=== PATIENT | male | born 1940 | race Caucasian/White ===

== ENCOUNTER 2018-07-26 13:45 | Inpatient (IN) | payer MEDICARE, SELFPAY ==
[2018-07-26] VITALS (12 sets, daily range): BP systolic 83–137; BP diastolic 43–65; PULSE 60–74; RESP 16–26; TEMP 35.6–37.9; O2SAT 90–98; BMI 29.8
--- NOTE | 2018-07-26 15:49 | DI.RAD.S_ITS ---
PROCEDURE: XR CHEST 1V INDICATIONS: suspected sepsis TECHNIQUE: One view of the chest was acquired. COMPARISON: None. FINDINGS: Surgical changes and devices: Left chest wall pacemaker leads are seen in the region of right atrium and right ventricle. Lungs and pleura: No pleural effusions or pneumothorax. Lungs are clear. Mediastinum: Mediastinal contours appear normal. Heart size is enlarged. Bones and chest wall: No suspicious bony lesions. Overlying soft tissues appear unremarkable. IMPRESSION: No acute cardiopulmonary pathology. Dictated by: Francois Quiles M.D. on 07/26/2018 at 16:07 Approved by: Francois Quiles M.D. on 07/26/2018 at 16:07
--- NOTE | 2018-07-26 16:21 | ED.MALEGU ---
HPI - Male Genitourinary General Chief complaint: Urogenital-Male Stated complaint: high temp, uti ? Time Seen by Provider: 07/26/18 16:12 Source: patient and family Mode of arrival: ambulatory Limitations: no limitations History of Present Illness HPI Narrative: Patient is a 77-year-old male who presents with fever and confusion today. He has been in and out of hospital to the [place] [facility]. Over last 2 and half weeks. He at some point started self cathing because he had urinary retention. I today he became quite confused thought that he had urinary retention they did a self cath he got 400 out. However she brought him to the ER for further evaluation because he also had a fever of 102. He said shaking and chills. He was out in the waiting room for some time however vitals were rechecked and blood pressure dropped to 85. He is sweaty and clammy at this time. He is awake alert and not confused at this time. He has no chest pain no cough no shortness of breath no abdominal pain nausea vomiting or diarrhea. Related Data Home Medications Medication Instructions Recorded Confirmed aspirin 81 mg PO DAILY #0 12/13/17 07/26/18 atorvastatin 40 mg PO DAILY #0 12/13/17 07/26/18 calcium carbonate-vitamin D3 1 cap PO QDAY #0 12/13/17 07/26/18 [Calcium 600 with Vitamin D3] cholecalciferol (vitamin D3) 2,000 unit PO QDAY #0 12/13/17 07/26/18 [Vitamin D3] cinnamon bark [Cinnamon] 500 mg PO DAILY #0 12/13/17 07/26/18 insulin glargine [Lantus U-100 54 unit SQ BEDTIME #0 12/13/17 07/26/18 Insulin] losartan 100 mg PO DAILY #0 12/13/17 07/26/18 lutein 6 mg PO QDAY #0 12/13/17 07/26/18 [id number]-mins 1 tab PO DAILY #0 12/13/17 07/26/18 [Thera M Plus (ferrous fumarat)] sennosides [Senna Lax] 8.6 mg PO BID PRN #0 12/13/17 07/26/18 finasteride 5 mg PO DAILY 07/26/18 07/26/18 tamsulosin 0.4 mg PO DAILY 07/26/18 07/26/18 Allergies Allergy/AdvReac Type Severity Reaction Status Date / Time caffeine [CAFFEINE] Allergy Unknown Unverified 07/26/18 19:39 Review of Systems Review of Systems All systems reviewed & are unremarkable except as noted in HPI and below Constitutional Reports body ache(s), Reports chills and Reports fever(s) Eyes Denies change in vision, Denies eye discharge, Denies irritation and Denies loss of vision Cardiovascular Denies chest pain, Denies irregular heart rhythm, Denies lightheadedness, Denies palpitations, Denies dyspnea, Denies dyspnea on exertion and Denies orthopnea Respiratory Denies cough, Denies dyspnea, Denies dyspnea on exertion and Denies wheezing Gastrointestinal Gastrointestinal: Denies abdominal pain, Denies change in bowel habits, Denies diarrhea, Denies nausea and Denies vomiting Genitourinary Reports as per HPI Musculoskeletal Denies back pain, Denies muscle weakness, Denies numbness and Denies tingling Neurologic Denies loss of vision, Denies numbness and Denies tingling Endocrine Denies palpitations Allergic/Immunologic Denies wheezing PFSH Medical History Acute urinary retention (Acute) Diabetes mellitus (Acute) Great toe amputation status (Acute) Hyperlipidemia (Acute) Hypertension (Acute) Surgical History History of permanent cardiac pacemaker placement (Acute) Family History Father Cancer Social History household members: spouse Smoking Status: Former smoker alcohol intake: former Exam Initial Vital Signs Initial Vital Signs: Vital Signs Temperature 98.1 F 07/26/18 13:48 Pulse Rate 64 07/26/18 13:48 Respiratory Rate 20 07/26/18 13:48 Blood Pressure 110/57 L 07/26/18 13:48 Pulse Oximetry 97 07/26/18 13:48 Course Orders Ordered: ED Orders 07/27/18 00:32 Consult to Respiratory Therapy Evaluate & Treat 07/27/18 04:55 Complete Blood Count AUTO DIFF Routine Comprehensive Metabolic Panel Routine Acetaminophen (Tylenol) 650 mg PO Q6HR PRN PRN Reason: As Needed for Fever/Mild Pain Last Admin: 07/26/18 23:53 Dose: 650 mg Hydrocodone Bitart/Acetaminophen ([place] 5/325) 1 tab PO Q4HR PRN PRN Reason: Pain, Moderate (4-6) Al Hydrox/Mg Hydrox/Simethicone (Maalox Plus) 30 ml PO Q6HR PRN PRN Reason: Dyspepsia Aspirin (Aspirin Ec) 81 mg PO DAILY [facility] Atorvastatin Calcium (Lipitor) 40 mg PO BEDTIME [facility] Last Admin: 07/26/18 21:21 Dose: 40 mg Calcium Carbonate (Tums) 1,000 mg PO Q4HR PRN PRN Reason: Dyspepsia Dextrose (D50w) 25 gm IV PRN PRN; Protocol PRN Reason: Hypoglycemia Docusate Sodium (Colace) 100 mg PO BID [facility] Last Admin: 07/26/18 21:21 Dose: 100 mg Enoxaparin Sodium (Lovenox) 40 mg SUBCUT DAILY [facility] Finasteride (Proscar) 5 mg PO BEDTIME [facility] Last Admin: 07/26/18 21:21 Dose: 5 mg Ceftriaxone Sodium/Dextrose (Rocephin) 1 gm in 50 mls @ 100 mls/hr IV Q24H [facility] Sodium Chloride (Normal Saline 0.9%) 1,000 mls @ 100 mls/hr IV CONT [facility] Last Admin: 07/27/18 03:32 Dose: 100 mls/hr Admin: 07/26/18 21:19 Dose: Insulin Aspart (Novolog Flexpen) 0 unit SUBCUT ACHS [facility]; Protocol Last Admin: 07/26/18 21:23 Dose: Not Given Insulin Glargine (Lantus Solostar (Pen)) 50 unit SUBCUT BEDTIME [facility] Last Admin: 07/26/18 21:24 Dose: 50 unit Lutein (Ocuvite/Lutein) 1 cap PO DAILY [facility] Morphine Sulfate (Morphine) 2 mg IV Q4HR PRN PRN Reason: Pain, Moderate (4-6) Ondansetron HCl (Zofran) 4 mg IV Q8HR PRN PRN Reason: Nausea And Vomiting Tamsulosin HCl (Flomax) 0.4 mg PO DAILY [facility] Discontinued Medications Sodium Chloride (Normal Saline 0.9%) 1,000 mls @ 1,000 mls/hr IV BOLUS ONE Stop: 07/26/18 16:48 Last Infusion: 07/26/18 17:52 Dose: 0 mls/hr Admin: 07/26/18 16:35 Dose: 1,000 mls/hr Sodium Chloride (Normal Saline 0.9%) 1,000 mls @ 1,000 mls/hr IV BOLUS ONE Stop: 07/26/18 17:11 Last Infusion: 07/26/18 18:38 Dose: 0 mls/hr Admin: 07/26/18 16:40 Dose: 1,000 mls/hr Ceftriaxone Sodium/Dextrose (Rocephin) 1 gm in 50 mls @ 100 mls/hr IV NOW ONE Stop: 07/26/18 17:42 Last Infusion: 07/26/18 17:52 Dose: 0 mls/hr Admin: 07/26/18 17:19 Dose: 100 mls/hr Sodium Chloride (Normal Saline 0.9%) 1,000 mls @ 125 mls/hr IV CONT ABIODUN Last Infusion: 07/26/18 20:16 Dose: 100 mls/hr Admin: 07/26/18 18:05 Dose: 125 mls/hr Vital Signs - 8 hr 07/26/18 23:50 07/26/18 23:53 07/27/18 00:00 Temperature 100.3 F H 100.3 F H Pulse Rate 74 68 Respiratory Rate 20 Blood Pressure 148/49 H Pulse Oximetry 91 07/27/18 00:17 07/27/18 00:42 07/27/18 02:01 Temperature 101.9 F H 98.9 F Pulse Rate 68 Respiratory Rate 16 Blood Pressure Pulse Oximetry 86 L 92 07/27/18 02:02 07/27/18 04:29 Temperature 98.9 F 98.7 F Pulse Rate 60 60 Respiratory Rate 16 20 Blood Pressure 122/49 L Pulse Oximetry 98 100 MDM - Male Genitourinary Lab Data Attestation: I reviewed the patient's lab results. Result diagrams: 07/27/18 04:55 07/27/18 04:55 Lab Results 07/26/18 07/26/18 07/26/18 Range/Units 16:08 16:08 16:08 WBC 11.1 H (4.5-11.0) X10^3/uL RBC 4.19 L (4.5-5.9) X10^6/uL Hgb 11.7 L (13.5-17.5) g/dL Hct 34.6 L (41-53) % MCV 82.6 (80-100) fL MCH 27.9 (26-34) PG MCHC 33.8 (30-36) % RDW 15.3 H (11.6-14.8) % Plt Count 122 L (150-400) X10^3/uL Neut % (Auto) 84.8 H (50-75) % Lymph % (Auto) 6.7 L (25-40) % [place] % (Auto) 8.2 (3-14) % Eos % (Auto) 0.0 L (2-4) % Baso % (Auto) 0.3 (0-2) % Neut # (Auto) 9400 H (9735-6909) /uL PT 11.6 (10.1-12.7) SECONDS INR 1.1 (0.9-1.3) APTT 30 (26.4-36.2) SECONDS Sodium (137-145) mmol/L Potassium (3.4-5.1) mmol/L Chloride (98-107) mmol/L Carbon Dioxide (22-32) mmol/L BUN (9-20) mg/dL Creatinine (0.66-1.25) mg/dL Estimated GFR (>60) mL/min BUN/Creatinine Ratio (6-22) Glucose (80-110) mg/dL Hemoglobin A1c (4.0-6.0) % Lactate (0.7-2.1) mmol/L Calcium (8.4-10.2) mg/dL Total Bilirubin (0.2-1.3) mg/dL AST (17-59) IU/L ALT (21-72) IU/L Alkaline Phosphatase (38-126) U/L Total Protein (6.3-8.2) g/dL Albumin (3.5-5.0) g/dL Globulin (1.7-4.1) g/dL Albumin/Globulin Ratio (1.0-2.8) Lipase (23-300) U/L Procalcitonin 0.93 H (<0.5) ng/mL Urine RBC (0-5/HPF) Urine WBC (0-5/HPF) Ur Squamous Epith Cells Amorphous Sediment Urine Bacteria (None) Ur Culture Indicated? Micro UA Comment Nasal Screen MRSA (PCR) (Negative) 07/26/18 07/26/18 07/26/18 Range/Units 16:08 16:08 16:08 WBC (4.5-11.0) X10^3/uL RBC (4.5-5.9) X10^6/uL Hgb (13.5-17.5) g/dL Hct (41-53) % MCV (80-100) fL MCH (26-34) PG MCHC (30-36) % RDW (11.6-14.8) % Plt Count (150-400) X10^3/uL Neut % (Auto) (50-75) % Lymph % (Auto) (25-40) % [place] % (Auto) (3-14) % Eos % (Auto) (2-4) % Baso % (Auto) (0-2) % Neut # (Auto) (8765-5578) /uL PT (10.1-12.7) SECONDS INR (0.9-1.3) APTT (26.4-36.2) SECONDS Sodium 137 (137-145) mmol/L Potassium 4.0 (3.4-5.1) mmol/L Chloride 99 (98-107) mmol/L Carbon Dioxide 23 (22-32) mmol/L BUN 39 H (9-20) mg/dL Creatinine 1.80 H (0.66-1.25) mg/dL Estimated GFR 36.6 L (>60) mL/min BUN/Creatinine Ratio 21.7 (6-22) Glucose 105 (80-110) mg/dL Hemoglobin A1c 8.8 H (4.0-6.0) % Lactate 1.6 (0.7-2.1) mmol/L Calcium 8.7 (8.4-10.2) mg/dL Total Bilirubin 2.0 H (0.2-1.3) mg/dL AST 49 (17-59) IU/L ALT 41 (21-72) IU/L Alkaline Phosphatase 45 (38-126) U/L Total Protein 6.5 (6.3-8.2) g/dL Albumin 3.7 (3.5-5.0) g/dL Globulin 2.8 (1.7-4.1) g/dL Albumin/Globulin Ratio 1.3 (1.0-2.8) Lipase 41 (23-300) U/L Procalcitonin (<0.5) ng/mL Urine RBC (0-5/HPF) Urine WBC (0-5/HPF) Ur Squamous Epith Cells Amorphous Sediment Urine Bacteria (None) Ur Culture Indicated? Micro UA Comment Nasal Screen MRSA (PCR) (Negative) 07/26/18 07/26/18 07/27/18 Range/Units 17:06 21:30 04:55 WBC 8.6 (4.5-11.0) X10^3/uL RBC 3.71 L (4.5-5.9) X10^6/uL Hgb 10.7 L (13.5-17.5) g/dL Hct 30.6 L (41-53) % MCV 82.6 (80-100) fL MCH 28.9 (26-34) PG MCHC 35.1 (30-36) % RDW 15.0 H (11.6-14.8) % Plt Count 119 L (150-400) X10^3/uL Neut % (Auto) 82.0 H (50-75) % Lymph % (Auto) 7.9 L (25-40) % [place] % (Auto) 9.5 (3-14) % Eos % (Auto) 0.4 L (2-4) % Baso % (Auto) 0.2 (0-2) % Neut # (Auto) 7100 H (3719-4164) /uL PT (10.1-12.7) SECONDS INR (0.9-1.3) APTT (26.4-36.2) SECONDS Sodium (137-145) mmol/L Potassium (3.4-5.1) mmol/L Chloride (98-107) mmol/L Carbon Dioxide (22-32) mmol/L BUN (9-20) mg/dL Creatinine (0.66-1.25) mg/dL Estimated GFR (>60) mL/min BUN/Creatinine Ratio (6-22) Glucose (80-110) mg/dL Hemoglobin A1c (4.0-6.0) % Lactate (0.7-2.1) mmol/L Calcium (8.4-10.2) mg/dL Total Bilirubin (0.2-1.3) mg/dL AST (17-59) IU/L ALT (21-72) IU/L Alkaline Phosphatase (38-126) U/L Total Protein (6.3-8.2) g/dL Albumin (3.5-5.0) g/dL Globulin (1.7-4.1) g/dL Albumin/Globulin Ratio (1.0-2.8) Lipase (23-300) U/L Procalcitonin (<0.5) ng/mL Urine RBC 1-5/hpf (0-5/HPF) Urine WBC 0-1/hpf (0-5/HPF) Ur Squamous Epith Cells 0-1 /hpf Amorphous Sediment 1+ Urine Bacteria None seen (None) Ur Culture Indicated? Cult not indicated Micro UA Comment Not Reportable Nasal Screen MRSA (PCR) Negative for mrsa (Negative) 07/27/18 Range/Units 04:55 WBC (4.5-11.0) X10^3/uL RBC (4.5-5.9) X10^6/uL Hgb (13.5-17.5) g/dL Hct (41-53) % MCV (80-100) fL MCH (26-34) PG MCHC (30-36) % RDW (11.6-14.8) % Plt Count (150-400) X10^3/uL Neut % (Auto) (50-75) % Lymph % (Auto) (25-40) % [place] % (Auto) (3-14) % Eos % (Auto) (2-4) % Baso % (Auto) (0-2) % Neut # (Auto) (9853-2971) /uL PT (10.1-12.7) SECONDS INR (0.9-1.3) APTT (26.4-36.2) SECONDS Sodium 138 (137-145) mmol/L Potassium 3.7 (3.4-5.1) mmol/L Chloride 106 (98-107) mmol/L Carbon Dioxide 22 (22-32) mmol/L BUN 33 H (9-20) mg/dL Creatinine 1.50 H (0.66-1.25) mg/dL Estimated GFR 45.1 L (>60) mL/min BUN/Creatinine Ratio 22.0 (6-22) Glucose 95 (80-110) mg/dL Hemoglobin A1c (4.0-6.0) % Lactate (0.7-2.1) mmol/L Calcium 7.7 L (8.4-10.2) mg/dL Total Bilirubin 1.3 (0.2-1.3) mg/dL AST 47 (17-59) IU/L ALT 45 (21-72) IU/L Alkaline Phosphatase 43 (38-126) U/L Total Protein 5.4 L (6.3-8.2) g/dL Albumin 2.8 L (3.5-5.0) g/dL Globulin 2.6 (1.7-4.1) g/dL Albumin/Globulin Ratio 1.1 (1.0-2.8) Lipase (23-300) U/L Procalcitonin (<0.5) ng/mL Urine RBC (0-5/HPF) Urine WBC (0-5/HPF) Ur Squamous Epith Cells Amorphous Sediment Urine Bacteria (None) Ur Culture Indicated? Micro UA Comment Nasal Screen MRSA (PCR) (Negative) Point of Care Testing Glucose POC 119 Urine Dip Bedside Urine Glucose Negative Bedside Urine Bilirubin - Negative Bedside Urine Ketone - Negative Urine Specific [place] 1.015 Bedside Urine Occult Blood +++ Bedside Urine pH 6.0 Bedside Urine Protein +/- 15 Bedside Urine Urobilinogen - Negative Bedside Urine Nitrite - Negative Bedside Urine Leukocytes - Negative Esterase MDM Narrative Medical decision making narrative: Patient initially was quite hypotensive but responded well to fluids. He has a normal lactic acid mild leukocytosis and however is procalcitonin is elevated. Urine and chest x-ray are surprisingly negative. Patient likely has a bacterial infection. He has no headache or neck pain I do not suspect meningitis. His abdomen remains soft. At this time recommend observation. He has no clear source of infection he was hypotensive and has an elevated pro calcitonin suggestive of bacterial infection. Possible prostatitis. He also has risk factors of diabetes recent hospitalization. Still awaiting [facility] records. Dr. Paitner has been updated on patient's symptoms and test results and is in the emergency department to see and evaluate him. Discharge Plan Departure Patient Disposition: Admitted as Observation Clinical Impression: Sepsis Discharge Date/Time: 07/26/18 19:55 Interventions: ED Discharge Assessment Last Done: 07/26/18 19:55 Admit Date/Time: 07/26/18 18:11 Admit Provider: Sahara Painter
[2018-07-26 16:22] LABS: Add Manual Diff / Slide Review NO; Basophils Percent Auto 0.3 % (0-2); Hematocrit 34.6 % (41-53); Hemoglobin 11.7 g/dL (13.5-17.5); Lymphocytes Percent Auto 6.7 % (25-40); Mean Corpuscular HGB Conc 33.8 % (30-36); Mean Corpuscular Hemoglobin 27.9 PG (26-34); Mean Corpuscular Volume 82.6 fL (80-100); Monocytes Percent Auto 8.2 % (3-14); Neutrophils Absolute Auto 9400 /uL (3000-5900); Neutrophils Percent Auto 84.8 % (50-75); Platelet Count 122 X10^3/uL (150-400); Red Blood Cell Count 4.19 X10^6/uL (4.5-5.9); Red Cell Distribution Width 15.3 % (11.6-14.8); White Blood Cell Count 11.1 X10^3/uL (4.5-11.0)
[2018-07-26 16:27] LABS: INR 1.1 (0.9-1.3); Prothrombin Time 11.6 SECONDS (10.1-12.7)
--- NOTE | 2018-07-26 16:27 | ED_ITS ---
HPI - Male Genitourinary General Chief complaint: Urogenital-Male Stated complaint: high temp, uti ? Time Seen by Provider: 07/26/18 16:12 Source: patient and family Mode of arrival: ambulatory Limitations: no limitations History of Present Illness HPI Narrative: Patient is a 77-year-old male who presents with fever and confusion today. He has been in and out of hospital to the [place] and [facility]. Over last 2 and half weeks. He at some point started self cathing because he had urinary retention. I today he became quite confused thought that he had urinary retention they did a self cath he got 400 out. However she brought him to the ER for further evaluation because he also had a fever of 102. He said shaking and chills. He was out in the waiting room for some time however vitals were rechecked and blood pressure dropped to 85. He is sweaty and clammy at this time. He is awake alert and not confused at this time. He has no chest pain no cough no shortness of breath no abdominal pain nausea vomiting or diarrhea. Related Data Home Medications Medication Instructions Recorded Confirmed aspirin 81 mg PO DAILY #0 12/13/17 07/26/18 atorvastatin 40 mg PO DAILY #0 12/13/17 07/26/18 calcium carbonate-vitamin D3 1 cap PO QDAY #0 12/13/17 07/26/18 [Calcium 600 with Vitamin D3] cholecalciferol (vitamin D3) 2,000 unit PO QDAY #0 12/13/17 07/26/18 [Vitamin D3] cinnamon bark [Cinnamon] 500 mg PO DAILY #0 12/13/17 07/26/18 insulin glargine [Lantus U-100 54 unit SQ BEDTIME #0 12/13/17 07/26/18 Insulin] losartan 100 mg PO DAILY #0 12/13/17 07/26/18 lutein 6 mg PO QDAY #0 12/13/17 07/26/18 sfhnssmw-srnf-IZ-calcium-mins 1 tab PO DAILY #0 12/13/17 07/26/18 [Thera M Plus (ferrous fumarat)] sennosides [Senna Lax] 8.6 mg PO BID PRN #0 12/13/17 07/26/18 finasteride 5 mg PO DAILY 07/26/18 07/26/18 tamsulosin 0.4 mg PO DAILY 07/26/18 07/26/18 Allergies Allergy/AdvReac Type Severity Reaction Status Date / Time caffeine [CAFFEINE] Allergy Unknown Unverified 07/26/18 19:39 Review of Systems Review of Systems All systems reviewed & are unremarkable except as noted in HPI and below Constitutional Reports body ache(s), Reports chills and Reports fever(s) Eyes Denies change in vision, Denies eye discharge, Denies irritation and Denies loss of vision Cardiovascular Denies chest pain, Denies irregular heart rhythm, Denies lightheadedness, Denies palpitations, Denies dyspnea, Denies dyspnea on exertion and Denies orthopnea Respiratory Denies cough, Denies dyspnea, Denies dyspnea on exertion and Denies wheezing Gastrointestinal Gastrointestinal: Denies abdominal pain, Denies change in bowel habits, Denies diarrhea, Denies nausea and Denies vomiting Genitourinary Reports as per HPI Musculoskeletal Denies back pain, Denies muscle weakness, Denies numbness and Denies tingling Neurologic Denies loss of vision, Denies numbness and Denies tingling Endocrine Denies palpitations Allergic/Immunologic Denies wheezing PFSH Medical History Acute urinary retention (Acute) Diabetes mellitus (Acute) Great toe amputation status (Acute) Hyperlipidemia (Acute) Hypertension (Acute) Surgical History History of permanent cardiac pacemaker placement (Acute) Family History Father Cancer Social History household members: spouse Smoking Status: Former smoker alcohol intake: former Exam Initial Vital Signs Initial Vital Signs: Vital Signs Temperature 98.1 F 07/26/18 13:48 Pulse Rate 64 07/26/18 13:48 Respiratory Rate 20 07/26/18 13:48 Blood Pressure 110/57 L 07/26/18 13:48 Pulse Oximetry 97 07/26/18 13:48 Course Orders Ordered: ED Orders 07/27/18 00:32 Consult to Respiratory Therapy Evaluate & Treat 07/27/18 04:55 Complete Blood Count AUTO DIFF Routine Comprehensive Metabolic Panel Routine Acetaminophen (Tylenol) 650 mg PO Q6HR PRN PRN Reason: As Needed for Fever/Mild Pain Last Admin: 07/26/18 23:53 Dose: 650 mg Hydrocodone Bitart/Acetaminophen (Mcnabb 5/325) 1 tab PO Q4HR PRN PRN Reason: Pain, Moderate (4-6) Al Hydrox/Mg Hydrox/Simethicone (Maalox Plus) 30 ml PO Q6HR PRN PRN Reason: Dyspepsia Aspirin (Aspirin Ec) 81 mg PO DAILY [facility] Atorvastatin Calcium (Lipitor) 40 mg PO BEDTIME [facility] Last Admin: 07/26/18 21:21 Dose: 40 mg Calcium Carbonate (Tums) 1,000 mg PO Q4HR PRN PRN Reason: Dyspepsia Dextrose (D50w) 25 gm IV PRN PRN; Protocol PRN Reason: Hypoglycemia Docusate Sodium (Colace) 100 mg PO BID [facility] Last Admin: 07/26/18 21:21 Dose: 100 mg Enoxaparin Sodium (Lovenox) 40 mg SUBCUT DAILY [facility] Finasteride (Proscar) 5 mg PO BEDTIME [facility] Last Admin: 07/26/18 21:21 Dose: 5 mg Ceftriaxone Sodium/Dextrose (Rocephin) 1 gm in 50 mls @ 100 mls/hr IV Q24H [facility] Sodium Chloride (Normal Saline 0.9%) 1,000 mls @ 100 mls/hr IV CONT [facility] Last Admin: 07/27/18 03:32 Dose: 100 mls/hr Admin: 07/26/18 21:19 Dose: Insulin Aspart (Novolog Flexpen) 0 unit SUBCUT ACHS [facility]; Protocol Last Admin: 07/26/18 21:23 Dose: Not Given Insulin Glargine (Lantus Solostar (Pen)) 50 unit SUBCUT BEDTIME [facility] Last Admin: 07/26/18 21:24 Dose: 50 unit Lutein (Ocuvite/Lutein) 1 cap PO DAILY [facility] Morphine Sulfate (Morphine) 2 mg IV Q4HR PRN PRN Reason: Pain, Moderate (4-6) Ondansetron HCl (Zofran) 4 mg IV Q8HR PRN PRN Reason: Nausea And Vomiting Tamsulosin HCl (Flomax) 0.4 mg PO DAILY [facility] Discontinued Medications Sodium Chloride (Normal Saline 0.9%) 1,000 mls @ 1,000 mls/hr IV BOLUS ONE Stop: 07/26/18 16:48 Last Infusion: 07/26/18 17:52 Dose: 0 mls/hr Admin: 07/26/18 16:35 Dose: 1,000 mls/hr Sodium Chloride (Normal Saline 0.9%) 1,000 mls @ 1,000 mls/hr IV BOLUS ONE Stop: 07/26/18 17:11 Last Infusion: 07/26/18 18:38 Dose: 0 mls/hr Admin: 07/26/18 16:40 Dose: 1,000 mls/hr Ceftriaxone Sodium/Dextrose (Rocephin) 1 gm in 50 mls @ 100 mls/hr IV NOW ONE Stop: 07/26/18 17:42 Last Infusion: 07/26/18 17:52 Dose: 0 mls/hr Admin: 07/26/18 17:19 Dose: 100 mls/hr Sodium Chloride (Normal Saline 0.9%) 1,000 mls @ 125 mls/hr IV CONT ABIODUN Last Infusion: 07/26/18 20:16 Dose: 100 mls/hr Admin: 07/26/18 18:05 Dose: 125 mls/hr Vital Signs - 8 hr 07/26/18 23:50 07/26/18 23:53 07/27/18 00:00 Temperature 100.3 F H 100.3 F H Pulse Rate 74 68 Respiratory Rate 20 Blood Pressure 148/49 H Pulse Oximetry 91 07/27/18 00:17 07/27/18 00:42 07/27/18 02:01 Temperature 101.9 F H 98.9 F Pulse Rate 68 Respiratory Rate 16 Blood Pressure Pulse Oximetry 86 L 92 07/27/18 02:02 07/27/18 04:29 Temperature 98.9 F 98.7 F Pulse Rate 60 60 Respiratory Rate 16 20 Blood Pressure 122/49 L Pulse Oximetry 98 100 MDM - Male Genitourinary Lab Data Attestation: I reviewed the patient's lab results. Result diagrams: 07/27/18 04:55 07/27/18 04:55 Lab Results 07/26/18 07/26/18 07/26/18 Range/Units 16:08 16:08 16:08 WBC 11.1 H (4.5-11.0) X10^3/uL RBC 4.19 L (4.5-5.9) X10^6/uL Hgb 11.7 L (13.5-17.5) g/dL Hct 34.6 L (41-53) % MCV 82.6 (80-100) fL MCH 27.9 (26-34) PG MCHC 33.8 (30-36) % RDW 15.3 H (11.6-14.8) % Plt Count 122 L (150-400) X10^3/uL Neut % (Auto) 84.8 H (50-75) % Lymph % (Auto) 6.7 L (25-40) % [place] % (Auto) 8.2 (3-14) % Eos % (Auto) 0.0 L (2-4) % Baso % (Auto) 0.3 (0-2) % Neut # (Auto) 9400 H (2527-9047) /uL PT 11.6 (10.1-12.7) SECONDS INR 1.1 (0.9-1.3) APTT 30 (26.4-36.2) SECONDS Sodium (137-145) mmol/L Potassium (3.4-5.1) mmol/L Chloride (98-107) mmol/L Carbon Dioxide (22-32) mmol/L BUN (9-20) mg/dL Creatinine (0.66-1.25) mg/dL Estimated GFR (>60) mL/min BUN/Creatinine Ratio (6-22) Glucose (80-110) mg/dL Hemoglobin A1c (4.0-6.0) % Lactate (0.7-2.1) mmol/L Calcium (8.4-10.2) mg/dL Total Bilirubin (0.2-1.3) mg/dL AST (17-59) IU/L ALT (21-72) IU/L Alkaline Phosphatase (38-126) U/L Total Protein (6.3-8.2) g/dL Albumin (3.5-5.0) g/dL Globulin (1.7-4.1) g/dL Albumin/Globulin Ratio (1.0-2.8) Lipase (23-300) U/L Procalcitonin 0.93 H (<0.5) ng/mL Urine RBC (0-5/HPF) Urine WBC (0-5/HPF) Ur Squamous Epith Cells Amorphous Sediment Urine Bacteria (None) Ur Culture Indicated? Micro UA Comment Nasal Screen MRSA (PCR) (Negative) 07/26/18 07/26/18 07/26/18 Range/Units 16:08 16:08 16:08 WBC (4.5-11.0) X10^3/uL RBC (4.5-5.9) X10^6/uL Hgb (13.5-17.5) g/dL Hct (41-53) % MCV (80-100) fL MCH (26-34) PG MCHC (30-36) % RDW (11.6-14.8) % Plt Count (150-400) X10^3/uL Neut % (Auto) (50-75) % Lymph % (Auto) (25-40) % [place] % (Auto) (3-14) % Eos % (Auto) (2-4) % Baso % (Auto) (0-2) % Neut # (Auto) (5239-5084) /uL PT (10.1-12.7) SECONDS INR (0.9-1.3) APTT (26.4-36.2) SECONDS Sodium 137 (137-145) mmol/L Potassium 4.0 (3.4-5.1) mmol/L Chloride 99 (98-107) mmol/L Carbon Dioxide 23 (22-32) mmol/L BUN 39 H (9-20) mg/dL Creatinine 1.80 H (0.66-1.25) mg/dL Estimated GFR 36.6 L (>60) mL/min BUN/Creatinine Ratio 21.7 (6-22) Glucose 105 (80-110) mg/dL Hemoglobin A1c 8.8 H (4.0-6.0) % Lactate 1.6 (0.7-2.1) mmol/L Calcium 8.7 (8.4-10.2) mg/dL Total Bilirubin 2.0 H (0.2-1.3) mg/dL AST 49 (17-59) IU/L ALT 41 (21-72) IU/L Alkaline Phosphatase 45 (38-126) U/L Total Protein 6.5 (6.3-8.2) g/dL Albumin 3.7 (3.5-5.0) g/dL Globulin 2.8 (1.7-4.1) g/dL Albumin/Globulin Ratio 1.3 (1.0-2.8) Lipase 41 (23-300) U/L Procalcitonin (<0.5) ng/mL Urine RBC (0-5/HPF) Urine WBC (0-5/HPF) Ur Squamous Epith Cells Amorphous Sediment Urine Bacteria (None) Ur Culture Indicated? Micro UA Comment Nasal Screen MRSA (PCR) (Negative) 07/26/18 07/26/18 07/27/18 Range/Units 17:06 21:30 04:55 WBC 8.6 (4.5-11.0) X10^3/uL RBC 3.71 L (4.5-5.9) X10^6/uL Hgb 10.7 L (13.5-17.5) g/dL Hct 30.6 L (41-53) % MCV 82.6 (80-100) fL MCH 28.9 (26-34) PG MCHC 35.1 (30-36) % RDW 15.0 H (11.6-14.8) % Plt Count 119 L (150-400) X10^3/uL Neut % (Auto) 82.0 H (50-75) % Lymph % (Auto) 7.9 L (25-40) % [place] % (Auto) 9.5 (3-14) % Eos % (Auto) 0.4 L (2-4) % Baso % (Auto) 0.2 (0-2) % Neut # (Auto) 7100 H (5079-7019) /uL PT (10.1-12.7) SECONDS INR (0.9-1.3) APTT (26.4-36.2) SECONDS Sodium (137-145) mmol/L Potassium (3.4-5.1) mmol/L Chloride (98-107) mmol/L Carbon Dioxide (22-32) mmol/L BUN (9-20) mg/dL Creatinine (0.66-1.25) mg/dL Estimated GFR (>60) mL/min BUN/Creatinine Ratio (6-22) Glucose (80-110) mg/dL Hemoglobin A1c (4.0-6.0) % Lactate (0.7-2.1) mmol/L Calcium (8.4-10.2) mg/dL Total Bilirubin (0.2-1.3) mg/dL AST (17-59) IU/L ALT (21-72) IU/L Alkaline Phosphatase (38-126) U/L Total Protein (6.3-8.2) g/dL Albumin (3.5-5.0) g/dL Globulin (1.7-4.1) g/dL Albumin/Globulin Ratio (1.0-2.8) Lipase (23-300) U/L Procalcitonin (<0.5) ng/mL Urine RBC 1-5/hpf (0-5/HPF) Urine WBC 0-1/hpf (0-5/HPF) Ur Squamous Epith Cells 0-1 /hpf Amorphous Sediment 1+ Urine Bacteria None seen (None) Ur Culture Indicated? Cult not indicated Micro UA Comment Not Reportable Nasal Screen MRSA (PCR) Negative for mrsa (Negative) 07/27/18 Range/Units 04:55 WBC (4.5-11.0) X10^3/uL RBC (4.5-5.9) X10^6/uL Hgb (13.5-17.5) g/dL Hct (41-53) % MCV (80-100) fL MCH (26-34) PG MCHC (30-36) % RDW (11.6-14.8) % Plt Count (150-400) X10^3/uL Neut % (Auto) (50-75) % Lymph % (Auto) (25-40) % [place] % (Auto) (3-14) % Eos % (Auto) (2-4) % Baso % (Auto) (0-2) % Neut # (Auto) (6922-8201) /uL PT (10.1-12.7) SECONDS INR (0.9-1.3) APTT (26.4-36.2) SECONDS Sodium 138 (137-145) mmol/L Potassium 3.7 (3.4-5.1) mmol/L Chloride 106 (98-107) mmol/L Carbon Dioxide 22 (22-32) mmol/L BUN 33 H (9-20) mg/dL Creatinine 1.50 H (0.66-1.25) mg/dL Estimated GFR 45.1 L (>60) mL/min BUN/Creatinine Ratio 22.0 (6-22) Glucose 95 (80-110) mg/dL Hemoglobin A1c (4.0-6.0) % Lactate (0.7-2.1) mmol/L Calcium 7.7 L (8.4-10.2) mg/dL Total Bilirubin 1.3 (0.2-1.3) mg/dL AST 47 (17-59) IU/L ALT 45 (21-72) IU/L Alkaline Phosphatase 43 (38-126) U/L Total Protein 5.4 L (6.3-8.2) g/dL Albumin 2.8 L (3.5-5.0) g/dL Globulin 2.6 (1.7-4.1) g/dL Albumin/Globulin Ratio 1.1 (1.0-2.8) Lipase (23-300) U/L Procalcitonin (<0.5) ng/mL Urine RBC (0-5/HPF) Urine WBC (0-5/HPF) Ur Squamous Epith Cells Amorphous Sediment Urine Bacteria (None) Ur Culture Indicated? Micro UA Comment Nasal Screen MRSA (PCR) (Negative) Point of Care Testing Glucose POC 119 Urine Dip Bedside Urine Glucose Negative Bedside Urine Bilirubin - Negative Bedside Urine Ketone - Negative Urine Specific [place] 1.015 Bedside Urine Occult Blood +++ Bedside Urine pH 6.0 Bedside Urine Protein +/- 15 Bedside Urine Urobilinogen - Negative Bedside Urine Nitrite - Negative Bedside Urine Leukocytes - Negative Esterase MDM Narrative Medical decision making narrative: Patient initially was quite hypotensive but responded well to fluids. He has a normal lactic acid mild leukocytosis and however is procalcitonin is elevated. Urine and chest x-ray are surprisingly negative. Patient likely has a bacterial infection. He has no headache or neck pain I do not suspect meningitis. His abdomen remains soft. At this time recommend observation. He has no clear source of infection he was hypotensive and has an elevated pro calcitonin suggestive of bacterial infection. Possible prostatitis. He also has risk factors of diabetes recent hospitalization. Still awaiting [facility] records. Dr. Painter has been updated on patient's symptoms and test results and is in the emergency department to see and evaluate him. Discharge Plan Departure Patient Disposition: Admitted as Observation Clinical Impression: Sepsis Discharge Date/Time: 07/26/18 19:55 Interventions: ED Discharge Assessment Last Done: 07/26/18 19:55 Admit Date/Time: 07/26/18 18:11 Admit Provider: Sahara Painter
[2018-07-26 16:29] LABS: PTT Partial Thromboplastin Tim 30 SECONDS (26.4-36.2)
[2018-07-26 16:33] LABS: Lactate (Lactic Acid) 1.6 mmol/L (0.7-2.1)
[2018-07-26 16:34] LABS: Alanine Aminotransferase 41 IU/L (21-72); Albumin 3.7 g/dL (3.5-5.0); Albumin Globulin Ratio 1.3 (1.0-2.8); Alkaline Phosphatase 45 U/L (38-126); Aspartate Aminotransferase 49 IU/L (17-59); BUN Creatinine Ratio 21.7 (6-22); Blood Urea Nitrogen 39 mg/dL (9-20); Calcium 8.7 mg/dL (8.4-10.2); Carbon Dioxide 23 mmol/L (22-32); Chloride 99 mmol/L (98-107); Estimated Glomerular Filt Rate 36.6 mL/min (>60); Globulin 2.8 g/dL (1.7-4.1); Glucose 105 mg/dL (80-110); HEMOLYSIS < 15 (0-50); Lipase 41 U/L (23-300); Sodium 137 mmol/L (137-145); Total Protein 6.5 g/dL (6.3-8.2)
[2018-07-26] MEDS: SODIUM CHLORIDE 0.9% 1,000 ML 1000 ML IV ×2 (16:35→16:40)
--- NOTE | 2018-07-26 16:42 | PC.NURSE ---
Pt c/o confusion, and weakness. States it started 3 weeks ago and has not really changed. Spouse states she noticed it worse yesterday and compared it to Alzheimer like behavior. Pt denies urinary symptoms but he has been self catheterizing for 1 week.
[2018-07-26 16:52] LABS: Procalcitonin 0.93 ng/mL (<0.5)
[2018-07-26] MEDS: CEFTRIAXONE 1 GM/50 ML FROZ.PIGGY IV (17:19)
[2018-07-26 17:20] LABS: Bacteria Urine None Seen
[2018-07-26] MEDS: SODIUM CHLORIDE 0.9% 1,000 ML 125 ML IV (18:05)
[2018-07-26 18:13] LABS: Amorphous Sediment Urine 1+; Culture Indicated Urine Cult Not Indicated; RBC Urine 1-5/HPF (0-5/HPF); Squamous Epithelial Cell Urine 0-1 /HPF; WBC Urine 0-1/HPF (0-5/HPF)
--- NOTE | 2018-07-26 18:52 | P.HP_ITS ---
History of Present Illness Date Patient Seen: 07/26/18 Chief complaint: high temp, uti ? Narrative: The patient is a 77 y/o male who was in his usual state of health until about 18 days ago. At that time he had confusion, developed urinary retention, initially had a leg bag then placed on intermittant catherization. The patient has had multiple visits to the ED/[facility] etc without conclusion. His reports that he developed shaking chills today, fever to 102 and confusion. He self cathed for 400cc. He was brought to the ED for evaluation. In the Emergency Department he was found to be hypotensive with a SBP of 80. The patient describes feeling weak and dizzy. According to his he is less responsive and quick to answer questions per his usual self. He has had no cough , shortness of breath, or chest pain. He had some vomiting a few days ago but none today. The patient has no rashes, reports some toe pain, but no vomiting of blood, blood from his bottom , melena, hematuria, dysuria, or pyuria. He has no back pain. Patient was found to have an elevated WBC of 11, CRP of .9, negative chest xray, and negative U/A. Given the fever, elevated , white count patient is admitted for presumed sepsis Patient History Medical History Acute urinary retention (Acute) Diabetes mellitus (Acute) Great toe amputation status (Acute) Hyperlipidemia (Acute) Hypertension (Acute) Surgical History History of permanent cardiac pacemaker placement (Acute) Family & Social History Safety & Behavioral: Feels Safe in Current Yes Environment Tobacco & Substance use: Smoking Status Former smoker alcohol intake frequency holiday/special occasion Substance Use Type does not use Meds Home Medications Medication Instructions Recorded Confirmed Type aspirin 81 mg PO DAILY #0 12/13/17 07/26/18 History atorvastatin 40 mg PO DAILY #0 12/13/17 07/26/18 History calcium carbonate-vitamin D3 1 cap PO QDAY #0 12/13/17 07/26/18 History [Calcium 600 with Vitamin D3] cholecalciferol (vitamin D3) 2,000 unit PO QDAY #0 12/13/17 07/26/18 History [Vitamin D3] cinnamon bark [Cinnamon] 500 mg PO DAILY #0 12/13/17 07/26/18 History insulin glargine [Lantus U-100 54 unit SQ BEDTIME #0 12/13/17 07/26/18 History Insulin] losartan 100 mg PO DAILY #0 12/13/17 07/26/18 History lutein 6 mg PO QDAY #0 12/13/17 07/26/18 History nwrcumew-jgnh-BX-calcium-mins 1 tab PO DAILY #0 12/13/17 07/26/18 History [Thera M Plus (ferrous fumarat)] sennosides [Senna Lax] 8.6 mg PO BID PRN #0 12/13/17 07/26/18 History finasteride 5 mg PO DAILY 07/26/18 07/26/18 History tamsulosin 0.4 mg PO DAILY 07/26/18 07/26/18 History Allergies Allergy/AdvReac Type Severity Reaction Status Date / Time caffeine [CAFFEINE] Allergy Unknown Unverified 12/20/17 12:57 Review of Systems Review of Systems All systems reviewed & are unremarkable except as noted in HPI and below Exam Vital Signs (past 8 hours): - 07/26/18 13:48 07/26/18 15:52 07/26/18 17:51 Temperature 98.1 F 97.7 F Pulse Rate 64 63 64 Respiratory Rate 20 20 26 H Blood Pressure 110/57 L Blood Pressure [Right Arm] 83/50 L 133/59 L Pulse Oximetry 97 97 94 Oxygen Delivery Method Room Air Narrative Exam Narrative: Pleasant male in No Acute distress His face is flushed HEENT: NC/AT, EOMI, Oropharyx: clear, neck supple Lungs: clear to auscultation CV: RRR nl Sl S2 Abd: soft/ non tender non distended/ no palpable masses Ext: no edema NEuro: non focal Psych: awake, alert, and appropriate, oriented to place slow to respond to some questions Objective Labs Result Diagrams: 07/26/18 16:08 07/26/18 16:08 Labs: Laboratory Results - last 24 hr 07/26/18 07/26/18 07/26/18 16:08 16:08 16:08 WBC 11.1 H RBC 4.19 L Hgb 11.7 L Hct 34.6 L MCV 82.6 MCH 27.9 MCHC 33.8 RDW 15.3 H Plt Count 122 L Neut % (Auto) 84.8 H Lymph % (Auto) 6.7 L [place] % (Auto) 8.2 Eos % (Auto) 0.0 L Baso % (Auto) 0.3 Neut # (Auto) 9400 H PT 11.6 INR 1.1 APTT 30 Sodium Potassium Chloride Carbon Dioxide BUN Creatinine Estimated GFR BUN/Creatinine Ratio Glucose Lactate Calcium Total Bilirubin AST ALT Alkaline Phosphatase Total Protein Albumin Globulin Albumin/Globulin Ratio Lipase Procalcitonin 0.93 H Urine RBC Urine WBC Ur Squamous Epith Cells Amorphous Sediment Urine Bacteria Ur Culture Indicated? Micro UA Comment 07/26/18 07/26/18 07/26/18 16:08 16:08 17:06 WBC RBC Hgb Hct MCV MCH MCHC RDW Plt Count Neut % (Auto) Lymph % (Auto) [place] % (Auto) Eos % (Auto) Baso % (Auto) Neut # (Auto) PT INR APTT Sodium 137 Potassium 4.0 Chloride 99 Carbon Dioxide 23 BUN 39 H Creatinine 1.80 H Estimated GFR 36.6 L BUN/Creatinine Ratio 21.7 Glucose 105 Lactate 1.6 Calcium 8.7 Total Bilirubin 2.0 H AST 49 ALT 41 Alkaline Phosphatase 45 Total Protein 6.5 Albumin 3.7 Globulin 2.8 Albumin/Globulin Ratio 1.3 Lipase 41 Procalcitonin Urine RBC 1-5/hpf Urine WBC 0-1/hpf Ur Squamous Epith Cells 0-1 /hpf Amorphous Sediment 1+ Urine Bacteria None seen Ur Culture Indicated? Cult not indicated Micro UA Comment Not Reportable Assessment & Plan (1) Chronic renal failure, stage 2 (mild): Problem details: Chronic, once patients blood pressure improves will resume his RODGER-I Current visit: Yes Status: Acute (2) Hyperlipidemia: Problem details: Continue Statin Current visit: Yes Status: Acute (3) Hypertension: Problem details: Hold all blood pressure meds given hypotension earlier Current visit: Yes Status: Acute (4) Urinary retention: Problem details: Woodson catheter placed. No evidence of UTI at this time Current visit: Yes Status: Acute (5) Diabetes mellitus: Problem details: continue Lantus, will add sliding scale as well. Will check HGB AIC Current visit: Yes Status: Acute (6) Sepsis: Problem details: Elevated WBC, Fever, Chills, hypotension, no source identified but suspect urine. Agree with IV hydration, Ceftriaxone, Await blood cultures Qualifiers: Sepsis type: sepsis due to unspecified organism Qualified Code(s): A41.9 - Sepsis, unspecified organism Current visit: Yes Status: Acute Plan: Assessment/Plan Narrative: Full code
--- NOTE | 2018-07-26 20:22 | PC.NURSE ---
Pt admitted floor care in ICU. Transferred via stretcher. Alert, states was feeling confused earlier, but better now. Aware of situation/date/place. Denies pain upon admission. Reports history intermittent pain, left foot, where a toe was amputated (with revision amputation due to infection) this year. operations specialist on, pt has pacemaker-reports due to bradycardia/set at 65. IVF infusing w/o complication to right wrist per order. Woodson patent, urine yellow, [id number] out upon patient arrival from ER. Reports unable to focus/or see well from left eye, due to Bump on optic nerve. Instructed pt to call before getting up. Oriented to room and call light. Bed alarm on due to history of falls/vision impairment.
[2018-07-26 20:49] LABS: Hemoglobin A1C% w Est Avg Glu 8.8 % (4.0-6.0)
[2018-07-26] MEDS: ATORVASTATIN 20 MG TABLET 40 MG PO (21:21)
[2018-07-26] MEDS: FINASTERIDE 5 MG TABLET PO (21:21)
[2018-07-26] MEDS: DOCUSATE 100 MG CAPSULE PO (21:21)
[2018-07-26] MEDS: INSULIN GLARGINE 100 UNIT/ML 3ML PEN 50 UNIT SUBCUT (21:24)
--- NOTE | 2018-07-26 22:05 | PC.NURSE ---
damaso note pt alert/oriented to situation. Pt says he feels much improved, still feels weak. Glucose at hs was 110. pt drank a milk and 50 units Lantus given.
[2018-07-26] MEDS: ACETAMINOPHEN 325 MG TABLET 650 MG PO (23:53)
[2018-07-27] VITALS (15 sets, daily range): BP systolic 122–156; BP diastolic 47–70; PULSE 60–74; RESP 16–28; TEMP 37.1–38.8; O2SAT 82–100; BMI 29.7
[2018-07-27] MEDS: SODIUM CHLORIDE 0.9% 1,000 ML 100 ML IV (03:32)
[2018-07-27 05:50] LABS: Add Manual Diff / Slide Review NO; Basophils Percent Auto 0.2 % (0-2); Eosinophils Percent Auto 0.4 % (2-4); Hematocrit 30.6 % (41-53); Hemoglobin 10.7 g/dL (13.5-17.5); Lymphocytes Percent Auto 7.9 % (25-40); Mean Corpuscular HGB Conc 35.1 % (30-36); Mean Corpuscular Hemoglobin 28.9 PG (26-34); Mean Corpuscular Volume 82.6 fL (80-100); Monocytes Percent Auto 9.5 % (3-14); Neutrophils Absolute Auto 7100 /uL (3000-5900); Platelet Count 119 X10^3/uL (150-400); Red Blood Cell Count 3.71 X10^6/uL (4.5-5.9); White Blood Cell Count 8.6 X10^3/uL (4.5-11.0)
[2018-07-27 05:53] LABS: Alanine Aminotransferase 45 IU/L (21-72); Albumin 2.8 g/dL (3.5-5.0); Albumin Globulin Ratio 1.1 (1.0-2.8); Alkaline Phosphatase 43 U/L (38-126); Aspartate Aminotransferase 47 IU/L (17-59); Bilirubin Total 1.3 mg/dL (0.2-1.3); Blood Urea Nitrogen 33 mg/dL (9-20); Calcium 7.7 mg/dL (8.4-10.2); Carbon Dioxide 22 mmol/L (22-32); Chloride 106 mmol/L (98-107); Estimated Glomerular Filt Rate 45.1 mL/min (>60); Globulin 2.6 g/dL (1.7-4.1); Glucose 95 mg/dL (80-110); HEMOLYSIS < 15 (0-50); Potassium 3.7 mmol/L (3.4-5.1); Sodium 138 mmol/L (137-145); Total Protein 5.4 g/dL (6.3-8.2)
--- NOTE | 2018-07-27 08:08 | P.PN_ITS ---
Subjective Date Patient Seen: 07/27/18 Interval history: Patient had temp of 101.9? around midnight and subsequently no fever. He states he feels better. No more rigors. No nausea or vomiting. Exam Vital Signs (past 8 hours): - 07/27/18 00:17 07/27/18 00:42 07/27/18 02:01 Temperature 101.9 F H 98.9 F Pulse Rate 68 Respiratory Rate 16 Blood Pressure Pulse Oximetry 86 L 92 07/27/18 02:02 07/27/18 04:29 Temperature 98.9 F 98.7 F Pulse Rate 60 60 Respiratory Rate 16 20 Blood Pressure 122/49 L Pulse Oximetry 98 100 Oxygen Delivery Method Room Air Oxygen Flow Rate 2 Narrative Exam Narrative: GENERAL: Patient is in no acute distress HEENT: Head normocephalic, atraumatic. Mucous membranes moist. CHEST: Clear to auscultation bilaterally. CARDIAC: Regular rate and rhythm. ABDOMEN: Nondistended, soft, nontender EXTREMITIES: no edema. NEUROLOGICAL: Alert, pleasant, no focal findings SKIN: Warm, dry, no petechiae, no rash Objective Labs Result Diagrams: 07/27/18 04:55 07/27/18 04:55 Labs: Laboratory Results - last 24 hr 07/26/18 07/26/18 07/26/18 16:08 16:08 16:08 WBC 11.1 H RBC 4.19 L Hgb 11.7 L Hct 34.6 L MCV 82.6 MCH 27.9 MCHC 33.8 RDW 15.3 H Plt Count 122 L Neut % (Auto) 84.8 H Lymph % (Auto) 6.7 L [place] % (Auto) 8.2 Eos % (Auto) 0.0 L Baso % (Auto) 0.3 Neut # (Auto) 9400 H PT 11.6 INR 1.1 APTT 30 Sodium Potassium Chloride Carbon Dioxide BUN Creatinine Estimated GFR BUN/Creatinine Ratio Glucose Hemoglobin A1c Lactate Calcium Total Bilirubin AST ALT Alkaline Phosphatase Total Protein Albumin Globulin Albumin/Globulin Ratio Lipase Procalcitonin 0.93 H Urine RBC Urine WBC Ur Squamous Epith Cells Amorphous Sediment Urine Bacteria Ur Culture Indicated? Micro UA Comment Nasal Screen MRSA (PCR) 07/26/18 07/26/18 07/26/18 16:08 16:08 16:08 WBC RBC Hgb Hct MCV MCH MCHC RDW Plt Count Neut % (Auto) Lymph % (Auto) [place] % (Auto) Eos % (Auto) Baso % (Auto) Neut # (Auto) PT INR APTT Sodium 137 Potassium 4.0 Chloride 99 Carbon Dioxide 23 BUN 39 H Creatinine 1.80 H Estimated GFR 36.6 L BUN/Creatinine Ratio 21.7 Glucose 105 Hemoglobin A1c 8.8 H Lactate 1.6 Calcium 8.7 Total Bilirubin 2.0 H AST 49 ALT 41 Alkaline Phosphatase 45 Total Protein 6.5 Albumin 3.7 Globulin 2.8 Albumin/Globulin Ratio 1.3 Lipase 41 Procalcitonin Urine RBC Urine WBC Ur Squamous Epith Cells Amorphous Sediment Urine Bacteria Ur Culture Indicated? Micro UA Comment Nasal Screen MRSA (PCR) 07/26/18 07/26/18 07/27/18 17:06 21:30 04:55 WBC 8.6 RBC 3.71 L Hgb 10.7 L Hct 30.6 L MCV 82.6 MCH 28.9 MCHC 35.1 RDW 15.0 H Plt Count 119 L Neut % (Auto) 82.0 H Lymph % (Auto) 7.9 L [place] % (Auto) 9.5 Eos % (Auto) 0.4 L Baso % (Auto) 0.2 Neut # (Auto) 7100 H PT INR APTT Sodium Potassium Chloride Carbon Dioxide BUN Creatinine Estimated GFR BUN/Creatinine Ratio Glucose Hemoglobin A1c Lactate Calcium Total Bilirubin AST ALT Alkaline Phosphatase Total Protein Albumin Globulin Albumin/Globulin Ratio Lipase Procalcitonin Urine RBC 1-5/hpf Urine WBC 0-1/hpf Ur Squamous Epith Cells 0-1 /hpf Amorphous Sediment 1+ Urine Bacteria None seen Ur Culture Indicated? Cult not indicated Micro UA Comment Not Reportable Nasal Screen MRSA (PCR) Negative for mrsa 07/27/18 04:55 WBC RBC Hgb Hct MCV MCH MCHC RDW Plt Count Neut % (Auto) Lymph % (Auto) [place] % (Auto) Eos % (Auto) Baso % (Auto) Neut # (Auto) PT INR APTT Sodium 138 Potassium 3.7 Chloride 106 Carbon Dioxide 22 BUN 33 H Creatinine 1.50 H Estimated GFR 45.1 L BUN/Creatinine Ratio 22.0 Glucose 95 Hemoglobin A1c Lactate Calcium 7.7 L Total Bilirubin 1.3 AST 47 ALT 45 Alkaline Phosphatase 43 Total Protein 5.4 L Albumin 2.8 L Globulin 2.6 Albumin/Globulin Ratio 1.1 Lipase Procalcitonin Urine RBC Urine WBC Ur Squamous Epith Cells Amorphous Sediment Urine Bacteria Ur Culture Indicated? Micro UA Comment Nasal Screen MRSA (PCR) Assessment & Plan Plan: Assessment/Plan Narrative: 1. Sepsis likely due to acute prostatitis: Fever resolving and BP improved. Patient with recent diagnosis of urinary retention and has been self catheterizing. Urine microscopic was completely normal. Blood cultures negative to date. Plan: Continue Rocephin 1 g IV Q 24 hr. He can likely be discharged home tomorrow if continued improvement to complete 2 weeks of antibiotic by mouth. Hep-Lock IV. 2. Diabetes, on insulin: Glucose low 100 range. Continue current insulin management, carbohydrate consistent diet. 3. Chronic renal failure, stage III: Creatinine improved from admission. 4. Acute urinary retention: Maintain Woodson in hospital then he can resume self catheterization at home. Continue tamsulosin and finasteride. 5. Hypertension: BP normal range. Continue holding losartan. 6. Chronic anemia, worsening in hospital due to sepsis: No need for transfusion. Quality VTE Deep Vein Thrombosis/Pulmonary Embolism Present on Admission: No
[2018-07-27 08:35] LABS: Enterococcus species Detected (Not Detect); Vancomycin-rest genes A/B Not Detected (Not Detect)
[2018-07-27 08:36] LABS: Acinetobacter baumannii Not Detected (Not Detect); Candida albicans Not Detected (Not Detect); Candida glabrata Not Detected (Not Detect); Candida krusei Not Detected (Not Detect); Candida parapsilosis Not Detected (Not Detect); Candida tropicalis Not Detected (Not Detect); E. coli Not Detected (Not Detect); Enterobacter cloacae complex Not Detected (Not Detect); Enterobacteriaceae species Not Detected (Not Detect); Haemophilus influenzae Not Detected (Not Detect); Listeria monocytogenes Not Detected (Not Detect); Neisseria meningitidis Not Detected (Not Detect); Proteus species Not Detected (Not Detect); Pseudomonas aeruginosa Not Detected (Not Detect); Serratia marcescens Not Detected (Not Detect); Staphylococcus species Not Detected (Not Detect); Streptococcus agalactiae (Gr B Not Detected (Not Detect); Streptococcus pneumonia Not Detected (Not Detect); Streptococcus pyogenes (Gr A) Not Detected (Not Detect); Streptococcus species Not Detected (Not Detect)
[2018-07-27] MEDS: ASPIRIN EC 81 MG TABLET PO (08:53)
[2018-07-27] MEDS: ENOXAPARIN 40 MG/0.4 ML SYRINGE SUBCUT (08:54)
[2018-07-27] MEDS: DOCUSATE 100 MG CAPSULE PO ×2 (08:54→21:37)
[2018-07-27] MEDS: TAMSULOSIN 0.4 MG CAPSULE PO (08:54)
[2018-07-27] MEDS: ACETAMINOPHEN 325 MG TABLET 650 MG PO (08:54)
[2018-07-27] MEDS: VIT C/E/ZN/COPPR/LUTEIN/ZEAXAN CAPSULE 1 CAP PO (08:54)
[2018-07-27] MEDS: AMPICILLIN/SULBACTAM 3 GM 3 GM in SODIUM CHLORIDE 0.9% 100 ML IV ×3 (08:59→21:38)
--- NOTE | 2018-07-27 12:33 | CM.DANOTE ---
Discharge Planning/Care Management DCP: assessment: case received, EMR reviewed and met with pt and his Juliana. Introduced self and role. Pt is a 77 year old male who admitted yesterday to care of hospitalist team. PCP: Listed as Dr. Zuleta/FMA. Pt says it has been years since he saw him. Payer: [facility] Medicare. Pt as baseline says he is functionally independent but apparently he has fallen at home before, is a bit unclear on details. Pt also with recent self-cathing with dx of urinary retention. Full tx plan is currently in process. IV antibiotics have been changed after blood culture returned/sensitivites are pending. Conferred with NICKOLAS Singer who agrees that PT order would be helpful, wade as Juliana is planning to get a walker. Order obtained for PT. Consider HH at [facility] if pt is homebound..... P: follow CM Discharge Assessment Start: 07/27/18 12:30 Freq: Status: Active Protocol: Document 07/27/18 12:30 ITV (Rec: 07/27/18 12:33 ITV [id number]) Discharge Planning Assessment Advance Directives? No History Provided By Patient Family Member Prior Living Arrangements House Household Members spouse Comment getting a walker from [employer]. Juliana says she thinks he needs it. PT order in obtained. Additional Comment may need HH if homebound. Has been self-cathing at home due to recent dx of urinary retention. ? HH RN Whiteboard Updated in Patient Room with Yes name and ext. # of Manager Cardiac Review Status In Process Next Review Type Continued Stay Review
[2018-07-27] MEDS: INSULIN ASPART 100 UNIT/ML INSULN PEN SUBCUT ×2 (14:05→21:41)
--- NOTE | 2018-07-27 14:25 | PT.IIE ---
Addendum entered and electronically signed by Regina Harris PT 07/27/18 17:30: This is to certify that I have reviewed this documentation and POC Original Note: Current Diagnoses Sepsis, unspecified organism (07/26/18) Type 2 diabetes mellitus without complications (07/26/18) Hyperlipidemia, unspecified (07/26/18) Essential (primary) hypertension (07/26/18) Chronic kidney disease, stage 2 (mild) (07/26/18) Retention of urine, unspecified (07/26/18) Surgical History (Last Updated 07/26/18 @ 18:45 by Sahara Painter MD) History of permanent cardiac pacemaker placement (Acute) Medical History (Last Updated 07/26/18 @ 18:46 by Sahara Painter MD) Acute urinary retention (Acute) Diabetes mellitus (Acute) Great toe amputation status (Acute) Hyperlipidemia (Acute) Hypertension (Acute) Physical Therapy Inpatient Evaluation/Re-Eval M1 PT/OT-IP Prior Functional Status Start: 07/27/18 16:25 Freq: NEEDED Status: Active Protocol: Document 07/27/18 14:25 (Rec: 07/27/18 16:47 [id number]) Medical Review Prior Functional Status Medical History Reviewed Yes Communication No deficits noted Mobility and Gait Previously ambulates with no AD. Ambulation distances are limited, but he can make it through a brief shopping trip. All other mobilities are stated as independent including driving and self care. Social History Household Members spouse Living Arrangements House Number of Floors (Floors) 3 or More Floors Number of Stairs To Enter/Railing? 6 steps B rails. Upstairs is an attic, downstairs is a basement; both used for storage and very rarely visited. Home Environment Standard Height Toilet Tub/Shower Home Equipment Front Wheel Walker Shower Seat without Backrest Employment Status [employer] Employed Additional Social History Comment Lives with . 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 Patient Goals Plans to d/c to home with who is avaliable for 03/04 assist if needed. Plans to get back to work OTF. Therapy Pain Assessment Pain When Pain Assessed At Rest Pain Present Pain Present Pain Reported Location Left Foot Scale Used 4/10 when pressure applied or WB; 0/10 otherwise Pain Management Techniques Elevation Modification of Treatment Re-positioning Timing of Activity with Medications M4 PT-IP Mobility and Gait Start: 07/27/18 16:25 Freq: NEEDED Status: Active Protocol: Document 07/27/18 14:25 (Rec: 07/27/18 16:47 [id number]) PT-Bed Mobility Assessment Sit to Supine Sit to Supine Moderate Assistance 1 Person Assistance Scooting Scooting to Edge of Bed Standby Assistance PT-Transfer Assessment Sit to and From Stand Sit to and from Stand Minimal Assistance 1 Person Assistance Equipment Transfer Assistive Device Front Wheeled Walker Orthotic/Prosthetic Devices or Brace: No Transfers Transfer Destination Bed Transfer Technique Stand Step Pivot Transfer Ability Level of Assist Minimal Assistance 1 Person Assistance Comments Mobility Comments Pt found in room napping with CPAP on. 02 96% BP 127/47 HR 84. 02 on room air 96%. Sit <> stand is Mikki with fww, min cues. Pt marches in place with fww CGA 20 steps. BP 95/ 33 HR 54. Nursing notified. Pt is instructed to return to seated and breath deeply 1-2 mins. BP 100/42 HR 68. Pt denies nausea or dizziness and agrees to stand. Standing BP 89/36 HR 59 and pt looking pale and diaphoretic, though denying symptoms of nausea or dizziness. Pt returned to bed . Performs [id number] with fww Mikki. Sit > supine is mod A to assist lifting legs to bed. Supine BP 102/20 , HR 40, 02 91%. CPAP reapplied and pt instructed to continue deep breathing. After 5 mins. resting supine BP 142/58 HR 91. Pt left with nursing. PT-Balance Assessment Sitting Balance and Reactions Static Sitting Balance Ability Good Dynamic Sitting Balance Ability Good Standing Balance and Reactions Static Standing Balance Ability Fair Dynamic Standing Balance Ability Fair Device Used fww M5 PT-IP Objective Assessments Start: 07/27/18 16:25 Freq: NEEDED Status: Active Protocol: Document 07/27/18 14:25 (Rec: 07/27/18 16:47 [id number]) Orientation Orientation/Cognition Level of Alertness Alert Orientation Name Age Birthday Month Date Year Day of Week Place Situation Language Function Ability No Deficits Noted Safety Awareness Decreased Safety Awareness Gross Range of Motion Lower Extremity ROM Assessment Within Functional Limits Strength Lower Extremity Strength Assessment Bilaterally Impaired Comments Strength Comments 4/5 BLE Sensation Assessment Sensation Light Touch Intact Comments Sensation Comments Light touch intact B feet plantar and dorsal surfaces. Other Assessments Other Other Assessments Pt noted to have slight erythema of L foot 2nd-4th metatarsals. M6 PT-IP Treatment Start: 07/27/18 16:25 Freq: NEEDED Status: Active Protocol: Document 07/27/18 14:25 (Rec: 07/27/18 16:47 [id number]) Physical Therapy Treatment Education Education Provided Safety M7 PT-IP Assessment and Plan Start: 07/27/18 16:25 Freq: NEEDED Status: Active Protocol: Document 07/27/18 14:25 (Rec: 07/27/18 16:47 [id number]) PT Summary Assessment and Plan Potential Rehabilitation Potential Good Status of Condition at Evaluation Evolving Summary Impairments Pain ROM Strength Balance Bed Mobility Transfers Gait Activity Tolerance Progress Towards Goals Slow Progress due to Medical Issues Assessment Summary Pt admitted for sepsis presents with generalized weakness and decreased activity tolerance. Pt performed 2 sit <> stands and [id number] with fww requiring Mikki, and required modA to return to bed. He demonstrated significant BP decrease during mobility, thus session was discontinued and pt left with nursing. At this time recommend d/c to home with 24/7 assist and HH vs. SNF pending pt status. Ongoing assessment of mobility needed. Goals Bed Mobility Goal Standby Assistance Transfer Goal Standby Assistance Front Wheeled Walker Gait Goal Standby Assistance Front Wheel Walker Gait Distance 150 Other Goals up/down 6 steps B rails CGA with least restrictive or no AD. Days to Meet Goals 5 Frequency of Treatment Frequency Of Treatment Twice a Day Treatment Plan Physical Therapy Treatment Plan Bed Mobility Training Transfer Training Gait Training Therapeutic Exercise Balance Retraining Discharge Planning Hot or Cold Pack Neuromuscular Re-ed Coordination Retraining Manual Therapy Other Recommendations and Next Treatment Progress ambulation and stair Focus climbing as tolerated. Recommendations To Nursing Amount of Assist Needed 1 Person Assist Discharge Recommendations PT Discharge Recommendations Home with 24/7 Assist Home Health SNF Rehab Other Discharge Recommendations Home with 24/7 assist and vs SNF
--- NOTE | 2018-07-27 15:24 | DIET.PN ---
Diabetes Intake: Initial Assessment Assess: 49 YOF referred for type 2 diabetes. Pt is newly diagnosed. States she never had a problem with weight, therefore never learned how to incorporate healthy nutritional habits. It was after her first she began experiencing weight and other health issues. She also believes her habits have led to difficulty sleeping and chronic fatigue. Complains of gluten sensitivity. She has not been monitoring BG. Labs: Per pt report: A1c: 6.9 Meds: metformin 1500 mg BID, working up to 2000mg Diet: per 24 hr recall: no specific dietary habits. Eats anything Wt: 180# per pt Ht: 64.5? BMI: 30.4 (obese) DX: Altered nutrition related laboratory values related to impaired glucose metabolism, lack of previous exposure to nutrition information as evidenced by pt report, diagnosis of diabetes, previous diet high in refined carbohydrates. Intervention: 1. Completed intake assessment. Discussed barriers to care. 2. Discussed pathophysiology of diabetes. Reviewed A1c and its correlation to blood glucose numbers. Discussed recommended BG ranges. 3. Discussed importance of self-monitoring, how often, and when to check. 4. Reviewed hyper/hypoglycemia and treatment. 5. Reviewed safe disposal of equipment (strip/lancets/insulin needles). 6. Created SMART goals for pt self-care and success. 7. Discussed program curriculum outline based on available referral hours. SMART Goals: 1. Weight loss goal of 140-150 through dietary changes and exercise. 2. A1c goal of 6.5 in next 3 mo through monitoring BG and dietary changes. Monitor/Evaluate: Anticipate excellent compliance. Pt will attend full DSME program ( 15 available hours). Basic Nutrition scheduled for 08/10/18.
[2018-07-27] MEDS: SODIUM CHLORIDE 0.9% 1,000 ML 250 ML IV (15:42)
--- NOTE | 2018-07-27 19:29 | PC.NURSE ---
Addendum entered by Rebecca Piper R.N. 07/27/18 23:48: When asleep with cpap, O2 sats 81-83%. Notified RT and now has O2 at 3 L bleed in with cpap. Original Note: damaso note Pt's face is flushed, but chest does not feel overly warm. Temporal temp is 99.2. O2 sats vacillating between 86-92% on room air while awake. Lungs clear to auscultation. Repositioned pt in bed. Pt using home cpap unit when napping.
[2018-07-27] MEDS: ATORVASTATIN 20 MG TABLET 40 MG PO (21:37)
[2018-07-27] MEDS: FINASTERIDE 5 MG TABLET PO (21:37)
[2018-07-27] MEDS: INSULIN GLARGINE 100 UNIT/ML 3ML PEN 50 UNIT SUBCUT (21:40)
[2018-07-28] VITALS (14 sets, daily range): BP systolic 128–188; BP diastolic 63–88; PULSE 60–73; RESP 15–23; TEMP 36.5–37.6; O2SAT 93–99
[2018-07-28] MEDS: AMPICILLIN/SULBACTAM 3 GM 3 GM in SODIUM CHLORIDE 0.9% 100 ML IV ×4 (03:05→21:39)
[2018-07-28 05:20] LABS: Add Manual Diff / Slide Review NO; Basophils Percent Auto 0.4 % (0-2); Eosinophils Percent Auto 3.2 % (2-4); Hematocrit 31.3 % (41-53); Hemoglobin 10.8 g/dL (13.5-17.5); Lymphocytes Percent Auto 13.1 % (25-40); Mean Corpuscular HGB Conc 34.6 % (30-36); Mean Corpuscular Hemoglobin 28.3 PG (26-34); Mean Corpuscular Volume 81.9 fL (80-100); Monocytes Percent Auto 11.7 % (3-14); Neutrophils Absolute Auto 5300 /uL (3000-5900); Neutrophils Percent Auto 71.6 % (50-75); Platelet Count 127 X10^3/uL (150-400); Red Blood Cell Count 3.82 X10^6/uL (4.5-5.9); Red Cell Distribution Width 15.7 % (11.6-14.8); White Blood Cell Count 7.4 X10^3/uL (4.5-11.0)
[2018-07-28 05:28] LABS: BUN Creatinine Ratio 16.7 (6-22); Blood Urea Nitrogen 25 mg/dL (9-20); Calcium 7.9 mg/dL (8.4-10.2); Carbon Dioxide 26 mmol/L (22-32); Estimated Glomerular Filt Rate 45.1 mL/min (>60); Glucose 78 mg/dL (80-110); HEMOLYSIS < 15 (0-50)
[2018-07-28 05:31] LABS: Sodium 138 mmol/L (137-145)
[2018-07-28 05:36] LABS: Chloride 105 mmol/L (98-107); Potassium 4.1 mmol/L (3.4-5.1)
[2018-07-28] MEDS: DOCUSATE 100 MG CAPSULE PO (09:12)
[2018-07-28] MEDS: VIT C/E/ZN/COPPR/LUTEIN/ZEAXAN CAPSULE 1 CAP PO (09:13)
[2018-07-28] MEDS: TAMSULOSIN 0.4 MG CAPSULE PO (09:13)
[2018-07-28] MEDS: ASPIRIN EC 81 MG TABLET PO (09:13)
[2018-07-28] MEDS: ENOXAPARIN 40 MG/0.4 ML SYRINGE SUBCUT (09:13)
--- NOTE | 2018-07-28 11:00 | PM.PN.1 ---
Subjective Date Patient Seen: 07/28/18 Interval history: He appears quite weak and says he has not been able to take more than a few steps yet. His blood sugar was 54 this morning. Overnight he had several O2 saturation checks that were in the 80s on room air so he has been on several L of oxygen nasal cannula through his CPAP mask. At home he does self-catheterizations but here has a Woodson catheter. He is seen today to follow-up the Enterococcus sepsis/urinary tract infection/prostatitis. Exam Vital Signs (past 8 hours): - 07/28/18 05:16 07/28/18 08:00 Temperature 99.1 F 97.7 F Pulse Rate 69 64 Respiratory Rate 15 16 Blood Pressure 158/72 H 149/64 H Pulse Oximetry 99 93 Oxygen Delivery Method Room Air Oxygen Flow Rate 0 Narrative Exam Narrative: Alert and oriented x3. No apparent distress. Heart is regular rate and rhythm without murmur. Lungs are clear to auscultation bilaterally. Abdomen is soft, bowel sounds positive, nontender, no organomegaly. Extremities have no ankle edema. Objective Labs Result Diagrams: 07/28/18 05:00 07/28/18 05:00 Labs: Laboratory Results - last 24 hr 07/28/18 07/28/18 05:00 05:00 WBC 7.4 RBC 3.82 L Hgb 10.8 L Hct 31.3 L MCV 81.9 MCH 28.3 MCHC 34.6 RDW 15.7 H Plt Count 127 L Neut % (Auto) 71.6 Lymph % (Auto) 13.1 L [place] % (Auto) 11.7 Eos % (Auto) 3.2 Baso % (Auto) 0.4 Neut # (Auto) 5300 Sodium 138 Potassium 4.1 Chloride 105 Carbon Dioxide 26 BUN 25 H Creatinine 1.50 H Estimated GFR 45.1 L BUN/Creatinine Ratio 16.7 Glucose 78 L Calcium 7.9 L Assessment & Plan Plan: Assessment/Plan Narrative: 1. Enterococcus Sepsis likely due to acute prostatitis: Patient with recent diagnosis of urinary retention and has been self catheterizing. Urine microscopic was completely normal. Blood cultures both growing Enterococcus. Plan: Continue Unasyn. He can likely be discharged home soon if continued improvement to complete 2 weeks of antibiotic by mouth. He will need physical therapy to evaluate him, for discharge location advice/safety. 2. Diabetes, on insulin: Glucose low 100 range. Continue current insulin management, carbohydrate consistent diet. 3. Chronic renal failure, stage III: Creatinine improved from admission. 4. Acute urinary retention: Maintain Woodson in hospital then he can resume self catheterization at home. Continue tamsulosin and finasteride. 5. Hypertension: BP elevated 158/72 so will resume losartan 6. Chronic anemia, worsening in hospital due to sepsis: No need for transfusion. Hgb 10.8. 7. Sleep Apnea/Nocturnal Hypoxia. Continue CPAP and oxygen if needed. Quality VTE Deep Vein Thrombosis/Pulmonary Embolism Present on Admission: No
--- NOTE | 2018-07-28 11:30 | PT.IPTN ---
Current Diagnoses Sepsis, unspecified organism (07/26/18) Type 2 diabetes mellitus without complications (07/26/18) Hyperlipidemia, unspecified (07/26/18) Essential (primary) hypertension (07/26/18) Chronic kidney disease, stage 2 (mild) (07/26/18) Retention of urine, unspecified (07/26/18) Physical Therapy Treatment Note M2 PT-IP Current Condition Start: 07/27/18 16:25 Freq: NEEDED Status: Active Protocol: Document 07/27/18 14:25 (Rec: 07/27/18 16:47 [id number]) Physical Therapy Current Condition Current Condition Evaluation Date 07/27/18 Treatment Diagnosis Sepsis; Generalized weakness Onset Date 07/26/18 Precautions Other Precautions BP M3 PT-IP Subjective Start: 07/27/18 16:25 Freq: NEEDED Status: Active Protocol: Document 07/28/18 11:45 GGD (Rec: 07/28/18 12:36 GGD [id number]) Subjective Physical Therapy Visit Type Type Treatment Note Visit Start Time 11:20 Visit Stop Time 11:40 Total Visit Minutes 20 Physical Therapy Visit Comments Patient Comments Pt states he is feeling better . M4 PT-IP Mobility and Gait Start: 07/27/18 16:25 Freq: NEEDED Status: Active Protocol: Document 07/28/18 11:45 GGD (Rec: 07/28/18 12:36 GGD [id number]) PT-Transfer Assessment Sit to and From Stand Sit to and from Stand Contact Guard Assistance Use of Upper Extremities Equipment Transfer Assistive Device Gait Belt Front Wheeled Walker Orthotic/Prosthetic Devices or Brace: No Transfers Transfer Destination Chair Transfer Ability Level of Assist Minimal Assistance Use of Upper Extremities Gait Assessment Gait Gait Assistance Required: Contact Guard Assist 1 Person Assist Distance (Feet) 60 Able to Maintain Weight Bearing Status Yes During Gait Assistive Devices Assistive Device Gait Belt Front Wheeled Walker Orthotic/Prosthetic Devices or Brace: No Gait Deviations General Gait Pattern Decreased Stride Length Decreased Feet Clearance Factors Limiting Gait Function Factors Limiting Gait Function Decreased Activity Tolerance Pain M5 PT-IP Objective Assessments Start: 07/27/18 16:25 Freq: NEEDED Status: Active Protocol: Document 07/27/18 14:25 (Rec: 07/27/18 16:47 [id number]) Orientation Orientation/Cognition Level of Alertness Alert Orientation Name Age Birthday Month Date Year Day of Week Place Situation Language Function Ability No Deficits Noted Safety Awareness Decreased Safety Awareness Gross Range of Motion Lower Extremity ROM Assessment Within Functional Limits Strength Lower Extremity Strength Assessment Bilaterally Impaired Comments Strength Comments 4/5 BLE Sensation Assessment Sensation Light Touch Intact Comments Sensation Comments Light touch intact B feet plantar and dorsal surfaces. Other Assessments Other Other Assessments Pt noted to have slight erythema of L foot 2nd-4th metatarsals. M6 PT-IP Treatment Start: 07/27/18 16:25 Freq: NEEDED Status: Active Protocol: Document 07/27/18 14:25 (Rec: 07/27/18 16:47 [id number]) Physical Therapy Treatment Education Education Provided Safety M7 PT-IP Assessment and Plan Start: 07/27/18 16:25 Freq: NEEDED Status: Active Protocol: Document 07/28/18 11:45 GGD (Rec: 07/28/18 12:36 GGD [id number]) PT Summary Assessment and Plan Summary Assessment Summary Pt improving with mobility. He was able to progress gait with FWW with mild unsteadiness. He did have LOB sit to stand from chair. His BP and O2 stable with mobility . Frequency of Treatment Frequency Of Treatment Twice a Day Treatment Plan Physical Therapy Treatment Plan Bed Mobility Training Transfer Training Gait Training Therapeutic Exercise Balance Retraining Discharge Planning Hot or Cold Pack Neuromuscular Re-ed Coordination Retraining Manual Therapy Other Recommendations and Next Treatment Progress ambulation and stair Focus climbing as tolerated. Recommendations To Nursing Amount of Assist Needed 1 Person Assist Discharge Recommendations PT Discharge Recommendations Home with 24/7 Assist Home Health SNF Rehab Other Discharge Recommendations Home with 24/7 assist and vs SNF
[2018-07-28] MEDS: LOSARTAN 50 MG TABLET PO ×2 (14:29→16:32)
--- NOTE | 2018-07-28 15:15 | PT.IPTN ---
Current Diagnoses Sepsis, unspecified organism (07/26/18) Type 2 diabetes mellitus without complications (07/26/18) Hyperlipidemia, unspecified (07/26/18) Essential (primary) hypertension (07/26/18) Chronic kidney disease, stage 2 (mild) (07/26/18) Retention of urine, unspecified (07/26/18) Physical Therapy Treatment Note M2 PT-IP Current Condition Start: 07/27/18 16:25 Freq: NEEDED Status: Active Protocol: Document 07/27/18 14:25 (Rec: 07/27/18 16:47 [id number]) Physical Therapy Current Condition Current Condition Evaluation Date 07/27/18 Treatment Diagnosis Sepsis; Generalized weakness Onset Date 07/26/18 Precautions Other Precautions BP M3 PT-IP Subjective Start: 07/27/18 16:25 Freq: NEEDED Status: Active Protocol: Document 07/28/18 15:15 GGD (Rec: 07/28/18 15:33 GGD [id number]) Subjective Physical Therapy Visit Type Type Treatment Note Visit Start Time 14:45 Visit Stop Time 15:15 Total Visit Minutes 30 Number of TIN PLATER Visits 1 Physical Therapy Visit Comments Patient Comments Pt states he would like to go back to bed. M4 PT-IP Mobility and Gait Start: 07/27/18 16:25 Freq: NEEDED Status: Active Protocol: Document 07/28/18 15:15 GGD (Rec: 07/28/18 15:33 GGD [id number]) PT-Bed Mobility Assessment Sit to Supine Sit to Supine Contact Guard Assistance Scooting Scooting to Edge of Bed Standby Assistance PT-Transfer Assessment Sit to and From Stand Sit to and from Stand Contact Guard Assistance Use of Upper Extremities Equipment Transfer Assistive Device Gait Belt Front Wheeled Walker Orthotic/Prosthetic Devices or Brace: No Transfers Transfer Destination Bed Transfer Ability Level of Assist Minimal Assistance Use of Upper Extremities Gait Assessment Gait Gait Assistance Required: Contact Guard Assist 1 Person Assist Distance (Feet) 100 Able to Maintain Weight Bearing Status Yes During Gait Assistive Devices Assistive Device Gait Belt Front Wheeled Walker Orthotic/Prosthetic Devices or Brace: No Gait Deviations General Gait Pattern Decreased Stride Length Decreased Feet Clearance Factors Limiting Gait Function Factors Limiting Gait Function Decreased Activity Tolerance Pain Comments Gait Comments Pt had 1 LOB needing CGA. M5 PT-IP Objective Assessments Start: 07/27/18 16:25 Freq: NEEDED Status: Active Protocol: Document 07/27/18 14:25 (Rec: 07/27/18 16:47 [id number]) Orientation Orientation/Cognition Level of Alertness Alert Orientation Name Age Birthday Month Date Year Day of Week Place Situation Language Function Ability No Deficits Noted Safety Awareness Decreased Safety Awareness Gross Range of Motion Lower Extremity ROM Assessment Within Functional Limits Strength Lower Extremity Strength Assessment Bilaterally Impaired Comments Strength Comments 4/5 BLE Sensation Assessment Sensation Light Touch Intact Comments Sensation Comments Light touch intact B feet plantar and dorsal surfaces. Other Assessments Other Other Assessments Pt noted to have slight erythema of L foot 2nd-4th metatarsals. M6 PT-IP Treatment Start: 07/27/18 16:25 Freq: NEEDED Status: Active Protocol: Document 07/27/18 14:25 (Rec: 07/27/18 16:47 [id number]) Physical Therapy Treatment Education Education Provided Safety M7 PT-IP Assessment and Plan Start: 07/27/18 16:25 Freq: NEEDED Status: Active Protocol: Document 07/28/18 15:15 GGD (Rec: 07/28/18 15:33 GGD [id number]) PT Summary Assessment and Plan Summary Assessment Summary Pt able to progress gait and bed mobility. He was unsteady with gait and had one LOB. He need cue for FWW use and management. Pt would like to D/C home, but may need SNF. Frequency of Treatment Frequency Of Treatment Twice a Day Treatment Plan Other Recommendations and Next Treatment Progress ambulation and stair Focus climbing as tolerated. Recommendations To Nursing Amount of Assist Needed 1 Person Assist Discharge Recommendations PT Discharge Recommendations Home with 24/7 Assist Home Health SNF Rehab Other Discharge Recommendations Home with 24/7 assist and HH vs SNF
[2018-07-28] MEDS: INSULIN ASPART 100 UNIT/ML INSULN PEN SUBCUT ×2 (17:10→21:40)
[2018-07-28] MEDS: ATORVASTATIN 20 MG TABLET 40 MG PO (21:40)
[2018-07-28] MEDS: FINASTERIDE 5 MG TABLET PO (21:40)
[2018-07-28] MEDS: INSULIN GLARGINE 100 UNIT/ML 3ML PEN 50 UNIT SUBCUT (21:41)
[2018-07-29] VITALS (14 sets, daily range): BP systolic 113–193; BP diastolic 44–82; PULSE 64–73; RESP 16–19; TEMP 36.3–36.9; O2SAT 95–98
[2018-07-29] MEDS: AMPICILLIN/SULBACTAM 3 GM 3 GM in SODIUM CHLORIDE 0.9% 100 ML IV ×4 (03:11→21:09)
--- NOTE | 2018-07-29 05:33 | PC.NURSE ---
Twice tonight with no Oxygen bleed in will drop sats into mid 80's and 2L bled in will take his sats into low 90's. If O2 becomes disconnected sats drop. Blood glucose just checked and is 42, pt arousable, so given juice and snack will recheck.
[2018-07-29] MEDS: VIT C/E/ZN/COPPR/LUTEIN/ZEAXAN CAPSULE 1 CAP PO (08:31)
[2018-07-29] MEDS: ASPIRIN EC 81 MG TABLET PO (08:32)
[2018-07-29] MEDS: TAMSULOSIN 0.4 MG CAPSULE PO (08:32)
[2018-07-29] MEDS: ENOXAPARIN 40 MG/0.4 ML SYRINGE SUBCUT (08:32)
[2018-07-29] MEDS: LOSARTAN 50 MG TABLET PO ×2 (08:32→17:09)
--- NOTE | 2018-07-29 10:38 | P.PN_ITS ---
Subjective Date Patient Seen: 07/29/18 Interval history: He is seen today to follow-up the prostatitis/sepsis of Enterococcus. He is also seen to follow-up the nocturnal hypoxia related to his sleep apnea. Yesterday he was quite weak and is much stronger today. Overnight his oxygen saturation dropped again to 70% on room air with his CPAP mask on. He seems to be needing 2-3 L of oxygen. He will need to have a formal nocturnal oxygen study done to qualify for home oxygen therapy based on that data. During the day he is not hypoxic. He tells me that his is healthy and is able to care for him at home. He actually has a cruise planned to [facility] in a month. The blood pressure is 144/63. Exam Vital Signs (past 8 hours): - 07/29/18 03:00 07/29/18 07:24 07/29/18 08:30 Temperature 98.1 F 98.5 F Pulse Rate 68 64 Respiratory Rate 17 16 Blood Pressure 156/68 H 144/63 H Pulse Oximetry 95 98 95 Oxygen Delivery Method Room Air Oxygen Flow Rate 0 Narrative Exam Narrative: Alert and oriented x3. He is able to converse at a normal pace as opposed to the pauses in conversation that were evident yesterday. He is sitting up, looking strong eating in bed and in the bedside chair. Heart is regular rate and rhythm with a 2/6 systolic ejection murmur. Lungs are clear to auscultation bilaterally. Extremities have no ankle edema. Objective Labs Result Diagrams: 07/28/18 05:00 07/28/18 05:00 Assessment & Plan Plan: Assessment/Plan Narrative: 1. Enterococcus Sepsis likely due to acute prostatitis: He has a recent diagnosis of urinary retention and has been self catheterizing. Urine microscopy was completely normal. Blood cultures both growing Enterococcus. Plan: Continue Unasyn. He can likely be discharged home today or tomorrow if continued improvement to complete 2 weeks of antibiotic by mouth. Physical therapy has been working with him. 2. Diabetes, on insulin: Glucose low 100 range. Continue current insulin management, carbohydrate consistent diet. 3. Chronic renal failure, stage III: Creatinine improved from admission. 4. Acute urinary retention: Maintain Woodson in hospital then he can resume self catheterization at home. Continue tamsulosin and finasteride. 5. Hypertension: BP elevated 158/72 so resumed losartan yesterday and will increase the dose today. 6. Chronic anemia, worsening in hospital due to sepsis: No need for transfusion. Hgb 10.8. 7. Sleep Apnea/Nocturnal Hypoxia - Nocturnal hypoxia study tonight. Not safe to go home without 02. 7. Sleep Apnea/Nocturnal Hypoxia. Continue CPAP and oxygen if needed. Quality VTE Deep Vein Thrombosis/Pulmonary Embolism Present on Admission: No
--- NOTE | 2018-07-29 10:44 | CM.DPC ---
DCP: continued: Received a vm this morning 0800 from pt saying that he had a change of snf planned. Went to room to continue the conversationl. Pt reports that his son and DIL were here last evening and discussed his d/c plan. Pt also said he had misunderstood their plan to be out of town. Pt's son is recommending that he go to [facility] for his rehab as this son is apparently very familiar with the facility, has done electrical contract jobs for them. His DIL works at [employer] , 5 minutes away from the facility. All think this would be better for ongoing family support then a rehab stay at [facility]. Pt says this is now his plan. Says he called them last night to see if he could sign up: they told him he needed to go through the hospital [facility]. Explained this process. Initial referral called to [facility]/flight follower/[facility] (their Monday referral protocol). She agreed to accept faxed info and said she would sent it to nurse review and get back to us. Clinical faxed:now: [phone] ([facility]'s fax). Transport: van if possible. Pt says son will drive him if need be. P: [facility]: pending acceptance. likely tomorrow. Recommend scheduling d/c time around antibiotic dose.
--- NOTE | 2018-07-29 12:05 | PT.IPTN ---
Current Diagnoses Sepsis, unspecified organism (07/26/18) Type 2 diabetes mellitus without complications (07/26/18) Hyperlipidemia, unspecified (07/26/18) Essential (primary) hypertension (07/26/18) Chronic kidney disease, stage 2 (mild) (07/26/18) Retention of urine, unspecified (07/26/18) Physical Therapy Treatment Note M2 PT-IP Current Condition Start: 07/27/18 16:25 Freq: NEEDED Status: Active Protocol: Document 07/27/18 14:25 (Rec: 07/27/18 16:47 [id number]) Physical Therapy Current Condition Current Condition Evaluation Date 07/27/18 Treatment Diagnosis Sepsis; Generalized weakness Onset Date 07/26/18 Precautions Other Precautions BP M3 PT-IP Subjective Start: 07/27/18 16:25 Freq: NEEDED Status: Active Protocol: Document 07/29/18 11:35 CLB (Rec: 07/29/18 12:05 CLB [id number]) Subjective Physical Therapy Visit Type Type Treatment Note Visit Start Time 11:35 Visit Stop Time 11:50 Total Visit Minutes 15 Number of PHYSICAL THERAPY RESIDENT Visits 2 Physical Therapy Visit Comments Patient Comments Pt willing to get up for a walk and sit in chair. Therapy Pain Assessment Pain Present Pain Present Pain Reported Location Left Foot Pain Management Techniques Elevation Modification of Treatment Re-positioning Timing of Activity with Medications M4 PT-IP Mobility and Gait Start: 07/27/18 16:25 Freq: NEEDED Status: Active Protocol: Document 07/29/18 11:35 CLB (Rec: 07/29/18 12:05 CLB [id number]) PT-Bed Mobility Assessment Sit to Supine Sit to Supine Contact Guard Assistance Scooting Scooting to Edge of Bed Standby Assistance PT-Transfer Assessment Sit to and From Stand Sit to and from Stand Contact Guard Assistance Use of Upper Extremities Equipment Transfer Assistive Device Gait Belt Front Wheeled Walker Orthotic/Prosthetic Devices or Brace: No Transfers Transfer Destination Chair Transfer Ability Level of Assist Contact Guard Assistance Gait Assessment Gait Gait Assistance Required: Contact Guard Assist 1 Person Assist Distance (Feet) 120 Able to Maintain Weight Bearing Status Yes During Gait Assistive Devices Assistive Device Gait Belt Front Wheeled Walker Orthotic/Prosthetic Devices or Brace: No Gait Deviations General Gait Pattern Decreased Stride Length Decreased Feet Clearance Factors Limiting Gait Function Factors Limiting Gait Function Decreased Activity Tolerance Pain Comments Gait Comments Pt had no LOB with gait. M5 PT-IP Objective Assessments Start: 07/27/18 16:25 Freq: NEEDED Status: Active Protocol: Document 07/27/18 14:25 (Rec: 07/27/18 16:47 [id number]) Orientation Orientation/Cognition Level of Alertness Alert Orientation Name Age Birthday Month Date Year Day of Week Place Situation Language Function Ability No Deficits Noted Safety Awareness Decreased Safety Awareness Gross Range of Motion Lower Extremity ROM Assessment Within Functional Limits Strength Lower Extremity Strength Assessment Bilaterally Impaired Comments Strength Comments 4/5 BLE Sensation Assessment Sensation Light Touch Intact Comments Sensation Comments Light touch intact B feet plantar and dorsal surfaces. Other Assessments Other Other Assessments Pt noted to have slight erythema of L foot 2nd-4th metatarsals. M6 PT-IP Treatment Start: 07/27/18 16:25 Freq: NEEDED Status: Active Protocol: Document 07/27/18 14:25 (Rec: 07/27/18 16:47 [id number]) Physical Therapy Treatment Education Education Provided Safety M7 PT-IP Assessment and Plan Start: 07/27/18 16:25 Freq: NEEDED Status: Active Protocol: Document 07/29/18 11:35 CLB (Rec: 07/29/18 12:05 CLB [id number]) PT Summary Assessment and Plan Summary Assessment Summary Pt progressed gait distance and continues to need CGA OOB. Pt was steady with gait w/o LOB using FWW. Pt will need stair training before d/c. Goals Bed Mobility Goal Standby Assistance Transfer Goal Standby Assistance Front Wheeled Walker Gait Goal Standby Assistance Front Wheel Walker Gait Distance 150 Other Goals up/down 6 steps B rails CGA with least restrictive or no AD. Days to Meet Goals 5 Frequency of Treatment Frequency Of Treatment Twice a Day Treatment Plan Other Recommendations and Next Treatment Progress ambulation and stair Focus climbing as tolerated. Recommendations To Nursing Amount of Assist Needed 1 Person Assist Discharge Recommendations PT Discharge Recommendations Home with 24/7 Assist Home Health SNF Rehab Other Discharge Recommendations Home with 24/7 assist and HH vs SNF
[2018-07-29] MEDS: INSULIN ASPART 100 UNIT/ML INSULN PEN SUBCUT ×2 (12:32→17:10)
--- NOTE | 2018-07-29 13:46 | OT.IP.EVAL ---
Current Diagnoses Sepsis, unspecified organism (07/26/18) Type 2 diabetes mellitus without complications (07/26/18) Hyperlipidemia, unspecified (07/26/18) Essential (primary) hypertension (07/26/18) Chronic kidney disease, stage 2 (mild) (07/26/18) Retention of urine, unspecified (07/26/18) Past Medical History (Last Updated 07/26/18 @ 18:46 by Sahara Painter MD) Acute urinary retention (Acute) Diabetes mellitus (Acute) Great toe amputation status (Acute) Hyperlipidemia (Acute) Hypertension (Acute) Surgical History (Last Updated 07/26/18 @ 18:45 by Sahara Painter MD) History of permanent cardiac pacemaker placement (Acute) Occupational Therapy Inpatient Evaluation/Re-Eval M1 PT/OT-IP Prior Functional Status Start: 07/27/18 16:25 Freq: NEEDED Status: Active Protocol: Document 07/27/18 14:25 (Rec: 07/27/18 16:47 [id number]) Medical Review Prior Functional Status Medical History Reviewed Yes Communication No deficits noted Mobility and Gait Previously ambulates with no AD. Ambulation distances are limited, but he can make it through a brief shopping trip. All other mobilities are stated as independent including driving and self care. Social History Household Members spouse Living Arrangements House Number of Floors (Floors) 3 or More Floors Number of Stairs To Enter/Railing? 6 steps B rails. Upstairs is an attic, downstairs is a basement; both used for storage and very rarely visited. 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 M1 PT/OT-IP Prior Functional Status Start: 07/29/18 13:28 Freq: NEEDED Status: Active Protocol: Document 07/29/18 13:28 CCC (Rec: 07/29/18 13:46 CCC [id number]) Medical Review Prior Functional Status Medical History Reviewed Yes Diet/Fluid Consistency Regular Thin Liquids Communication No deficits noted Mobility and Gait Previously ambulates with no AD. Ambulation distances are limited, but he can make it through a brief shopping trip. All other mobilities are stated as independent including driving and self care. Activities of Daily Living and IADL's Pt states having to assist for socks, shoes, and assist him for self-cathing. Social History Household Members spouse Living Arrangements House Number of Floors (Floors) 3 or More Floors Number of Stairs To Enter/Railing? 6 steps B rails. Upstairs is an attic, downstairs is a basement; both used for storage and very rarely visited. 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 Pt works selling [employer]. M2 OT-IP Current Condition Start: 07/29/18 13:28 Freq: Status: Active Protocol: Document 07/29/18 13:28 [facility] (Rec: 07/29/18 13:46 [facility] [id number]) Occupational Therapy Current Condition Current Condition Evaluation Date 07/29/18 Treatment Diagnosis Sepsis, generalized weakness Diagnosis Onset Date 07/26/18 Post Operative Precautions Other Precautions BP M3 OT- IP Subjective and Pain Start: 07/29/18 13:28 Freq: Status: Active Protocol: Document 07/29/18 13:28 [facility] (Rec: 07/29/18 13:46 [facility] [id number]) OT- Subjective Occupational Therapy Visit Type Type Initial Evaluation Visit Start Time 12:30 Visit Stop Time 13:25 Total Visit Minutes 55 Occupational Therapy Visit Comments Patient Comments Pt agreeable to get up and shower. OT Pain Assessment Pain When Pain Assessed At Rest Pain Present Pain Present Denied Pain M4 OT- IP ADL's Start: 07/29/18 13:28 Freq: Status: Active Protocol: Document 07/29/18 13:28 [facility] (Rec: 07/29/18 13:46 [facility] [id number]) OT GWC-Ckma-Vvoaqjz General Evaluation Self-Feeding Ability Independent OT ADL-Grooming General Evaluation Areas Needing Assistance Combing/Brushing Hair Comments OT Grooming Comments Pt able to brush his hair while sitting in the recliner. OT ADL-Dressing General Eval Lower Body Dressing Ability Total Assistance Areas Needing Assistance Socks Shoes Comments OT Dressing Comments Dependent to herber/doff socks and shoes. OT ADL-Toileting General Evaluation Areas Needing Assistance Empty Catheter or Colostomy Comments OT Toileting Comments Pt has catheter in. OT ADL-Bathing Bathing Type Bathing Type Shower General Evaluation Bathing Ability Moderate Assistance Areas Needing Assistance Wash/Dry Back Wash/Dry Perineal Area Devices Bathing Equipment Hand Held Shower Sprayer Shower Chair without Arms Grab Bars Comments OT Bathing Comments Pt needing CGA for balance and heavy use of grab bars for while doing pericare needs and also needing assist for completeness. Recommend use of shower chair for walk in shower versus tub/shower. M5 OT- IP IADL's Start: 07/29/18 13:28 Freq: Status: Active Protocol: Document 07/29/18 13:28 [facility] (Rec: 07/29/18 13:46 [facility] [id number]) OT-Instrumental Activities of Daily Living Medication Management Medication Management Caregiver Provides Supervision Money Management Money Management Caregiver Provides Assistance Hemp Fiber Taker Off Hemp Fiber Taker Off Caregiver Provides Assist M6 OT- IP Functional Cognition Start: 07/29/18 13:28 Freq: Status: Active Protocol: Document 07/29/18 13:28 [facility] (Rec: 07/29/18 13:46 [facility] [id number]) Cognitive Factors Limiting Selfcare Function Cognitive Ability Level of Alertness Alert Patient Orientation Name Age Place Situation Attention Span Ability Capable of Focused Attention Capable of Sustained Attention Ability to Follow Commands Able to Follow Multi-Step Commands Memory Description No Deficits Noted Safety Awareness Underestimates Need for Assistance Executive Function Ability Unable to Make Plans Unable to Remember Details Cognitive Comments Cognitive Assessment Comments Pt has word finding difficulties at times. Pt needing safety cues to use the FWW at all times. OT- Vision and Hearing OT- Hearing Assessment OT- Hearing Assessment WFL M7 OT- IP Mobility and Balance Start: 07/29/18 13:28 Freq: Status: Active Protocol: Document 07/29/18 13:28 [facility] (Rec: 07/29/18 13:46 [facility] [id number]) OT-Transfer Assessment Sit to and From Stand Sit to and from Stand Standby Assistance Contact Guard Assistance Transfers Transfer Ability Standby Assistance Contact Guard Assistance Technique Transfer Destination Chair Shower Stall Transfer Technique Stand Step Pivot Devices Transfer Assistive Devices Gait Belt Front Wheeled Walker Comments Mobility Comments Pt CGA at times for balance, however much steadier with his shoes on. OT- Gait Assessment Gait Gait Assistance Required: Standby Assistance Contact Guard Assist Assistive Devices Assistive Device Gait Belt Front Wheeled Walker Comments Gait Ability Comments Pt able to walk from his room to and from the shower. OT- Balance Assessment Sitting Balance and Reactions Static Sitting Balance Ability Normal Dynamic Sitting Balance Ability Normal Standing Balance and Reactions Static Standing Balance Ability Good Dynamic Standing Balance Ability Fair M8 OT- IP Objective Assessments Start: 07/29/18 13:28 Freq: Status: Active Protocol: Document 07/29/18 13:28 [facility] (Rec: 07/29/18 13:46 [facility] [id number]) OT Gross Range of Motion Upper Extremity Range of Motion Assessment Within Functional Limits OT Strength Upper Extremity Strength Assessment Within Functional Limits M9 OT- IP Assessment and Plan Start: 07/29/18 13:28 Freq: Status: Active Protocol: Document 07/29/18 13:28 [facility] (Rec: 07/29/18 13:46 [facility] [id number]) OT Summary Assessment and Plan Potential Rehabilitation Potential Excellent Analytic Complexity at Evaluation Low Summary OT Impairments Balance Functional Cognition Functional Mobility Dressing Toileting Bathing Toilet Transfers Shower Transfers Progress Towards Goals Progressing Toward Goals Assessment Summary Pt Low complexity and main barrier is steps, decreased strength and endurance , having word finding difficulties and will continue to need assist from his for ADl and IADL needs. Pt to go home when medically stable. Goals Grooming Goal Independent Dressing Goal Minimal Assistance Toileting Goal Standby Assistance Bathing Goal Minimal Assistance Toilet Transfer Goal Independent Shower Transfer Goal Standby Assistance Patient/Caregiver Education Goal Caregiver Independent Assisting Patient Days to Meet Goals 3 Frequency of Treatment Frequency Of Treatment Once a Day Treatment Plan OT Treatment Plan ADL Training Functional Cognition Training Functional Mobility Patient/Family Education Discharge Planning Other Treatment Recommendations and Next family training Treatment Focus Discharge Recommendations OT Discharge Recommendations Home with Assistance Home Equipment Needs shower chair
--- NOTE | 2018-07-29 14:41 | CM.DPC ---
DCP: continued: case discussed in Team Rounds today. OT and PT are now seeing pt and plan for home with Juliana's assist is looking favorable. Dr. Ferreira has RT doing an overnight study as pt, who uses a CPAP at baseline and was on it last night with a desat 70%. He is being looked at for nighttime o2 option. P: DCP team to follow.
--- NOTE | 2018-07-29 17:02 | PT.IPTN ---
Current Diagnoses Sepsis, unspecified organism (07/26/18) Type 2 diabetes mellitus without complications (07/26/18) Hyperlipidemia, unspecified (07/26/18) Essential (primary) hypertension (07/26/18) Chronic kidney disease, stage 2 (mild) (07/26/18) Retention of urine, unspecified (07/26/18) Physical Therapy Treatment Note M2 PT-IP Current Condition Start: 07/27/18 16:25 Freq: NEEDED Status: Active Protocol: Document 07/27/18 14:25 (Rec: 07/27/18 16:47 [id number]) Physical Therapy Current Condition Current Condition Evaluation Date 07/27/18 Treatment Diagnosis Sepsis; Generalized weakness Onset Date 07/26/18 Precautions Other Precautions BP M3 PT-IP Subjective Start: 07/27/18 16:25 Freq: NEEDED Status: Active Protocol: Document 07/29/18 16:55 CLB (Rec: 07/29/18 17:02 CLB [id number]) Subjective Physical Therapy Visit Type Type Treatment Note Visit Start Time 16:40 Visit Stop Time 16:55 Total Visit Minutes 15 Number of SOFTWARE SUPPORT SPECIALIST Visits 3 Physical Therapy Visit Comments Patient Comments Pt willing to get up for a walk and sit in chair. Therapy Pain Assessment Pain Present Pain Present Pain Reported M4 PT-IP Mobility and Gait Start: 07/27/18 16:25 Freq: NEEDED Status: Active Protocol: Document 07/29/18 16:55 CLB (Rec: 07/29/18 17:02 CLB [id number]) PT-Bed Mobility Assessment Sit to Supine Sit to Supine Standby Assistance Scooting Scooting to Edge of Bed Standby Assistance PT-Transfer Assessment Sit to and From Stand Sit to and from Stand Standby Assistance Use of Upper Extremities Equipment Transfer Assistive Device Gait Belt Front Wheeled Walker Orthotic/Prosthetic Devices or Brace: No Transfers Transfer Destination Chair Transfer Ability Level of Assist Standby Assistance Gait Assessment Gait Gait Assistance Required: Standby Assistance Contact Guard Assist 1 Person Assist Distance (Feet) 200 Able to Maintain Weight Bearing Status Yes During Gait Assistive Devices Assistive Device Gait Belt Front Wheeled Walker Orthotic/Prosthetic Devices or Brace: No Gait Deviations General Gait Pattern Decreased Stride Length Decreased Feet Clearance Factors Limiting Gait Function Factors Limiting Gait Function Decreased Activity Tolerance Pain Comments Gait Comments Pt ambulated with shoes on increasing foot clearance and tin. M5 PT-IP Objective Assessments Start: 07/27/18 16:25 Freq: NEEDED Status: Active Protocol: Document 07/27/18 14:25 (Rec: 07/27/18 16:47 [id number]) Orientation Orientation/Cognition Level of Alertness Alert Orientation Name Age Birthday Month Date Year Day of Week Place Situation Language Function Ability No Deficits Noted Safety Awareness Decreased Safety Awareness Gross Range of Motion Lower Extremity ROM Assessment Within Functional Limits Strength Lower Extremity Strength Assessment Bilaterally Impaired Comments Strength Comments 4/5 BLE Sensation Assessment Sensation Light Touch Intact Comments Sensation Comments Light touch intact B feet plantar and dorsal surfaces. Other Assessments Other Other Assessments Pt noted to have slight erythema of L foot 2nd-4th metatarsals. M6 PT-IP Treatment Start: 07/27/18 16:25 Freq: NEEDED Status: Active Protocol: Document 07/27/18 14:25 (Rec: 07/27/18 16:47 [id number]) Physical Therapy Treatment Education Education Provided Safety M7 PT-IP Assessment and Plan Start: 07/27/18 16:25 Freq: NEEDED Status: Active Protocol: Document 07/29/18 16:55 CLB (Rec: 07/29/18 17:02 CLB [id number]) PT Summary Assessment and Plan Summary Assessment Summary Pt willing to ambulate farther this afternoon w/o complaint of fatigue. Pt was SBA with CGA due to pt picking up FWW over threshold. Pt is improving with bed mobility as well as gait tolerance. Goals Bed Mobility Goal Standby Assistance Transfer Goal Standby Assistance Front Wheeled Walker Gait Goal Standby Assistance Front Wheel Walker Gait Distance 150 Other Goals up/down 6 steps B rails CGA with least restrictive or no AD. Days to Meet Goals 5 Frequency of Treatment Frequency Of Treatment Twice a Day Treatment Plan Other Recommendations and Next Treatment Progress ambulation and stair Focus climbing as tolerated. CG training with . Recommendations To Nursing Amount of Assist Needed 1 Person Assist Discharge Recommendations Other Discharge Recommendations Home with 24/7 assist and HH vs SNF
[2018-07-29] MEDS: ACETAMINOPHEN 325 MG TABLET 650 MG PO (19:43)
[2018-07-29] MEDS: HYDRALAZINE 20 MG/ML VIAL 10 MG IV (20:03)
[2018-07-29] MEDS: ATORVASTATIN 20 MG TABLET 40 MG PO (21:09)
[2018-07-29] MEDS: FINASTERIDE 5 MG TABLET PO (21:09)
[2018-07-29] MEDS: DOCUSATE 100 MG CAPSULE PO (21:09)
[2018-07-29] MEDS: INSULIN GLARGINE 100 UNIT/ML 3ML PEN 50 UNIT SUBCUT (21:11)
--- NOTE | 2018-07-29 21:53 | PC.NURSE ---
BARBARA Shift note: BP upon coming on at 1500 174/[address] Ferreira, orders for additional dose of Losartan 50mg PO and increase 0900 dose to 100mg. BP after administration 189/69, HR 60s. Pt started to c/o headache. Gave PRN tylenol. 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 BP after administration 113/44, HR 65. headache improved.
--- NOTE | 2018-07-29 22:32 | PC.NURSE ---
Nocturnal hypoxia study: RT states study cannot be done while patient is in the hospital due to end tidal CO2 monitor not being able to fit under home CPAP mask. Placing monitor would cause leak and CPAP would become ineffective making the study inaccurate. Recommends outpatient monitoring with [employer] or another medical staff credentialing coordinator company using technology that can be placed on finger for monitoring instead of under mask.
[2018-07-30] VITALS (9 sets, daily range): BP systolic 127–132; BP diastolic 59–66; PULSE 64–73; RESP 16–18; TEMP 36.6–36.8; O2SAT 93–99
[2018-07-30] MEDS: AMPICILLIN/SULBACTAM 3 GM 3 GM in SODIUM CHLORIDE 0.9% 100 ML IV ×2 (02:45→08:46)
[2018-07-30] MEDS: VIT C/E/ZN/COPPR/LUTEIN/ZEAXAN CAPSULE 1 CAP PO (08:48)
[2018-07-30] MEDS: LOSARTAN 50 MG TABLET 100 MG PO (08:48)
[2018-07-30] MEDS: INSULIN ASPART 100 UNIT/ML INSULN PEN SUBCUT (08:49)
[2018-07-30] MEDS: TAMSULOSIN 0.4 MG CAPSULE PO (08:50)
[2018-07-30] MEDS: ENOXAPARIN 40 MG/0.4 ML SYRINGE SUBCUT (08:50)
[2018-07-30] MEDS: ASPIRIN EC 81 MG TABLET PO (08:50)
[2018-07-30] MEDS: DOCUSATE 100 MG CAPSULE PO (08:51)
--- NOTE | 2018-07-30 12:29 | CM.DPC ---
DCP Cont: Met with patient and in room, for patient has discharge orders. Asked if they would like to get home health to come in. Stated no, he does not want. had no concerns about managing patient at home. They are planning on going on a trip to [place] next month. Patient pleasant, as well as . Her only concern is that she hopes the infection doesn't come back when [place] are out of the country. P: Patient is to discharge home today. Stated that they will not need home health/ Sandra Altman RN/Ad Operations Associate
--- NOTE | 2018-07-30 15:05 | PT.IPTN ---
Current Diagnoses Sepsis, unspecified organism (07/26/18) Type 2 diabetes mellitus without complications (07/26/18) Hyperlipidemia, unspecified (07/26/18) Essential (primary) hypertension (07/26/18) Chronic kidney disease, stage 2 (mild) (07/26/18) Retention of urine, unspecified (07/26/18) Physical Therapy Treatment Note M2 PT-IP Current Condition Start: 07/27/18 16:25 Freq: NEEDED Status: Discharge Protocol: Document 07/27/18 14:25 (Rec: 07/27/18 16:47 [id number]) Physical Therapy Current Condition Current Condition Evaluation Date 07/27/18 Treatment Diagnosis Sepsis; Generalized weakness Onset Date 07/26/18 Precautions Other Precautions BP M3 PT-IP Subjective Start: 07/27/18 16:25 Freq: NEEDED Status: Discharge Protocol: Document 07/30/18 09:25 CLB (Rec: 07/30/18 15:05 CLB [id number]) Subjective Physical Therapy Visit Type Type Treatment Note Visit Start Time 09:25 Visit Stop Time 09:45 Total Visit Minutes 20 Number of CAREER SERVICES OFFICER Visits 4 Physical Therapy Visit Comments Patient Comments Pt willing to get up for a walk and sit in chair. M4 PT-IP Mobility and Gait Start: 07/27/18 16:25 Freq: NEEDED Status: Discharge Protocol: Document 07/30/18 09:25 CLB (Rec: 07/30/18 15:05 CLB [id number]) PT-Bed Mobility Assessment Supine to Sit Supine to Sit Standby Assistance Scooting Scooting to Edge of Bed Standby Assistance PT-Transfer Assessment Sit to and From Stand Sit to and from Stand Standby Assistance Use of Upper Extremities Equipment Transfer Assistive Device Gait Belt 4 Wheeled Walker Orthotic/Prosthetic Devices or Brace: No Transfers Transfer Destination Chair Transfer Ability Level of Assist Standby Assistance Comments Mobility Comments Pt trialed 4WW using brakes appropriatly after demonstration. Gait Assessment Gait Gait Assistance Required: Standby Assistance Contact Guard Assist 1 Person Assist Distance (Feet) 120 Able to Maintain Weight Bearing Status Yes During Gait Assistive Devices Assistive Device Gait Belt 4 Wheeled Walker Orthotic/Prosthetic Devices or Brace: No Gait Deviations General Gait Pattern Decreased Stride Length Decreased Feet Clearance Factors Limiting Gait Function Factors Limiting Gait Function Decreased Activity Tolerance Pain Comments Gait Comments Pt trialed 4WW with CGA to start then able to ambulate SBA w/o LOB. M5 PT-IP Objective Assessments Start: 07/27/18 16:25 Freq: NEEDED Status: Discharge Protocol: Document 07/27/18 14:25 (Rec: 07/27/18 16:47 [id number]) Orientation Orientation/Cognition Level of Alertness Alert Orientation Name Age Birthday Month Date Year Day of Week Place Situation Language Function Ability No Deficits Noted Safety Awareness Decreased Safety Awareness Gross Range of Motion Lower Extremity ROM Assessment Within Functional Limits Strength Lower Extremity Strength Assessment Bilaterally Impaired Comments Strength Comments 4/5 BLE Sensation Assessment Sensation Light Touch Intact Comments Sensation Comments Light touch intact B feet plantar and dorsal surfaces. Other Assessments Other Other Assessments Pt noted to have slight erythema of L foot 2nd-4th metatarsals. M6 PT-IP Treatment Start: 07/27/18 16:25 Freq: NEEDED Status: Discharge Protocol: Document 07/27/18 14:25 (Rec: 07/27/18 16:47 [id number]) Physical Therapy Treatment Education Education Provided Safety M7 PT-IP Assessment and Plan Start: 07/27/18 16:25 Freq: NEEDED Status: Discharge Protocol: Document 07/30/18 09:25 CLB (Rec: 07/30/18 15:05 CLB [id number]) PT Summary Assessment and Plan Summary Assessment Summary Pt required SBA for all bed mobility and Min A donning shoes. Pt tolerated use of 4WW stating he likes that it has a seat if he gets tired. Pt ambulated ~120ft w/4WW and demonstrated proper use of brakes during transfers. Goals Bed Mobility Goal Standby Assistance Transfer Goal Standby Assistance Front Wheeled Walker Gait Goal Standby Assistance Front Wheel Walker Gait Distance 150 Other Goals up/down 6 steps B rails CGA with least restrictive or no AD. Days to Meet Goals 5 Frequency of Treatment Frequency Of Treatment Twice a Day Treatment Plan Other Recommendations and Next Treatment stair climbing CG training Focus with Recommendations To Nursing Amount of Assist Needed 1 Person Assist Discharge Recommendations PT Discharge Recommendations Home with 24/7 Assist Home Health SNF Rehab Other Discharge Recommendations Home with 24/7 assist and HH vs SNF
--- NOTE | 2018-07-31 14:39 | P.DS_ITS ---
History of Present Illness Chief complaint: high temp, uti ? Narrative: The patient is a 77 y/o male who was in his usual state of health until about 18 days ago. At that time he had confusion, developed urinary retention, initially had a leg bag then placed on intermittant catherization. The patient has had multiple visits to the ED/[facility] etc without conclusion. His reports that he developed shaking chills today, fever to 102 and confusion. He self cathed for 400cc. He was brought to the ED for evaluation. In the Emergency Department he was found to be hypotensive with a SBP of 80. The patient describes feeling weak and dizzy. According to his he is less responsive and quick to answer questions per his usual self. He has had no cough , shortness of breath, or chest pain. He had some vomiting a few days ago but none today. The patient has no rashes, reports some toe pain, but no vomiting of blood, blood from his bottom , melena, hematuria, dysuria, or pyuria. He has no back pain. Patient was found to have an elevated WBC of 11, CRP of .9, negative chest xray, and negative U/A. Given the fever, elevated , white count patient is admitted for presumed sepsis Discharge Providers Date of admission: 07/26/18 18:11 Primary care physician: Kendell Zuleta MD Consults: 07/26/18 20:09 Consult to Dietitian, Adult Routine Comment: Reason For Exam: diabetic, reports decrease in appetite Consult to B2B Sales Professional Routine Comment: 07/27/18 00:32 Consult to Respiratory Therapy Evaluate & Treat Comment: Physician Instructions: Evaluate and treat 07/27/18 12:27 Consult to Physical Therapy Evaluate & Treat Comment: Physician Instructions: Evaluate and Treat 07/29/18 10:08 Consult to Occupational Therapy Evaluate & Treat Comment: Physician Instructions: Evaluate and treat 07/29/18 14:02 Consult to Respiratory Therapy Evaluate & Treat Comment: Nocturnal Oxygen study tonight Physician Instructions: Evaluate and treat Discharge provider: Sahara Painter MD Discharge Date: 07/30/18 Summary Discharge Diagnosis: Sepsis Urinary Retention Enteroccocus Urinary Tract Infection Hypertension Type 2 diabetes metabolic encephalopathy secondary to sepsis Chronic renal failure stage 3 Hospital Course: Patient was admitted to the hospital for sepsis secondary to urinary tract infection. He was also noted to have urinary retention. The patient was found to have Enterococcus in the urine. He was treated with IV antibiotics with improvement of his symptomatology. His urinary catheter was removed. The patient made significant improvement was deemed appropriate for discharge home. Patient will follow up with his primary care physician as an outpatient. Exam Vital Signs (past 8 hours): Oxygen Delivery Method Room Air Oxygen Flow Rate 3 Narrative Exam Narrative: Pleasant gentleman In no acute distress. Lungs: Clear to auscultation Cardiac exam: Regular rate and rhythm normal S1 and S2 Abdomen: Soft nontender nondistended Extremities: No edema Objective Labs Result Diagrams: 07/28/18 05:00 07/28/18 05:00 Discharge Plan Discharge Plan Patient Disposition: Home Discharge Med Rec/Prescriptions Prescriptions: New amoxicillin-pot clavulanate [Augmentin] 875-125 mg tablet 1 tab PO BID Qty: 20 RF: 0 Continue atorvastatin 40 MG tablet 40 mg PO DAILY Qty: 0 RF: 0 insulin glargine [Lantus U-100 Insulin] 100 UNIT/1 ML solution 54 unit SQ BEDTIME Qty: 0 RF: 0 losartan 100 MG tablet 100 mg PO DAILY Qty: 0 RF: 0 calcium carbonate-vitamin D3 [Calcium 600 with Vitamin D3] 600 MG/200 IU capsule 1 cap PO QDAY Qty: 0 RF: 0 cholecalciferol (vitamin D3) [Vitamin D3] 1,000 UNIT tablet 2,000 unit PO QDAY Qty: 0 RF: 0 cinnamon bark [Cinnamon] 500 mg Capsule 500 mg PO DAILY Qty: 0 RF: 0 lirifrkq-axzv-AX-calcium-mins [Thera M Plus (ferrous fumarat)] 1 EACH tablet 1 tab PO DAILY Qty: 0 RF: 0 lutein 10 mg Tablet 6 mg PO QDAY Qty: 0 RF: 0 sennosides [Senna Lax] 8.6 MG tablet 8.6 mg PO BID PRN (Reason: Constipation) Qty: 0 RF: 0 aspirin 81 MG tablet,delayed release (DR/EC) 81 mg PO DAILY Qty: 0 RF: 0 tamsulosin 0.4 mg Capsule 0.4 mg PO DAILY RF: 0 finasteride 5 mg Tablet 5 mg PO DAILY RF: 0 Follow up/Referrals: Kendell Zuleta MD [Primary Care Provider] - Visit Report/Discharge Packet Visit Report Forms: Stroke Signs & Symptoms Discharge Data Primary Care Provider: Kendell Zuleta Attending Provider: Sahara Painter Admit Date/Time: 07/26/18 18:11 Discharges patient from system. Discharge Date/Time: 07/30/18 12:50 Quality VTE Deep Vein Thrombosis/Pulmonary Embolism Present on Admission: No
== END 2018-07-30 12:50 | disposition home or self-care (01) | DRG 871 ==
LOC: ED 18:07 → AC 18:14 → ICU 07-27 06:37 → AC 07-27 10:32 → ICU 07-27 10:32
PROVIDERS: Internal Medicine; Admitting Provider Internal Medicine; Emergency Provider Emergency Medicine; PCP Family Medicine; Visit Provider Internal Medicine
DX: A41.81 Sepsis due to Enterococcus (principal); G93.41 Metabolic encephalopathy; N41.0 Acute prostatitis; R65.20 Severe sepsis without septic shock; I95.9 Hypotension, unspecified; I12.9 Hypertensive chronic kidney disease with stage 1 through stage 4 chronic kidney disease, or unspecified chronic kidney disease; E11.22 Type 2 diabetes mellitus with diabetic chronic kidney disease; N18.3 Chronic kidney disease, stage 3 (moderate); R09.02 Hypoxemia; G47.30 Sleep apnea, unspecified; R33.9 Retention of urine, unspecified; E78.5 Hyperlipidemia, unspecified; Z87.891 Personal history of nicotine dependence; Z79.4 Long term (current) use of insulin; D64.9 Anemia, unspecified
CPT/HCPCS: 36415; 36591; 51701; 71045; 80048; 80053; 81003; 81015; 82962; 83036; 83605; 83690; 84145; 85025; 85610; 85730; 87040; 87150; 87186; 87205; 87797; 94760; 96361; 96365; 97116; 97162; 97165; 97530; 97535; 99285; J0295; J0360; J1650

== ENCOUNTER 2019-03-31 13:09 | Emergency (ER) | payer MEDICARE, OTHER, SELFPAY ==
[2018-07-26 19:56] VITALS: BMI 29.8
--- NOTE | 2019-03-31 13:17 | DI.CT.S_ITS ---
PROCEDURE: CT HEAD/BRAIN WO CON INDICATIONS: head injury, s/p fall TECHNIQUE: Noncontrast 4.5 mm thick angled axial sections acquired from the foramen magnum to the vertex, with coronal and sagittal reformats. For radiation dose reduction, the following was used: automated exposure control, adjustment of mA and/or kV according to patient size. COMPARISON: [facility], CT, CT HEAD WITHOUT CONTRAST, 07/09/2018, 11:24. FINDINGS: Image quality: Excellent. CSF spaces: Basal cisterns are patent. No extra-axial fluid collections. The ventricles are symmetric in size and shape. Brain: No intracranial bleeds or masses. There is cerebral volume loss for age, with resultant ventricular and sulcal prominence. There are periventricular and deep white matter chronic small vessel ischemic changes. There is intracranial internal carotid artery atherosclerosis. Skull and face: Calvarium and visualized facial bones appear intact, without suspicious lesions. Sinuses: Visualized sinuses and mastoids are clear. IMPRESSION: 1. No acute intracranial findings. 2. Mild findings likely associated with chronic microvascular ischemic changes. Dictated by: Concepcion Dunlap M.D. on 03/31/2019 at 12:52 Approved by: Concepcion Dunlap M.D. on 03/31/2019 at 12:54
[2019-03-31 13:18] VITALS: BP 146/60; PULSE 66; RESP 20; TEMP 36.4; O2SAT 99; BMI 31.9
[2019-03-31 13:30] LABS: Add Manual Diff / Slide Review NO; Basophils Absolute Auto 100 /uL (0-100); Basophils Percent Auto 0.6 % (0-2); Eosinophils Absolute Auto 200 /uL (0-450); Eosinophils Percent Auto 2.5 % (2-4); Hematocrit 37.3 % (41-53); Hemoglobin 12.5 g/dL (13.5-17.5); Lymphocytes Absolute Auto 2500 /uL (1100-4500); Lymphocytes Percent Auto 30.2 % (25-40); Mean Corpuscular HGB Conc 33.5 % (30-36); Mean Corpuscular Hemoglobin 28.6 PG (26-34); Mean Corpuscular Volume 85.2 fL (80-100); Monocytes Absolute Auto 600 /uL (0-900); Monocytes Percent Auto 7.1 % (3-14); Neutrophils Absolute Auto 4900 /uL (1500-7000); Neutrophils Percent Auto 59.6 % (50-75); Platelet Count 172 X10^3/uL (150-400); Red Blood Cell Count 4.38 X10^6/uL (4.5-5.9); White Blood Cell Count 8.3 X10^3/uL (4.5-11.0)
[2019-03-31 13:35] VITALS: BP 124/52; BP 145/63; BP 81/35; PULSE 66; PULSE 68; PULSE 70
[2019-03-31 13:43] LABS: Alanine Aminotransferase 42 IU/L (21-72); Albumin 4.2 g/dL (3.5-5.0); Albumin Globulin Ratio 1.4 (1.0-2.8); Alkaline Phosphatase 46 U/L (38-126); Aspartate Aminotransferase 35 IU/L (17-59); BUN Creatinine Ratio 21.7 (6-22); Bilirubin Total 1.5 mg/dL (0.2-1.3); Blood Urea Nitrogen 39 mg/dL (9-20); Calcium 9.9 mg/dL (8.4-10.2); Carbon Dioxide 21 mmol/L (22-32); Chloride 105 mmol/L (98-107); Creatine Kinase 94 U/L (55-170); Estimated Glomerular Filt Rate 36.5 mL/min (>60); Glucose 293 mg/dL (80-110); HEMOLYSIS 33 (0-50); Magnesium 1.4 mg/dL (1.6-2.3); Potassium 4.9 mmol/L (3.4-5.1); Sodium 137 mmol/L (137-145); Total Protein 7.2 g/dL (6.3-8.2)
[2019-03-31 13:45] VITALS: BP 160/58; PULSE 60; RESP 30; O2SAT 100
[2019-03-31] MEDS: SODIUM CHLORIDE 0.9% 1,000 ML 1000 ML IV (13:53)
[2019-03-31 13:54] LABS: Troponin I < 0.012 ng/mL (0.01-0.034)
--- NOTE | 2019-03-31 13:56 | PC.NURSE ---
[employer] Pacemaker placed last year, per patient, at the [facility] in [place]. Pacemaker was interrogated and report was faxed.
[2019-03-31 14:18] VITALS: BP 158/58; PULSE 60; RESP 21; O2SAT 97
--- NOTE | 2019-03-31 14:35 | ED_ITS ---
HPI - Syncope General Chief Complaint: Syncope Stated Complaint: fell/hit head/passed out today Time Seen by Provider: 03/31/19 13:10 Source: patient and family Mode of arrival: ambulatory Limitations: no limitations History of Present Illness HPI narrative: 78-year-old male nonsmoker presents with his in the chief complaint of a syncopal episode with a resultant head injury just prior to arrival. He had been in his normal state of health and feeling fine and well all morning until they mowed the lawn and afterwards were loading the lawnmower into the back of their vehicle at which point, while lifting the patient felt increasingly dizzy and lightheaded and eventually had a syncopal episode, falling backwards and striking his head. He takes no true blood thinners but does take a baby aspirin daily. He is back to his baseline and denies any other injuries. He does have an abrasion or laceration on his occiput but no other injury. MD complaint: loss of consciousness and collapsed Onset (ago): minute(s) -: second(s) Prodromal symptoms: lightheaded Witnessed: yes - by bystander Context: during exertion Injuries sustained associated with event: none Current symptoms: none History: pacemaker Treatments prior to arrival: none Related Data Home Medications Medication Instructions Recorded Confirmed aspirin 81 mg PO DAILY #0 12/13/17 07/26/18 atorvastatin 40 mg PO DAILY #0 12/13/17 07/26/18 calcium carbonate-vitamin D3 1 cap PO QDAY #0 12/13/17 07/26/18 [Calcium 600 with Vitamin D3] cholecalciferol (vitamin D3) 2,000 unit PO QDAY #0 12/13/17 07/26/18 [Vitamin D3] cinnamon bark [Cinnamon] 500 mg PO DAILY #0 12/13/17 07/26/18 insulin glargine [Lantus U-100 54 unit SQ BEDTIME #0 12/13/17 07/26/18 Insulin] losartan 100 mg PO DAILY #0 12/13/17 07/26/18 lutein 6 mg PO QDAY #0 12/13/17 07/26/18 cxfanyki-[id number]-WR-calcium-mins 1 tab PO DAILY #0 12/13/17 07/26/18 [Thera M Plus (ferrous fumarat)] sennosides [Senna Lax] 8.6 mg PO BID PRN #0 12/13/17 07/26/18 finasteride 5 mg PO DAILY 07/26/18 07/26/18 tamsulosin 0.4 mg PO DAILY 07/26/18 07/26/18 Previous Rx's Medication Instructions Recorded amoxicillin-pot clavulanate 1 tab PO BID #20 tab 07/30/18 [Augmentin] Allergies Allergy/AdvReac Type Severity Reaction Status Date / Time caffeine [CAFFEINE] AdvReac Unknown Blurry Verified 03/31/19 13:23 Vision Review of Systems Constitutional Denies chills, Denies fever(s), Denies lethargy and Denies weakness Eyes Denies change in vision, Denies eye discharge, Denies irritation and Denies loss of vision ENT Ears, Nose, Mouth, and Throat: Denies change in voice, Denies neck pain and De nies sore throat Cardiovascular Denies chest pain, Reports syncope, Denies irregular heart rhythm, Denies lightheadedness, Denies palpitations, Denies dyspnea, Denies dyspnea on exertion and Denies orthopnea Respiratory Denies cough, Denies dyspnea, Denies dyspnea on exertion and Denies wheezing Gastrointestinal Gastrointestinal: Denies abdominal pain, Denies change in bowel habits, Denies diarrhea, Denies nausea and Denies vomiting Genitourinary Denies hematuria, Denies flank pain, Denies urinary incontinence and Denies urinary urgency Musculoskeletal Denies neck pain Integumentary/Breasts Denies pruritus, Denies erythema, Denies rash and Denies wounds Neurologic Denies confusion, Reports syncope, Denies loss of vision and Denies weakness Psychiatric Denies anxiety, Denies confusion, Denies depression, Denies homicidal ideation and Denies suicidal ideation Endocrine Denies palpitations Hematologic/Lymphatic Denies easy bruising Allergic/Immunologic Denies wheezing PFSH Medical History Acute urinary retention (Acute) Diabetes mellitus (Acute) Great toe amputation status (Acute) Hyperlipidemia (Acute) Hypertension (Acute) Surgical History History of permanent cardiac pacemaker placement (Acute) Family History (Updated 07/26/18 @ 18:46 by Sahara Painter MD) Father Cancer Social History household members: spouse Smoking Status: Former smoker alcohol intake: former Family History Father Cancer Social History household members: spouse Smoking Status: Former smoker alcohol intake: former Exam Narrative Exam Narrative: GENERAL: 78-year-old male well-appearing, younger than stated age, in no obvious distress presents with his . GCS 15 HEAD: No active bleeding, dried blood on ox a but with abrasion, no laceration to repair. No depressed skull fracture EYES: Pupils equal round and reactive. Extraocular motions intact. No scleral i cterus. No injection or drainage. ENT: Nose without bleeding, purulent drainage or septal hematoma. Throat without erythema, tonsillar hypertrophy or exudate. Uvula midline. Airway patent. NECK: Trachea midline. No JVD or lymphadenopathy. Supple, nontender, no meningeal signs. CARDIOVASCULAR: Regular rate and rhythm without murmurs, gallops, or rubs. RESPIRATORY: Clear to auscultation. Breath sounds equal bilaterally. No wheezes, rales, or rhonchi. GASTROINTESTINAL: Abdomen soft, non-tender, nondistended. No hepato- splenomegaly, or palpable masses. No guarding. EXTREMITIES: No clubbing, cyanosis, or edema. No joint tenderness, effusion, or edema noted. BACK: Nontender without deformity or crepitance. No flank tenderness. NEURO: AOx3. SKIN: No rash or erythema. Initial Vital Signs Initial Vital Signs: Vital Signs Temperature 97.6 F 03/31/19 13:18 Pulse Rate 66 03/31/19 13:18 Respiratory Rate 20 03/31/19 13:18 Blood Pressure 146/60 H 03/31/19 13:18 Pulse Oximetry 99 03/31/19 13:18 Course Orders Ordered: ED Orders 03/31/19 13:14 EKG-12 Lead Stat 03/31/19 13:17 CT head/brain wo con Stat 03/31/19 13:18 Complete Blood Count AUTO DIFF Stat Comprehensive Metabolic Panel Stat Magnesium Stat Troponin & CK Cardiac Panel Stat Sodium Chloride (Normal Saline 0.9%) 1,000 mls @ 150 mls/hr IV CONT ABIODUN Last Admin: 03/31/19 13:52 Dose: Not Given Discontinued Medications Sodium Chloride (Normal Saline 0.9%) 1,000 mls @ 1,000 mls/hr IV BOLUS ONE Stop: 03/31/19 14:48 Last Infusion: 03/31/19 15:23 Dose: 0 mls/hr Admin: 03/31/19 13:53 Dose: 1,000 mls/hr Sodium Chloride (Normal Saline 0.9%) 500 mls @ 1,000 mls/hr IV BOLUS ONE Stop: 03/31/19 16:05 Last Infusion: 03/31/19 16:17 Dose: 0 mls/hr Admin: 03/31/19 15:41 Dose: 1,000 mls/hr Reevaluation(s) Reevaluation #1: Pacemaker remotely interrogated and no abnormalities noted per pacemaker rep Reevaluation #2: Patient feeling tremendous improvement after fluids, but still slightly orthostatic, will repeat 500mL after second bolus patient is asymptomatic, ambulates through department without difficulty Time: 14:59 Vital Signs - 8 hr 03/31/19 13:18 03/31/19 13:35 03/31/19 13:45 Temperature 97.6 F Pulse Rate 66 60 Pulse Rate [Orthostatic Lying] 66 Pulse Rate [Orthostatic Sitting] 68 Pulse Rate [Orthostatic Standing] 70 Respiratory Rate 20 30 H Blood Pressure 146/60 H Blood Pressure [Left Arm] 160/58 H Blood Pressure [Orthostatic Lying] 145/63 H Blood Pressure [Orthostatic Sitting] 124/52 L Blood Pressure [Orthostatic Standing] 81/35 L Pulse Oximetry 99 100 03/31/19 14:18 03/31/19 15:36 03/31/19 16:27 Temperature Pulse Rate 60 66 Pulse Rate [Orthostatic Lying] 71 Pulse Rate [Orthostatic Sitting] 74 Pulse Rate [Orthostatic Standing] 60 Respiratory Rate 21 24 Blood Pressure Blood Pressure [Left Arm] 158/58 H 172/64 H Blood Pressure [Orthostatic Lying] 121/52 L Blood Pressure [Orthostatic Sitting] 158/62 H Blood Pressure [Orthostatic Standing] 201/78 H Pulse Oximetry 97 99 MDM - Syncope Lab Data Result diagrams: 03/31/19 13:18 03/31/19 13:18 Lab Results 03/31/19 03/31/19 Range/Units 13:18 13:18 WBC 8.3 (4.5-11.0) X10^3/uL RBC 4.38 L (4.5-5.9) X10^6/uL Hgb 12.5 L (13.5-17.5) g/dL Hct 37.3 L (41-53) % MCV 85.2 (80-100) fL MCH 28.6 (26-34) PG MCHC 33.5 (30-36) % RDW 15.0 H (11.6-14.8) % Plt Count 172 (150-400) X10^3/uL Neut % (Auto) 59.6 (50-75) % Lymph % (Auto) 30.2 (25-40) % [place] % (Auto) 7.1 (3-14) % Eos % (Auto) 2.5 (2-4) % Baso % (Auto) 0.6 (0-2) % Neut # (Auto) 4900 (2186-0102) /uL Lymph # (Auto) 2500 (3349-7351) /uL [place] # (Auto) 600 (0-900) /uL Eos # (Auto) 200 (0-450) /uL Baso # (Auto) 100 (0-100) /uL Sodium 137 (137-145) mmol/L Potassium 4.9 (3.4-5.1) mmol/L Chloride 105 (98-107) mmol/L Carbon Dioxide 21 L (22-32) mmol/L BUN 39 H (9-20) mg/dL Creatinine 1.80 H (0.66-1.25) mg/dL Estimated GFR 36.5 L (>60) mL/min BUN/Creatinine Ratio 21.7 (6-22) Glucose 293 H (80-110) mg/dL Calcium 9.9 (8.4-10.2) mg/dL Magnesium 1.4 L (1.6-2.3) mg/dL Total Bilirubin 1.5 H (0.2-1.3) mg/dL AST 35 (17-59) IU/L ALT 42 (21-72) IU/L Alkaline Phosphatase 46 (38-126) U/L Total Creatine Kinase 94 (55-170) U/L CK-MB (CK-2) TNP CK-MB (CK-2) Rel Index TNP Troponin I < 0.012 (0.01-0.034) ng/mL Total Protein 7.2 (6.3-8.2) g/dL Albumin 4.2 (3.5-5.0) g/dL Globulin 3.0 (1.7-4.1) g/dL Albumin/Globulin Ratio 1.4 (1.0-2.8) Urine Dip Bedside Urine Glucose 500 mg/dl Bedside Urine Bilirubin - Negative Bedside Urine Ketone - Negative Urine Specific [place] 1.015 Bedside Urine Occult Blood - Negative Bedside Urine pH 7.5 Bedside Urine Protein +/- 15 Bedside Urine Urobilinogen - Negative Bedside Urine Nitrite - Negative Bedside Urine Leukocytes - Negative Esterase ECG Data Pacemaker function: normal pacer function MDM Narrative Medical decision making narrative: Multiple etiologies for patient's symptoms considered including: [Orthostatic hypotension versus vagal syncope versus cardiac arrhythmia versus intracranial hemorrhage versus other] Patient's symptoms improved or duration of stay with above-stated therapies. Findings and discharge diagnosis discussed with patient/family followed by verbalization of understanding Return precautions discussed with patient/family whom verbalize understanding. Discharge Plan Departure Patient Disposition: Home Clinical Impression: Syncope Qualifiers: Syncope type: unspecified Qualified Code(s): R55 - Syncope and collapse Abrasion of scalp Qualifiers: Encounter type: initial encounter Qualified Code(s): S00.01XA - Abrasion of scalp, initial encounter Instructions: DI for Syncope in Adults (Fainting) Activity Restrictions/Additional Instructions: *You have been diagnosed with [syncope, scalp abrasion] *What to do: *Take medications as directed, stay well hydrated *Follow up with your primary care provider in 2-3 days, call for an appointment. Let them know you were seen in the Emergency Department and that we ask that you be seen in follow up *Return to ER if you should have any new, worsening or concerning symptoms Prescriptions: No Action atorvastatin 40 MG tablet 40 mg PO DAILY Qty: 0 RF: 0 insulin glargine [Lantus U-100 Insulin] 100 UNIT/1 ML solution 54 unit SQ BEDTIME Qty: 0 RF: 0 losartan 100 MG tablet 100 mg PO DAILY Qty: 0 RF: 0 calcium carbonate-vitamin D3 [Calcium 600 with Vitamin D3] 600 MG/200 IU capsule 1 cap PO QDAY Qty: 0 RF: 0 cholecalciferol (vitamin D3) [Vitamin D3] 1,000 UNIT tablet 2,000 unit PO QDAY Qty: 0 RF: 0 cinnamon bark [Cinnamon] 500 mg Capsule 500 mg PO DAILY Qty: 0 RF: 0 nwtoonfg-yrna-LP-calcium-mins [Thera M Plus (ferrous fumarat)] 1 EACH tablet 1 tab PO DAILY Qty: 0 RF: 0 lutein 10 mg Tablet 6 mg PO QDAY Qty: 0 RF: 0 sennosides [Senna Lax] 8.6 MG tablet 8.6 mg PO BID PRN (Reason: Constipation) Qty: 0 RF: 0 aspirin 81 MG tablet,delayed release (DR/EC) 81 mg PO DAILY Qty: 0 RF: 0 tamsulosin 0.4 mg Capsule 0.4 mg PO DAILY RF: 0 finasteride 5 mg Tablet 5 mg PO DAILY RF: 0 amoxicillin-pot clavulanate [Augmentin] 875-125 mg tablet 1 tab PO BID Qty: 20 RF: 0 Referrals: Kendell Zuleta MD [Primary Care Provider] -
[2019-03-31 15:36] VITALS: BP 121/52; BP 158/62; BP 201/78; PULSE 60; PULSE 71; PULSE 74
[2019-03-31] MEDS: SODIUM CHLORIDE 0.9% 500 ML 1000 ML IV (15:41)
--- NOTE | 2019-03-31 16:23 | PC.NURSE ---
Pt ambulated around unit without difficulty or any symptoms. Provider aware.
[2019-03-31 16:27] VITALS: BP 172/64; PULSE 66; RESP 24; O2SAT 99
== END 2019-03-31 16:53 | disposition home or self-care (01) ==
PROVIDERS: Emergency Provider Emergency Medicine; PCP Family Medicine
DX: R55 Syncope and collapse (principal); S00.01XA Abrasion of scalp, initial encounter; W19.XXXA Unspecified fall, initial encounter; Z95.0 Presence of cardiac pacemaker; Z79.82 Long term (current) use of aspirin
CPT/HCPCS: 36591; 70450; 80053; 81003; 82550; 83735; 84484; 85025; 93005; 96360; 96361; 99285

== ENCOUNTER → 2019-05-21 12:34 | Outpatient (CLI) | payer MEDICARE, SELFPAY ==
[2018-07-26 19:56] VITALS: BMI 29.8
[2019-05-21 14:44] LABS: Prostate Specific Antigen 0.147 ng/mL (0.10-4.00)
== END ==
PROVIDERS: Visit Provider Specialist
DX: N40.1 Benign prostatic hyperplasia with lower urinary tract symptoms (principal)
CPT/HCPCS: 36415; 84153

== ENCOUNTER → 2019-09-19 15:54 | Outpatient (CLI) | payer OTHER, SELFPAY ==
[2018-07-26 19:56] VITALS: BMI 29.8
--- NOTE | 2019-09-19 | DI.ECHO.S_ITS ---
[facility]---------[facility] +---------+ : : [address] [place] : : : : [id number] : : : : Phone: [phone]+ Echocardiogram Report + + :Name: DAYANA LOZANO Study Date: 09/19/2019 Height: 63 in : :[facility] Weight: 168 lb : : Gender: Male BSA: 1.8 m2 : :: 1940 Age: 78 yrs BP: 112/82 mmHg: :Reason For Study: MURMUR : :Ordering Physician: Luisa : :Hospitalist Performed By: Easton Lora : + + Interpretation Summary Left ventricular systolic function is normal without focal wall motion abnormalities with the ejection fraction visually estimated to be 60-65%. There is mild concentric left ventricular hypertrophy. Diastolic parameters suggest a relaxation abnormality of the left ventricle, consistent with probable normal filling pressures. There has been no significant change since the previous study. The right ventricle is normal in size and function and is unchanged compared to the previous study. Pulmonary artery pressures cannot be estimated because of the lack of a measurable TR jet velocity. Both atria are normal in size. There is mild aortic stenosis that is slightly progressive compared to the previous study with a peak aortic velocity of 2.3 m/s and a mean gradient of 13 mmHg compared to 2.2 m/s and 10 mmHg, respectively, previously. The calculated aortic valve area is 1.6 cm2. There is mild tricuspid regurgitation and mild pulmonic regurgitation that are slightly more prominent compared to the previous study. The ascending aorta is at the upper limits of normal in size but is unchanged compared to the previous study. Procedure: A two-dimensional transthoracic echocardiogram with color flow and Doppler was performed. The study quality was technically adequate. Prior echo performed on 07/10/18. The patient has a paced rhythm. Left Ventricle: The left ventricle is normal in size. There is mild concentric left ventricular hypertrophy. Left ventricular systolic function is normal without focal wall motion abnormalities. The ejection fraction is estimated to be 60-65%. Diastolic parameters suggest a relaxation abnormality of the left ventricle, consistent with probable normal filling pressures. There has been no significant change since the previous study. Right Ventricle: There is a pacemaker lead in the right ventricle. The right ventricle is normal in size and function. This is unchanged compared to the previous study. Atria: Both atria are normal in size. There is a catheter/pacemaker lead seen in the right atrium. The interatrial septum is intact with no evidence for an atrial septal defect. Mitral Valve: The mitral valve is normal in structure and function. There is trace mitral regurgitation. This is unchanged compared to the previous study. Aortic Valve: There is mild aortic stenosis. This is slightly progressive compared to the previous study. The peak aortic velocity is 2.3 m/sec. The aortic valve mean gradient is 13 mmHg. The calculated aortic valve area is 1.6 cm2. No aortic regurgitation is present. Tricuspid Valve: The tricuspid valve is normal in structure and function. There is mild tricuspid regurgitation. Pulmonary artery pressures cannot be estimated because of the lack of a measurable TR jet velocity. This is slightly more prominent compared to the previous study. Pulmonic Valve: The pulmonic valve is not well visualized. There is mild pulmonic regurgitation. This is slightly more prominent compared to the previous study. Great Vessels: The aortic root is normal size. The ascending aorta is at the upper limits of normal in size. This is unchanged compared to the previous study. The pulmonary artery is normal size. The inferior vena cava was not visualized. Pericardium/ Pleura There is no pericardial effusion. There is no pleural effusion. MMode/2D Measurements & Calculations LVIDd: 4.4 cm LVOT diam: 2.0 cm LVIDs: 2.8 cm Ao root diam: 3.2 cm FS: 36.6 % Aortic Jxn: 2.6 cm IVSd: 1.3 cm asc Aorta Diam: 3.3 cm LVPWd: 1.4 cm LV valle. diameter/BSA (cm/m^2): 2.5 LV sys. diameter/BSA (cm/m^2): 1.6 LA A2 area: 17.4 cm2 RA long axis: 4.5 cm LA A4 area: 18.7 cm2 RA area: 8.9 cm2 LA length (vol): 5.6 cm RA vol: 15.0 ml LA vol: 49.2 ml RA : 8.3 ml/m2 LA vol index: 27.4 ml/m2 TAPSE: 2.2 cm Doppler Measurements & Calculations Ao V2 max: 229.4 cm/sec LVOT Max Gurmeet: 122.8 cm/sec Ao V2 mean: 169.3 cm/sec LV V1 max P.0 mmHg Ao max P.1 mmHg LV V1 VTI: 30.1 cm Ao mean P.7 mmHg AKIKO(I,D): 1.7 cm2 Ao V2 VTI: 55.4 cm AKIKO(V,D): 1.6 cm2 sev ratio: 0.54 AKIKO indexed to BSA (cm^2/m^2): 0.93 MV E max gurmeet: 55.9 cm/sec PA V2 max: 108.5 cm/sec MV A max gurmeet: 111.4 cm/sec PA V2 mean: 69.0 cm/sec MV E/A: 0.50 PA mean P.4 mmHg Med Peak E' Gurmeet: 3.7 cm/sec PA Accel Time: 0.09 sec E/E' med: 15.0 Lat Peak E' Gurmeet: 6.8 cm/sec E/E' lat: 8.2 E/e' average: 11.6 MV dec time: 0.28 sec SV(LVOT): 92.4 ml Reading Physician:ANABELA
== END ==
DX: I08.2 Rheumatic disorders of both aortic and tricuspid valves (principal); R01.1 Cardiac murmur, unspecified
CPT/HCPCS: 93306

== ENCOUNTER → 2019-09-23 08:32 | Outpatient (CLI) | payer OTHER, SELFPAY ==
[2018-07-26 19:56] VITALS: BMI 29.8
--- NOTE | 2019-09-23 | DI.US.S_ITS ---
PROCEDURE: US RENAL COMPLETE INDICATIONS: KIDNEY DISEASE TECHNIQUE: Real-time scanning was performed of the kidneys and bladder, with image documentation. COMPARISON: [facility], US, US RENAL COMPLETE, 07/09/2018, 17:23. FINDINGS: Kidneys: Kidneys are normal in size. Right kidney measures 12.0 cm long; left kidney measures 11.4 cm long. Right renal cortical thickness is 1.3 cm; left renal cortical thickness is 1.0 cm. Renal cortical echotexture is normal. No hydronephrosis or nephrolithiasis. No suspicious solid mass lesions. Bilateral renal cysts, largest on the right measuring up to 2.9 cm in 1.4 cm on the left. Bladder: Pre-void bladder volume is 385 mL. Post-void residual is 264 mL. Pre-void images demonstrate no intraluminal masses or stones. On pre-void images, right ureteral jets are noted with color Doppler interrogation. (Of note, ureteral jets may not be detectable in up to 25% of cases due to insufficient differences in specific gravity between ureteral and bladder urine). Miscellaneous: No free pelvic fluid. IMPRESSION: 1. Mild left renal cortical thinning. 2. Bilateral renal cysts redemonstrated. 3. 264 cc urinary bladder postvoid residual. Dictated by: [facility] Interpreted: Francois Quiles MD on 09/23/2019 at 10:25 Approved by: Francois Quiles M.D. on 09/23/2019 at 16:52
== END ==
DX: N28.9 Disorder of kidney and ureter, unspecified (principal); N28.1 Cyst of kidney, acquired
CPT/HCPCS: 76770

== ENCOUNTER 2019-12-30 16:44 | Emergency (ER) | payer OTHER, SELFPAY ==
[2018-07-26 19:56] VITALS: BMI 29.8
[2019-12-30 17:02] VITALS: BP 115/53; PULSE 66; RESP 18; TEMP 36.4; O2SAT 99
[2019-12-30 17:22] VITALS: BP 144/63; PULSE 66; RESP 27; O2SAT 95
--- NOTE | 2019-12-30 17:38 | ED_ITS ---
HPI - Neuro Symptoms/Deficit <Stephanie Patel MD - Last Filed: 12/31/19 07:25> General Chief Complaint: Neuro Symptoms/Deficit Stated Complaint: [facility], hallucinations Time Seen by Provider: 12/30/19 16:54 Source: patient Mode of arrival: Ambulatory Limitations: no limitations History of Present Illness HPI Narrative: 79-year-old gentleman with a history of hyperlipidemia, BPH, insu hipolito-dependent diabetes who presents with a week of hallucinations. The last time this happened he was diagnosed with urosepsis. He is not complaining of any acute urologic findings at this time denies fevers chills, cough, vomiting, diarrhea. Notes that when he sees the hallucinations (things like trees being cut down in the yard and trucks driving up their driveway) and his notes that they are not there he agrees to disagree On Anticoagulants: Yes (ASA) Related Data Home Medications Medication Instructions Recorded Confirmed aspirin 81 mg PO DAILY #0 12/13/17 07/26/18 atorvastatin 40 mg PO DAILY #0 12/13/17 07/26/18 calcium carbonate-vitamin D3 1 cap PO QDAY #0 12/13/17 07/26/18 [Calcium 600 with Vitamin D3] cholecalciferol (vitamin D3) 2,000 unit PO QDAY #0 12/13/17 07/26/18 [Vitamin D3] cinnamon bark [Cinnamon] 500 mg PO DAILY #0 12/13/17 07/26/18 insulin glargine [Lantus U-100 54 unit SQ BEDTIME #0 12/13/17 07/26/18 Insulin] losartan 100 mg PO DAILY #0 12/13/17 07/26/18 lutein 6 mg PO QDAY #0 12/13/17 07/26/18 gmxtdxfo-vehb-FV-calcium-mins 1 tab PO DAILY #0 12/13/17 07/26/18 [Thera M Plus (ferrous fumarat)] sennosides [Senna Lax] 8.6 mg PO BID PRN #0 12/13/17 07/26/18 finasteride 5 mg PO DAILY 07/26/18 07/26/18 tamsulosin 0.4 mg PO DAILY 07/26/18 07/26/18 Allergies Allergy/AdvReac Type Severity Reaction Status Date / Time chlorhexidine Allergy Intermediate Rash Verified 12/30/19 17:06 caffeine [CAFFEINE] AdvReac Unknown Blurry Verified 12/30/19 17:06 Vision Review of Systems <Stephanie Patel MD - Last Filed: 12/31/19 07:25> Review of Systems Narrative: All systems reviewed and are unremarkable except as noted in HPI and below Patient History <Stephanie Patel MD - Last Filed: 12/31/19 07:25> Medical History Acute urinary retention (Acute) Diabetes mellitus (Acute) Great toe amputation status (Acute) Hyperlipidemia (Acute) Hypertension (Acute) Surgical History History of permanent cardiac pacemaker placement (Acute) Family History Father Cancer Social History household members: spouse Smoking Status: Former smoker alcohol intake: former Smoking Status: Former smoker alcohol intake frequency: holidays/special occasions only Substance Use Type: does not use Exam <Stephanie Patel MD - Last Filed: 12/31/19 07:25> Initial Vital Signs Initial Vital Signs: Vital Signs Temperature 97.6 F 12/30/19 17:02 Pulse Rate 66 12/30/19 17:02 Respiratory Rate 18 12/30/19 17:02 Blood Pressure 115/53 L 12/30/19 17:02 Pulse Oximetry 99 12/30/19 17:02 <Sathish Flores DO - Last Filed: 12/30/19 23:22> Narrative Exam Narrative: GENERAL: [79] year old patient appears stated age. Well- nourished, well-developed patient, in mild distress. HEAD: Atraumatic. Normocephalic. EYES: Pupils equal round and reactive. Extraocular motions intact. No scleral icterus. No injection or drainage. ENT: Nose without bleeding, purulent drainage. Throat without erythema, tonsillar hypertrophy or exudate. Airway patent. NECK: Trachea midline. Non tender CARDIOVASCULAR: Regular rate and rhythm without murmurs, gallops, or rubs. RESPIRATORY: Clear to auscultation. Breath sounds equal bilaterally. No wheezes, rales, or rhonchi. GASTROINTESTINAL: Abdomen soft, non-tender, nondistended. EXTREMITIES: No edema or joint tenderness. BACK: Nontender without deformity or crepitance. No flank tenderness. NEURO: AOx3. SKIN: No rash or erythema of visible areas Initial Vital Signs Initial Vital Signs: Vital Signs Temperature 97.6 F 12/30/19 17:02 Pulse Rate 66 12/30/19 17:02 Respiratory Rate 18 12/30/19 17:02 Blood Pressure 115/53 L 12/30/19 17:02 Pulse Oximetry 99 12/30/19 17:02 Course <Stephanie Patel MD - Last Filed: 12/31/19 07:25> Orders Ordered: ED Orders 12/30/19 17:18 Complete Blood Count AUTO DIFF Stat Comprehensive Metabolic Panel Stat Lactate (Lactic Acid) Stat Lipase Stat 12/30/19 17:36 Blood Culture Stat 12/30/19 18:15 Urinalysis and Microscopic Stat Urine Drug Screen, Rapid Stat 12/30/19 18:37 CT head/brain wo con Stat Vital Signs Vital signs: Vital Signs - 8 hr 12/30/19 17:02 12/30/19 17:22 12/30/19 19:15 Temperature 97.6 F Pulse Rate 66 66 67 Respiratory Rate 18 27 H 26 H Blood Pressure 115/53 L Blood Pressure [Left Arm] 144/63 H 190/80 H Pulse Oximetry 99 95 100 12/30/19 19:45 Temperature Pulse Rate Respiratory Rate 68 H Blood Pressure Blood Pressure [Left Arm] 186/91 H Pulse Oximetry 100 <Sathish Flores DO - Last Filed: 12/30/19 23:22> Course Course Narrative: Patient has visual hallucinations. He denies any suicidal or homicidal thoughts. He is very pleasant and peaceful and has good social support. Exam, labs, and imaging are all very reassuring. He needs close follow up with PCP to have ongoing assessments. Questions answered to their apparent satisfaction. Return precautions given. Orders Ordered: ED Orders 12/30/19 17:18 Complete Blood Count AUTO DIFF Stat Comprehensive Metabolic Panel Stat Lactate (Lactic Acid) Stat Lipase Stat 12/30/19 17:36 Blood Culture Stat 12/30/19 18:15 Urinalysis and Microscopic Stat Urine Drug Screen, Rapid Stat 12/30/19 18:37 CT head/brain wo con Stat Vital Signs Vital signs: Vital Signs - 8 hr 12/30/19 17:02 12/30/19 17:22 12/30/19 19:15 Temperature 97.6 F Pulse Rate 66 66 67 Respiratory Rate 18 27 H 26 H Blood Pressure 115/53 L Blood Pressure [Left Arm] 144/63 H 190/80 H Pulse Oximetry 99 95 100 12/30/19 19:45 Temperature Pulse Rate Respiratory Rate 68 H Blood Pressure Blood Pressure [Left Arm] 186/91 H Pulse Oximetry 100 MDM - Neuro Symptoms/Deficit <Stephanie Patel MD - Last Filed: 12/31/19 07:25> Lab Data Result diagrams: 12/30/19 17:18 12/30/19 17:18 Labs: Lab Results 12/30/19 12/30/19 12/30/19 Range/Units 17:18 17:18 17:18 WBC 6.4 (4.5-11.0) X10^3/uL RBC 4.04 L (4.5-5.9) X10^6/uL Hgb 11.8 L (13.5-17.5) g/dL Hct 34.0 L (41-53) % MCV 84.3 (80-100) fL MCH 29.3 (26-34) PG MCHC 34.7 (30-36) % RDW 15.1 H (11.6-14.8) % Plt Count 180 (150-400) X10^3/uL Neut % (Auto) 62.0 (50-75) % Lymph % (Auto) 27.0 (25-40) % Dixon % (Auto) 8.1 (3-14) % Eos % (Auto) 2.3 (2-4) % Baso % (Auto) 0.6 (0-2) % Neut # (Auto) 4000 (7028-6881) /uL Lymph # (Auto) 1700 (3919-0153) /uL Dixon # (Auto) 500 (0-900) /uL Eos # (Auto) 100 (0-450) /uL Baso # (Auto) 0 (0-100) /uL Sodium 137 (137-145) mmol/L Potassium 4.4 (3.4-5.1) mmol/L Chloride 106 (98-107) mmol/L Carbon Dioxide 21 L (22-32) mmol/L BUN 41 H (9-20) mg/dL Creatinine 1.96 H (0.66-1.25) mg/dL Estimated GFR 33.0 L (>60) mL/min BUN/Creatinine Ratio 20.9 (6-22) Glucose 231 H (80-110) mg/dL Lactate 1.8 (0.7-2.1) mmol/L Calcium 9.7 (8.4-10.2) mg/dL Total Bilirubin 1.5 H (0.2-1.3) mg/dL AST 39 (17-59) IU/L ALT 32 (<50) IU/L Alkaline Phosphatase 51 (38-126) U/L Total Protein 7.3 (6.3-8.2) g/dL Albumin 4.3 (3.5-5.0) g/dL Globulin 3.0 (1.7-4.1) g/dL Albumin/Globulin Ratio 1.4 (1.0-2.8) Lipase (23-300) U/L Urine Color Urine Appearance Urine pH (4.5-8.0) Ur Specific [place] (1.000-1.035) Urine Protein (Negative) Urine Glucose (UA) (Negative) g/dL Urine Ketones (NEGATIVE) Urine Occult Blood (Negative) Urine Nitrate (Negative) Urine Bilirubin (NEGATIVE) Urine Urobilinogen (0.2) E.U./dL Ur Leukocyte Esterase (NEGATIVE) Urine RBC (0-5/HPF) Urine WBC (0-5/HPF) Ur Squamous Epith Cells (0-5/HPF) Urine Bacteria (None) Ur Culture Indicated? U Opiates 300ng/mL cut (Negative) Ur Oxycodone Screen (Negative) Urine Methadone Screen (Negative) Ur Barbiturates Screen (Negative) U Tricyclic Antidepress (Negative) Ur Phencyclidine Scrn (Negative) Ur Amphetamines Screen (Negative) U Methamphetamines Scrn (Negative) Ur MDMA Scrn (Ecstasy) (Negative) U Benzodiazepines Scrn (Negative) Urine Cocaine Screen (Negative) U Marijuana (THC) Screen (Negative) 12/30/19 12/30/19 12/30/19 Range/Units 17:18 18:15 18:15 WBC (4.5-11.0) X10^3/uL RBC (4.5-5.9) X10^6/uL Hgb (13.5-17.5) g/dL Hct (41-53) % MCV (80-100) fL MCH (26-34) PG MCHC (30-36) % RDW (11.6-14.8) % Plt Count (150-400) X10^3/uL Neut % (Auto) (50-75) % Lymph % (Auto) (25-40) % Dixon % (Auto) (3-14) % Eos % (Auto) (2-4) % Baso % (Auto) (0-2) % Neut # (Auto) (8421-1646) /uL Lymph # (Auto) (4501-6017) /uL Dixon # (Auto) (0-900) /uL Eos # (Auto) (0-450) /uL Baso # (Auto) (0-100) /uL Sodium (137-145) mmol/L Potassium (3.4-5.1) mmol/L Chloride (98-107) mmol/L Carbon Dioxide (22-32) mmol/L BUN (9-20) mg/dL Creatinine (0.66-1.25) mg/dL Estimated GFR (>60) mL/min BUN/Creatinine Ratio (6-22) Glucose (80-110) mg/dL Lactate (0.7-2.1) mmol/L Calcium (8.4-10.2) mg/dL Total Bilirubin (0.2-1.3) mg/dL AST (17-59) IU/L ALT (<50) IU/L Alkaline Phosphatase (38-126) U/L Total Protein (6.3-8.2) g/dL Albumin (3.5-5.0) g/dL Globulin (1.7-4.1) g/dL Albumin/Globulin Ratio (1.0-2.8) Lipase 421 H (23-300) U/L Urine Color Yellow Urine Appearance Clear Urine pH 6.5 (4.5-8.0) Ur Specific [place] 1.010 (1.000-1.035) Urine Protein Negative (Negative) Urine Glucose (UA) 1+ H (Negative) g/dL Urine Ketones Negative (NEGATIVE) Urine Occult Blood Negative (Negative) Urine Nitrate Negative (Negative) Urine Bilirubin Negative (NEGATIVE) Urine Urobilinogen 0.2 (0.2) E.U./dL Ur Leukocyte Esterase Negative (NEGATIVE) Urine RBC None seen (0-5/HPF) Urine WBC 0-1/hpf (0-5/HPF) Ur Squamous Epith Cells 0-1 /hpf (0-5/HPF) Urine Bacteria None seen (None) Ur Culture Indicated? Cult not indicated U Opiates 300ng/mL cut Negative (Negative) Ur Oxycodone Screen Negative (Negative) Urine Methadone Screen Negative (Negative) Ur Barbiturates Screen Negative (Negative) U Tricyclic Antidepress Negative (Negative) Ur Phencyclidine Scrn Negative (Negative) Ur Amphetamines Screen Negative (Negative) U Methamphetamines Scrn Negative (Negative) Ur MDMA Scrn (Ecstasy) Negative (Negative) U Benzodiazepines Scrn Negative (Negative) Urine Cocaine Screen Negative (Negative) U Marijuana (THC) Screen Negative (Negative) <Sathish Flores, DO - Last Filed: 12/30/19 23:22> Lab Data Labs: Lab Results 12/30/19 12/30/19 12/30/19 Range/Units 17:18 17:18 17:18 WBC 6.4 (4.5-11.0) X10^3/uL RBC 4.04 L (4.5-5.9) X10^6/uL Hgb 11.8 L (13.5-17.5) g/dL Hct 34.0 L (41-53) % MCV 84.3 (80-100) fL MCH 29.3 (26-34) PG MCHC 34.7 (30-36) % RDW 15.1 H (11.6-14.8) % Plt Count 180 (150-400) X10^3/uL Neut % (Auto) 62.0 (50-75) % Lymph % (Auto) 27.0 (25-40) % Dixon % (Auto) 8.1 (3-14) % Eos % (Auto) 2.3 (2-4) % Baso % (Auto) 0.6 (0-2) % Neut # (Auto) 4000 (7755-5410) /uL Lymph # (Auto) 1700 (8892-9805) /uL Dixon # (Auto) 500 (0-900) /uL Eos # (Auto) 100 (0-450) /uL Baso # (Auto) 0 (0-100) /uL Sodium 137 (137-145) mmol/L Potassium 4.4 (3.4-5.1) mmol/L Chloride 106 (98-107) mmol/L Carbon Dioxide 21 L (22-32) mmol/L BUN 41 H (9-20) mg/dL Creatinine 1.96 H (0.66-1.25) mg/dL Estimated GFR 33.0 L (>60) mL/min BUN/Creatinine Ratio 20.9 (6-22) Glucose 231 H (80-110) mg/dL Lactate 1.8 (0.7-2.1) mmol/L Calcium 9.7 (8.4-10.2) mg/dL Total Bilirubin 1.5 H (0.2-1.3) mg/dL AST 39 (17-59) IU/L ALT 32 (<50) IU/L Alkaline Phosphatase 51 (38-126) U/L Total Protein 7.3 (6.3-8.2) g/dL Albumin 4.3 (3.5-5.0) g/dL Globulin 3.0 (1.7-4.1) g/dL Albumin/Globulin Ratio 1.4 (1.0-2.8) Lipase (23-300) U/L Urine Color Urine Appearance Urine pH (4.5-8.0) Ur Specific [place] (1.000-1.035) Urine Protein (Negative) Urine Glucose (UA) (Negative) g/dL Urine Ketones (NEGATIVE) Urine Occult Blood (Negative) Urine Nitrate (Negative) Urine Bilirubin (NEGATIVE) Urine Urobilinogen (0.2) E.U./dL Ur Leukocyte Esterase (NEGATIVE) Urine RBC (0-5/HPF) Urine WBC (0-5/HPF) Ur Squamous Epith Cells (0-5/HPF) Urine Bacteria (None) Ur Culture Indicated? U Opiates 300ng/mL cut (Negative) Ur Oxycodone Screen (Negative) Urine Methadone Screen (Negative) Ur Barbiturates Screen (Negative) U Tricyclic Antidepress (Negative) Ur Phencyclidine Scrn (Negative) Ur Amphetamines Screen (Negative) U Methamphetamines Scrn (Negative) Ur MDMA Scrn (Ecstasy) (Negative) U Benzodiazepines Scrn (Negative) Urine Cocaine Screen (Negative) U Marijuana (THC) Screen (Negative) 12/30/19 12/30/19 12/30/19 Range/Units 17:18 18:15 18:15 WBC (4.5-11.0) X10^3/uL RBC (4.5-5.9) X10^6/uL Hgb (13.5-17.5) g/dL Hct (41-53) % MCV (80-100) fL MCH (26-34) PG MCHC (30-36) % RDW (11.6-14.8) % Plt Count (150-400) X10^3/uL Neut % (Auto) (50-75) % Lymph % (Auto) (25-40) % Dixon % (Auto) (3-14) % Eos % (Auto) (2-4) % Baso % (Auto) (0-2) % Neut # (Auto) (7748-0097) /uL Lymph # (Auto) (8283-6564) /uL Dixon # (Auto) (0-900) /uL Eos # (Auto) (0-450) /uL Baso # (Auto) (0-100) /uL Sodium (137-145) mmol/L Potassium (3.4-5.1) mmol/L Chloride (98-107) mmol/L Carbon Dioxide (22-32) mmol/L BUN (9-20) mg/dL Creatinine (0.66-1.25) mg/dL Estimated GFR (>60) mL/min BUN/Creatinine Ratio (6-22) Glucose (80-110) mg/dL Lactate (0.7-2.1) mmol/L Calcium (8.4-10.2) mg/dL Total Bilirubin (0.2-1.3) mg/dL AST (17-59) IU/L ALT (<50) IU/L Alkaline Phosphatase (38-126) U/L Total Protein (6.3-8.2) g/dL Albumin (3.5-5.0) g/dL Globulin (1.7-4.1) g/dL Albumin/Globulin Ratio (1.0-2.8) Lipase 421 H (23-300) U/L Urine Color Yellow Urine Appearance Clear Urine pH 6.5 (4.5-8.0) Ur Specific [place] 1.010 (1.000-1.035) Urine Protein Negative (Negative) Urine Glucose (UA) 1+ H (Negative) g/dL Urine Ketones Negative (NEGATIVE) Urine Occult Blood Negative (Negative) Urine Nitrate Negative (Negative) Urine Bilirubin Negative (NEGATIVE) Urine Urobilinogen 0.2 (0.2) E.U./dL Ur Leukocyte Esterase Negative (NEGATIVE) Urine RBC None seen (0-5/HPF) Urine WBC 0-1/hpf (0-5/HPF) Ur Squamous Epith Cells 0-1 /hpf (0-5/HPF) Urine Bacteria None seen (None) Ur Culture Indicated? Cult not indicated U Opiates 300ng/mL cut Negative (Negative) Ur Oxycodone Screen Negative (Negative) Urine Methadone Screen Negative (Negative) Ur Barbiturates Screen Negative (Negative) U Tricyclic Antidepress Negative (Negative) Ur Phencyclidine Scrn Negative (Negative) Ur Amphetamines Screen Negative (Negative) U Methamphetamines Scrn Negative (Negative) Ur MDMA Scrn (Ecstasy) Negative (Negative) U Benzodiazepines Scrn Negative (Negative) Urine Cocaine Screen Negative (Negative) U Marijuana (THC) Screen Negative (Negative) Discharge Plan Departure Patient Disposition: Home Clinical Impression: Hallucination, visual Discharge Date/Time: 12/30/19 20:25 Activity Restrictions/Additional Instructions: *You have been diagnosed with [visual hallucinations, lab work, physical exam and head CT are very reassuring] *What to do: *NO DRIVING until you follow up with your doctor *Continue to take medications as directed *Follow up with your primary care provider in 2-3 days, call for an appointment. Let them know you were seen in the Emergency Department and that we ask that you be seen in follow up *Return to ER if you should have any new, worsening or concerning symptoms Prescriptions: No Action atorvastatin 40 MG tablet 40 mg PO DAILY Qty: 0 RF: 0 insulin glargine [Lantus U-100 Insulin] 100 UNIT/1 ML solution 54 unit SQ BEDTIME Qty: 0 RF: 0 losartan 100 MG tablet 100 mg PO DAILY Qty: 0 RF: 0 calcium carbonate-vitamin D3 [Calcium 600 with Vitamin D3] 600 MG/200 IU capsule 1 cap PO QDAY Qty: 0 RF: 0 cholecalciferol (vitamin D3) [Vitamin D3] 1,000 UNIT tablet 2,000 unit PO QDAY Qty: 0 RF: 0 cinnamon bark [Cinnamon] 500 mg Capsule 500 mg PO DAILY Qty: 0 RF: 0 piccfkan-shmc-YD-calcium-mins [Thera M Plus (ferrous fumarat)] 1 EACH tablet 1 tab PO DAILY Qty: 0 RF: 0 lutein 10 mg Tablet 6 mg PO QDAY Qty: 0 RF: 0 sennosides [Senna Lax] 8.6 MG tablet 8.6 mg PO BID PRN (Reason: Constipation) Qty: 0 RF: 0 aspirin 81 MG tablet,delayed release (DR/EC) 81 mg PO DAILY Qty: 0 RF: 0 tamsulosin 0.4 mg Capsule 0.4 mg PO DAILY RF: 0 finasteride 5 mg Tablet 5 mg PO DAILY RF: 0 Referrals: [facility] [Outside]
[2019-12-30 18:08] LABS: Add Manual Diff / Slide Review NO; Basophils Absolute Auto 0 /uL (0-100); Basophils Percent Auto 0.6 % (0-2); Eosinophils Absolute Auto 100 /uL (0-450); Eosinophils Percent Auto 2.3 % (2-4); Hemoglobin 11.8 g/dL (13.5-17.5); Lymphocytes Absolute Auto 1700 /uL (1100-4500); Mean Corpuscular HGB Conc 34.7 % (30-36); Mean Corpuscular Hemoglobin 29.3 PG (26-34); Mean Corpuscular Volume 84.3 fL (80-100); Monocytes Absolute Auto 500 /uL (0-900); Monocytes Percent Auto 8.1 % (3-14); Neutrophils Absolute Auto 4000 /uL (1500-7000); Platelet Count 180 X10^3/uL (150-400); Red Blood Cell Count 4.04 X10^6/uL (4.5-5.9); Red Cell Distribution Width 15.1 % (11.6-14.8); White Blood Cell Count 6.4 X10^3/uL (4.5-11.0)
[2019-12-30 18:14] LABS: Lactate (Lactic Acid) 1.8 mmol/L (0.7-2.1)
[2019-12-30 18:15] LABS: Alanine Aminotransferase 32 IU/L (<50); Albumin 4.3 g/dL (3.5-5.0); Albumin Globulin Ratio 1.4 (1.0-2.8); Alkaline Phosphatase 51 U/L (38-126); Aspartate Aminotransferase 39 IU/L (17-59); BUN Creatinine Ratio 20.9 (6-22); Bilirubin Total 1.5 mg/dL (0.2-1.3); Blood Urea Nitrogen 41 mg/dL (9-20); Calcium 9.7 mg/dL (8.4-10.2); Carbon Dioxide 21 mmol/L (22-32); Chloride 106 mmol/L (98-107); Glucose 231 mg/dL (80-110); HEMOLYSIS 29 (0-50); Lipase 421 U/L (23-300); Potassium 4.4 mmol/L (3.4-5.1); Sodium 137 mmol/L (137-145); Total Protein 7.3 g/dL (6.3-8.2)
[2019-12-30 18:18] LABS: Bacteria Urine None Seen; RBC Urine None Seen (0-5/HPF)
[2019-12-30 18:21] LABS: Appearance Urine UA CLEAR; Bilirubin Urine UA NEGATIVE (NEGATIVE); Color Urine UA YELLOW; Glucose Urine UA 1+ g/dL (Negative); Ketones Urine UA NEGATIVE (NEGATIVE); Leukocyte Esterase Urine UA NEGATIVE (NEGATIVE); Nitrite Urine UA NEGATIVE (Negative); Occult Blood Urine UA NEGATIVE (Negative); Protein Urine UA NEGATIVE (Negative); Urobilinogen Urine UA 0.2 E.U./dL (0.2); pH Urine UA 6.5 (4.5-8.0)
[2019-12-30 18:29] LABS: Culture Indicated Urine Cult Not Indicated; Squamous Epithelial Cell Urine 0-1 /HPF (0-5/HPF); WBC Urine 0-1/HPF (0-5/HPF)
--- NOTE | 2019-12-30 18:37 | DI.CT.S_ITS ---
PROCEDURE: CT HEAD/BRAIN WO CON INDICATIONS: mental status change TECHNIQUE: Noncontrast 4.5 mm thick angled axial sections acquired from the foramen magnum to the vertex, with coronal and sagittal reformats. For radiation dose reduction, the following was used: automated exposure control, adjustment of mA and/or kV according to patient size. COMPARISON: [facility], CT, CT HEAD/BRAIN WO CON, 03/31/2019, 13:38. FINDINGS: Image quality: Excellent. CSF spaces: Basal cisterns are patent. No extra-axial fluid collections. The ventricles are symmetric in size and shape. Brain: No intracranial bleeds or masses. There is cerebral volume loss for age, with resultant ventricular and sulcal prominence. There are periventricular and deep white matter chronic small vessel ischemic changes. There is intracranial internal carotid artery atherosclerosis. Skull and face: Calvarium and visualized facial bones appear intact, without suspicious lesions. Sinuses: Visualized sinuses and mastoids are clear. IMPRESSION: No acute intracranial process. Dictated by: Ariel Ellis M.D. on 12/30/2019 at 19:11 Approved by: Ariel Ellis M.D. on 12/30/2019 at 19:13
[2019-12-30 19:08] LABS: UR Morphine/Opiate cutoff 300 Negative (Negative); Ur Creatinine Normal (Normal); Ur Specific Gravity Normal (Normal); Urine Amphetamines Negative (Negative); Urine Barbiturates Negative (Negative); Urine Benzodiazepines Negative (Negative); Urine Cocaine Negative (Negative); Urine MDMA Negative (Negative); Urine Methadone Negative (Negative); Urine Methamphetamines Negative (Negative); Urine Oxycodone Negative (Negative); Urine Phencyclidine Negative (Negative); Urine Tetrahydrocannabinol Negative (Negative); Urine Tricyclic Antidepressant Negative (Negative); Urine pH Normal (Normal)
[2019-12-30 19:15] VITALS: BP 190/80; PULSE 67; RESP 26; O2SAT 100
[2019-12-30 19:45] VITALS: BP 186/91; RESP 68; O2SAT 100
== END 2019-12-30 20:25 | disposition home or self-care (01) ==
PROVIDERS: Emergency Medicine; Emergency Provider Emergency Medicine
DX: R44.1 Visual hallucinations (principal); E78.5 Hyperlipidemia, unspecified; E11.8 Type 2 diabetes mellitus with unspecified complications; Z79.4 Long term (current) use of insulin; I10 Essential (primary) hypertension; Z79.82 Long term (current) use of aspirin
CPT/HCPCS: 36415; 70450; 80053; 80305; 81001; 83605; 83690; 85025; 87040; 93005; 99284

== ENCOUNTER 2020-05-01 08:20 | Emergency (ER) | payer OTHER, MEDICARE, SELFPAY ==
[2018-07-26 19:56] VITALS: BMI 29.8
[2020-05-01 08:34] VITALS: BP 139/60; PULSE 65; RESP 18; TEMP 36.6; O2SAT 100
--- NOTE | 2020-05-01 08:41 | ED_ITS ---
HPI - Psych General Chief Complaint: Psychiatric Symptoms Stated Complaint: Dementia,Ran away from home. needs meds Time Seen by Provider: 05/01/20 08:30 Source: patient and family Mode of arrival: Ambulatory Limitations: no limitations History of Present Illness HPI Narrative: Patient is a 79-year-old male with history of dementia presenting by his after he walked away this morning. She says that he has had increased hallucinations confusion and aggression over the past 3 days. He was started on a new medication by psychiatrist yesterday but has not had time to work. Yesterday she says he thought that her stomach was 3 times bigger than normal and he wanted her to come to the ER for evaluation she said it was normal. This morning he got up and walked for the sosa to an area that he had been before. is requesting that he get a tranquilizer she has a hair appointment at 9:30 a.m. this morning. She also states that he is becoming more aggressive and difficult take care of at home. According to records he has had ongoing hallucinations since December and he states that they are not new. MD complaint: altered mental status Onset (ago): unknown Related Data Home Medications Medication Instructions Recorded Confirmed aspirin 81 mg PO DAILY #0 12/13/17 07/26/18 atorvastatin 40 mg PO DAILY #0 12/13/17 07/26/18 calcium carbonate-vitamin D3 1 cap PO QDAY #0 12/13/17 07/26/18 [Calcium 600 with Vitamin D3] cholecalciferol (vitamin D3) 2,000 unit PO QDAY #0 12/13/17 07/26/18 [Vitamin D3] cinnamon bark [Cinnamon] 500 mg PO DAILY #0 12/13/17 07/26/18 insulin glargine [Lantus U-100 54 unit SQ BEDTIME #0 12/13/17 07/26/18 Insulin] losartan 100 mg PO DAILY #0 12/13/17 07/26/18 lutein 6 mg PO QDAY #0 12/13/17 07/26/18 rycnftqn-lmdi-NX-calcium-mins 1 tab PO DAILY #0 12/13/17 07/26/18 [Thera M Plus (ferrous fumarat)] sennosides [Senna Lax] 8.6 mg PO BID PRN #0 12/13/17 07/26/18 finasteride 5 mg PO DAILY 07/26/18 07/26/18 tamsulosin 0.4 mg PO DAILY 07/26/18 07/26/18 Allergies Allergy/AdvReac Type Severity Reaction Status Date / Time chlorhexidine Allergy Intermediate Rash Verified 12/30/19 17:06 caffeine [CAFFEINE] AdvReac Unknown Blurry Verified 12/30/19 17:06 Vision Review of Systems Review of Systems ROS Unobtainable: All systems reviewed & are unremarkable except as noted in HPI and below Constitutional Constitutional: Denies chills, Denies fever(s), Denies lethargy and Denies weakness Cardiovascular Cardiovascular: Denies chest pain, Denies irregular heart rhythm, Denies lightheadedness, Denies palpitations, Denies dyspnea, Denies dyspnea on exertion and Denies orthopnea Respiratory Respiratory: Denies cough, Denies dyspnea, Denies dyspnea on exertion and Denies wheezing Musculoskeletal Musculoskeletal: Denies back pain and Denies myalgias Integumentary/Breasts Skin/Breast: Denies pruritus, Denies erythema, Denies rash and Denies wounds Neurologic Neurologic: Denies weakness Psychiatric Psychiatric: Reports as per HPI Endocrine Endocrine: Denies palpitations Allergic/Immunologic Allergic/Immunologic: Denies wheezing Patient History Medical History Acute urinary retention (Acute) Diabetes mellitus (Acute) Great toe amputation status (Acute) Hyperlipidemia (Acute) Hypertension (Acute) Surgical History History of permanent cardiac pacemaker placement (Acute) Family History Father Cancer Social History household members: spouse Smoking Status: Former smoker alcohol intake: former Smoking Status: Former smoker alcohol intake frequency: holidays/special occasions only Substance Use Type: does not use Exam Initial Vital Signs Initial Vital Signs: Vital Signs Temperature 98 F 05/01/20 08:34 Pulse Rate 65 05/01/20 08:34 Respiratory Rate 18 05/01/20 08:34 Blood Pressure 139/60 05/01/20 08:34 Pulse Oximetry 100 05/01/20 08:34 GENERAL: Alert pleasant elderly male no sign of trauma and in [no acute] distress. HEENT: Head atraumatic,EOMI, pupils reactive, face symmetric, [moist] mucous membranes CARDIOVASCULAR: Regular rate and rhythm without murmurs, rubs or gallops. RESPIRATORY: Breath sounds equal bilaterally, no wheezes rales or rhonchi. ABDOMEN: Soft, nontender. Normoactive bowel sounds all 4 quadrants. No guarding or rebound. EXTREMITIES: Normal range of motion, no clubbing or edema. Neurovascularly intact NEUROLOGICAL: Alert pleasant briefcase sewer strength equal bilaterally cranial nerves grossly intact SKIN: Warm, dry, no laceration, no petechiae, no rashes or lesions. 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 Result diagrams: 05/01/20 08:53 05/01/20 08:53 Labs: Lab Results 05/01/20 05/01/20 Range/Units 08:53 08:53 WBC 5.4 (4.5-11.0) X10^3/uL RBC 3.92 L (4.5-5.9) X10^6/uL Hgb 11.4 L (13.5-17.5) g/dL Hct 32.9 L (41-53) % MCV 84.0 (80-100) fL MCH 29.0 (26-34) PG MCHC 34.6 (30-36) % RDW 14.8 (11.6-14.8) % Plt Count 156 (150-400) X10^3/uL Neut % (Auto) 63.4 (50-75) % Lymph % (Auto) 23.0 L (25-40) % [place] % (Auto) 9.8 (3-14) % Eos % (Auto) 3.2 (2-4) % Baso % (Auto) 0.6 (0-2) % Neut # (Auto) 3400 (5608-5673) /uL Lymph # (Auto) 1200 (4537-3550) /uL [place] # (Auto) 500 (0-900) /uL Eos # (Auto) 200 (0-450) /uL Baso # (Auto) 0 (0-100) /uL Sodium 138 (137-145) mmol/L Potassium 4.7 (3.4-5.1) mmol/L Chloride 107 (98-107) mmol/L Carbon Dioxide 23 (22-32) mmol/L BUN 39 H (9-20) mg/dL Creatinine 1.94 H (0.66-1.25) mg/dL Estimated GFR 33.4 L (>60) mL/min BUN/Creatinine Ratio 20.1 (6-22) Glucose 174 H (80-110) mg/dL Calcium 9.6 (8.4-10.2) mg/dL MDM Narrative Medical decision making narrative: Patient and would like to check out. Social work was consult unfortunately are not available for about 3 more hours. Patient has blood work which appears within normal limits his creatinine is stable. He did not give me of urine sample. states that they go through the [place] and have resources through the [place]. Discharge Plan Departure Patient Disposition: Home Clinical Impression: Dementia Discharge Date/Time: 05/01/20 10:00 Activity Restrictions/Additional Instructions: *You have been diagnosed with dementia *What to do: There are resources available to you to help at home, you may contact [facility] social Work to speak with him over the phone or the [place] social work as well. *Continue to take medications as directed *Follow up with your primary care provider in 2-3 days *Return to ER if you should have increased confusion, wandering off more frequently, becoming unsafe at or any new, worsening or concerning symptoms Prescriptions: No Action atorvastatin 40 MG tablet 40 mg PO DAILY Qty: 0 RF: 0 insulin glargine [Lantus U-100 Insulin] 100 UNIT/1 ML solution 54 unit SQ BEDTIME Qty: 0 RF: 0 losartan 100 MG tablet 100 mg PO DAILY Qty: 0 RF: 0 calcium carbonate-vitamin D3 [Calcium 600 with Vitamin D3] 600 MG/200 IU capsule 1 cap PO QDAY Qty: 0 RF: 0 cholecalciferol (vitamin D3) [Vitamin D3] 1,000 UNIT tablet 2,000 unit PO QDAY Qty: 0 RF: 0 cinnamon bark [Cinnamon] 500 mg Capsule 500 mg PO DAILY Qty: 0 RF: 0 syelggzd-byua-GM-calcium-mins [Thera M Plus (ferrous fumarat)] 1 EACH tablet 1 tab PO DAILY Qty: 0 RF: 0 lutein 10 mg Tablet 6 mg PO QDAY Qty: 0 RF: 0 sennosides [Senna Lax] 8.6 MG tablet 8.6 mg PO BID PRN (Reason: Constipation) Qty: 0 RF: 0 aspirin 81 MG tablet,delayed release (DR/EC) 81 mg PO DAILY Qty: 0 RF: 0 tamsulosin 0.4 mg Capsule 0.4 mg PO DAILY RF: 0 finasteride 5 mg Tablet 5 mg PO DAILY RF: 0
[2020-05-01 09:08] LABS: Add Manual Diff / Slide Review NO; Basophils Absolute Auto 0 /uL (0-100); Basophils Percent Auto 0.6 % (0-2); Eosinophils Absolute Auto 200 /uL (0-450); Eosinophils Percent Auto 3.2 % (2-4); Hematocrit 32.9 % (41-53); Hemoglobin 11.4 g/dL (13.5-17.5); Lymphocytes Absolute Auto 1200 /uL (1100-4500); Mean Corpuscular HGB Conc 34.6 % (30-36); Monocytes Absolute Auto 500 /uL (0-900); Monocytes Percent Auto 9.8 % (3-14); Neutrophils Absolute Auto 3400 /uL (1500-7000); Neutrophils Percent Auto 63.4 % (50-75); Platelet Count 156 X10^3/uL (150-400); Red Blood Cell Count 3.92 X10^6/uL (4.5-5.9); Red Cell Distribution Width 14.8 % (11.6-14.8); White Blood Cell Count 5.4 X10^3/uL (4.5-11.0)
[2020-05-01 09:14] LABS: BUN Creatinine Ratio 20.1 (6-22); Blood Urea Nitrogen 39 mg/dL (9-20); Calcium 9.6 mg/dL (8.4-10.2); Carbon Dioxide 23 mmol/L (22-32); Chloride 107 mmol/L (98-107); Estimated Glomerular Filt Rate 33.4 mL/min (>60); Glucose 174 mg/dL (80-110); HEMOLYSIS 20 (0-50); Potassium 4.7 mmol/L (3.4-5.1); Sodium 138 mmol/L (137-145)
== END 2020-05-01 10:00 | disposition home or self-care (01) ==
PROVIDERS: Emergency Provider Emergency Medicine
DX: F03.90 Unspecified dementia, unspecified severity, without behavioral disturbance, psychotic disturbance, mood disturbance, and anxiety (principal)
CPT/HCPCS: 80048; 85025; 99283

== ENCOUNTER 2022-08-13 15:41 | Emergency (ER) | payer OTHER, SELFPAY ==
[2018-07-26 19:56] VITALS: BMI 29.8
--- NOTE | 2022-08-13 15:43 | DI.RAD.S_ITS ---
PROCEDURE: XR CHEST 1V INDICATIONS: fall, right shoulder/elbow/wrist pain TECHNIQUE: One view of the chest was acquired. COMPARISON: [facility], CR, XR ELBOW RT MIN 3V, 08/13/2022, 16:03. [facility], CR, XR SHOULDER RT MIN 2V, 08/13/2022, 16:03. [facility], CR, XR WRIST RT MIN 3V, 08/13/2022, 16:03. [facility], CR, XR CHEST 1V, 07/26/2018, 15:55. FINDINGS: Surgical changes and devices: A pacer device is seen, with 3 leads, with exchange of the power pack and an additional lead since the prior examination. Lungs and pleura: On this supine examination, no large pneumothorax or large pleural effusions are seen. No focal areas of lung consolidation are seen. Low lung volumes are noted. This causes a crowded appearance to the lung markings and limits evaluation. Mediastinum: Mediastinal contours appear normal. Heart size is normal. Bones and chest wall: No suspicious bony lesions. There is an impacted right humeral neck fracture. Age-appropriate bony degenerative changes are seen. Overlying soft tissues appear unremarkable. IMPRESSION: Impacted fracture of the right humeral neck. Limited chest study demonstrating no focal infiltrate. Interval change of the pacer device power pack, with a 3rd lead placed. Dictated by: Joshua Enrique M.D. on 08/13/2022 at 16:51 Approved by: Joshua Enrique M.D. on 08/13/2022 at 16:53
--- NOTE | 2022-08-13 15:43 | DI.RAD.S_ITS ---
PROCEDURE: XR WRIST RT MIN 3V INDICATIONS: fall, right shoulder/elbow/wrist pain TECHNIQUE: 3 views of the wrist were acquired. COMPARISON: [facility], CR, XR ELBOW RT MIN 3V, 08/13/2022, 16:03. [facility], CR, XR SHOULDER RT MIN 2V, 08/13/2022, 16:03. [facility], CR, XR CHEST 1V, 08/13/2022, 16:03. FINDINGS: Bones: No fractures or dislocations. No suspicious bony lesions. Age-appropriate bony degenerative changes are seen. Scaphoid view: Not done. Soft tissues: No suspicious soft tissue calcifications. Calcification is noted of the distal arteries. This degree of calcification is typically seen in patients with a long-standing history of diabetes. Please correlate with a history of such. IMPRESSION: No displaced fractures are seen by plain film. If there is snuffbox tenderness, please return this patient to Radiology for an additional dedicated scaphoid view. Degenerative changes and atherosclerosis can be seen. Dictated by: Joshua Enrique M.D. on 08/13/2022 at 16:48 Approved by: Joshua Enrique M.D. on 08/13/2022 at 16:49
--- NOTE | 2022-08-13 15:43 | DI.RAD.S_ITS ---
PROCEDURE: XR SHOULDER RT MIN 2V INDICATIONS: fall, right shoulder/elbow/wrist pain TECHNIQUE: 3 views of the shoulder were acquired. COMPARISON: [facility], CR, XR ELBOW RT MIN 3V, 08/13/2022, 16:03. [facility], CR, XR CHEST 1V, 08/13/2022, 16:03. [facility], CR, XR WRIST RT MIN 3V, 08/13/2022, 16:03. FINDINGS: Bones: There is an impacted fracture seen involving the right humeral neck. No dislocation can be seen. No additional fracture is identified. The visualized ribs appear intact. Age-appropriate bony degenerative changes are seen. Soft tissues: No suspicious soft tissue calcifications. The visualized lung demonstrates an unremarkable appearance. IMPRESSION: Impacted humeral neck fracture. Dictated by: Joshua Enrique M.D. on 08/13/2022 at 16:49 Approved by: Joshua Enrique M.D. on 08/13/2022 at 16:50
--- NOTE | 2022-08-13 15:43 | DI.RAD.S_ITS ---
PROCEDURE: XR ELBOW RT MIN 3V INDICATIONS: fall, right shoulder/elbow/wrist pain TECHNIQUE: 3 views of the elbow were acquired. COMPARISON: [facility], CR, XR SHOULDER RT MIN 2V, 08/13/2022, 16:03. [facility], CR, XR CHEST 1V, 08/13/2022, 16:03. [facility], CR, XR WRIST RT MIN 3V, 08/13/2022, 16:03. FINDINGS: This evaluation is limited, secondary to the patient's inability to fully cooperate with the examination. This study is limited by nonstandard position. Bones: No definite, displaced fractures are seen. There is focal calcification seen adjacent to the medial epicondyle. Calcification can also seen posterior to the olecranon. Soft tissues: No elbow joint effusion. No suspicious soft tissue calcifications. Atherosclerotic calcification is noted. IMPRESSION: Limited study, without a displaced fracture seen. Findings of prior medial epicondylitis. Soft tissue calcification can also be seen posterior to the olecranon. Dictated by: Joshua Enrique M.D. on 08/13/2022 at 16:50 Approved by: Joshua Enrique M.D. on 08/13/2022 at 16:51
--- NOTE | 2022-08-13 15:44 | ED_ITS ---
HPI - Fall General Chief Complaint: Fall Stated Complaint: Fall Time Seen by Provider: 08/13/22 15:43 Source: patient and EMS Mode of arrival: EMS Limitations: no limitations History of Present Illness HPI Narrative: This is an 81-year-old male with reported history of dementia, hypertension, diabetes, dyslipidemia and reported pacemaker. Patient was getting in her out of his car today caught his foot and fell on his right shoulder elbow and wrist causing pain he has pain with any sort of movement. He denies hitting his head, no neck or back pain, denies chest pain or shortness of breath, no nausea or vomiting, no other GI or urinary symptoms. Patient deferred anything in the field in terms of pain. Related Data Home Medications Medication Instructions Recorded Confirmed aspirin 81 mg tablet,delayed 81 mg PO DAILY ##0 12/13/17 07/26/18 release atorvastatin 40 mg tablet 40 mg PO DAILY ##0 12/13/17 07/26/18 calcium carbonate 600 mg-vitamin 1 cap PO QDAY ##0 12/13/17 07/26/18 D3 10 mcg (400 unit) capsule (Calcium 600 with Vitamin D3) cholecalciferol (vitamin D3) 25 2,000 unit PO QDAY ##0 12/13/17 07/26/18 mcg (1,000 unit) tablet (Vitamin D3) cinnamon bark 500 mg capsule 500 mg PO DAILY ##0 12/13/17 07/26/18 (Cinnamon) insulin glargine 100 unit/mL 54 unit SQ BEDTIME ##0 12/13/17 07/26/18 subcutaneous solution (Lantus U-100 Insulin) losartan 100 mg tablet 100 mg PO DAILY ##0 12/13/17 07/26/18 lutein 10 mg tablet 6 mg PO QDAY ##0 12/13/17 07/26/18 multivitamin-iron 9 mg-folic acid 1 tab PO DAILY ##0 12/13/17 07/26/18 400 mcg-calcium and minerals tablet (Thera M Plus (ferrous fumarate)) sennosides 8.6 mg tablet (Senna 8.6 mg PO BID PRN Constipation ##0 12/13/17 07/26/18 Lax) finasteride 5 mg tablet 5 mg PO DAILY 07/26/18 07/26/18 tamsulosin 0.4 mg capsule 0.4 mg PO DAILY 07/26/18 07/26/18 Allergies Allergy/AdvReac Type Severity Reaction Status Date / Time chlorhexidine Allergy Intermediate Rash Verified 12/30/19 17:06 caffeine [CAFFEINE] AdvReac Unknown Blurry Verified 12/30/19 17:06 Vision Review of Systems Review of Systems ROS Unobtainable: All systems reviewed & are unremarkable except as noted in HPI and below Patient History Medical History (Updated 08/13/22 @ 18:39 by Yashira Mesa DO) Acute urinary retention Diabetes mellitus Great toe amputation status Hyperlipidemia Hypertension Surgical History History of permanent cardiac pacemaker placement Family History Father Cancer Social History household members: spouse Smoking Status: Former smoker alcohol intake: former Smoking Status: Former smoker alcohol intake frequency: holidays/special occasions only Substance Use Type: does not use Exam Narrative Exam Narrative: GEN: Patient appears in mild distress. HEAD: No evidence of trauma, no raccoon/Trejo sign. NECK: Nontender, painless range of motion, trachea midline Negative for Nexus criteria, start no midline line tenderness, distracting injury, altered mental status, neuro deficit, recent EtOH. EYES: PERRLA, EOMI ENT: External inspection normal, trachea is midline, TM's are normal no hemotypanum, Nares are clear, no septal hematoma, no dental or oral injury, airway is normal and with normal occlusion, No bony tenderness RESP: Chest is nontender and has symmetric movement, no ecchymosis, breath sounds are normal no crackles, wheezes or rales CVS: Heart sounds are normal, no murmur noted, No JVD. ABG/GI: Nontender, soft, normal bowel sounds, no distention, no organomegaly, pelvic rock is negative NEURO: Oriented AOx3, neuro is grossly intact, sensation and motor is normal all 4 extremities moving, cranial nerves II through XII are intact, GCS is 15 PSYCH: Normal mood and affect SKIN: Intact, warm and dry, no crepitus and without decubitus BACK: No CVA tenderness, no vertebral tenderness, no step-off's, no crepitus EXT: Patient is in a sling on the right, no obvious deformity but he sling quite tightly, he has pain over the right shoulder elbow and wrist, no clear obvious deformity there is some ecchymosis, patient has normal sensation throughout all 5 fingers, equal canvas cutter machine bilaterally 2+ radial pulse with cap refill less than 2 seconds in all 5. Hips are nontender, no pedal edema, normal color and temperature, normal range of motion of extremities with normal tendon exam, 2+ pulses in all four extremities Initial Vital Signs Initial Vital Signs: Vital Signs Temperature 99.1 F 08/13/22 15:48 Pulse Rate 94 H 08/13/22 15:48 Respiratory Rate 18 08/13/22 15:48 Blood Pressure 153/66 H 08/13/22 15:48 Pulse Oximetry 99 08/13/22 15:48 Oxygen Delivery Method 08/13/22 15:48 Scores GCS Monroe coma scale eye opening: Spontaneous Monroe coma scale verbal response: Orientated Monroe coma scale motor response: Obey commands Monroe coma scale total score: 15 Nexus Score for C-Spine Focal Neurologic deficit present: No Midline spinal tenderness present: No Altered level of conciousness present: No Intoxication present: No Distracting Injury Present: No Nexus Criteria for C-spine: 0 Course Orders Ordered: ED Orders 08/13/22 15:43 Chest [XR chest 1V] Stat XR elbow RT min 3V Stat XR shoulder RT min 2V Stat XR wrist RT min 3V Stat Discontinued Medications Acetaminophen (Acetaminophen 325 Mg Tablet) 975 mg PO NOW ONE Stop: 08/13/22 16:45 Last Admin: 08/13/22 17:04 Dose: 975 mg Documented By: [facility] Consultations Consultation #1: Dr. Castillo, recommends for sling and follow up in 1-2 weeks. Time: 18:46 Vital Signs Vital signs: Vital Signs - 8 hr 08/13/22 15:48 Temperature 99.1 F Pulse Rate 94 H Respiratory Rate 18 Blood Pressure 153/66 H Pulse Oximetry 99 Oxygen Delivery Method Room Air MDM - Fall Imaging Data Chest x-ray: Radiologist's Impression: Close Wrist X-Ray (Signed) Joshua Enrique - 08/13/22 Shoulder X-Ray (Signed) Joshua Enrique - 08/13/22 Elbow X-Ray (Signed) Joshua Enrique - 08/13/22 Chest X-Ray (Signed) Joshua Enrique - 08/13/[address] (Signed) Ariel Ellis - 12/30/19 Renal Ultrasound (Signed) Francois Quiles - 09/23/19 Echocardiogram Ultrasound (Signed) Rodrigue Escobedo - 09/19/[address] (Signed) Concepcion Dunlap - 03/31/19 Telemetry Strips 07/26/18 Chest X-Ray (Signed) Francois Quiles - 07/26/18 Launch?[facility] [address] [address] XRay Report Signed Patient: Mario Segovia MR#: [id number] : 1940 Acct:[id number] Age/Sex: 81 / M Date of Service: 08/13/22 Loc: ED Accession Number: [id number] ?? Procedure: XR chest 1V Ordering Provider: Yashira Mesa D.O. PROCEDURE:? XR CHEST 1V ? INDICATIONS:? fall, right shoulder/elbow/wrist pain ? TECHNIQUE:? One view of the chest was acquired.? ? COMPARISON:? [facility], CR, XR ELBOW RT MIN 3V, 08/13/2022, 16:03.? [facility], CR, XR SHOULDER RT MIN 2V, 08/13/2022, 16:03.? [facility], CR, XR WRIST RT MIN 3V, 08/13/2022, 16:03.? [facility], CR, XR CHEST 1V, 07/26/2018, 15:55. ? FINDINGS:? ? Surgical changes and devices:? A pacer device is seen, with 3 leads, with exchange of the power pack and an additional lead since the prior examination. ? Lungs and pleura:? On this supine examination, no large pneumothorax or large pleural effusions are seen. No focal areas of lung consolidation are seen. Low lung volumes are noted. This causes a crowded appearance to the lung markings and limits evaluation.? ? Mediastinum:? Mediastinal contours appear normal.? Heart size is normal.? ? Bones and chest wall:? No suspicious bony lesions.? There is an impacted right humeral neck fracture.? Age-appropriate bony degenerative changes are seen.? ? Overlying soft tissues appear unremarkable.? IMPRESSION:? Impacted fracture of the right humeral neck. ? Limited chest study demonstrating no focal infiltrate. ? Interval change of the pacer device power pack, with a 3rd lead placed. ? ? ? Dictated by: Joshua Enrique M.D. on 08/13/2022 at 16:51 ? ? Approved by: Joshua Enrique M.D. on 08/13/2022 at 16:53?? shoulder xray: Radiologist's Impression: Close Wrist X-Ray (Signed) Joshua Enrique - 08/13/22 Shoulder X-Ray (Signed) Joshua Enrique - 08/13/22 Elbow X-Ray (Signed) Joshua Enrique - 08/13/22 Chest X-Ray (Signed) Joshua Enrique - 08/13/[address] (Signed) Ariel Ellis - 12/30/19 Renal Ultrasound (Signed) Francois Quiles - 09/23/19 Echocardiogram Ultrasound (Signed) Rodrigue Escobedo - 09/19/[address] (Signed) Concepcion Dunlap - 03/31/19 Telemetry Strips 07/26/18 Chest X-Ray (Signed) Francois Quiles - 07/26/18 Launch?[place] [address] XRay Report Signed Patient: Mario Segovia MR#: [id number] : 1940 Acct:[id number] Age/Sex: 81 / M Date of Service: 08/13/22 Loc: ED Accession Number: [id number] ?? Procedure: XR shoulder RT min 2V Ordering Provider: Yashira Mesa D.O. PROCEDURE:? XR SHOULDER RT MIN 2V ? INDICATIONS:? fall, right shoulder/elbow/wrist pain ? TECHNIQUE:? 3 views of the shoulder were acquired.? ? COMPARISON:? [facility], CR, XR ELBOW RT MIN 3V, 08/13/2022, 16:03.? [facility], CR, XR CHEST 1V, 08/13/2022, 16:03.? [facility], CR, XR WRIST RT MIN 3V, 08/13/2022, 16:03. ? FINDINGS:? ? Bones:? There is an impacted fracture seen involving the right humeral neck. ? No dislocation can be seen. ? No additional fracture is identified.? The visualized ribs appear intact.? Age-appropriate bony degenerative changes are seen.? ? ? Soft tissues:? No suspicious soft tissue calcifications.? The visualized lung demonstrates an unremarkable appearance. ? ? ? IMPRESSION:? Impacted humeral neck fracture. ? ? Dictated by: Joshua Enrique M.D. on 08/13/2022 at 16:49 ? ? Approved by: Joshua Enrique M.D. on 08/13/2022 at 16:50?? elbow xray: Radiologist's Impression: [address] [address] XRay Report Signed Patient: Mario Segovia MR#: [id number] : 1940 Acct:[id number] Age/Sex: 81 / M Date of Service: 08/13/22 Loc: ED Accession Number: [id number] ?? Procedure: XR elbow RT min 3V Ordering Provider: Yashira Mesa D.O. PROCEDURE:? XR ELBOW RT MIN 3V ? INDICATIONS:? fall, right shoulder/elbow/wrist pain ? TECHNIQUE:? 3 views of the elbow were acquired.? ? COMPARISON:? [facility], CR, XR SHOULDER RT MIN 2V, 08/13/2022, 16:03.? [facility], CR, XR CHEST 1V, 08/13/2022, 16:03.? [facility], CR, XR WRIST RT MIN 3V, 08/13/2022, 16:03. ? FINDINGS:? This evaluation is limited, secondary to the patient's inability to fully cooperate with the examination.? This study is limited by nonstandard position. ? Bones:? No definite, displaced fractures are seen.? There is focal calcification seen adjacent to the medial epicondyle.? Calcification can also seen posterior to the olecranon. ? Soft tissues:? No elbow joint effusion.? No suspicious soft tissue calcifications.? Atherosclerotic calcification is noted.? ? ? IMPRESSION:? Limited study, without a displaced fracture seen. ? Findings of prior medial epicondylitis.? Soft tissue calcification can also be seen posterior to the olecranon.? ? ? Dictated by: Joshua Enrique M.D. on 08/13/2022 at 16:50 ? ? Approved by: Joshua Enrique M.D. on 08/13/2022 at 16:51?? Extremity x-ray #1: Radiologist's Impression: Close Wrist X-Ray (Signed) Joshua Enrique - 08/13/22 Shoulder X-Ray (Signed) Joshua Enrique - 08/13/22 Elbow X-Ray (Signed) Joshua Enrique - 08/13/22 Chest X-Ray (Signed) Joshua Enrique - 08/13/[address] (Signed) Ariel Ellis - 12/30/19 Renal Ultrasound (Signed) Francois Quiles - 09/23/19 Echocardiogram Ultrasound (Signed) Rodrigue Escobedo - 09/19/[address] (Signed) Concepcion Dunlap - 03/31/19 Telemetry Strips 07/26/18 Chest X-Ray (Signed) Francois Quiles - 07/26/18 Launch?[place] [address] XRay Report Signed Patient: Mario Segovia MR#: [id number] : 1940 Acct:[id number] Age/Sex: 81 / M Date of Service: 08/13/22 Loc: ED Accession Number: [id number] ?? Procedure: XR wrist RT min 3V Ordering Provider: Yashira Mesa D.O. PROCEDURE:? XR WRIST RT MIN 3V ? INDICATIONS: fall, right shoulder/elbow/wrist pain ? TECHNIQUE:? 3 views of the wrist were acquired.? ? COMPARISON:? [facility], CR, XR ELBOW RT MIN 3V, 08/13/2022, 16:03.? [facility], CR, XR SHOULDER RT MIN 2V, 08/13/2022, 16:03.? [facility], CR, XR CHEST 1V, 08/13/2022, 16:03. ? FINDINGS:? ? Bones:? No fractures or dislocations.? No suspicious bony lesions.? Age- appropriate bony degenerative changes are seen.? ? Scaphoid view:? Not done. ? Soft tissues:? No suspicious soft tissue calcifications.? Calcification is noted of the distal arteries. This degree of calcification is typically seen in patients with a long-standing history of diabetes. Please correlate with a history of such.? ? ? IMPRESSION:? ? No displaced fractures are seen by plain film.? ? If there is snuffbox tenderness, please return this patient to Radiology for an additional dedicated scaphoid view. ? Degenerative changes and atherosclerosis can be seen. ? ? ? Dictated by: Joshua Enrique M.D. on 08/13/2022 at 16:48 ? ? Approved by: Joshua Enrique M.D. on 08/13/2022 at 16:49?? MDM Narrative Medical decision making narrative: This is a 81-year-old male with mechanical ground level fall with fracture case discussed with Orthopedic surgery. Patient is neurovascularly intact. Spoke with orthopedic surgery. Discharge Plan Departure Patient Disposition: Home Clinical Impression: Fracture of neck of humerus Qualifiers: Encounter type: initial encounter Laterality: right Instructions: DI for Humeral Fracture Activity Restrictions/Additional Instructions: Follow-up with orthopedic surgery in the next week for recheck. Please call the set up follow-up. You may take Tylenol up to a 1000 mg every 6 hours as needed. Splint Care: Keep splint clean and dry. Elevated affected body part to decrease swelling. OK to use ice pack on the affected body part. Use for 15-20 minutes each time, for 5-6x per day. If you develop worsening pain, numbness, tingling, discoloration of the affected body part, loosen the splint by loosening the RODGER wrap, and either see your doctor for an urgent re-assessment, or return to the Emergency Department. Return to the Emergency Department for any new or worsening symptoms. Prescriptions: No Action atorvastatin 40 MG tablet 40 mg PO DAILY Qty: 0 insulin glargine [Lantus U-100 Insulin] 100 UNIT/1 ML solution 54 unit SQ BEDTIME Qty: 0 losartan 100 MG tablet 100 mg PO DAILY Qty: 0 calcium carbonate-vitamin D3 [Calcium 600 with Vitamin D3] 600 MG/200 IU capsule 1 cap PO QDAY Qty: 0 cholecalciferol (vitamin D3) [Vitamin D3] 1,000 UNIT tablet 2,000 unit PO QDAY Qty: 0 cinnamon bark [Cinnamon] 500 mg Capsule 500 mg PO DAILY Qty: 0 jmnkfnqr-ijry-OY-calcium-mins [Thera M Plus (ferrous fumarat)] 1 EACH tablet 1 tab PO DAILY Qty: 0 lutein 10 mg Tablet 6 mg PO QDAY Qty: 0 sennosides [Senna Lax] 8.6 MG tablet 8.6 mg PO BID PRN (Reason: Constipation) Qty: 0 aspirin 81 MG tablet,delayed release (DR/EC) 81 mg PO DAILY Qty: 0 tamsulosin 0.4 mg Capsule 0.4 mg PO DAILY finasteride 5 mg Tablet 5 mg PO DAILY Label Comments: [facility] Referrals: Angelina Castillo MD [Physician] -
[2022-08-13 15:48] VITALS: BP 153/66; PULSE 94; RESP 18; TEMP 37.3; O2SAT 99; BMI 25.6
[2022-08-13] MEDS: ACETAMINOPHEN 325 MG TABLET 975 MG PO (17:04)
[2022-08-13 19:43] VITALS: BP 132/75; PULSE 73; RESP 19; O2SAT 97
--- NOTE | 2022-08-13 19:44 | PC.NURSE ---
Pt unable to stand on his own, c/o dizziness and generalized weakness. Provider made aware.
--- NOTE | 2022-08-13 20:51 | PC.NURSE ---
IV obtained and infiltrated in the L hand. Removed. Lab called to draw and was unsuccessful. pt refusing IV and labs.
== END 2022-08-13 22:13 | disposition home or self-care (01) ==
PROVIDERS: Emergency Provider Emergency Medicine
DX: S42.291A Other displaced fracture of upper end of right humerus, initial encounter for closed fracture (principal); M25.521 Pain in right elbow; M25.531 Pain in right wrist; W18.30XA Fall on same level, unspecified, initial encounter
CPT/HCPCS: 71045; 73030; 73080; 73110; 99283; 99284

== ENCOUNTER 2022-08-14 00:34 | Inpatient (IN) | payer OTHER, MEDICARE, SELFPAY ==
[2018-07-26 19:56] VITALS: BMI 29.8
[2022-08-14] VITALS (45 sets, daily range): BP systolic 86–185; BP diastolic 51–76; PULSE 60–74; RESP 15–34; TEMP 34.1–36.7; O2SAT 97–100; BMI 26.6
--- NOTE | 2022-08-14 | DI.CT.S_ITS ---
PROCEDURE: CT HIP RIGHT WITHOUT CON INDICATIONS: RIGHT HIP PAIN TECHNIQUE: Noncontrast 3 mm axial sections acquired through the bony pelvis. Additional 3 mm axial sections acquired through the symptomatic hip joint, with coronal and sagittal reformats. COMPARISON: [facility], CR, XR HIP RT 1V, 08/14/2022, 9:39. [facility], CT, CT HEAD/BRAIN WO CON, 08/14/2022, 1:33. [facility], CR, XR PELVIS 1-2V, 08/14/2022, 1:30. [facility], CR, XR CHEST 1V, 08/14/2022, 1:30. [facility], CR, XR ELBOW RT MIN 3V, 08/13/2022, 16:03. [facility], CR, XR WRIST RT MIN 3V, 08/13/2022, 16:03. [facility], CR, XR SHOULDER RT MIN 2V, 08/13/2022, 16:03. FINDINGS: Image quality: Excellent. Bones: In this patient with this given history, scrutiny is given to the right hip. No right hip fracture is seen. No acetabular fracture or femoral neck fracture can be seen. No fractures are seen elsewhere. Generalized degenerative changes are seen. Soft tissues: No dilated loops of small bowel are seen. Distal colonic diverticulosis is seen, without findings of active diverticulitis. A Woodson catheter is seen, which partially decompresses the bladder. Atherosclerotic calcification is noted. Bilateral fat containing inguinal hernias are seen, left larger than right. IMPRESSION: Negative for acute fracture. Additional findings: Distal colonic diverticulosis Woodson catheter Bilateral fat containing inguinal hernias Dictated by: Joshua Enrique M.D. on 08/14/2022 at 9:02 Approved by: Joshua Enrique M.D. on 08/14/2022 at 9:05
--- NOTE | 2022-08-14 01:28 | DI.RAD.S_ITS ---
PROCEDURE: XR CHEST 1V INDICATIONS: weakness found down TECHNIQUE: One view of the chest was acquired. COMPARISON: [facility], CR, XR CHEST 1V, 07/26/2018, 15:55. [facility], CR, XR SHOULDER RT MIN 2V, 08/13/2022, 16:03. [facility], CR, XR CHEST 1V, 08/13/2022, 16:03. FINDINGS: Surgical changes and devices: A pacer device is seen. The leads are seen in stable positions. Lungs and pleura: Lungs are clear. No pleural effusions or pneumothorax. Mediastinum: Mediastinal contours appear normal. Heart size is normal. Bones and chest wall: There is partial visualization of the known right humeral head fracture. No suspicious bony lesions. Age-appropriate bony degenerative changes are seen. Overlying soft tissues appear unremarkable. IMPRESSION: Clear lungs, without new infiltrate. Known right humeral head fracture. Postoperative and degenerative changes are seen. Note: No significant discrepancy from the preliminary report. Dictated by: Joshua Enrique M.D. on 08/14/2022 at 7:15 Approved by: Joshua Enrique M.D. on 08/14/2022 at 7:16
--- NOTE | 2022-08-14 01:28 | DI.CT.S_ITS ---
PROCEDURE: CT HEAD/BRAIN WO CON INDICATIONS: found down TECHNIQUE: Noncontrast 4.5 mm thick angled axial sections acquired from the foramen magnum to the vertex, with coronal and sagittal reformats. For radiation dose reduction, the following was used: automated exposure control, adjustment of mA and/or kV according to patient size. COMPARISON: [facility], CT, CT HEAD WITHOUT CONTRAST, 07/09/2018, 11:24. [facility], CT, CT HEAD/BRAIN WO CON, 03/31/2019, 13:38. [facility], CR, XR PELVIS 1-2V, 08/14/2022, 1:30. [facility], CR, XR CHEST 1V, 08/14/2022, 1:30. [facility], CR, XR CHEST 1V, 08/13/2022, 16:03. [facility], CR, XR ELBOW RT MIN 3V, 08/13/2022, 16:03. [facility], CR, XR WRIST RT MIN 3V, 08/13/2022, 16:03. [facility], CR, XR SHOULDER RT MIN 2V, 08/13/2022, 16:03. [facility], CT, CT HEAD/BRAIN WO CON, 12/30/2019, 18:43. FINDINGS: Image quality: Excellent. CSF spaces: Basal cisterns are patent. No extra-axial fluid collections. The ventricles are symmetric in size and shape. Brain: No intracranial bleeds or masses. There is cerebral volume loss for age, with resultant ventricular and sulcal prominence. There are periventricular and deep white matter chronic small vessel ischemic changes. There is intracranial internal carotid artery atherosclerosis. Skull and face: There is an apparent metallic foreign body seen involving the left pre maxillary region, as on series 3, image 3 measuring to 4 mm. Calvarium and visualized facial bones appear intact, without suspicious lesions. Sinuses: Visualized sinuses and mastoids are clear. IMPRESSION: No acute intracranial hemorrhage is seen. No acute intracranial process is seen. Apparent metallic foreign body seen involving the left pre maxillary region. Please correlate with patient history and physical examination findings. Note: This case (including differences between this final report and the preliminary report) discussed by telephone with Dr. Mesa at 7:29 a.m. [place] time on August 14, 2022. Dictated by: Joshua Enrique M.D. on 08/14/2022 at 7:25 Approved by: Joshua Enrique M.D. on 08/14/2022 at 7:30
--- NOTE | 2022-08-14 01:28 | DI.RAD.S_ITS ---
PROCEDURE: XR PELVIS 1-2V INDICATIONS: found down TECHNIQUE: 1 view(s) of the pelvis acquired. COMPARISON: [facility], CT, CT HEAD/BRAIN WO CON, 08/14/2022, 1:33. [facility], CR, XR CHEST 1V, 08/14/2022, 1:30. [facility], CR, XR CHEST 1V, 08/13/2022, 16:03. [facility], CR, XR ELBOW RT MIN 3V, 08/13/2022, 16:03. [facility], CR, XR WRIST RT MIN 3V, 08/13/2022, 16:03. [facility], CR, XR SHOULDER RT MIN 2V, 08/13/2022, 16:03. FINDINGS: Bones: No fractures or dislocations. No suspicious bony lesions. Generalized degenerative changes are seen. Soft tissues: Visualized bowel gas pattern is normal. No suspicious soft tissue calcifications. A midline groin probe can be seen. IMPRESSION: There are generalized degenerative changes seen, without a displaced fracture. Note: No significant discrepancy from the preliminary report. Dictated by: Joshua Enrique M.D. on 08/14/2022 at 7:17 Approved by: Joshua Enrique M.D. on 08/14/2022 at 7:20
--- NOTE | 2022-08-14 01:35 | ED_ITS ---
HPI - Fall General Chief Complaint: Fall Stated Complaint: Fall Time Seen by Provider: 08/14/22 00:38 History of Present Illness HPI Narrative: Patient is an 81-year-old male with reported history of dementia, hypertension diabetes dyslipidemia pacemaker which he says is new recent fall presenting today after falling in his driveway. He actually was seen and evaluated here earlier today after a fall when he fell and fractured his right humerus. He was discharged home his came to get him off but he fell in the driveway where he laid there for roughly an hour the try to drag him into the house but was unsuccessful. He presents hypothermic and hypotensive. Patient has minimal complaints he is responsive Related Data Home Medications Medication Instructions Recorded Confirmed aspirin 81 mg tablet,delayed 81 mg PO DAILY ##0 12/13/17 07/26/18 release atorvastatin 40 mg tablet 40 mg PO DAILY ##0 12/13/17 07/26/18 calcium carbonate 600 mg-vitamin 1 cap PO QDAY ##0 12/13/17 07/26/18 D3 10 mcg (400 unit) capsule (Calcium 600 with Vitamin D3) cholecalciferol (vitamin D3) 25 2,000 unit PO QDAY ##0 12/13/17 07/26/18 mcg (1,000 unit) tablet (Vitamin D3) cinnamon bark 500 mg capsule 500 mg PO DAILY ##0 12/13/17 07/26/18 (Cinnamon) insulin glargine 100 unit/mL 54 unit SQ BEDTIME ##0 12/13/17 07/26/18 subcutaneous solution (Lantus U-100 Insulin) losartan 100 mg tablet 100 mg PO DAILY ##0 12/13/17 07/26/18 lutein 10 mg tablet 6 mg PO QDAY ##0 12/13/17 07/26/18 multivitamin-iron 9 mg-folic acid 1 tab PO DAILY ##0 12/13/17 07/26/18 400 mcg-calcium and minerals tablet (Thera M Plus (ferrous fumarate)) sennosides 8.6 mg tablet (Senna 8.6 mg PO BID PRN Constipation ##0 12/13/17 07/26/18 Lax) finasteride 5 mg tablet 5 mg PO DAILY 07/26/18 07/26/18 tamsulosin 0.4 mg capsule 0.4 mg PO DAILY 07/26/18 07/26/18 Allergies Allergy/AdvReac Type Severity Reaction Status Date / Time chlorhexidine Allergy Intermediate Rash Verified 12/30/19 17:06 caffeine [CAFFEINE] AdvReac Unknown Blurry Verified 12/30/19 17:06 Vision Review of Systems Review of Systems Narrative: GENERAL: Denies chills, fatigue, malaise, fever, sweats, travel HEENT: Denies sinus pain, ear pain, sore throat, difficulty swallowing, neck pain RESPIRATORY: Denies dyspnea, cough, wheezing, hemoptysis, sputum. CARDIOVASCULAR: See HPI GASTROINTESTINAL: Denies nausea, vomiting, abdominal pain, diarrhea, constipation, melena. : Denies dysuria, frequency, incontinence, hematuria, urinary retention, flank pain. MUSCULOSKELETAL: Denies weakness, joint pain, or bony pain SKIN: No rash, no erythema, no pruritus NEUROLOGIC: Denies weakness, dizziness, headache, numbness, change in speech, confusion PSYCHIATRIC: No concerning psychosocial issues. 12 point review of systems is negative except for those stated above and HPI Patient History Medical History (Updated 08/14/22 @ 06:43 [facility] Acute urinary retention Diabetes mellitus Great toe amputation status Hyperlipidemia Hypertension Surgical History History of permanent cardiac pacemaker placement Family History Father Cancer Social History household members: spouse Smoking Status: Former smoker alcohol intake: former Smoking Status: Former smoker alcohol intake frequency: holidays/special occasions only Substance Use Type: does not use Exam Initial Vital Signs Initial Vital Signs: Vital Signs Pulse Rate 71 08/14/22 00:50 Respiratory Rate 23 08/14/22 00:50 GENERAL alert 81-year-old male HEENT: Head atraumatic,EOMI, pupils reactive, face symmetric CARDIOVASCULAR: Regular rate and rhythm without murmurs, rubs or gallops. RESPIRATORY: Breath sounds equal bilaterally, no wheezes rales or rhonchi. ABDOMEN: Soft, nontender. Normoactive bowel sounds all 4 quadrants. No guarding or rebound. EXTREMITIES: Normal range of motion, no clubbing or edema. Neurovascularly intact right arm in sling NEUROLOGICAL: Alert and oriented x1. Marble Ceiling Installer strength equal bilaterally SKIN: Warm, dry, no laceration, no petechiae, no rashes or lesions. Course Orders Ordered: ED Orders 08/14/22 00:53 Urinalysis and Microscopic Stat 08/14/22 01:16 Comprehensive Metabolic Panel Stat Lactate (Lactic Acid) Stat Procalcitonin Stat Troponin & CK Cardiac Panel Stat 08/14/22 01:27 Complete Blood Count AUTO DIFF Stat 08/14/22 01:28 CT head/brain wo con Stat XR chest 1V Stat XR pelvis 1-2V Stat EKG-12 Lead Stat 08/14/22 01:48 Covid-19 + FLU A/B + RSV - PCR Stat 08/14/22 04:40 BMP [Basic Metabolic Panel] Stat Blood Culture Stat Ketones (Beta-Hydroxybutyrate) Stat Sodium Chloride (Normal Saline 0.9%) 1,000 mls @ 200 mls/hr IV CONT ABIODUN Last Infusion: 08/14/22 03:23 Dose: 0 mls/hr Documented By: Admin: 08/14/22 01:57 Dose: 1,000 mls/hr Documented By: DOMI Discontinued Medications Piperacillin Sod/Tazobactam (Sod 4.5 gm/ Sodium Chloride) 100 mls @ 200 mls/hr IV NOW ONE Stop: 08/14/22 02:38 Last Admin: 08/14/22 03:11 Dose: Not Given Documented By: ROSIE Sodium Chloride (Normal Saline 0.9%) 1,000 mls @ 1,000 mls/hr IV BOLUS ONE Stop: 08/14/22 04:44 Last Admin: 08/14/22 03:51 Dose: 1,000 mls/hr Documented By: DOMI Vital Signs Vital signs: Vital Signs - 8 hr 08/14/22 01:31 08/14/22 00:50 08/14/22 00:51 Temperature 93.4 F L Pulse Rate 74 71 Respiratory Rate 26 H 23 Blood Pressure 108/56 L 118/59 L Pulse Oximetry 97 Oxygen Delivery Method Room Air 08/14/22 00:55 08/14/22 00:56 08/14/22 00:56 Temperature 94.1 F L 94.3 F L Pulse Rate 68 74 Respiratory Rate 16 22 Blood Pressure 86/56 L Pulse Oximetry 99 98 Oxygen Delivery Method 08/14/22 01:00 08/14/22 01:05 08/14/22 01:10 Temperature 94.3 F L 94.5 F L 94.5 F L Pulse Rate 66 70 66 Respiratory Rate 19 19 20 Blood Pressure Pulse Oximetry 99 99 98 Oxygen Delivery Method 08/14/22 01:15 08/14/22 01:16 08/14/22 01:16 Temperature 94.6 F L 94.6 F L Pulse Rate 68 66 Respiratory Rate 21 20 Blood Pressure 97/61 Pulse Oximetry 100 98 Oxygen Delivery Method 08/14/22 01:20 08/14/22 01:20 08/14/22 01:25 Temperature 94.6 F L Pulse Rate 68 Respiratory Rate 19 Blood Pressure 109/51 L 106/54 L Pulse Oximetry 99 Oxygen Delivery Method 08/14/22 01:25 08/14/22 01:30 08/14/22 01:30 Temperature 94.8 F L 95.0 F L Pulse Rate 71 71 Respiratory Rate 22 19 Blood Pressure 95/52 L Pulse Oximetry 99 99 Oxygen Delivery Method 08/14/22 01:35 08/14/22 01:40 08/14/22 01:45 Temperature 95.0 F L 95.2 F L 95.4 F L Pulse Rate 71 73 67 Respiratory Rate 22 30 H 26 H Blood Pressure Pulse Oximetry 99 99 98 Oxygen Delivery Method 08/14/22 01:46 08/14/22 01:46 08/14/22 01:50 Temperature 95.4 F L 95.5 F L Pulse Rate 69 71 Respiratory Rate 34 H 24 Blood Pressure 125/58 L Pulse Oximetry 99 99 Oxygen Delivery Method 08/14/22 02:10 08/14/22 02:15 08/14/22 02:20 Temperature 96.3 F L 96.6 F L 96.8 F L Pulse Rate 69 67 65 Respiratory Rate 25 H 22 24 Blood Pressure Pulse Oximetry 98 99 Oxygen Delivery Method 08/14/22 02:25 08/14/22 02:30 08/14/22 02:35 Temperature 97.0 F L 97.2 F L 97.3 F L Pulse Rate 65 69 65 Respiratory Rate 21 23 20 Blood Pressure Pulse Oximetry 99 98 99 Oxygen Delivery Method 08/14/22 02:40 08/14/22 02:45 08/14/22 02:50 Temperature 97.3 F L 97.5 F L Pulse Rate 66 65 Respiratory Rate 22 19 Blood Pressure 116/56 L Pulse Oximetry 97 97 Oxygen Delivery Method 08/14/22 02:50 08/14/22 02:55 08/14/22 02:55 Temperature 97.5 F L 97.5 F L Pulse Rate 62 65 Respiratory Rate 16 18 Blood Pressure 137/55 L Pulse Oximetry 100 99 Oxygen Delivery Method 08/14/22 03:00 08/14/22 03:00 08/14/22 03:05 Temperature 97.5 F L Pulse Rate 63 Respiratory Rate 15 Blood Pressure 127/56 L 122/60 Pulse Oximetry 100 Oxygen Delivery Method 08/14/22 03:05 08/14/22 03:10 08/14/22 03:10 Temperature 97.7 F 97.7 F Pulse Rate 65 63 Respiratory Rate 16 21 Blood Pressure 127/60 Pulse Oximetry 99 99 Oxygen Delivery Method 08/14/22 03:15 08/14/22 03:15 08/14/22 03:20 Temperature 97.7 F 97.7 F Pulse Rate 62 63 Respiratory Rate 15 19 Blood Pressure 119/57 L Pulse Oximetry 98 97 Oxygen Delivery Method 08/14/22 03:21 08/14/22 03:21 08/14/22 03:25 Temperature 97.7 F Pulse Rate 64 Respiratory Rate 22 Blood Pressure 117/56 L 118/58 L Pulse Oximetry 98 Oxygen Delivery Method 08/14/22 03:25 08/14/22 03:30 08/14/22 03:30 Temperature 97.7 F 97.7 F Pulse Rate 60 62 Respiratory Rate 18 19 Blood Pressure 119/58 L Pulse Oximetry 98 97 Oxygen Delivery Method 08/14/22 03:35 08/14/22 03:35 08/14/22 03:40 Temperature 97.7 F Pulse Rate 63 Respiratory Rate 17 Blood Pressure 128/58 L 120/58 L Pulse Oximetry 98 Oxygen Delivery Method 08/14/22 03:40 08/14/22 03:45 08/14/22 03:46 Temperature 97.7 F 97.7 F Pulse Rate 62 63 Respiratory Rate 19 23 Blood Pressure 114/57 L Pulse Oximetry 98 98 Oxygen Delivery Method 08/14/22 03:46 08/14/22 03:50 08/14/22 03:50 Temperature 97.7 F 97.7 F Pulse Rate 62 63 Respiratory Rate 22 21 Blood Pressure 125/59 L Pulse Oximetry 98 99 Oxygen Delivery Method MDM - Fall Lab Data Result diagrams: 08/14/22 01:27 08/14/22 04:40 Labs: Lab Results 08/14/22 08/14/22 08/14/22 Range/Units 00:53 01:16 01:16 WBC (4.5-11.0) X10^3/uL RBC (4.5-5.9) X10^6/uL Hgb (13.5-17.5) g/dL Hct (41-53) % MCV (80-100) fL MCH (26-34) PG MCHC (30-36) % RDW (11.6-14.8) % Plt Count (150-400) X10^3/uL Neut % (Auto) (50-75) % Lymph % (Auto) (25-40) % [place] % (Auto) (3-14) % Eos % (Auto) (2-4) % Baso % (Auto) (0-2) % Neut # (Auto) (2268-9519) /uL Lymph # (Auto) (8516-9594) /uL [place] # (Auto) (0-900) /uL Eos # (Auto) (0-450) /uL Baso # (Auto) (0-100) /uL Sodium 140 (137-145) mmol/L Potassium 4.4 (3.4-5.1) mmol/L Chloride 108 H (98-107) mmol/L Carbon Dioxide 15 L (22-32) mmol/L BUN 53 H (9-20) mg/dL Creatinine 2.73 H (0.66-1.25) mg/dL Estimated GFR 22 L (>60) mL/min BUN/Creatinine Ratio 19.4 (6-22) Glucose 149 H (80-110) mg/dL Lactate 6.4 H* (0.7-2.1) mmol/L Calcium 9.0 (8.4-10.2) mg/dL Total Bilirubin 2.5 H (0.2-1.3) mg/dL AST 29 (17-59) IU/L ALT 36 (<50) IU/L Alkaline Phosphatase 69 (38-126) U/L Total Creatine Kinase 115 (55-170) U/L CK-MB (CK-2) 2.71 H (<2.37) ng/mL CK-MB (CK-2) Rel Index 2.4 (1.5-5.0) % Troponin I 0.033 (0.01-0.034) ng/mL Total Protein 6.8 (6.3-8.2) g/dL Albumin 4.1 (3.5-5.0) g/dL Globulin 2.7 (1.7-4.1) g/dL Albumin/Globulin Ratio 1.5 (1.0-2.8) Procalcitonin 0.14 (<0.5) ng/mL Urine Color Yellow Urine Appearance Clear Urine pH 5.0 (4.5-8.0) Ur Specific [place] 1.025 (1.000-1.035) Urine Protein Trace H (Negative) Urine Glucose (UA) Negative (Negative) g/dL Urine Ketones Negative (NEGATIVE) Urine Occult Blood Negative (Negative) Urine Nitrate Negative (Negative) Urine Bilirubin Negative (NEGATIVE) Urine Urobilinogen 0.2 (0.2) E.U./dL Ur Leukocyte Esterase Negative (NEGATIVE) Urine RBC None seen (0-5/HPF) Urine WBC None seen (0-5/HPF) Urine Bacteria None seen (None) Ur Culture Indicated? Cult not indicated Ketones (<0.27) mmol/L SARS-CoV-2 (PCR) (Negative) Influenza A (RT-PCR) (NEGATIVE) Influenza B (RT-PCR) (NEGATIVE) RSV (PCR) (Negative) 08/14/22 08/14/22 08/14/22 Range/Units 01:27 01:48 03:10 WBC 12.6 H (4.5-11.0) X10^3/uL RBC 4.16 L (4.5-5.9) X10^6/uL Hgb 11.4 L (13.5-17.5) g/dL Hct 34.7 L (41-53) % MCV 83.6 (80-100) fL MCH 27.4 (26-34) PG MCHC 32.8 (30-36) % RDW 15.6 H (11.6-14.8) % Plt Count 150 (150-400) X10^3/uL Neut % (Auto) 81.2 H (50-75) % Lymph % (Auto) 12.0 L (25-40) % [place] % (Auto) 6.3 (3-14) % Eos % (Auto) 0.2 L (2-4) % Baso % (Auto) 0.3 (0-2) % Neut # (Auto) 85090 H (8864-9735) /uL Lymph # (Auto) 1500 (0651-3194) /uL [place] # (Auto) 800 (0-900) /uL Eos # (Auto) 0 (0-450) /uL Baso # (Auto) 0 (0-100) /uL Sodium (137-145) mmol/L Potassium (3.4-5.1) mmol/L Chloride (98-107) mmol/L Carbon Dioxide (22-32) mmol/L BUN (9-20) mg/dL Creatinine (0.66-1.25) mg/dL Estimated GFR (>60) mL/min BUN/Creatinine Ratio (6-22) Glucose (80-110) mg/dL Lactate Cancelled (0.7-2.1) mmol/L Calcium (8.4-10.2) mg/dL Total Bilirubin (0.2-1.3) mg/dL AST (17-59) IU/L ALT (<50) IU/L Alkaline Phosphatase (38-126) U/L Total Creatine Kinase (55-170) U/L CK-MB (CK-2) (<2.37) ng/mL CK-MB (CK-2) Rel Index (1.5-5.0) % Troponin I (0.01-0.034) ng/mL Total Protein (6.3-8.2) g/dL Albumin (3.5-5.0) g/dL Globulin (1.7-4.1) g/dL Albumin/Globulin Ratio (1.0-2.8) Procalcitonin (<0.5) ng/mL Urine Color Urine Appearance Urine pH (4.5-8.0) Ur Specific [place] (1.000-1.035) Urine Protein (Negative) Urine Glucose (UA) (Negative) g/dL Urine Ketones (NEGATIVE) Urine Occult Blood (Negative) Urine Nitrate (Negative) Urine Bilirubin (NEGATIVE) Urine Urobilinogen (0.2) E.U./dL Ur Leukocyte Esterase (NEGATIVE) Urine RBC (0-5/HPF) Urine WBC (0-5/HPF) Urine Bacteria (None) Ur Culture Indicated? Ketones (<0.27) mmol/L SARS-CoV-2 (PCR) Negative (Negative) Influenza A (RT-PCR) Flu a positive H (NEGATIVE) Influenza B (RT-PCR) Flu b negative (NEGATIVE) RSV (PCR) Negative (Negative) 08/14/22 08/14/22 Range/Units 03:10 04:40 WBC (4.5-11.0) X10^3/uL RBC (4.5-5.9) X10^6/uL Hgb (13.5-17.5) g/dL Hct (41-53) % MCV (80-100) fL MCH (26-34) PG MCHC (30-36) % RDW (11.6-14.8) % Plt Count (150-400) X10^3/uL Neut % (Auto) (50-75) % Lymph % (Auto) (25-40) % [place] % (Auto) (3-14) % Eos % (Auto) (2-4) % Baso % (Auto) (0-2) % Neut # (Auto) (1116-8785) /uL Lymph # (Auto) (5169-4184) /uL [place] # (Auto) (0-900) /uL Eos # (Auto) (0-450) /uL Baso # (Auto) (0-100) /uL Sodium 141 (137-145) mmol/L Potassium 3.6 (3.4-5.1) mmol/L Chloride 115 H (98-107) mmol/L Carbon Dioxide 19 L (22-32) mmol/L BUN 48 H (9-20) mg/dL Creatinine 2.34 H (0.66-1.25) mg/dL Estimated GFR 27 L (>60) mL/min BUN/Creatinine Ratio 20.5 (6-22) Glucose 80 (80-110) mg/dL Lactate 2.4 H (0.7-2.1) mmol/L Calcium 7.3 L (8.4-10.2) mg/dL Total Bilirubin (0.2-1.3) mg/dL AST (17-59) IU/L ALT (<50) IU/L Alkaline Phosphatase (38-126) U/L Total Creatine Kinase (55-170) U/L CK-MB (CK-2) (<2.37) ng/mL CK-MB (CK-2) Rel Index (1.5-5.0) % Troponin I (0.01-0.034) ng/mL Total Protein (6.3-8.2) g/dL Albumin (3.5-5.0) g/dL Globulin (1.7-4.1) g/dL Albumin/Globulin Ratio (1.0-2.8) Procalcitonin (<0.5) ng/mL Urine Color Urine Appearance Urine pH (4.5-8.0) Ur Specific [place] (1.000-1.035) Urine Protein (Negative) Urine Glucose (UA) (Negative) g/dL Urine Ketones (NEGATIVE) Urine Occult Blood (Negative) Urine Nitrate (Negative) Urine Bilirubin (NEGATIVE) Urine Urobilinogen (0.2) E.U./dL Ur Leukocyte Esterase (NEGATIVE) Urine RBC (0-5/HPF) Urine WBC (0-5/HPF) Urine Bacteria (None) Ur Culture Indicated? Ketones 0.51 H (<0.27) mmol/L SARS-CoV-2 (PCR) (Negative) Influenza A (RT-PCR) (NEGATIVE) Influenza B (RT-PCR) (NEGATIVE) RSV (PCR) (Negative) Imaging Data CT scan - head: Radiologist's Impression: Preliminary report no acute findings Chest x-ray: Radiologist's Impression: Preliminary report no acute finding Extremity x-ray #1: Radiologist's Impression: Preliminary report no acute finding ECG Data Interpretation: Sinus rhythm rate 68 MT interval 246 QRS [address] changes left bundle- branch block noted MDM Narrative Medical decision making narrative: Patient fell and has a right humeral fracture. He was discharged when he probably fell again. He clearly is not safe for discharge. He is found to be significantly acidotic with the lactic acid 6.4 with a repeat 2 hours later of 2.4. His also has leukocytosis of 12.6, in found to have influenza A. No evidence of rhabdomyolysis or bacterial infection. Procalcitonin is 0.14. Will hold off antibiotics and sepsis fluids at this time. He was an extremely difficult IV start he has 1 IV in his foot. He receives IV fluids from it and blood pressure improves. At this time no need for central line but will need better IV access. [facility], accepts patient. Discharge Plan Departure Patient Disposition: Admitted As Inpatient Clinical Impression: Influenza A, Fall, Right humeral fracture Admit Date/Time: 08/14/22 06:48
[2022-08-14 01:43] LABS: Albumin 4.1 g/dL (3.5-5.0); Albumin Globulin Ratio 1.5 (1.0-2.8); Alkaline Phosphatase 69 U/L (38-126); Aspartate Aminotransferase 29 IU/L (17-59); BUN Creatinine Ratio 19.4 (6-22); Bilirubin Total 2.5 mg/dL (0.2-1.3); Blood Urea Nitrogen 53 mg/dL (9-20); Carbon Dioxide 15 mmol/L (22-32); Chloride 108 mmol/L (98-107); Creatine Kinase 115 U/L (55-170); Estimated Glomerular Filt Rate 22 mL/min (>60); Globulin 2.7 g/dL (1.7-4.1); Glucose 149 mg/dL (80-110); HEMOLYSIS 20 (0-50); Potassium 4.4 mmol/L (3.4-5.1); Sodium 140 mmol/L (137-145); Total Protein 6.8 g/dL (6.3-8.2)
[2022-08-14 01:49] LABS: Alanine Aminotransferase 36 IU/L (<50)
[2022-08-14 01:54] LABS: Lactate (Lactic Acid) 6.4 mmol/L (0.7-2.1)
[2022-08-14 01:55] LABS: Troponin I 0.033 ng/mL (0.01-0.034)
[2022-08-14] MEDS: SODIUM CHLORIDE 0.9% 1,000 ML 1000 ML IV ×2 (01:57→03:51)
[2022-08-14 01:58] LABS: CKMB % Relative Index 2.4 % (1.5-5.0); Creatine Kinase MB 2.71 ng/mL (<2.37)
[2022-08-14 02:00] LABS: Procalcitonin 0.14 ng/mL (<0.5)
--- NOTE | 2022-08-14 02:02 | PC.NURSE ---
Pt recently DC'd from ED and left in WC with after a fall leaving him with an impacted humeral head fracture. Having frequent falls. Fell in driveway, laid on driveway x 1hr, tried to drag pt into house which was unsuccessful, on EMS arrival pt hypothermic and hypotensive and altered. Pt was AAOx3 when DC'd from ED earlier. BP 108 systolic on arrival. Shivering. EMS unable to obtain access. AOx1. Warm packs applied by EMS. Pt AAOx1 in triage. [facility] [employer] [facility] and unaware of year. Applied to cardiac monitoring, Paced 70's, denies CP, does not appear SOB, equal breath sounds bilaterally, 97% RA. ETCO2 applied and 20-24. large bruising over R humerus and arrives in sling. Abd SNT, temp pitt placed draining clear yellow urine. initial temp around 91F, bear hugger applied, bruising on bilateral knees. Unable to obtain IV access, attempted access with US. Dr Kohler also attempted US IV access. This RN able to obtain 20G L foot, labs obtained. Warmed IV fluids infusing. Pt taken for imaging with RN.
[2022-08-14 02:10] LABS: Add Manual Diff / Slide Review NO; Basophils Absolute Auto 0 /uL (0-100); Basophils Percent Auto 0.3 % (0-2); Eosinophils Absolute Auto 0 /uL (0-450); Eosinophils Percent Auto 0.2 % (2-4); Hematocrit 34.7 % (41-53); Hemoglobin 11.4 g/dL (13.5-17.5); Lymphocytes Absolute Auto 1500 /uL (1100-4500); Mean Corpuscular HGB Conc 32.8 % (30-36); Mean Corpuscular Hemoglobin 27.4 PG (26-34); Mean Corpuscular Volume 83.6 fL (80-100); Monocytes Absolute Auto 800 /uL (0-900); Monocytes Percent Auto 6.3 % (3-14); Neutrophils Absolute Auto 10200 /uL (1500-7000); Neutrophils Percent Auto 81.2 % (50-75); Platelet Count 150 X10^3/uL (150-400); Red Blood Cell Count 4.16 X10^6/uL (4.5-5.9); Red Cell Distribution Width 15.6 % (11.6-14.8); White Blood Cell Count 12.6 X10^3/uL (4.5-11.0)
[2022-08-14 02:11] LABS: Appearance Urine UA CLEAR; Bilirubin Urine UA NEGATIVE (NEGATIVE); Color Urine UA YELLOW; Ketones Urine UA NEGATIVE (NEGATIVE); Leukocyte Esterase Urine UA NEGATIVE (NEGATIVE); Nitrite Urine UA NEGATIVE (Negative); Occult Blood Urine UA NEGATIVE (Negative); Protein Urine UA TRACE (Negative); Specific Gravity Urine UA 1.025 (1.000-1.035); Urobilinogen Urine UA 0.2 E.U./dL (0.2)
[2022-08-14 02:17] LABS: Glucose Urine UA NEGATIVE (Negative)
[2022-08-14 02:36] LABS: Influenza A - CEPHEID Flu A POSITIVE (NEGATIVE); Influenza B - CEPHEID Flu B NEGATIVE (NEGATIVE); Respiratory Syncytial Virus Negative (Negative)
[2022-08-14 02:39] LABS: COVID-19 CEPHEID 4-PLEX PCR Negative (Negative)
--- NOTE | 2022-08-14 02:51 | PC.NURSE ---
Pt ETCO2 31, tachypnea improved, RR16, temp 97.6. Pt awake and alert. IV fluids completed. BP 120's systolic. Dr Kohler made aware of improvement.
[2022-08-14 02:55] LABS: Bacteria Urine None Seen; Culture Indicated Urine Cult Not Indicated; RBC Urine None Seen (0-5/HPF); WBC Urine None Seen (0-5/HPF)
[2022-08-14 03:33] LABS: Reflexed Lactate in 2 Hours Y
[2022-08-14 03:35] LABS: Lactate 2HR (Lactic Acid Rflx) 2.4 mmol/L (0.7-2.1)
[2022-08-14 05:01] LABS: BUN Creatinine Ratio 20.5 (6-22); Blood Urea Nitrogen 48 mg/dL (9-20); Calcium 7.3 mg/dL (8.4-10.2); Carbon Dioxide 19 mmol/L (22-32); Chloride 115 mmol/L (98-107); Estimated Glomerular Filt Rate 27 mL/min (>60); Glucose 80 mg/dL (80-110); HEMOLYSIS < 15 (0-50); Potassium 3.6 mmol/L (3.4-5.1); Sodium 141 mmol/L (137-145)
[2022-08-14 05:06] LABS: Ketones (Beta-Hydroxybutyrate) 0.51 mmol/L (<0.27)
--- NOTE | 2022-08-14 08:59 | DI.RAD.S_ITS ---
PROCEDURE: XR HIP RT 1V INDICATIONS: possible right femoral neck fracture TECHNIQUE: A cross-table lateral view of the right hip was acquired. COMPARISON: [facility], CT, CT HIP RIGHT WITHOUT CON, 08/14/2022, 9:22. [facility], CT, CT HEAD/BRAIN WO CON, 08/14/2022, 1:33. [facility], CR, XR PELVIS 1-2V, 08/14/2022, 1:30. [facility], CR, XR CHEST 1V, 08/14/2022, 1:30. [facility], CR, XR ELBOW RT MIN 3V, 08/13/2022, 16:03. [facility], CR, XR WRIST RT MIN 3V, 08/13/2022, 16:03. [facility], CR, XR SHOULDER RT MIN 2V, 08/13/2022, 16:03. FINDINGS: Bones: No fractures or dislocations. No suspicious bony lesions. The visualized pelvic ring appears intact. Soft tissues: No suspicious soft tissue calcifications or masses. IMPRESSION: On this limited cross-table view, no displaced fracture can be seen. Dictated by: Joshua Enrique M.D. on 08/14/2022 at 9:07 Approved by: Joshua Enrique M.D. on 08/14/2022 at 9:08
[2022-08-14 09:16] LABS: Erythrocyte Sedimentation Rate 30 MM/HR (0-15)
[2022-08-14 09:17] LABS: Lactate (Lactic Acid) 1.1 mmol/L (0.7-2.1); Magnesium 1.3 mg/dL (1.6-2.3)
[2022-08-14 09:20] LABS: C-Reactive Protein Quant 3.2 mg/dL (<1.0)
[2022-08-14 09:27] LABS: NT-proBNP (BNP-Adult 18+) 738 pg/mL (<450)
[2022-08-14 09:52] LABS: Troponin I 0.199 ng/mL (0.01-0.034)
[2022-08-14] MEDS: MAGNESIUM SULFATE 2 GM/50 ML PIGGYBACK IV (10:46)
[2022-08-14] MEDS: SODIUM CHLORIDE 0.9% 1,000 ML 100 ML IV (10:48)
--- NOTE | 2022-08-14 10:58 | PC.NURSE ---
Dr. Pollock notified that there is no tamaflu in the building for the order that this patient currently has. No new orders given.
--- NOTE | 2022-08-14 12:34 | P.HP_ITS ---
History of Present Illness History of Present Illness Date Patient Seen: 08/14/22 Time Patient Seen: 11:00 Date of Onset of Symptoms: 08/13/22 Chief complaint: Fall Narrative: This is an 81-year-old gentleman who lives at home with his who has some mild dementia. He fell yesterday and sustained a right proximal humerus fracture. He was evaluated [facility] Emergency room and placed in a sling. He was felt to be stable for discharge and was discharged to home yesterday. Unfortunately he continued to have ongoing issues and fell again and noted the acute onset of right hip pain. He returned to the emergency room for re-evaluation. He normally lives with his . Patient History Medical History Acute urinary retention Diabetes mellitus Great toe amputation status Hyperlipidemia Hypertension Surgical History History of permanent cardiac pacemaker placement Family & Social History Family History Father Cancer Social History: household members spouse Safety & Behavioral: Feels Safe in Current Yes Environment Been Physically Hurt or No Threatened By a Person Tobacco & Substance use: Smoking Status Former smoker alcohol intake former alcohol intake frequency holiday/special occasion Substance Use Type does not use Meds Home Medications and Allergies Home Medications Medication Instructions Recorded Confirmed Type aspirin 81 mg tablet,delayed 81 mg PO DAILY ##0 12/13/17 07/26/18 History release atorvastatin 40 mg tablet 40 mg PO DAILY ##0 12/13/17 07/26/18 History calcium carbonate 600 mg-vitamin 1 cap PO QDAY ##0 12/13/17 07/26/18 History D3 10 mcg (400 unit) capsule (Calcium 600 with Vitamin D3) cholecalciferol (vitamin D3) 25 2,000 unit PO QDAY ##0 12/13/17 07/26/18 History mcg (1,000 unit) tablet (Vitamin D3) cinnamon bark 500 mg capsule 500 mg PO DAILY ##0 12/13/17 07/26/18 History (Cinnamon) insulin glargine 100 unit/mL 54 unit SQ BEDTIME ##0 12/13/17 07/26/18 History subcutaneous solution (Lantus U-100 Insulin) losartan 100 mg tablet 100 mg PO DAILY ##0 12/13/17 07/26/18 History lutein 10 mg tablet 6 mg PO QDAY ##0 12/13/17 07/26/18 History multivitamin-iron 9 mg-folic acid 1 tab PO DAILY ##0 12/13/17 07/26/18 History 400 mcg-calcium and minerals tablet (Thera M Plus (ferrous fumarate)) sennosides 8.6 mg tablet (Senna 8.6 mg PO BID PRN Constipation ##0 12/13/17 07/26/18 History Lax) finasteride 5 mg tablet 5 mg PO DAILY 07/26/18 07/26/18 History tamsulosin 0.4 mg capsule 0.4 mg PO DAILY 07/26/18 07/26/18 History Allergies Allergy/AdvReac Type Severity Reaction Status Date / Time chlorhexidine Allergy Intermediate Rash Verified 12/30/19 17:06 caffeine [CAFFEINE] AdvReac Unknown Blurry Verified 12/30/19 17:06 Vision Review of Systems Review of Systems Narrative: He notes that he has a history of multiple falls. He admits that he has some baseline confusion. He notes significant pain into the right shoulder he says his left leg is doing well he notes some mild to moderate pain in the right hip area, he is uncertain whether he is had fevers or chills at home, he does not have any acute chest pain. Exam Vital Signs (past 8 hours): Oxygen Delivery Method Room Air Narrative Exam Narrative: Is resting comfortably in bed, HEENT is atraumatic, has restricted range of motion in his neck but it is only mildly stiff and tender. Lungs are clear cor, cor is slightly irregular, abdomen is benign, his pelvis is stable, he has multiple abrasions and contusions on bilateral upper extremities, there is substantial swelling in the right humerus area he is able to fire his finger flexors and extensors in his right hand and wrist flexors and extensors he has some pain with gentle range of motion in his right elbow has significant pain with attempted range of motion in his right shoulder, his pelvis is stable, left lower extremity shows full range of motion it is nontender the right lower extremity he is tender over his right hip trochanteric region and has some mild pain with range of motion but can actively flex his hip to about 60? and internally and rotated and externally rotated without crepitation, he is able to fire his toe flexors and extensors bilaterally Objective Labs Result Diagrams: 08/14/22 01:27 08/14/22 04:40 Labs: Laboratory Results - last 24 hr 08/14/22 08/14/22 08/14/22 00:53 01:16 01:16 WBC RBC Hgb Hct MCV MCH MCHC RDW Plt Count Neut % (Auto) Lymph % (Auto) [place] % (Auto) Eos % (Auto) Baso % (Auto) Neut # (Auto) Lymph # (Auto) [place] # (Auto) Eos # (Auto) Baso # (Auto) ESR Sodium 140 Potassium 4.4 Chloride 108 H Carbon Dioxide 15 L BUN 53 H Creatinine 2.73 H Estimated GFR 22 L BUN/Creatinine Ratio 19.4 Glucose 149 H Hemoglobin A1c Lactate 6.4 H* Calcium 9.0 Magnesium Total Bilirubin 2.5 H AST 29 ALT 36 Alkaline Phosphatase 69 Total Creatine Kinase 115 CK-MB (CK-2) 2.71 H CK-MB (CK-2) Rel Index 2.4 Troponin I 0.033 C-Reactive Protein NT-Pro-B Natriuret Pep Total Protein 6.8 Albumin 4.1 Globulin 2.7 Albumin/Globulin Ratio 1.5 Procalcitonin 0.14 Urine Color Yellow Urine Appearance Clear Urine pH 5.0 Ur Specific [place] 1.025 Urine Protein Trace H Urine Glucose (UA) Negative Urine Ketones Negative Urine Occult Blood Negative Urine Nitrate Negative Urine Bilirubin Negative Urine Urobilinogen 0.2 Ur Leukocyte Esterase Negative Urine RBC None seen Urine WBC None seen Urine Bacteria None seen Ur Culture Indicated? Cult not indicated Ketones SARS-CoV-2 (PCR) Influenza A (RT-PCR) Influenza B (RT-PCR) RSV (PCR) 08/14/22 08/14/22 08/14/22 01:27 01:48 03:10 WBC 12.6 H RBC 4.16 L Hgb 11.4 L Hct 34.7 L MCV 83.6 MCH 27.4 MCHC 32.8 RDW 15.6 H Plt Count 150 Neut % (Auto) 81.2 H Lymph % (Auto) 12.0 L [place] % (Auto) 6.3 Eos % (Auto) 0.2 L Baso % (Auto) 0.3 Neut # (Auto) 82662 H Lymph # (Auto) 1500 [place] # (Auto) 800 Eos # (Auto) 0 Baso # (Auto) 0 ESR Sodium Potassium Chloride Carbon Dioxide BUN Creatinine Estimated GFR BUN/Creatinine Ratio Glucose Hemoglobin A1c Lactate Cancelled Calcium Magnesium Total Bilirubin AST ALT Alkaline Phosphatase Total Creatine Kinase CK-MB (CK-2) CK-MB (CK-2) Rel Index Troponin I C-Reactive Protein NT-Pro-B Natriuret Pep Total Protein Albumin Globulin Albumin/Globulin Ratio Procalcitonin Urine Color Urine Appearance Urine pH Ur Specific [place] Urine Protein Urine Glucose (UA) Urine Ketones Urine Occult Blood Urine Nitrate Urine Bilirubin Urine Urobilinogen Ur Leukocyte Esterase Urine RBC Urine WBC Urine Bacteria Ur Culture Indicated? Ketones SARS-CoV-2 (PCR) Negative Influenza A (RT-PCR) Flu a positive H Influenza B (RT-PCR) Flu b negative RSV (PCR) Negative 08/14/22 08/14/22 08/14/22 03:10 04:40 08:45 WBC RBC Hgb Hct MCV MCH MCHC RDW Plt Count Neut % (Auto) Lymph % (Auto) [place] % (Auto) Eos % (Auto) Baso % (Auto) Neut # (Auto) Lymph # (Auto) [place] # (Auto) Eos # (Auto) Baso # (Auto) ESR Sodium 141 Potassium 3.6 Chloride 115 H Carbon Dioxide 19 L BUN 48 H Creatinine 2.34 H Estimated GFR 27 L BUN/Creatinine Ratio 20.5 Glucose 80 Hemoglobin A1c 6.0 Lactate 2.4 H Calcium 7.3 L Magnesium Total Bilirubin AST ALT Alkaline Phosphatase Total Creatine Kinase CK-MB (CK-2) CK-MB (CK-2) Rel Index Troponin I C-Reactive Protein NT-Pro-B Natriuret Pep Total Protein Albumin Globulin Albumin/Globulin Ratio Procalcitonin Urine Color Urine Appearance Urine pH Ur Specific [place] Urine Protein Urine Glucose (UA) Urine Ketones Urine Occult Blood Urine Nitrate Urine Bilirubin Urine Urobilinogen Ur Leukocyte Esterase Urine RBC Urine WBC Urine Bacteria Ur Culture Indicated? Ketones 0.51 H SARS-CoV-2 (PCR) Influenza A (RT-PCR) Influenza B (RT-PCR) RSV (PCR) 08/14/22 08/14/22 08/14/22 08:45 08:45 08:45 WBC RBC Hgb Hct MCV MCH MCHC RDW Plt Count Neut % (Auto) Lymph % (Auto) [place] % (Auto) Eos % (Auto) Baso % (Auto) Neut # (Auto) Lymph # (Auto) [place] # (Auto) Eos # (Auto) Baso # (Auto) ESR 30 H Sodium Potassium Chloride Carbon Dioxide BUN Creatinine Estimated GFR BUN/Creatinine Ratio Glucose Hemoglobin A1c Lactate Calcium Magnesium 1.3 L Total Bilirubin AST ALT Alkaline Phosphatase Total Creatine Kinase CK-MB (CK-2) CK-MB (CK-2) Rel Index Troponin I C-Reactive Protein NT-Pro-B Natriuret Pep 738 H Total Protein Albumin Globulin Albumin/Globulin Ratio Procalcitonin Urine Color Urine Appearance Urine pH Ur Specific [place] Urine Protein Urine Glucose (UA) Urine Ketones Urine Occult Blood Urine Nitrate Urine Bilirubin Urine Urobilinogen Ur Leukocyte Esterase Urine RBC Urine WBC Urine Bacteria Ur Culture Indicated? Ketones SARS-CoV-2 (PCR) Influenza A (RT-PCR) Influenza B (RT-PCR) RSV (PCR) 08/14/22 08/14/22 08/14/22 08:45 08:45 08:45 WBC RBC Hgb Hct MCV MCH MCHC RDW Plt Count Neut % (Auto) Lymph % (Auto) [place] % (Auto) Eos % (Auto) Baso % (Auto) Neut # (Auto) Lymph # (Auto) [place] # (Auto) Eos # (Auto) Baso # (Auto) ESR Sodium Potassium Chloride Carbon Dioxide BUN Creatinine Estimated GFR BUN/Creatinine Ratio Glucose Hemoglobin A1c Lactate 1.1 Calcium Magnesium Total Bilirubin AST ALT Alkaline Phosphatase Total Creatine Kinase CK-MB (CK-2) CK-MB (CK-2) Rel Index Troponin I 0.199 H* C-Reactive Protein 3.2 H NT-Pro-B Natriuret Pep Total Protein Albumin Globulin Albumin/Globulin Ratio Procalcitonin Urine Color Urine Appearance Urine pH Ur Specific [place] Urine Protein Urine Glucose (UA) Urine Ketones Urine Occult Blood Urine Nitrate Urine Bilirubin Urine Urobilinogen Ur Leukocyte Esterase Urine RBC Urine WBC Urine Bacteria Ur Culture Indicated? Ketones SARS-CoV-2 (PCR) Influenza A (RT-PCR) Influenza B (RT-PCR) RSV (PCR) x-rays show a right proximal humerus fracture which is impacted without significant displacement, hip x-ray and pelvic CT scan does not show evidence of a right hip fracture there is evidence of contusion of the right hip Assessment & Plan Assessment and plan (1) Fracture of neck of humerus: Qualifiers: Encounter type: initial encounter Laterality: right Status: Acute (2) Influenza A: Status: Acute (3) Fall: Status: Acute (4) Right humeral fracture: Status: Acute (5) Urinary retention: Problem details: [place] catheter placed. No evidence of UTI at this time Status: Acute (6) Chronic renal failure, stage 2 (mild): Problem details: Chronic, once patients blood pressure improves will resume his RODGER-I Status: Acute Plan His humerus fracture can be treated nonoperatively with a sling. He has multiple medical problems. He clearly has had episodes of more than 1 fall in the last 24 hours. Also of note his influenza screen was positive. He is being admitted to the hospitalist service. He can not be out of bed ambulating as tolerated with physical therapy. I anticipate he may require rehab. He needs hip precautions. He will follow-up with us in about 10 days or so for repeat x- rays. Time Spent With Patient Critical Care time: I spent a total of [] minutes of critical care time on this patient's care today; this time is exclusive of procedural time.
--- NOTE | 2022-08-14 12:36 | PC.NURSE ---
called laboratory for 1200 troponin blood draw.
--- NOTE | 2022-08-14 13:05 | CM.DANOTE ---
Pt is an 81-year-old gentleman who lives at home with his who has some mild dementia. He fell yesterday and sustained a right proximal humerus fracture. Pt has [employer] for primary insurance and Medicare part A. Pt lives with his Juliana in a two story condo with 2STE. There is a stair lift inside so pt does not need to use stairs inside. Pt has both manual wheelchair and 4WW but was not using either regularly prior to admission. Pt and spouse are open to either HH or SNF, depending on our recommended level of care upon discharge. Pt's reports that she does not have a preference for HH, because she is not familiar with any. Plan: SW will continue to follow. When pt is medically clear, SW will make referrals based on team recommendations. JOBY Veloz Discharge Planning/Care Management CM Discharge Assessment Start: 08/14/22 12:59 Freq: Status: Active Protocol: Document 08/14/22 13:00 TM (Rec: 08/14/22 13:04 [id number]) Discharge Planning Assessment Assigned Safety Coordinator Chata Cobian DPOA/Assigned Designee Name Juliana Howe, Spouse/ DPOA. Contact Information [phone]. Advance Directives? Yes Advance Directives on File No: Not on file. May be on file at [place]. History Provided By Patient,Family Member Has Patient been admitted in last 30 No days? Prior Living Arrangements Apartment/Condo Comment Pt lives in two story condo with 2STE and a stair lift inside. Household Members spouse Type of transporation used prior to Drives own vehicle admit Independent with ADL's Yes Is patient alert and oriented? Yes Comment Prior to fall, pt was fully independent with ADLs. Pt reports that he could dress himself, feed himself, transfer, and shower independently. Caregiver for Another No DME Already Rented / Owned Wheelchair,FWW / Walker Comment Pt has a manual wheelchair and a 4WW. Pt was not using either regularly before admission. Patient/Family Preference Care Home Facility,Home with Home Health Comment TBD - pending medical clearance and PT recommendation. Discharge Plan Care Home Facility Transportation Arrangement Pt's , Juliana vs medical transport. Additional Comment may need HH vs SNF. Please Provide Date Initial DC 08/14/22 Assessment Was Performed
[2022-08-14 13:33] LABS: Troponin I 0.119 ng/mL (0.01-0.034)
--- NOTE | 2022-08-14 14:35 | PT-IP ANOTE ---
Received PT orders and reviewed the chart. Pt has R proximal humerus fracture which is to be managed non-operatively per ortho. Pt is boarding in the ED awaiting a room on the acute care floor. Attempted to see pt in ED but pt was very confused and had IV access R foot. Will plan to see pt once he is moved up to the unit.
[2022-08-14 14:37] LABS: INR 1.1 (0.9-1.3); Prothrombin Time 12.4 SECONDS (10.1-12.7)
[2022-08-14 15:08] LABS: Add Manual Diff / Slide Review NO; Basophils Absolute Auto 0 /uL (0-100); Basophils Percent Auto 0.1 % (0-2); Eosinophils Absolute Auto 0 /uL (0-450); Eosinophils Percent Auto 0.4 % (2-4); Hemoglobin 10.3 g/dL (13.5-17.5); Lymphocytes Absolute Auto 1400 /uL (1100-4500); Lymphocytes Percent Auto 19.3 % (25-40); Mean Corpuscular HGB Conc 33.1 % (30-36); Mean Corpuscular Volume 84.4 fL (80-100); Monocytes Absolute Auto 600 /uL (0-900); Monocytes Percent Auto 8.4 % (3-14); Neutrophils Absolute Auto 5100 /uL (1500-7000); Neutrophils Percent Auto 71.8 % (50-75); Platelet Count 118 X10^3/uL (150-400); Red Blood Cell Count 3.68 X10^6/uL (4.5-5.9); Red Cell Distribution Width 14.9 % (11.6-14.8); White Blood Cell Count 7.1 X10^3/uL (4.5-11.0)
[2022-08-14 15:13] LABS: Albumin Globulin Ratio 1.3 (1.0-2.8); Alkaline Phosphatase 64 U/L (38-126); Aspartate Aminotransferase 57 IU/L (17-59); BUN Creatinine Ratio 18.6 (6-22); Bilirubin Total 2.5 mg/dL (0.2-1.3); Blood Urea Nitrogen 54 mg/dL (9-20); Calcium 9.2 mg/dL (8.4-10.2); Carbon Dioxide 13 mmol/L (22-32); Chloride 106 mmol/L (98-107); Estimated Glomerular Filt Rate 21 mL/min (>60); Globulin 3.1 g/dL (1.7-4.1); Glucose 167 mg/dL (80-110); HEMOLYSIS 52 (0-50); Potassium 4.5 mmol/L (3.4-5.1); Sodium 140 mmol/L (137-145); Total Protein 7.1 g/dL (6.3-8.2)
[2022-08-14 15:19] LABS: Alanine Aminotransferase 38 IU/L (<50)
[2022-08-14] MEDS: SENNOSIDES 8.6 MG TABLET 17.2 MG PO (21:13)
[2022-08-14] MEDS: INSULIN GLARGINE 100 UNIT/ML 3ML PEN 54 UNIT SUBCUT (21:20)
--- NOTE | 2022-08-14 23:13 | PC.NURSE ---
Patient is alert but oriented only to self and birthdate although close on month, day of month and year. Breath sounds CTA with RA sat of 97%. HRR w/BP of 159/68. Denies nausea. BT present and abdomen is soft although large and round.. Indwelling catheter is patent; urine is clear yellow. Will sometimes reposition himself (was making attempts to get out of bed on his own on previous shift) so will monitor and assist to turn if he does not do so on his own. Right UE in sling; CMS is intact. Denies pain. Calf SCD applied to left leg but has IV in right foot so SCD not applied. Fall risk score is high and bed alarm is activated. On droplet precautions as in positive for influenza A
[2022-08-15 03:00] VITALS: BP 137/49; PULSE 68; RESP 12; TEMP 36.1; O2SAT 100
[2022-08-15 07:00] VITALS: BP 168/52; PULSE 68; RESP 16; TEMP 36.6; O2SAT 98
[2022-08-15 08:11] LABS: Add Manual Diff / Slide Review NO; Basophils Absolute Auto 0 /uL (0-100); Basophils Percent Auto 0.2 % (0-2); Eosinophils Absolute Auto 100 /uL (0-450); Lymphocytes Absolute Auto 1600 /uL (1100-4500); Lymphocytes Percent Auto 22.9 % (25-40); Mean Corpuscular HGB Conc 34.4 % (30-36); Mean Corpuscular Hemoglobin 28.1 PG (26-34); Mean Corpuscular Volume 81.5 fL (80-100); Monocytes Absolute Auto 600 /uL (0-900); Monocytes Percent Auto 8.9 % (3-14); Neutrophils Absolute Auto 4600 /uL (1500-7000); Platelet Count 123 X10^3/uL (150-400); Red Blood Cell Count 3.56 X10^6/uL (4.5-5.9); Red Cell Distribution Width 15.2 % (11.6-14.8); White Blood Cell Count 6.9 X10^3/uL (4.5-11.0)
--- NOTE | 2022-08-15 10:25 | PM.HP.1 ---
History of Present Illness History of Present Illness Date Patient Seen: 08/14/22 Time Patient Seen: 20:00 Chief complaint: Fall Narrative: Mario Segovia is an 81-year-old male with a history of CKD stage 3, urinary retention, UTI sepsis, insulin-dependent diabetes, BPH, hypertension, visual hallucinations since 2019, CABG with pacemaker placement, dementia, chronic anemiawho presented to ED for a recurrent new recent fall presenting today after falling in his driveway after returning from [place] ED. He actually was seen and evaluated here earlier today after a fall when he fell and fractured his right humerus.? He was discharged home his came to get him but he fell in the driveway where he laid there for roughly an hour the try to drag him into the house but was unsuccessful.? He presents hypothermic and hypotensive.? Patient has minimal complaints. Patient's were stable upon admit hypothermia had resolved temp 97.7?, BP 125/59, HR 63, R 21, O2 saturation 99% on room air. Patient's H&H is stable 11.4/34.7 he does have a slight white count 12.6 with a left shift neutrophils 10,200, chloride 115, bicarb 19, BUN 48, creatinine 1.93, glucose 80, GFR 33.4, initial lactate 2.4 calcium 7 total bili 2 initial Trop 0.033, procalcitonin is within normal limits. Patient is positive for influenza a, negative for COVID. At the time of admit examination in the ED department patient was confused severely agitated refused physical examination, suspect that this is patient's baseline dementia. Patient's had been at the bedside and reported to ED doctor that the patient's falling aggressive agitation and behavioral issues for becoming unmanageable for her at home and had been escalating over the past year. Due to dementia unable to obtain any HPI, ROS, family history. Admitted for Ground level fall x2 resulting in pathological right humeral neck fracture, and new femoral neck fracture, influenza a, hypothermia. Patient History Medical History (Updated 08/15/22 @ 10:36 by BRENT Mcgrath) Acute urinary retention Diabetes mellitus Great toe amputation status Hyperlipidemia Hypertension Surgical History History of permanent cardiac pacemaker placement Family & Social History Family History Father Cancer Social History: household members spouse Prior Living Arrangements Apartment/Condo Safety & Behavioral: Feels Safe in Current Yes Environment Been Physically Hurt or No Threatened By a Person Tobacco & Substance use: Smoking Status Former smoker alcohol intake former alcohol intake frequency holiday/special occasion Substance Use Type does not use Meds Home Medications and Allergies Home Medications Medication Instructions Recorded Confirmed Type aspirin 81 mg tablet,delayed 81 mg PO DAILY ##0 12/13/17 07/26/18 History release atorvastatin 40 mg tablet 40 mg PO DAILY ##0 12/13/17 07/26/18 History calcium carbonate 600 mg-vitamin 1 cap PO QDAY ##0 12/13/17 07/26/18 History D3 10 mcg (400 unit) capsule (Calcium 600 with Vitamin D3) cholecalciferol (vitamin D3) 25 2,000 unit PO QDAY ##0 12/13/17 07/26/18 History mcg (1,000 unit) tablet (Vitamin D3) cinnamon bark 500 mg capsule 500 mg PO DAILY ##0 12/13/17 07/26/18 History (Cinnamon) insulin glargine 100 unit/mL 54 unit SQ BEDTIME ##0 12/13/17 07/26/18 History subcutaneous solution (Lantus U-100 Insulin) losartan 100 mg tablet 100 mg PO DAILY ##0 12/13/17 07/26/18 History lutein 10 mg tablet 6 mg PO QDAY ##0 12/13/17 07/26/18 History multivitamin-iron 9 mg-folic acid 1 tab PO DAILY ##0 12/13/17 07/26/18 History 400 mcg-calcium and minerals tablet (Thera M Plus (ferrous fumarate)) sennosides 8.6 mg tablet (Senna 8.6 mg PO BID PRN Constipation ##0 12/13/17 07/26/18 History Lax) finasteride 5 mg tablet 5 mg PO DAILY 07/26/18 07/26/18 History tamsulosin 0.4 mg capsule 0.4 mg PO DAILY 07/26/18 07/26/18 History Allergies Allergy/AdvReac Type Severity Reaction Status Date / Time chlorhexidine Allergy Intermediate Rash Verified 12/30/19 17:06 caffeine [CAFFEINE] AdvReac Unknown Blurry Verified 12/30/19 17:06 Vision Review of Systems Review of Systems Narrative: All 12 point systems reviewed with the patient and are negative except otherwise documented. Please be advised that due to patient's dementia although he denied any symptoms discomfort or pain accuracy is difficult to verify. Exam Vital Signs (past 8 hours): - 08/15/22 03:00 08/15/22 03:00 08/15/22 07:00 Temperature 97.0 F L 97.9 F Pulse Rate 68 68 Respiratory Rate 12 16 Blood Pressure 137/49 L 168/52 H Pulse Oximetry 100 100 98 Oxygen Delivery Method Room Air Oxygen Flow Rate 0 0 0 Oxygen Delivery Method Room Air Oxygen Flow Rate 0 Narrative Exam Narrative: General: Patient is aggressive, agitated, confused, unwilling to allow me to physically touched or examined him, all documentation below was observational in nature, patient displayed no physiological hemodynamic distress at this time. HEENT: Normocephalic, atraumatic, extraocular muscles intact, oral pharynx is clear and mucous membranes are dry. Neck symmetric, trachea is midline. Negative for JVD Chest: Normal AP diameter and contour no nasal flaring, retractions, or tachypneic labored breathing. Lungs: Patient refused Auscultation of lung Cardio: Patient refused examination Abdomen: Patient refused examination Musculoskeletal: Observed significant bruising to the right arm currently in sling, no obvious observed deformity, crepitus, effusions, cyanosis, clubbing or edema present. Skin: Significant bruising to the right arm right hip area observed. Neuro: Alert and orientated to self & hospital, would become confused and agitated as to where he was, how he got here, and why he was in the hospital, he also became severely agitated when a male nurse entered the room screaming profanities and accusing the nurse of inappropriate touching. The nurse had had no physical contact with this patient, prior to entering the , as they had just come on shift, sensation to touch intact, no gross deficits noted of cranial nerves. Psych: Patient has a well-kept appearance, although appeared as if he frequently falls and has varying stages of bruising all over his body, he was confused disorientated agitated aggressive, and did not respond well to male staff members. -I suspect based on reports that the has stated that his dementia has been worsening over the past year and has been becoming elliott aggressive that this is his actual baseline and not encephalopathy. As his requested that he be evaluated for possible placement. Objective Labs Result Diagrams: 08/15/22 07:40 08/14/22 04:40 Labs: Laboratory Results - last 24 hr 08/14/22 08/14/22 08/14/22 01:21 01:27 04:40 WBC RBC Hgb Hct MCV MCH MCHC RDW Plt Count Neut % (Auto) Lymph % (Auto) [place] % (Auto) Eos % (Auto) Baso % (Auto) Neut # (Auto) Lymph # (Auto) [place] # (Auto) Eos # (Auto) Baso # (Auto) PT 12.4 INR 1.1 Sodium 140 141 Potassium 4.5 3.6 Chloride 106 Carbon Dioxide 13 L BUN 54 H Creatinine 2.90 H Estimated GFR 21 L BUN/Creatinine Ratio 18.6 Glucose 167 H 80 Calcium 9.2 Total Bilirubin 2.5 H AST 57 ALT 38 Alkaline Phosphatase 64 Troponin I Total Protein 7.1 Albumin 4.0 Globulin 3.1 Albumin/Globulin Ratio 1.3 08/14/22 08/14/22 08/14/22 12:48 12:48 22:10 WBC 7.1 RBC 3.68 L Hgb 10.3 L Hct 31.0 L MCV 84.4 MCH 28.0 MCHC 33.1 RDW 14.9 H Plt Count 118 L Neut % (Auto) 71.8 Lymph % (Auto) 19.3 L [place] % (Auto) 8.4 Eos % (Auto) 0.4 L Baso % (Auto) 0.1 Neut # (Auto) 5100 Lymph # (Auto) 1400 [place] # (Auto) 600 Eos # (Auto) 0 Baso # (Auto) 0 PT INR Sodium Potassium Chloride Carbon Dioxide BUN Creatinine Estimated GFR BUN/Creatinine Ratio Glucose Calcium Total Bilirubin AST ALT Alkaline Phosphatase Troponin I 0.119 H 0.080 H Total Protein Albumin Globulin Albumin/Globulin Ratio 08/15/22 07:40 WBC 6.9 RBC 3.56 L Hgb 10.0 L Hct 29.0 L MCV 81.5 MCH 28.1 MCHC 34.4 RDW 15.2 H Plt Count 123 L Neut % (Auto) 67.0 Lymph % (Auto) 22.9 L [place] % (Auto) 8.9 Eos % (Auto) 1.0 L Baso % (Auto) 0.2 Neut # (Auto) 4600 Lymph # (Auto) 1600 [place] # (Auto) 600 Eos # (Auto) 100 Baso # (Auto) 0 PT INR Sodium Potassium Chloride Carbon Dioxide BUN Creatinine Estimated GFR BUN/Creatinine Ratio Glucose Calcium Total Bilirubin AST ALT Alkaline Phosphatase Troponin I Total Protein Albumin Globulin Albumin/Globulin Ratio Assessment & Plan Assessment & Plan narrative: Mario Segovia is an 81-year-old male with a history of CKD stage 3, urinary retention, UTI sepsis, insulin-dependent diabetes, BPH, hypertension, visual hallucinations since 2019, CABG with pacemaker placement, dementia, chronic anemia who presented to ED for a recurrent new recent fall presenting today after falling in his driveway after returning from [place] ED. He actually was seen and evaluated here earlier today after a fall when he fell and fractured his right humerus.? He was discharged home his came to get him but he fell in the driveway where he laid there for roughly an hour the try to drag him into the house but was unsuccessful.? He presents hypothermic and hypotensive. Admitted for Ground level fall x2 resulting in pathological right humeral neck fracture, and new femoral neck fracture, influenza a, hypothermia. 1. Ground level fall, recurrent, acute, resulting in pathological right humeral fracture, follow-up visit, an acute right femoral neck fracture, present on admission -Radiology felt that femoral neck fracture was questionable, and recommended that Dr. Angelina Castillo Ortho consult for further evaluation -pain and comfort management -PT OT evaluation following surgery evaluation-gait stability and safety -ASSOCIATE MEDIA DIRECTOR consult regarding safety of returning home possibility of placement as the patient's seems unable to to continue to care safely for her spouse. 2. Influenza a, acute, present on admission -symptom management, respiratory support -sputum cultures, lactate, procalcitonin, CRP, ESR, blood culture-to rule out bacteria and former 3. Hypothermia, acute, present on admission -resolved -patient was placed in a bear Hugger in ED for treatment 4. CKD stage 3, acute on chronic, present on admission -continue to trend renal enzymes 5. Insulin-dependent diabetes, acute on chronic, with hyperlipidemia, present on admission -patient admitted under diabetic protocol -NPO, blood sugars q.6 hours wall NPO, for possible surgery -resume blood sugar checks a.c. HS with low-dose sliding scale -A1c ordered -continue Ozempic, Lipitor 6. Hx of Essential hypertension, Hx of CABG and pacemaker placement, chronic, present on admission -continue ASA -patient no longer on any further anticoagulation or blood pressure medication 7. Dementia with visual hallucinations, acute on chronic, present on admission -continue doneprezil 8. BPH, with a history of urinary retention, frequent UTI/sepsis, chronic, present on admission -patient has condom catheter secondary to immobility from femoral neck fracture - advises patient is no longer taking Flomax or finasteride -have ordered urine culture -monitor for urinary retention Code status:Full Surrogate decision maker: Spouse anne ROOT PCR:Negative DVT/VTE prophylaxis:Held medication- due to possible surgery, Disposition: Patient admitted to acute care for evaluation possible femoral fracture and right humeral fracture, and influenza a expected length of stay greater than 2 midnights patient will likely require placement for sniff rehab or dementia facility. I have utilized all available immediate resources to obtain, update, or review the patient's current medications. I confirmed that the patient's advanced care plan is present, Code status is documented and/or surrogate decision maker is listed in the patient's medical record. I have personally reviewed patient's chart notes from PCP, specialists, diagnostic imaging, and laboratory, Time Spent With Patient Critical Care time: I spent a total of [] minutes of critical care time on this patient's care today; this time is exclusive of procedural time. Quality VTE Deep Vein Thrombosis/Pulmonary Embolism Present on Admission: No
[2022-08-15] MEDS: SODIUM CHLORIDE 0.9% FLUSH 10 ML IV ×2 (10:55→20:45)
--- NOTE | 2022-08-15 11:22 | P.PN_ITS ---
Subjective Subjective Date Patient Seen: 08/15/22 Interval history: Today he feels weak with generalized fatigue. He has some nasal congestion, but denies nausea. He does not have much of an appetite. Denies fever, chills, nausea. He has no abdominal pain, shortness of breath or cough. Exam Vital Signs (past 8 hours): - 08/15/22 07:00 Temperature 97.9 F Pulse Rate 68 Respiratory Rate 16 Blood Pressure 168/52 H Pulse Oximetry 98 Oxygen Flow Rate 0 Oxygen Delivery Method Room Air Oxygen Flow Rate 0 Narrative Exam Narrative: General: Mildly ill appearing elderly male. HEENT: Normocephalic, atraumatic, extraocular muscles intact, oral pharynx is clear and mucous membranes are dry. Neck symmetric, trachea is midline. Negative for JVD Chest: Normal AP diameter and contour no nasal flaring, retractions, or tachypneic labored breathing. Lungs: CTA b/l, poor effort. Cardio: RRR with no m/r/g. Abdomen: S NT ND Musculoskeletal: R shoulder ecchymosis, R arm in sling, no tenderness of R sh oulder. Skin: Significant bruising to the right arm right hip area observed. Neuro: Alert and orientated to self & hospital & situation, no gross deficits to cranial nerves Psych: cognitive impairment evident, but calm and cooperative. Objective Labs Result Diagrams: 08/15/22 07:40 08/14/22 04:40 Labs: Laboratory Results - last 24 hr 08/14/22 08/14/22 08/14/22 01:21 01:27 04:40 WBC RBC Hgb Hct MCV MCH MCHC RDW Plt Count Neut % (Auto) Lymph % (Auto) [place] % (Auto) Eos % (Auto) Baso % (Auto) Neut # (Auto) Lymph # (Auto) [place] # (Auto) Eos # (Auto) Baso # (Auto) PT 12.4 INR 1.1 Sodium 140 141 Potassium 4.5 3.6 Chloride 106 Carbon Dioxide 13 L BUN 54 H Creatinine 2.90 H Estimated GFR 21 L BUN/Creatinine Ratio 18.6 Glucose 167 H 80 Calcium 9.2 Total Bilirubin 2.5 H AST 57 ALT 38 Alkaline Phosphatase 64 Troponin I Total Protein 7.1 Albumin 4.0 Globulin 3.1 Albumin/Globulin Ratio 1.3 12/04/22 12/04/22 12/04/22 12:48 12:48 22:10 WBC 7.1 RBC 3.68 L Hgb 10.3 L Hct 31.0 L MCV 84.4 MCH 28.0 MCHC 33.1 RDW 14.9 H Plt Count 118 L Neut % (Auto) 71.8 Lymph % (Auto) 19.3 L [place] % (Auto) 8.4 Eos % (Auto) 0.4 L Baso % (Auto) 0.1 Neut # (Auto) 5100 Lymph # (Auto) 1400 [place] # (Auto) 600 Eos # (Auto) 0 Baso # (Auto) 0 PT INR Sodium Potassium Chloride Carbon Dioxide BUN Creatinine Estimated GFR BUN/Creatinine Ratio Glucose Calcium Total Bilirubin AST ALT Alkaline Phosphatase Troponin I 0.119 H 0.080 H Total Protein Albumin Globulin Albumin/Globulin Ratio 08/15/22 07:40 WBC 6.9 RBC 3.56 L Hgb 10.0 L Hct 29.0 L MCV 81.5 MCH 28.1 MCHC 34.4 RDW 15.2 H Plt Count 123 L Neut % (Auto) 67.0 Lymph % (Auto) 22.9 L [place] % (Auto) 8.9 Eos % (Auto) 1.0 L Baso % (Auto) 0.2 Neut # (Auto) 4600 Lymph # (Auto) 1600 [place] # (Auto) 600 Eos # (Auto) 100 Baso # (Auto) 0 PT INR Sodium Potassium Chloride Carbon Dioxide BUN Creatinine Estimated GFR BUN/Creatinine Ratio Glucose Calcium Total Bilirubin AST ALT Alkaline Phosphatase Troponin I Total Protein Albumin Globulin Albumin/Globulin Ratio [facility] Medical History (Updated 08/15/22 @ 10:36 by BRENT Mcgrath) Acute urinary retention Diabetes mellitus Great toe amputation status Hyperlipidemia Hypertension Surgical History History of permanent cardiac pacemaker placement Family History Father Cancer Social History household members: spouse Smoking Status: Former smoker alcohol intake: former Assessment & Plan Assessment & Plan narrative: Mario Segovia is an 81-year-old male with a history of CKD stage 3, urinary retention, UTI sepsis, insulin-dependent diabetes, BPH, hypertension, visual hallucinations since 2019, CABG with pacemaker placement, dementia, chronic anemia who presented to ED for a recurrent new recent fall presenting after falling in his driveway after returning from [place] ED. He actually was seen and evaluated here earlier today after a fall when he fell and fractured his right humerus.? He was discharged home his came to get him but he fell in the driveway where he laid there for roughly an hour the try to drag him into the house but was unsuccessful.? He presented hypothermic and hypotensive. Admitted for Ground level fall x2 resulting in pathological right humeral neck fracture, and new femoral neck fracture, influenza a, hypothermia. 1. Ground level fall, recurrent, acute, resulting in pathological right humeral fracture, follow-up visit, an acute right femoral neck fracture, present on admission -Radiology felt that femoral neck fracture was questionable, and recommended that Dr. Angelina Castillo Ortho consult for further evaluation. Ortho states management is currently non-operative and recommended follow up in 10 days as an outpatient. -pain and comfort management -continue PT / OT 2. Sepsis secondary to Influenza a, acute, present on admission with PRACHI and thrombocytopenia -symptom management, respiratory support -sputum cultures, lactate, procalcitonin, CRP, ESR, blood culture-to rule out bacteria and former -SOFA score 3 with thrombocytopenia and PRACHI, 4 if encephalopathy. -possible acute metabolic encephalopathy as well in sepsis, unknown baseline with history of dementia. -no current evidence of bacterial infection. 3. Hypothermia, acute, present on admission -resolved -patient was placed in a bear Hugger in ED for treatment 4. PRACHI on CKD stage 3, acute on chronic, present on admission -suspect in setting of falls and probable mild dehydration - creatinine peaked at 2.9 and is improving. 5. Insulin-dependent diabetes, acute on chronic, with hyperlipidemia, present on admission -patient admitted under diabetic protocol -continued home insulin -resume blood sugar checks a.c. HS with low-dose sliding scale -A1c ordered -hold home Ozempic 6. Hx of Essential hypertension, Hx of CABG and pacemaker placement, chronic, present on admission -continue ASA, lipitor -continue losartan 7. Dementia with visual hallucinations, acute on chronic, present on admission -continue doneprezil 8. BPH, with a history of urinary retention, frequent UTI/sepsis, chronic, present on admission -patient has condom catheter secondary to immobility from femoral neck fracture - advises patient is no longer taking Flomax or finasteride -have ordered urine culture -monitor for urinary retention 9. Myocardial injury - suspect in setting of hypothermia with hx of CAD - troponin downtrended since admission - no further evaluation recommended at this time. Code status:Full Surrogate decision maker: Spouse anne ROOT PCR:Negative DVT/VTE prophylaxis:Held medication- due to possible surgery, Disposition: Probable SNF. Time Spent With Patient Critical Care time: I spent a total of [] minutes of critical care time on this patient's care today; this time is exclusive of procedural time. Scores SOFA PaO2/FIO2: >=400 mmHg Platelets: < 150 Bilirubin: < 1.2 mg/dL Hypotension: MAP >= 70 mmHg Jayesh Coma Scale: 15 Renal: Creatinine 2.0-3.4 mg/dL SOFA Score: 3 Quality VTE Deep Vein Thrombosis/Pulmonary Embolism Present on Admission: No
--- NOTE | 2022-08-15 11:38 | OT.IPNOTE ---
Attempted to see pt for OT eval. Pt's nurse and PT also present. Nurse giving pt Tylenol and pt spitting the pills out. Pt also refusing to get up at this time. To check on the pt this afternoon.
--- NOTE | 2022-08-15 11:43 | PT-IP ANOTE ---
Attempted to see pt with OT also present. Pt was not alert enough to meaningfully participate in mobility evaluation. Will attempt again later today.
[2022-08-15 11:58] LABS: Alanine Aminotransferase 32 IU/L (<50); Albumin 3.3 g/dL (3.5-5.0); Albumin Globulin Ratio 1.3 (1.0-2.8); Alkaline Phosphatase 59 U/L (38-126); Aspartate Aminotransferase 30 IU/L (17-59); BUN Creatinine Ratio 20.2 (6-22); Bilirubin Total 1.9 mg/dL (0.2-1.3); Blood Urea Nitrogen 37 mg/dL (9-20); Calcium 8.1 mg/dL (8.4-10.2); Carbon Dioxide 23 mmol/L (22-32); Chloride 110 mmol/L (98-107); Estimated Glomerular Filt Rate 36 mL/min (>60); Globulin 2.5 g/dL (1.7-4.1); Glucose 75 mg/dL (80-110); HEMOLYSIS < 15 (0-50); Potassium 3.8 mmol/L (3.4-5.1); Sodium 140 mmol/L (137-145); Total Protein 5.8 g/dL (6.3-8.2)
[2022-08-15 12:02] LABS: Magnesium 1.6 mg/dL (1.6-2.3)
--- NOTE | 2022-08-15 14:22 | OT.IP.EVAL ---
Current Diagnoses Influenza due to other identified influenza virus with other respiratory manifestations (08/14/22) Chronic kidney disease, stage 2 (mild) (08/14/22) Retention of urine, unspecified (08/14/22) Unspecified displaced fracture of surgical neck of unspecified humerus, initial encounter for closed fracture (08/14/22) Unspecified fracture of shaft of humerus, right arm, initial encounter for closed fracture (08/14/22) Fracture of unspecified part of neck of unspecified femur, initial encounter for closed fracture (08/14/22) Unspecified fall, initial encounter (08/14/22) Past Medical History (Last Reviewed 08/15/22 @ 10:35 by BRENT Mcgrath) Acute urinary retention Diabetes mellitus Great toe amputation status Hyperlipidemia Hypertension Surgical History (Last Reviewed 08/15/22 @ 10:35 by BRENT Mcgrath) History of permanent cardiac pacemaker placement Occupational Therapy Inpatient Evaluation/Re-Eval M1 PT/OT-IP Prior Functional Status Start: 08/14/22 13:26 Freq: NEEDED Status: Active Protocol: Document 08/15/22 13:45 [facility] (Rec: 08/15/22 15:48 [facility] [id number]) Medical Review Prior Functional Status Communication Pt's sister in law states pt having more difficulty with dementia lately. Mobility and Gait Pt prior was not using any devices to get again but has had recent falls. Activities of Daily Living and IADL's In the past week, pt's has had to assist pt for all ADl and mobility needs. Social History Household Members spouse Living Arrangements House Number of Stairs To Enter/Railing? 6 steps with wide rails Home Environment Standard Height Toilet,Tub/ Shower Home Equipment Four Wheel Walker,Manual Wheelchair,Shower Seat without Backrest Additional Social History Comment Pt had has 2 recent falls resulting in right humeral head fracture. Pt also has a beach house with 3 steps with right rail to go down to the living room and stair lift to go upstairs. M2 OT-IP Current Condition Start: 08/15/22 15:18 Freq: Status: Active Protocol: Document 08/15/22 13:45 [facility] (Rec: 08/15/22 15:48 [facility] [id number]) Occupational Therapy Current Condition Current Condition Evaluation Date 12/05/22 Treatment Diagnosis GLF, right humeral head fracture Diagnosis Onset Date 08/14/22 Post Operative Precautions Shoulder Precautions Sling Other Precautions NWB to RUE M3 OT- IP Subjective and Pain Start: 08/15/22 15:18 Freq: Status: Active Protocol: Document 08/15/22 13:45 [facility] (Rec: 08/15/22 15:48 [facility] [id number]) OT- Subjective Occupational Therapy Visit Type Type Initial Evaluation Visit Start Time 13:45 Visit Stop Time 14:22 Total Visit Minutes 37 Occupational Therapy Visit Comments Patient Comments Pt more alert in PM and agreed to try to get up. Pt's present at the end of the session. Dr. Castillo has cleared pt to be WBAT tolerated for RLE in which no evidence of right hip fracture and that there is evidence of hip contusion. Patient/Caregiver Goals Pt's wanting pt to go to skilled rehab. OT Pain Assessment Pain When Pain Assessed During Mobility Pain Present Pain Present Pain Reported M4 OT- IP ADL's Start: 08/15/22 15:18 Freq: Status: Active Protocol: Document 08/15/22 13:45 [facility] (Rec: 08/15/22 15:48 [facility] [id number]) OT ACL-[id number] Comments OT Self-Feeding Comments Not at meal time, pt will need assist for set-up as unable to use his RUE. OT ADL-Grooming Comments OT Grooming Comments Not performed. OT ADL-Oral Care Comments Oral Care Comments NOt performed. OT ADL-Dressing General Eval Upper Body Dressing Ability Total Assistance Comments OT Dressing Comments Pt needing total assist for all dressing needs including sling management needs. OT ADL-Toileting General Evaluation Toileting Ability Total Assistance Areas Needing Assistance Empty Catheter or Colostomy OT ADL-Bathing Comments OT Bathing Comments Sponge bathing more appropriate at this time. M5 OT- IP IADL's Start: 08/15/22 15:18 Freq: Status: Active Protocol: Document 08/15/22 13:45 [facility] (Rec: 08/15/22 15:48 [facility] [id number]) OT-Instrumental Activities of Daily Living Deficits IADL Deficits Identified Deficits Home Safety Awareness Awareness of Need for Assistance at Home Decreased Awareness Home Safety Comments Pt this AM only orientated to his name , later in the PM able to follow simple commands for mobility needs. Medication Management Medication Management Caregiver Administers Money Management Money Management Caregiver Provides Assistance Meal Preparation Meal Preparation Caregiver Provides Assist Insurance Producer Insurance Producer Caregiver Provides Assist M6 OT- IP Functional Cognition Start: 08/15/22 15:18 Freq: Status: Active Protocol: Document 08/15/22 13:45 [facility] (Rec: 08/15/22 15:48 [facility] [id number]) Cognitive Factors Limiting Selfcare Function Cognitive Ability Level of Alertness Alert Patient Orientation Name Attention Span Ability Capable of Focused Attention, Capable of Sustained Attention Ability to Follow Commands Able to Follow One Step Commands with Increased Time, Able to Follow One Step Commands with Repetition Cognitive Comments Cognitive Assessment Comments Pt able to follow simple commands for mobility needs. Per pt's in the last week unable to function to assist with any ADl needs and having to assist with all his needs. OT- Vision and Hearing OT- Vision Assessment Vision Assessment Comments Pt having had cataract surgery 10 days ago. M7 OT- IP Mobility and Balance Start: 08/15/22 15:18 Freq: Status: Active Protocol: Document 08/15/22 13:45 [facility] (Rec: 08/15/22 15:48 [facility] [id number]) OT- Bed Mobility Assessment Supine to Sit Supine to Sit Assist Maximum Assistance,2 Person Assistance Sit to Supine Sit to Supine Assist Maximum Assistance,2 Person Assistance OT-Transfer Assessment Comments Mobility Comments Supine to sit MAX AX 2 with heavy use of green pad to help get the pt upright. BP sitting 82/45 and pt requesting to lis back down as feeling faint. Pt 98/48 and then after several minutes 146 /47. OT- Balance Assessment Sitting Balance and Reactions Static Sitting Balance Ability Poor Dynamic Sitting Balance Ability Poor Comments Other Balance Tests/Deviations/Treatment MIN/MODA to help with sitting : balance. M8 OT- IP Objective Assessments Start: 08/15/22 15:18 Freq: Status: Active Protocol: Document 08/15/22 13:45 [facility] (Rec: 08/15/22 15:48 [facility] [id number]) OT Gross Range of Motion Upper Extremity Range of Motion Assessment Right Impaired OT Strength Upper Extremity Strength Assessment Right Impaired Comments Strength Comments LUE WFL OT- Coordination Assessment Comments Coordination Comments Pt able to open and close his right hand and encouraged pt to move his fingers to prevent them from swelling. M9 OT- IP Assessment and Plan Start: 08/15/22 15:18 Freq: Status: Active Protocol: Document 08/15/22 13:45 [facility] (Rec: 08/15/22 15:48 [facility] [id number]) OT Summary Assessment and Plan Potential Rehabilitation Potential Good Analytic Complexity at Evaluation Moderate Summary OT Impairments Pain,Range of Motion,Strength, Balance,Functional Cognition, Functional Mobility,Self- Feeding,Grooming,Dressing, Toileting,Bathing,Toilet Transfers,Shower Transfers, Activity Tolerance Progress Towards Goals Slow Progress due to Pain,Slow Progress due to Medical Issues,Slow Progress due to Activity Tolerance,Slow Progress due to Cognition Assessment Summary Pt MOD complexity and needing extensive two person assist to get to the edge of the bed and having low BP and having to lie back down with MAXAx2. Pt's states in the past week having had to assist pt for all ADl and mobility needs . Pt now having the Flu, right humeral fracture and will benefit from skilled rehab as his current level is too great for his to assist at home. Goals Grooming Goal Standby Assistance Dressing Goal Minimal Assistance Toileting Goal Minimal Assistance Bathing Goal Moderate Assistance Toilet Transfer Goal Contact Guard Assistance Shower Transfer Goal Minimal Assistance Days to Meet Goals 30 Frequency of Treatment Frequency Of Treatment Once a Day Treatment Plan OT Treatment Plan ADL Training,Functional Cognition Training,Functional Mobility,Patient/Family Education,Discharge Planning Other Treatment Recommendations and Next Stand pivot transfer to [facility] Treatment Focus with MAX A X 2 Discharge Recommendations OT Discharge Recommendations SNF Rehab Transportation Needs at Discharge Wheelchair/Cabulance,Stretcher /Ambulance
--- NOTE | 2022-08-15 14:23 | PT.IIE ---
Current Diagnoses Influenza due to other identified influenza virus with other respiratory manifestations (08/14/22) Chronic kidney disease, stage 2 (mild) (08/14/22) Retention of urine, unspecified (08/14/22) Unspecified displaced fracture of surgical neck of unspecified humerus, initial encounter for closed fracture (08/14/22) Unspecified fracture of shaft of humerus, right arm, initial encounter for closed fracture (08/14/22) Fracture of unspecified part of neck of unspecified femur, initial encounter for closed fracture (08/14/22) Unspecified fall, initial encounter (08/14/22) Surgical History (Last Reviewed 08/15/22 @ 10:35 by Jessica Rubi [facility]) History of permanent cardiac pacemaker placement Medical History (Last Reviewed 08/15/22 @ 10:35 by Jessica Rubi [facility]) Acute urinary retention Diabetes mellitus Great toe amputation status Hyperlipidemia Hypertension Physical Therapy Inpatient Evaluation/Re-Eval M1 PT/OT-IP Prior Functional Status Start: 08/14/22 13:26 Freq: NEEDED Status: Active Protocol: Document 08/15/22 14:23 AW (Rec: 08/15/22 16:12 AW [id number]) Medical Review Prior Functional Status Medical History Reviewed Yes Communication Pt has some cognitive impairment at baseline. Mobility and Gait Pt walks household distances without AD. He has been falling more frequently. Activities of Daily Living and IADL's Pt has been needing increased assist with ADL's. Social History Household Members spouse Living Arrangements Apartment/Condo Number of Floors (Floors) Two Floors Number of Stairs To Enter/Railing? Pt has two homes. At the [facility] [place] there are 5 HEIDI with wide B rails to a single-story home. At the [facility] there are 2 HEIDI to multi-level home, 3 steps down to the living room, and a chair lift up to the bedroom level. Home Equipment Four Wheel Walker,Manual Wheelchair,Grab Bars In Shower Additional Social History Comment Pt lives with his spouse, Juliana, who provides all necessary assist. There are no supportive services in the home. M2 PT-IP Current Condition Start: 08/14/22 13:26 Freq: NEEDED Status: Active Protocol: Document 08/15/22 14:23 AW (Rec: 08/15/22 16:12 AW [id number]) Physical Therapy Current Condition Current Condition Evaluation Date 08/15/22 Treatment Diagnosis R proximal humerus fracture; falls; influenza; impaired mobility and gait Onset Date 08/13/22 M3 PT-IP Subjective Start: 08/14/22 13:26 Freq: NEEDED Status: Active Protocol: Document 08/15/22 14:23 AW (Rec: 08/15/22 16:12 AW [id number]) Subjective Physical Therapy Visit Type Type Initial Evaluation Visit Start Time 13:45 Visit Stop Time 14:23 Total Visit Minutes 38 Notes Co-eval with OT due to pt's decreased alertness and anticipated poor activity tolerance. Physical Therapy Visit Comments Patient Comments Pt is willing to participate with therapies. Patient Goals Pt's spouse is open to rehab options Therapy Pain Assessment Pain When Pain Assessed During Mobility Pain Present Pain Present Pain Reported Location Right Shoulder Scale Used not quantified Pain Behaviors Facial Grimacing,Guarding, Holding Area,Wincing Pain Management Techniques Distraction,Modification of Treatment,Re-positioning M4 PT-IP Mobility and Gait Start: 08/14/22 13:26 Freq: NEEDED Status: Active Protocol: Document 08/15/22 14:23 AW (Rec: 08/15/22 16:12 AW [id number]) PT-Bed Mobility Assessment Supine to Sit Supine to Sit Maximum Assistance,2 Person Assistance,Head of Bed Elevated,Bedrails Sit to Supine Sit to Supine Maximum Assistance,2 Person Assistance PT-Transfer Assessment Comments Mobility Comments Pt was lying in bed as PT and OT arrived. His alertness was improved compared with AM. BP 130/63 HR 63. Pt was able to move his right leg on the bed without pain complaint. He needed max A x 2 to sit up on the right side of the bed and complained immediately of wooziness. BP 82/45 HR 69. Symptoms persisted and pt stated he needed to lie down again. Max A x 2 for return to supine. BP 98/48 HR 64 immediately on return to supine. After 4 minutes, BP was 146/47 HR 63. Pt refused further mobility and was left with call light and tray table in reach. Gait Assessment Comments Gait Comments Unable to progress to transfers or gait this date due to orthostatic hypotension . PT-Balance Assessment Sitting Balance and Reactions Static Sitting Balance Ability Fair Dynamic Sitting Balance Ability Poor Comments Other Balance Tests/Deviations/Treatment Pt required min/mod A for : sitting balance. M5 PT-IP Objective Assessments Start: 08/14/22 13:26 Freq: NEEDED Status: Active Protocol: Document 08/15/22 14:23 AW (Rec: 08/15/22 16:12 AW [id number]) Orientation Orientation/Cognition Level of Alertness Confusional State Orientation Name,Place Safety Awareness Decreased Safety Awareness Memory Description Short Term Impaired Comments Pt's family state he has had increased confusion for at least three weeks. Strength Lower Extremity Strength Assessment Bilaterally Impaired Hip R 4-/5; L 4/5 Knee B 4/5 Sensation Assessment Comments Sensation Comments Unable to formally assess due to cognition Muscle Tone Muscle Tone WNL Yes Other Assessments Other Other Assessments Ecchymosis apparent R shoulder and posteriorly. Pt has various bruises over his body in multiple stages of healing. M6 PT-IP Treatment Start: 08/14/22 13:26 Freq: NEEDED Status: Active Protocol: Document 08/15/22 14:23 AW (Rec: 08/15/22 16:12 AW [id number]) Physical Therapy Treatment Education Education Provided Safety M7 PT-IP Assessment and Plan Start: 08/14/22 13:26 Freq: NEEDED Status: Active Protocol: Document 08/15/22 14:23 AW (Rec: 08/15/22 16:12 AW [id number]) PT Summary Assessment and Plan Potential Rehabilitation Potential Fair Status of Condition at Evaluation Evolving Summary Impairments Pain,Strength,Balance, Cognition,Bed Mobility, Transfers,Gait,Activity Tolerance Assessment Summary Mario is an 81 yo man admitted after several recent falls which resulted in right proximal humerus fracture. There was suspicion of right femur fracture but ortho was consulted and femur fracture was ruled out. Orders were entered for WBAT RLE and ambulate as tolerated. Hospitalist reports continue to report R femur fracture but PT spoke with hospitalist to confirm no fracture. Pt also has influenza. Pt walks household distances without AD at baseline. Assessment today was limited due to positive orthostatic hypotension. Pt did require max assist x 2 for bed mobility but did not tolerate further activity. Pt was able to participate with therapy and would likely benefit from SNF rehab. Given the recent falls history and pt's needs clearly exceeding his 's capacity, he may eventually need long-term placement such as memory care. Will continue to assess. Goals Bed Mobility Goal Minimal Assistance Transfer Goal Minimal Assistance,Front Wheeled Walker Gait Goal Minimal Assistance,Front Wheel Walker Gait Distance 75 Other Goals - up/down 5 steps with unilateral rail min A - improve transfers and gait to SBA with LRAD Days to Meet Goals 10 Frequency of Treatment Frequency Of Treatment Once a Day Treatment Plan Physical Therapy Treatment Plan Bed Mobility Training,Transfer Training,Gait Training, Therapeutic Exercise,Balance Retraining,Discharge Planning, Hot or Cold Pack,Neuromuscular Re-ed Other Recommendations and Next Treatment recheck orthostatic VS. Focus Precautions Shoulder Precautions Sling Brace R shoulder sling Weight Bearing Status Allowed Weight Bearing Amount (enter % WBAT RLE; NWB RUE or #) (%) Recommendations To Nursing Amount of Assist Needed Mechanical Lift Discharge Recommendations PT Discharge Recommendations SNF Rehab Transportation Needs at Discharge Wheelchair/Cabulance,Stretcher /Ambulance
[2022-08-15 15:00] VITALS: BP 132/62; PULSE 67; RESP 16; TEMP 36.3; O2SAT 99
--- NOTE | 2022-08-15 15:17 | CM.DPC ---
Addendum entered by Sandra Altman R.N. 08/15/22 16:44: [facility] has declined patient, [facility] has declined. Left message with [facility] and [facility] to see if they can consider patient on Mon. Original Note: DCP Cont: Spoke and met with patient's spouse, Franca. Introduced self and role. Brought in ipad and Medicare Choice List. Patient has been residing at home with spouse, Franca, here in [place]. Confirmed that his primary care provider is at the [facility], in [facility], Dr. Prabhakar Ignacio. She did indicate, he does tend to wander at times, wants to see if his provider can give him something to help with this. Discussed rehab, for patient is likely to need. She is hopeful that he can go to [facility] since she does not drive far. Let her know that this can be sent as referral, but would encourage her to pick two other facilities, as this can't be guaranteed. Spouse indicated, if he has to go to [facility], would be ok. Asked Grecia to send referrals to [facility], [facility], and [facility]. Did give February at [facility] the referral first, but they can't accomidate, since patient is also on isolation for influenza, and they don't have anymore beds to isolate. [facility] may have bed availability by Monday, confirmed that patient is inpatient per UR nurse. Fouzia at [facility] is also reviewing, [facility] is full, and sent over referral to [facility]. P: DCP to continue to follow. Plan is for patient to go to assisted, it is not clear as to which facility. Did discuss memory care, spouse asked about [facility]. Let her know that this is the same campus and owners of [facility] [employer]. Spouse not ready to make that decision, but may need to look into it. Confirmed spouse phone number of: [phone], since numbers on face sheet were invalid. Updated number to admission change group. Sandra Altman RN/Commercial Specialist
[2022-08-15] MEDS: INSULIN GLARGINE 100 UNIT/ML 3ML PEN 54 UNIT SUBCUT (20:43)
[2022-08-15] MEDS: SENNOSIDES 8.6 MG TABLET 17.2 MG PO (20:44)
[2022-08-15 22:00] VITALS: BP 130/54; PULSE 63; RESP 16; TEMP 36.6; O2SAT 99
--- NOTE | 2022-08-15 22:10 | PC.NURSE ---
Patient is alert and more oriented tonight; was able to state his name, birthdate (incorrect on age by 1 year), month/day of month (stated year is 2019), that he is in the hospital and that he fell and fractured his arm. Breath sounds CTA with RA sat of 99%. HRR. Denies nausea. Was incontinent of soft stool. Indwelling catheter is patent; urine is dark yellow. Needing assistance to reposition q2h. Right UE is in sling and CMS is intact. Gait not assessed and PT is ordered for him. Denies pain. Calf SCD on left leg. Continues on droplet precautions as is positive for influenza A. Denies cough or SOB. Fall risk score is high and bed alarm is activated.
[2022-08-15 23:45] VITALS: BP 151/59; PULSE 67; RESP 16; TEMP 36.2; O2SAT 99
[2022-08-16] VITALS (7 sets, daily range): BP systolic 124–142; BP diastolic 58–67; PULSE 65–74; RESP 15–18; TEMP 36.3–36.6; O2SAT 98–100
--- NOTE | 2022-08-16 07:51 | PM.PN.1 ---
Exam Vital Signs (past 8 hours): - 08/16/22 04:15 08/16/22 04:15 Temperature 97.5 F L Pulse Rate 74 Respiratory Rate 16 Blood Pressure 134/58 L Pulse Oximetry 99 99 Oxygen Delivery Method Room Air Oxygen Flow Rate 0 0 Oxygen Delivery Method Room Air Oxygen Flow Rate 0 Narrative Exam Narrative: General: Mildly ill appearing elderly male. Demented. HEENT: Normocephalic, atraumatic, extraocular muscles intact, oral pharynx is clear and mucous membranes are dry. Neck symmetric, trachea is midline. Negative for JVD Chest: Normal AP diameter and contour no nasal flaring, retractions, or tachypneic labored breathing. Lungs: CTA b/l, poor effort. Cardio: RRR with no m/r/g. Abdomen: S NT ND Musculoskeletal: R shoulder ecchymosis, R arm in sling, no tenderness of R shoulder. Skin: Significant bruising to the right arm right hip area observed. Neuro: Alert and orientated to self & hospital & situation, no gross deficits to cranial nerves Psych: cognitive impairment evident, but calm and cooperative. Objective Labs Result Diagrams: 08/15/22 07:40 08/16/22 08:18 Labs: Laboratory Results - last 24 hr 08/15/22 08/15/22 08/15/22 07:40 07:40 07:40 WBC 6.9 RBC 3.56 L Hgb 10.0 L Hct 29.0 L MCV 81.5 MCH 28.1 MCHC 34.4 RDW 15.2 H Plt Count 123 L Neut % (Auto) 67.0 Lymph % (Auto) 22.9 L [place] % (Auto) 8.9 Eos % (Auto) 1.0 L Baso % (Auto) 0.2 Neut # (Auto) 4600 Lymph # (Auto) 1600 [place] # (Auto) 600 Eos # (Auto) 100 Baso # (Auto) 0 Sodium 140 Potassium 3.8 Chloride 110 H Carbon Dioxide 23 BUN 37 H Creatinine 1.83 H Estimated GFR 36 L BUN/Creatinine Ratio 20.2 Glucose 75 L Calcium 8.1 L Magnesium 1.6 Total Bilirubin 1.9 H AST 30 ALT 32 Alkaline Phosphatase 59 Total Protein 5.8 L Albumin 3.3 L Globulin 2.5 Albumin/Globulin Ratio 1.3 [facility] Medical History (Updated 08/15/22 @ 10:36 by LUKE Mcgrath-YASMINE) Acute urinary retention Diabetes mellitus Great toe amputation status Hyperlipidemia Hypertension Surgical History History of permanent cardiac pacemaker placement Family History Father Cancer Social History household members: spouse Smoking Status: Former smoker alcohol intake: former Assessment & Plan Assessment & Plan narrative: 1. Ground level fall, recurrent, acute, resulting in pathological right humeral fracture, follow-up visit, an acute right femoral neck fracture, present on admission -Radiology felt that femoral neck fracture was questionable, and recommended that Dr. Angelina Castillo Ortho consult for further evaluation. Ortho states management is currently non-operative and recommended follow up in 10 days as an outpatient. -pain and comfort management -continue PT / OT -likely need SNF, however unsure if will qualify with dementia and may need HH with caregiving 2. Sepsis secondary to Influenza a, acute, present on admission with PRACHI and thrombocytopenia, improving -symptom management, respiratory support -sputum cultures, lactate, procalcitonin, CRP, ESR, blood culture-to rule out bacteria and former -SOFA score 3 with thrombocytopenia and PRACHI, 4 if encephalopathy. -possible acute metabolic encephalopathy as well in sepsis, unknown baseline with history of dementia. -no current evidence of bacterial infection. 3. Hypothermia, acute, present on admission, resolved -due to being outside for an hour after falling -patient was placed in a bear Hugger in ED for treatment 4. PRACHI on CKD stage 3, acute on chronic, present on admission -suspect in setting of falls and probable mild dehydration -creatinine peaked at 2.9 and is improving. 5. Insulin-dependent diabetes, acute on chronic, with hyperlipidemia, present on admission -patient admitted under diabetic protocol -continued home insulin -resume blood sugar checks a.c. HS with low-dose sliding scale -A1c 6% -hold home Ozempic 6. Hx of Essential hypertension, Hx of CABG and pacemaker placement, chronic, present on admission -continue ASA, lipitor -continue losartan 7. Dementia with visual hallucinations, acute on chronic, present on admission -continue doneprezil -start seroquel 12.5mg nightly 8. BPH, with a history of urinary retention, frequent UTI/sepsis, chronic, present on admission -patient has condom catheter secondary to immobility from femoral neck fracture - advises patient is no longer taking Flomax or finasteride -have ordered urine culture -monitor for urinary retention 9. Myocardial injury - suspect in setting of hypothermia with hx of CAD - troponin downtrended since admission - no further evaluation recommended at this time. Code status:Full Surrogate decision maker: Spouse Juliana ROOT PCR:Negative DVT/VTE prophylaxis: heparin sq Disposition: SNF if can qualify, otherwise HH with caregivers. Time Spent With Patient Critical Care time: I spent a total of [] minutes of critical care time on this patient's care today; this time is exclusive of procedural time. Quality VTE Deep Vein Thrombosis/Pulmonary Embolism Present on Admission: No
--- NOTE | 2022-08-16 08:37 | PT-OP ANOTE ---
Attempted to see pt for physical therapy - pt eating breakfast and declined PT at this time.
[2022-08-16 09:08] LABS: Magnesium 1.6 mg/dL (1.6-2.3)
[2022-08-16 10:16] LABS: BUN Creatinine Ratio 21.5 (6-22); Blood Urea Nitrogen 37 mg/dL (9-20); Calcium 8.6 mg/dL (8.4-10.2); Carbon Dioxide 23 mmol/L (22-32); Chloride 109 mmol/L (98-107); Estimated Glomerular Filt Rate 39 mL/min (>60); Glucose 75 mg/dL (80-110); HEMOLYSIS < 15 (0-50); Potassium 3.7 mmol/L (3.4-5.1); Sodium 141 mmol/L (137-145)
--- NOTE | 2022-08-16 10:17 | PT.IPTN ---
Current Diagnoses Influenza due to other identified influenza virus with other respiratory manifestations (08/14/22) Chronic kidney disease, stage 2 (mild) (08/14/22) Retention of urine, unspecified (08/14/22) Unspecified displaced fracture of surgical neck of unspecified humerus, initial encounter for closed fracture (08/14/22) Unspecified fracture of shaft of humerus, right arm, initial encounter for closed fracture (08/14/22) Fracture of unspecified part of neck of unspecified femur, initial encounter for closed fracture (08/14/22) Unspecified fall, initial encounter (08/14/22) Physical Therapy Treatment Note M2 PT-IP Current Condition Start: 08/14/22 13:26 Freq: NEEDED Status: Active Protocol: Document 08/15/22 14:23 AW (Rec: 08/15/22 16:12 AW [id number]) Physical Therapy Current Condition Current Condition Evaluation Date 08/15/22 Treatment Diagnosis R proximal humerus fracture; falls; influenza; impaired mobility and gait Onset Date 08/13/22 M3 PT-IP Subjective Start: 08/14/22 13:26 Freq: NEEDED Status: Active Protocol: Document 08/16/22 10:17 NBM (Rec: 08/16/22 19:39 [facility] [id number]) Subjective Physical Therapy Visit Type Type Treatment Note Visit Start Time 09:32 Visit Stop Time 10:17 Total Visit Minutes 45 Notes Co-treat with OT due to pt's anticipated poor activity tolerance. Physical Therapy Visit Comments Patient Comments Pt states they are feeling much better today and willing to work with therapies. Therapy Pain Assessment Pain When Pain Assessed During Mobility Pain Present Pain Present Pain Reported Location Right Shoulder Scale Used not quantified Pain Behaviors Calling Out,Facial Grimacing, Guarding,Holding Area,Wincing Pain Management Techniques Distraction,Modification of Treatment,Re-positioning M4 PT-IP Mobility and Gait Start: 08/14/22 13:26 Freq: NEEDED Status: Active Protocol: Document 08/16/22 10:17 NBM (Rec: 08/16/22 19:39 [facility] [id number]) PT-Bed Mobility Assessment Rolling Type of Rolling Roll to Left Level of Assist Maximal Assistance,2 Person Assistance Supine to Sit Supine to Sit Maximum Assistance,2 Person Assistance,Head of Bed Elevated,Bedrails Sit to Supine Sit to Supine Maximum Assistance,2 Person Assistance PT-Transfer Assessment Comments Mobility Comments Pt lying in bed when PT and OT arrived and agreeable to PT. Pt pleasant and alert. BP 123/ 61. Pt able to perform ankle pumps, heel slides w/ tactile cueing. MaxA x1-2 to roll L w/ level bed and assist of tilt bed as nursing aid performed brief change and hygiene. Pt did move his legs for supine to sitting EOB but still needs max assist for lowering legs off EOB and for achieving and maintaining upright trunk w/ UE support. Pt SBA to Mikki sitting balance with bolster under his feet. Pt asymptomatic but sitting BP 83 /43, 88/43, 91/46. Pt performed seated marching and LAQs. Pt attempted to partially stand when directed not to; upon return to sitting EOB pt closed eyes and seemed to become sleepy but opened eyes in response to voice - BP had decreased to 81/40 and pt requested to lie back down. Pt was returned from sitting EOB to supine w/ max A x2 for trunk control and elevating lower extremities, and total assistance for bed mobility and scooting up in bed. BP in supine returned to 123/61 - nursing notified. Pt left with alarm, call light and all needs within reach. Gait Assessment Comments Gait Comments Unable to progress to transfers or gait today due to orthostatic hypotension. PT-Balance Assessment Sitting Balance and Reactions Static Sitting Balance Ability Fair Dynamic Sitting Balance Ability Poor Comments Other Balance Tests/Deviations/Treatment Close SBA to MIKKI for sitting : balance. M5 PT-IP Objective Assessments Start: 08/14/22 13:26 Freq: NEEDED Status: Active Protocol: Document 08/15/22 14:23 AW (Rec: 08/15/22 16:12 AW [id number]) Orientation Orientation/Cognition Level of Alertness Confusional State Orientation Name,Place Safety Awareness Decreased Safety Awareness Memory Description Short Term Impaired Comments Pt's family state he has had increased confusion for at least three weeks. Strength Lower Extremity Strength Assessment Bilaterally Impaired Hip R 4-/5; L 4/5 Knee B 4/5 Sensation Assessment Comments Sensation Comments Unable to formally assess due to cognition Muscle Tone Muscle Tone WNL Yes Other Assessments Other Other Assessments Ecchymosis apparent R shoulder and posteriorly. Pt has various bruises over his body in multiple stages of healing. M6 PT-IP Treatment Start: 08/14/22 13:26 Freq: NEEDED Status: Active Protocol: Document 12/06/22 10:17 NBM (Rec: 08/16/22 19:39 [facility] [id number]) Physical Therapy Treatment Exercises Exercises Ankle Pumps,Heel Slides,Seated Knee Flexion/Extension Education Education Provided Safety Other Treatments Other Treatment Performed Seated marching M7 PT-IP Assessment and Plan Start: 08/14/22 13:26 Freq: NEEDED Status: Active Protocol: Document 08/16/22 10:17 NB (Rec: 08/16/22 19:39 [facility] [id number]) PT Summary Assessment and Plan Summary Impairments Pain,Strength,Balance, Cognition,Bed Mobility, Transfers,Gait,Activity Tolerance Progress Towards Goals Slow Progress due to Pain,Slow Progress due to Medical Issues,Slow Progress due to Activity Tolerance Assessment Summary Treatment today limited due to orthostatic hypotension w/ partial standing and activity tolerance, however he was able to maintain sitting EOB today for seated exercises and yesterday was not able to. Pt requires maxA x2 to total assist x2 for bed mobility. Pt would benefit from SNF rehab facility prior to going home. Goals Bed Mobility Goal Minimal Assistance Transfer Goal Minimal Assistance,Front Wheeled Walker Gait Goal Minimal Assistance,Front Wheel Walker Gait Distance 75 Other Goals - up/down 5 steps with unilateral rail min A - improve transfers and gait to SBA with LRAD Days to Meet Goals 10 Frequency of Treatment Frequency Of Treatment Once a Day Treatment Plan Physical Therapy Treatment Plan Bed Mobility Training,Transfer Training,Gait Training, Therapeutic Exercise,Balance Retraining,Discharge Planning, Hot or Cold Pack,Neuromuscular Re-ed Other Recommendations and Next Treatment recheck orthostatic VS. Stand Focus pivot transfer to [facility] with MAX A X 2 with quad cane. Use bolster under feet for sitting balance edge of bed. Precautions Shoulder Precautions Sling Brace R shoulder sling Weight Bearing Status Allowed Weight Bearing Amount (enter % WBAT RLE; NWB RUE or #) (%) Recommendations To Nursing Amount of Assist Needed 2 Person Assist,Total Assistance,Mechanical Lift Discharge Recommendations PT Discharge Recommendations SNF Rehab Transportation Needs at Discharge Wheelchair/Cabulance,Stretcher /Ambulance
--- NOTE | 2022-08-16 10:18 | OT.IP.TRT ---
Current Diagnoses Influenza due to other identified influenza virus with other respiratory manifestations (08/14/22) Chronic kidney disease, stage 2 (mild) (08/14/22) Retention of urine, unspecified (08/14/22) Unspecified displaced fracture of surgical neck of unspecified humerus, initial encounter for closed fracture (08/14/22) Unspecified fracture of shaft of humerus, right arm, initial encounter for closed fracture (08/14/22) Fracture of unspecified part of neck of unspecified femur, initial encounter for closed fracture (08/14/22) Unspecified fall, initial encounter (08/14/22) Occupational Therapy Treatment Note M2 OT-IP Current Condition Start: 08/15/22 15:18 Freq: Status: Active Protocol: Document 08/15/22 13:45 [facility] (Rec: 08/15/22 15:48 [facility] [id number]) Occupational Therapy Current Condition Current Condition Evaluation Date 08/15/22 Treatment Diagnosis GLF, right humeral head fracture Diagnosis Onset Date 08/14/22 Post Operative Precautions Shoulder Precautions Sling Other Precautions NWB to RUE M3 OT- IP Subjective and Pain Start: 08/15/22 15:18 Freq: Status: Active Protocol: Document 08/16/22 09:30 [facility] (Rec: 08/16/22 12:40 [facility] [id number]) OT- Subjective Occupational Therapy Visit Type Type Treatment Note Visit Start Time 09:30 Visit Stop Time 10:18 Total Visit Minutes 48 Occupational Therapy Visit Comments Patient Comments Pt much more alert and orientated and agreed to try to get up. PROOF CARRIER also present due to pt needing extensive assist for mobility. Patient/Caregiver Goals Pt's wanting pt to go to skilled rehab. OT Pain Assessment Pain When Pain Assessed During Mobility Pain Present Pain Present Pain Reported M4 OT- IP ADL's Start: 08/15/22 15:18 Freq: Status: Active Protocol: Document 08/16/22 09:30 [facility] (Rec: 08/16/22 12:40 [facility] [id number]) OT ADL-Grooming Comments OT Grooming Comments Not performed. OT ADL-Oral Care Comments Oral Care Comments NOt performed. OT ADL-Dressing General Eval Upper Body Dressing Ability Total Assistance Comments OT Dressing Comments Pt needing total assist for all dressing needs including sling management and brief needs. OT ADL-Toileting General Evaluation Toileting Ability Total Assistance Areas Needing Assistance Manage Clothing,Perform Perineal Hygiene Comments OT Toileting Comments MAX AX 1 -2 to roll with assist of tilt bed as nursing aid present to assist with hygiene and brief change. OT ADL-Bathing Comments OT Bathing Comments Sponge bathing more appropriate at this time. M5 OT- IP IADL's Start: 08/15/22 15:18 Freq: Status: Active Protocol: Document 08/15/22 13:45 [facility] (Rec: 08/15/22 15:48 [facility] [id number]) OT-Instrumental Activities of Daily Living Deficits IADL Deficits Identified Deficits Home Safety Awareness Awareness of Need for Assistance at Home Decreased Awareness Home Safety Comments Pt this AM only orientated to his name , later in the PM able to follow simple commands for mobility needs. Medication Management Medication Management Caregiver Administers Money Management Money Management Caregiver Provides Assistance Meal Preparation Meal Preparation Caregiver Provides Assist Financial Institution Manager Financial Institution Manager Caregiver Provides Assist M6 OT- IP Functional Cognition Start: 08/15/22 15:18 Freq: Status: Active Protocol: Document 08/16/22 09:30 [facility] (Rec: 08/16/22 12:40 [facility] [id number]) Cognitive Factors Limiting Selfcare Function Cognitive Ability Level of Alertness Alert Patient Orientation Name,Place,Situation Attention Span Ability Capable of Focused Attention, Capable of Sustained Attention Ability to Follow Commands Able to Follow One Step Commands Cognitive Comments Cognitive Assessment Comments Pt much more alert and pleasant today and cooperative to participate in therapy today. M7 OT- IP Mobility and Balance Start: 08/15/22 15:18 Freq: Status: Active Protocol: Document 08/16/22 09:30 [facility] (Rec: 08/16/22 12:40 [facility] [id number]) OT- Bed Mobility Assessment Supine to Sit Supine to Sit Assist Maximum Assistance,2 Person Assistance Sit to Supine Sit to Supine Assist Maximum Assistance,2 Person Assistance OT-Transfer Assessment Comments Mobility Comments Pt able to assist to move his legs to the edge of the bed better today but still needing assist to get his legs off the edge of the bed and to get his trunk upright. Pt needing CONCEPCION to close SBA with bolster under his feet for balance. Supine BP 123/61, sitting 83/ 43, 88/43, 91/46 and not symptomatic as he was yesterday while sitting on the edge of the bed. Pt attempted to partially stand and instantly got dizzy and BP 81/40 and requesting to lie back down. BP in supine 123/61 - nursing notified. OT- Balance Assessment Sitting Balance and Reactions Static Sitting Balance Ability Poor+ Dynamic Sitting Balance Ability Poor Comments Other Balance Tests/Deviations/Treatment Close SBA to CONCEPCION for sitting : balance. M8 OT- IP Objective Assessments Start: 08/15/22 15:18 Freq: Status: Active Protocol: Document 08/15/22 13:45 [facility] (Rec: 08/15/22 15:48 [facility] [id number]) OT Gross Range of Motion Upper Extremity Range of Motion Assessment Right Impaired OT Strength Upper Extremity Strength Assessment Right Impaired Comments Strength Comments LUE WFL OT- Coordination Assessment Comments Coordination Comments Pt able to open and close his right hand and encouraged pt to move his fingers to prevent them from swelling. M9 OT- IP Assessment and Plan Start: 08/15/22 15:18 Freq: Status: Active Protocol: Document 08/16/22 09:30 [facility] (Rec: 08/16/22 12:40 [facility] [id number]) OT Summary Assessment and Plan Potential Rehabilitation Potential Good Analytic Complexity at Evaluation Moderate Summary OT Impairments Pain,Range of Motion,Strength, Balance,Functional Cognition, Functional Mobility,Self- Feeding,Grooming,Dressing, Toileting,Bathing,Toilet Transfers,Shower Transfers, Activity Tolerance Progress Towards Goals Slow Progress due to Pain,Slow Progress due to Medical Issues,Slow Progress due to Activity Tolerance Assessment Summary Pt still needing extensive assist for bed mobility and to come to to edge of the bed. Today pt not dizzy while seated on the edge of the bed however became dizzy after doing partial standing and having to lie back down. Pt will greatly benefit from skilled rehab prior to going home. Pt is much more pleasant , alert and cooperative today. Goals Grooming Goal Standby Assistance Dressing Goal Minimal Assistance Toileting Goal Minimal Assistance Bathing Goal Moderate Assistance Toilet Transfer Goal Contact Guard Assistance Shower Transfer Goal Minimal Assistance Days to Meet Goals 30 Frequency of Treatment Frequency Of Treatment Once a Day Treatment Plan OT Treatment Plan ADL Training,Functional Cognition Training,Functional Mobility,Patient/Family Education,Discharge Planning Other Treatment Recommendations and Next Stand pivot transfer to [facility] Treatment Focus with MAX A X 2 with quad cane. Discharge Recommendations OT Discharge Recommendations SNF Rehab Transportation Needs at Discharge Wheelchair/Cabulance
[2022-08-16] MEDS: ASPIRIN EC 81 MG TABLET PO (10:54)
[2022-08-16] MEDS: ATORVASTATIN 20 MG TABLET 40 MG PO (10:54)
[2022-08-16] MEDS: LOSARTAN 50 MG TABLET PO (10:54)
[2022-08-16] MEDS: MAGNESIUM SULFATE 2 GM/50 ML PIGGYBACK IV (10:54)
[2022-08-16] MEDS: SODIUM CHLORIDE 0.9% FLUSH 10 ML IV (10:56)
--- NOTE | 2022-08-16 11:10 | DIET.CONS ---
Dietary Consultation Note Admission Date: 08/14/2022 06:48 Assessment: 81y M admitted after GLF found to have Influenza A referred to nutrition for gee score 15. Pt was in ED day prior to GLF after GLF resulting in fracture to R humerus. Pt with dementia lives with spouse at home. Pts BMI 21.6 (low for age), pt is high risk for malnutrition due to BMI, flu+ and dementia. Pt is 15% below his usual body weight. Ht: 172.72 cm Wt: 64.5 kg (-15% UBW) BMI: 26.6 UBW: 76.4kg Last BM: 08/15/22 (08/15/22 14:06) MNA: Gee Score: 15 Diet: 08/14/22 Lunch General (Regular) Diet Diet Modifications: Nutrition Percent Meal Consumed 100% 08/16/22 09:20 Percent Meal Consumed 25% 08/15/22 18:00 Percent Meal Consumed 25% 08/14/22 18:00 Percent Meal Consumed 75% 08/14/22 13:33 Labs: RBC 3.56 X10^6/uL (4.5-5.9) L 08/15/22 07:40 Hgb 10.0 g/dL (13.5-17.5) L 08/15/22 07:40 Hct 29.0 % (41-53) L 08/15/22 07:40 Creatinine 1.72 mg/dL (0.66-1.25) H 08/16/22 08:18 Hemoglobin A1c 6.0 % (4.0-6.0) 08/14/22 08:45 Lactate 1.1 mmol/L (0.7-2.1) 08/14/22 08:45 NT-Pro-B Natriuret Pep 738 pg/mL (<450) H 08/14/22 08:45 Nutrition Diagnosis: Moderate Malnutrition r/t increased needs for healing and psychological reasons aeb BMI 21.6 (low for age), pt is 15% below his UBW, pt with dementia and R humorus fx. -The patient is at much higher risk for medical and surgical complications because of his malnutrition. This increases the difficulty and complexity of medical and surgical interventions and increases the chances of poor outcomes such as morbidity and mortality. Interventions: 1. Sending ONS Ensure Enlive bid to support kcal/pro needs for healing and nutrient repletion in addition to meal trays. EER: 2,000 kcals (30kcal/kg), 65-75g PRO (PCM, elevated Cr) Monitoring/Evaluations: ONS tolerance Electronically Signed by: Yulisa Manning 08/16/22 11:10 Clinical Dietitian [address] [address]
--- NOTE | 2022-08-16 14:37 | CM.DPC ---
DCP Cont: DCP sent referral to [facility] in [place] as that is the only facility in [place] that takes patient insurance. DCP attempted to contact [facility] insurance but not able to get through. DCP to continue to follow case. Claudine Vences RN/DCP
[2022-08-17] VITALS (11 sets, daily range): BP systolic 113–175; BP diastolic 53–74; PULSE 65–75; RESP 14–19; TEMP 36.5–37.4; O2SAT 96–100
[2022-08-17 07:22] LABS: Add Manual Diff / Slide Review NO; Basophils Absolute Auto 0 /uL (0-100); Basophils Percent Auto 0.4 % (0-2); Eosinophils Absolute Auto 100 /uL (0-450); Eosinophils Percent Auto 1.7 % (2-4); Hematocrit 30.5 % (41-53); Hemoglobin 10.5 g/dL (13.5-17.5); Lymphocytes Absolute Auto 1900 /uL (1100-4500); Lymphocytes Percent Auto 25.9 % (25-40); Mean Corpuscular HGB Conc 34.3 % (30-36); Mean Corpuscular Volume 81.7 fL (80-100); Monocytes Absolute Auto 700 /uL (0-900); Monocytes Percent Auto 9.7 % (3-14); Neutrophils Absolute Auto 4700 /uL (1500-7000); Neutrophils Percent Auto 62.3 % (50-75); Platelet Count 165 X10^3/uL (150-400); Red Blood Cell Count 3.73 X10^6/uL (4.5-5.9); Red Cell Distribution Width 14.8 % (11.6-14.8); White Blood Cell Count 7.5 X10^3/uL (4.5-11.0)
[2022-08-17 07:36] LABS: BUN Creatinine Ratio 21.6 (6-22); Blood Urea Nitrogen 35 mg/dL (9-20); Calcium 8.5 mg/dL (8.4-10.2); Carbon Dioxide 23 mmol/L (22-32); Chloride 109 mmol/L (98-107); Estimated Glomerular Filt Rate 42 mL/min (>60); Glucose 88 mg/dL (80-110); HEMOLYSIS < 15 (0-50); Magnesium 1.8 mg/dL (1.6-2.3); Sodium 141 mmol/L (137-145)
--- NOTE | 2022-08-17 08:18 | P.PN_ITS ---
Subjective Subjective Date Patient Seen: 08/17/22 Interval history: Patient is demented and argumentative. Says his right foot hurts where his IV is in place. Exam Vital Signs (past 8 hours): - 08/17/22 02:00 08/17/22 04:10 08/17/22 06:00 Temperature 98.0 F Pulse Rate 65 Respiratory Rate 17 Blood Pressure 175/66 H Pulse Oximetry 100 100 96 Oxygen Delivery Method Room Air Room Air Oxygen Flow Rate 0 0 0 Oxygen Delivery Method Room Air Oxygen Flow Rate 0 Narrative Exam Narrative: General: Mildly ill appearing elderly male. Demented. HEENT: Normocephalic, atraumatic, extraocular muscles intact, oral pharynx is clear and mucous membranes are dry. Neck symmetric, trachea is midline. N egative for JVD Chest: Normal AP diameter and contour no nasal flaring, retractions, or tachypneic labored breathing. Lungs: CTA b/l, poor effort. Cardio: RRR with no m/r/g. Abdomen: S NT ND Musculoskeletal: R shoulder ecchymosis, R arm in sling, no tenderness of R shoulder. Skin: Significant bruising to the right arm right hip area observed. Neuro: Alert and orientated to self & hospital & situation, no gross deficits to cranial nerves Psych: cognitive impairment evident, but calm and cooperative. Objective Labs Result Diagrams: 08/17/22 07:11 08/17/22 07:11 Labs: Laboratory Results - last 24 hr 08/16/22 08/16/22 08/17/22 05:00 08:18 07:11 WBC RBC Hgb Hct MCV MCH MCHC RDW Plt Count Neut % (Auto) Lymph % (Auto) [place] % (Auto) Eos % (Auto) Baso % (Auto) Neut # (Auto) Lymph # (Auto) [place] # (Auto) Eos # (Auto) Baso # (Auto) Sodium 141 Potassium 3.7 Chloride 109 H Carbon Dioxide 23 BUN 37 H Creatinine 1.72 H Estimated GFR 39 L BUN/Creatinine Ratio 21.5 Glucose 75 L Calcium 8.6 Magnesium 1.6 1.8 08/17/22 08/17/22 07:11 07:11 WBC 7.5 RBC 3.73 L Hgb 10.5 L Hct 30.5 L MCV 81.7 MCH 28.0 MCHC 34.3 RDW 14.8 Plt Count 165 Neut % (Auto) 62.3 Lymph % (Auto) 25.9 [place] % (Auto) 9.7 Eos % (Auto) 1.7 L Baso % (Auto) 0.4 Neut # (Auto) 4700 Lymph # (Auto) 1900 [place] # (Auto) 700 Eos # (Auto) 100 Baso # (Auto) 0 Sodium 141 Potassium 4.0 Chloride 109 H Carbon Dioxide 23 BUN 35 H Creatinine 1.62 H Estimated GFR 42 L BUN/Creatinine Ratio 21.6 Glucose 88 Calcium 8.5 Magnesium FOR[facility]LY [facility], 1928–1983 Medical History (Updated 08/15/22 @ 10:36 by LUKE Mcgrath-) Acute urinary retention Diabetes mellitus Great toe amputation status Hyperlipidemia Hypertension Surgical History History of permanent cardiac pacemaker placement Family History Father Cancer Social History household members: spouse Smoking Status: Former smoker alcohol intake: former Assessment & Plan Assessment & Plan narrative: 1. Ground level fall, recurrent, acute, resulting in pathological right humeral fracture, follow-up visit, an acute right femoral neck fracture, present on admission -Radiology felt that femoral neck fracture was questionable, and recommended that Dr. Angelina Castillo Ortho consult for further evaluation. Ortho states management is currently non-operative and recommended follow up in 10 days as an outpatient. -pain and comfort management -continue PT / OT -likely need SNF, however unsure if will qualify with dementia and may need HH with caregiving 2. Sepsis secondary to Influenza a, acute, present on admission with PRACHI and thrombocytopenia, improving -symptom management, respiratory support -sputum cultures, lactate, procalcitonin, CRP, ESR, blood culture-to rule out bacteria and former -SOFA score 3 with thrombocytopenia and PRACHI, 4 if encephalopathy. -possible acute metabolic encephalopathy as well in sepsis, unknown baseline with history of dementia. -no current evidence of bacterial infection. 3. Hypothermia, acute, present on admission, resolved -due to being outside for an hour after falling -patient was placed in a bear Hugger in ED for treatment 4. PRACHI on CKD stage 3, acute on chronic, present on admission -suspect in setting of falls and probable mild dehydration -creatinine peaked at 2.9 and is improving. 5. Insulin-dependent diabetes, acute on chronic, with hyperlipidemia, present on admission -patient admitted under diabetic protocol -continued home insulin -resume blood sugar checks a.c. HS with low-dose sliding scale -A1c 6% -hold home Ozempic 6. Hx of Essential hypertension, Hx of CABG and pacemaker placement, chronic, present on admission -continue ASA, lipitor -continue losartan 7. Dementia with visual hallucinations, acute on chronic, present on admission -continue doneprezil -start seroquel 12.5mg nightly 8. BPH, with a history of urinary retention, frequent UTI/sepsis, chronic, present on admission -patient has condom catheter secondary to immobility from femoral neck fracture - advises patient is no longer taking Flomax or finasteride -have ordered urine culture -monitor for urinary retention 9. Myocardial injury - suspect in setting of hypothermia with hx of CAD - troponin downtrended since admission - no further evaluation recommended at this time. Code status:Full Surrogate decision maker: Spouse Juliana ROOT PCR:Negative DVT/VTE prophylaxis: heparin sq Disposition: SNF if can qualify, otherwise HH with caregivers. Time Spent With Patient Critical Care time: I spent a total of [] minutes of critical care time on this patient's care today; this time is exclusive of procedural time. Quality VTE Deep Vein Thrombosis/Pulmonary Embolism Present on Admission: No
--- NOTE | 2022-08-17 08:35 | PT.IPTN ---
Current Diagnoses Influenza due to other identified influenza virus with other respiratory manifestations (08/14/22) Chronic kidney disease, stage 2 (mild) (08/14/22) Retention of urine, unspecified (08/14/22) Unspecified displaced fracture of surgical neck of unspecified humerus, initial encounter for closed fracture (08/14/22) Unspecified fracture of shaft of humerus, right arm, initial encounter for closed fracture (08/14/22) Fracture of unspecified part of neck of unspecified femur, initial encounter for closed fracture (08/14/22) Unspecified fall, initial encounter (08/14/22) Physical Therapy Treatment Note M2 PT-IP Current Condition Start: 08/14/22 13:26 Freq: NEEDED Status: Active Protocol: Document 08/17/22 08:59 TS (Rec: 08/17/22 09:31 TS [id number]) Physical Therapy Current Condition Current Condition Evaluation Date 08/15/22 Treatment Diagnosis R proximal humerus fracture; falls; influenza; impaired mobility and gait Onset Date 08/13/22 M3 PT-IP Subjective Start: 08/14/22 13:26 Freq: NEEDED Status: Active Protocol: Document 08/17/22 08:59 TS (Rec: 08/17/22 09:31 TS [id number]) Subjective Physical Therapy Visit Type Type Treatment Note Visit Start Time 08:06 Visit Stop Time 08:35 Total Visit Minutes 29 Notes LO Rivera lead treatment under supervision from KIKO Perez. Number of STORE CASHIER Visits 1 Physical Therapy Visit Comments Patient Comments Pt agreeable to PT session. Slightly confused with non- appropriate responses, states he is not with physical therapy when asked to participate and conversations about riding a bike and a hotel non-related to PT questions. Vitals: Supine:BP 148/61, HR 110, Spo2 99% RA Sitting: BP 86/53, 65 HR Supine afer mobility: 157/75, HR 88 Patient Goals Pt's spouse is open to rehab options Therapy Pain Assessment Pain When Pain Assessed During Mobility Pain Present Pain Present Pain Reported Location Right Shoulder Scale Used not quantified Pain Behaviors Facial Grimacing,Guarding, Holding Area,Wincing Pain Management Techniques Modification of Treatment,Re- positioning M4 PT-IP Mobility and Gait Start: 08/14/22 13:26 Freq: NEEDED Status: Active Protocol: Document 08/17/22 08:59 TS (Rec: 08/17/22 09:31 TS [id number]) PT-Bed Mobility Assessment Rolling Type of Rolling Roll to Left Level of Assist Maximal Assistance,2 Person Assistance Supine to Sit Supine to Sit Maximum Assistance,2 Person Assistance,Head of Bed Elevated,Bedrails Sit to Supine Sit to Supine Maximum Assistance,2 Person Assistance Scooting Scooting to Edge of Bed Moderate Assistance Scooting Up and Down in Bed Maximum Assistance PT-Transfer Assessment Comments Mobility Comments Pt found resting in bed, was confused throughout treatment, non-appropriate responses and conversation to tasks at hand . Bp taken in supine 148/61 before mobility. He required MaxAx2 for log roll with cues to push through RLE, had difficulty understanding task and needed frequent explanation. He was assisted into to sitting, HOB elevated to 50D, cues to push through L elbow/hand and MaxAx2. Once in sitting pt complained of dizziness, BP taken 86/53. Pt ModA x2 for scooting to EOB and unable to get feet flat on floor. Pt required MaxAx2 for sit to supine, total x2 to scoot up to HOB and repositiong in bed. BP 157/88 once back into resting position in supine. Pt was left with tray and call light nearby, RN and care mgt notified of vitals and position. Gait Assessment Comments Gait Comments Unable to progress to transfers or gait today due to orthostatic hypotension. PT-Balance Assessment Sitting Balance and Reactions Static Sitting Balance Ability Fair Dynamic Sitting Balance Ability Poor Comments Other Balance Tests/Deviations/Treatment Close SBA to CONCEPCION for sitting : balance. M5 PT-IP Objective Assessments Start: 08/14/22 13:26 Freq: NEEDED Status: Active Protocol: Document 08/17/22 08:59 TS (Rec: 08/17/22 09:31 TS [id number]) Orientation Orientation/Cognition Safety Awareness Decreased Safety Awareness M6 PT-IP Treatment Start: 08/14/22 13:26 Freq: NEEDED Status: Active Protocol: Document 08/17/22 08:59 TS (Rec: 08/17/22 09:31 TS [id number]) Physical Therapy Treatment Education Education Provided Safety M7 PT-IP Assessment and Plan Start: 08/14/22 13:26 Freq: NEEDED Status: Active Protocol: Document 08/17/22 08:59 TS (Rec: 08/17/22 09:31 TS [id number]) PT Summary Assessment and Plan Potential Rehabilitation Potential Fair Status of Condition at Evaluation Evolving Summary Impairments Pain,Strength,Balance, Cognition,Bed Mobility, Transfers,Gait,Activity Tolerance Progress Towards Goals Slow Progress due to Pain,Slow Progress due to Medical Issues,Slow Progress due to Activity Tolerance Assessment Summary Pt continues to be orthostatic when assisted into sitting EOB. Requires MaxAX2 for log roll and supine to sit. Pt was ModAx2 for scooting to EOB, could not get feet flat on floor. In sitting pt progressed from Concepcion-SBA with LUE support. He was Max/ totalAx2 for sit to supine and for repostioning in bed. Pt demonstrates confusion with non-appropriate responses to PT questions and tasks. When presented with quad cane to lateral scoot seated at EO bed , pt stated he can't see it due to vision problems. He reports he sensitive light and requested lights be at a minimum. PT is recommending SNF to increase strength, functional mobility and transfers. Will continue to assess progress in mobility. Goals Bed Mobility Goal Minimal Assistance Transfer Goal Minimal Assistance,Front Wheeled Walker Gait Goal Minimal Assistance,Front Wheel Walker Gait Distance 75 Other Goals - up/down 5 steps with unilateral rail min A - improve transfers and gait to SBA with LRAD Days to Meet Goals 10 Frequency of Treatment Frequency Of Treatment Once a Day Treatment Plan Physical Therapy Treatment Plan Bed Mobility Training,Transfer Training,Gait Training, Therapeutic Exercise,Balance Retraining,Discharge Planning, Hot or Cold Pack,Neuromuscular Re-ed Other Recommendations and Next Treatment recheck orthostatic VS. Stand Focus pivot transfer to [facility] with MAX A X 2 with quad cane. Use bolster under feet for sitting balance edge of bed. Precautions Shoulder Precautions Sling Brace R shoulder sling Weight Bearing Status Allowed Weight Bearing Amount (enter % WBAT RLE; NWB RUE or #) (%) Recommendations To Nursing Amount of Assist Needed Mechanical Lift Discharge Recommendations PT Discharge Recommendations SNF Rehab Transportation Needs at Discharge Wheelchair/Cabulance,Stretcher /Ambulance
[2022-08-17] MEDS: ASPIRIN EC 81 MG TABLET PO (09:56)
[2022-08-17] MEDS: HEPARIN 5,000 UNIT/ML VIAL 5000 UNIT SUBCUT (09:57)
[2022-08-17] MEDS: DONEPEZIL 5 MG TABLET 10 MG PO (09:57)
[2022-08-17] MEDS: ATORVASTATIN 20 MG TABLET 40 MG PO (09:57)
[2022-08-17] MEDS: FINASTERIDE 5 MG TABLET PO (09:57)
[2022-08-17] MEDS: SODIUM CHLORIDE 0.9% FLUSH 10 ML IV (09:58)
[2022-08-17] MEDS: SODIUM CHLORIDE 0.9% 1,000 ML 100 ML IV ×2 (11:13→22:34)
--- NOTE | 2022-08-17 11:55 | OT.IPNOTE ---
Pt very hypotensive this morning during PT session and per nursing just initiating fluids, to check on pt later if appropriate.
[2022-08-17] MEDS: INSULIN LISPRO 100 UNIT/ML 3ML VIAL SUBCUT (12:51)
[2022-08-17] MEDS: ACETAMINOPHEN 325 MG TABLET 650 MG PO (13:01)
--- NOTE | 2022-08-17 14:00 | OT.IP.TRT ---
Current Diagnoses Influenza due to other identified influenza virus with other respiratory manifestations (08/14/22) Chronic kidney disease, stage 2 (mild) (08/14/22) Retention of urine, unspecified (08/14/22) Unspecified displaced fracture of surgical neck of unspecified humerus, initial encounter for closed fracture (08/14/22) Unspecified fracture of shaft of humerus, right arm, initial encounter for closed fracture (08/14/22) Fracture of unspecified part of neck of unspecified femur, initial encounter for closed fracture (08/14/22) Unspecified fall, initial encounter (08/14/22) Occupational Therapy Treatment Note M2 OT-IP Current Condition Start: 08/15/22 15:18 Freq: Status: Active Protocol: Document 08/15/22 13:45 [facility] (Rec: 08/15/22 15:48 [facility] [id number]) Occupational Therapy Current Condition Current Condition Evaluation Date 08/15/22 Treatment Diagnosis GLF, right humeral head fracture Diagnosis Onset Date 08/14/22 Post Operative Precautions Shoulder Precautions Sling Other Precautions NWB to RUE M3 OT- IP Subjective and Pain Start: 08/15/22 15:18 Freq: Status: Active Protocol: Document 08/17/22 13:33 [facility] (Rec: 08/17/22 14:00 [facility] [id number]) OT- Subjective Occupational Therapy Visit Type Type Treatment Note Visit Start Time 13:33 Visit Stop Time 13:53 Occupational Therapy Visit Comments Patient Comments Spoke with case management, PT to and pt regarding home needs as currently there are no skilled rehab able to accept the pt at this time. Patient/Caregiver Goals Pt's will to take pt home . M9 OT- IP Assessment and Plan Start: 08/15/22 15:18 Freq: Status: Active Protocol: Document 08/17/22 13:33 [facility] (Rec: 08/17/22 14:00 [facility] [id number]) OT Summary Assessment and Plan Potential Rehabilitation Potential Fair Analytic Complexity at Evaluation Moderate Summary OT Impairments Pain,Range of Motion,Strength, Balance,Functional Cognition, Functional Mobility,Self- Feeding,Grooming,Dressing, Toileting,Bathing,Toilet Transfers,Shower Transfers, Activity Tolerance Progress Towards Goals Slow Progress due to Pain,Slow Progress due to Medical Issues,Slow Progress due to Activity Tolerance,Slow Progress due to Cognition Assessment Summary Pt still having issues with decreased BP when sitting and not able to tolerate getting up to his feet at this time. Pt's looking to take pt home as so far no accepting skilled rehab for pt at this time. Able to convey that pt will benefit from a hospital bed, brenna lift, and addition assist at home to help care for him at this time. Pt therefore if unable to go to skilled rehab will need 24/7 assist and home health. At this time as pt not able to tolerate sitting up, suggest best to have an ambulance for his transportation needs. Goals Grooming Goal Standby Assistance Dressing Goal Minimal Assistance Toileting Goal Minimal Assistance Bathing Goal Moderate Assistance Toilet Transfer Goal Contact Guard Assistance Shower Transfer Goal Minimal Assistance Days to Meet Goals 30 Frequency of Treatment Frequency Of Treatment Once a Day Treatment Plan OT Treatment Plan ADL Training,Functional Cognition Training,Functional Mobility,Patient/Family Education,Discharge Planning Discharge Recommendations OT Discharge Recommendations Home with 24/7 Assist Available,Home Health,SNF Rehab,Home vs SNF Transportation Needs at Discharge Stretcher/Ambulance
[2022-08-17] MEDS: HALOPERIDOL 5 MG/ML VIAL IV (15:11)
--- NOTE | 2022-08-17 15:26 | CM.DPNOTE ---
DCP Note Attempt at SNF placement continues with no SNF secured today. Patient has [facility] A[facility] in addition to [facility] per spouse Started conversation w/spouse today about planning for patient's return home w/HH, provided in home care resources, gave the Senior Resource Guide and strongly encouraged spouse to place these calls OTF. Spouse tells this GASOLINE TRUCK CRANE OPERATOR she is unsure of what the benefit will be of in home caregivers; Attempted to provide education on this topic PT Regina and OT Stephanie kindly agreed to return to patient's room w/this GASOLINE TRUCK CRANE OPERATOR- discussed w/spouse patient's current care needs, level of assistance required and therapy recommendations for care, DME and transportation Spouse agrees to taking patient home and will research in home care options. In addition, spouse agrees to BLS transport home as the safest method and states understanding when told there could be an out of pocket cost for this transport. [facility] joins via speaker phone- she agrees to place an order for HH, hospital bed, in home care/[facility] home care [facility] assistance program (long wait list per PCP) and possibly a brenna lift if this is covered. In addition, [facility] placing a referral today for a geriatric psychiatrist Updated Dr Pollock Plan: Anticipate discharge tomorrow, home w/spouse, HH ([facility], referral needed), BLS transport. JOBY Schwarz
[2022-08-18] VITALS (7 sets, daily range): BP systolic 106–154; BP diastolic 47–65; PULSE 66–74; RESP 18–20; TEMP 36.4–36.6; O2SAT 96–98
[2022-08-18 07:42] LABS: BUN Creatinine Ratio 24.2 (6-22); Blood Urea Nitrogen 31 mg/dL (9-20); Calcium 8.1 mg/dL (8.4-10.2); Carbon Dioxide 24 mmol/L (22-32); Chloride 108 mmol/L (98-107); Estimated Glomerular Filt Rate 56 mL/min (>60); Glucose 82 mg/dL (80-110); HEMOLYSIS < 15 (0-50); Potassium 3.9 mmol/L (3.4-5.1); Sodium 139 mmol/L (137-145)
[2022-08-18 08:09] LABS: Add Manual Diff / Slide Review NO; Basophils Absolute Auto 0 /uL (0-100); Basophils Percent Auto 0.4 % (0-2); Eosinophils Absolute Auto 100 /uL (0-450); Hematocrit 29.2 % (41-53); Lymphocytes Absolute Auto 1300 /uL (1100-4500); Lymphocytes Percent Auto 24.4 % (25-40); Mean Corpuscular HGB Conc 34.1 % (30-36); Mean Corpuscular Hemoglobin 28.1 PG (26-34); Mean Corpuscular Volume 82.6 fL (80-100); Monocytes Absolute Auto 600 /uL (0-900); Monocytes Percent Auto 10.2 % (3-14); Neutrophils Absolute Auto 3500 /uL (1500-7000); Platelet Count 155 X10^3/uL (150-400); Red Blood Cell Count 3.54 X10^6/uL (4.5-5.9); Red Cell Distribution Width 14.9 % (11.6-14.8); White Blood Cell Count 5.5 X10^3/uL (4.5-11.0)
--- NOTE | 2022-08-18 09:47 | P.DS_ITS ---
History of Present Illness History of Present Illness Date Patient Seen: 08/18/22 Time Patient Seen: 20:00 Chief complaint: Fall Narrative: Mario Segovia is an 81-year-old male with a history of CKD stage 3, urinary retention, UTI sepsis, insulin-dependent diabetes, BPH, hypertension, visual hallucinations since 2019, CABG with pacemaker placement, dementia, chronic anemiawho presented to ED for a recurrent new recent fall presenting today after falling in his driveway after returning from [facility]. He actually was seen and evaluated here earlier today after a fall when he fell and fractured his right humerus.? He was discharged home his came to get him but he fell in the driveway where he laid there for roughly an hour the try to drag him into the house but was unsuccessful.? He presents hypothermic and hypotensive.? Patient has minimal complaints. Patient's were stable upon admit hypothermia had resolved temp 97.7?, BP 125/59, HR 63, R 21, O2 saturation 99% on room air. Patient's H&H is stable 11.4/34.7 he does have a slight white count 12.6 with a left shift neutrophils 10,200, chloride 115, bicarb 19, BUN 48, creatinine 1.93, glucose 80, GFR 33.4, initial lactate 2.4 calcium 7 total bili 2 initial Trop 0.033, procalcitonin is within normal limits. Patient is positive for influenza a, negative for COVID. At the time of admit examination in the ED department patient was confused severely agitated refused physical examination, suspect that this is patient's baseline dementia. Patient's had been at the bedside and reported to ED doctor that the patient's falling aggressive agitation and behavioral issues for becoming unmanageable for her at home and had been escalating over the past year. Due to dementia unable to obtain any HPI, ROS, family history. Admitted for Ground level fall x2 resulting in pathological right humeral neck fracture, and new femoral neck fracture, influenza a, hypothermia. Discharge Providers Provider Date of admission: 08/14/22 06:48 Discharge Date: 08/18/22 Consults: 08/14/22 06:30 Consult to Discharge Planning Routine Comment: safety issues to go home 08/14/22 07:02 Consult to LEVEL [employer]IAL GRINDER - Installer Helper Stat Comment: MULTIPLE FALL -UNSAFE [facility] Consult needed for:: End of Life/Goal Care Dis [facility] Need Consult to Occupational Therapy Evaluate & Treat Comment: AFTER SURG EVAL Physician Instructions: Evaluate and treat 08/14/22 07:03 Consult to Physical Therapy Evaluate & Treat Comment: AFTER SURG EVAL Physician Instructions: Evaluate and Treat 08/14/22 07:37 Consult to Orthopedic Surgery Routine Comment: Consulting Provider: *María,ED* Reason for consultation: right hip fracture 08/15/22 22:01 Consult to Dietitian, Adult Routine Comment: Reason For Exam: Gee score = 15 Discharge provider: Nir Pollock DO Summary Hospital Course Discharge Diagnosis: 1. Ground level fall, recurrent, acute, resulting in pathological right humeral fracture, follow-up visit, an acute right femoral neck fracture, present on admission -Radiology felt that femoral neck fracture was questionable, and recommended that Dr. Angelina Castillo Ortho consult for further evaluation. Ortho states management is currently non-operative and recommended follow up in 10 days as an outpatient. -pain and comfort management -PT/OT consulted -likely need SNF, however he was denied everywhere due to dementia and behavioral disturbances -LEVEL VIAL GRINDER arranged HH and patient discharged to this 2. Sepsis secondary to Influenza a, acute, present on admission with PRACHI and thrombocytopenia, improving -symptom management, respiratory support -sputum cultures, lactate, procalcitonin, CRP, ESR, blood culture-to rule out bacteria and former -SOFA score 3 with thrombocytopenia and PRACHI, 4 if encephalopathy. -possible acute metabolic encephalopathy as well in sepsis, unknown baseline with history of dementia. -no current evidence of bacterial infection. 3. Hypothermia, acute, present on admission, resolved -due to being outside for an hour after falling -patient was placed in a bear Hugger in ED for treatment 4. PRACHI on CKD stage 3, acute on chronic, present on admission -suspect in setting of falls and probable mild dehydration -creatinine peaked at 2.9 and is improving to 1.28 5. Insulin-dependent diabetes, acute on chronic, with hyperlipidemia, present on admission -patient admitted under diabetic protocol -continued home insulin -resume blood sugar checks a.c. HS with low-dose sliding scale -A1c 6% -hold home Ozempic 6. Hx of Essential hypertension, Hx of CABG and pacemaker placement, chronic, present on admission -continue ASA, lipitor -continue losartan 7. Dementia with visual hallucinations, acute on chronic, present on admission -continue doneprezil -start seroquel 12.5mg nightly 8. BPH, with a history of urinary retention, frequent UTI/sepsis, chronic, present on admission -patient has condom catheter secondary to immobility from femoral neck fracture - advises patient is no longer taking Flomax or finasteride -urine culture neg -monitor for urinary retention 9. Myocardial injury ?- suspect in setting of hypothermia with hx of CAD ?- troponin downtrended since admission ?- no further evaluation recommended at this time. Hospital Course: Admitted for weakness and falls and found to be flu positive. Initially thought to have right hip fracture, but not present on CT. Patient had dementia with agitation outbursts which made it impossible to get him into SNF. Therefore HH PT was setup and he was discharged to this. Time Spent with Patient Time spent: Greater than 30 minutes Exam Vital Signs (past 8 hours): - 08/18/22 02:45 08/18/22 02:00 08/18/22 06:00 Temperature 97.5 F L Pulse Rate 67 Respiratory Rate 18 Blood Pressure 125/59 L Pulse Oximetry 97 96 96 Oxygen Delivery Method Room Air Room Air Oxygen Flow Rate 0 Oxygen Delivery Method Room Air Oxygen Flow Rate 0 Narrative Exam Narrative: General: Mildly ill appearing elderly male. Demented. HEENT: Normocephalic, atraumatic, extraocular muscles intact, oral pharynx is clear and mucous membranes are dry. Neck symmetric, trachea is midline. Negative for JVD Chest: Normal AP diameter and contour no nasal flaring, retractions, or tachypneic labored breathing. Lungs: CTA b/l, poor effort. Cardio: RRR with no m/r/g. Abdomen: S NT ND Musculoskeletal: R shoulder ecchymosis, R arm in sling, no tenderness of R shoulder. Skin: Significant bruising to the right arm right hip area observed. Neuro: Alert and orientated to self & hospital & situation, no gross deficits to cranial nerves Psych: cognitive impairment evident, but calm and cooperative. Objective Labs Result Diagrams: 08/18/22 07:09 08/18/22 07:09 Labs: Laboratory Results - last 24 hr 08/18/22 08/18/22 07:09 07:09 WBC 5.5 RBC 3.54 L Hgb 10.0 L Hct 29.2 L MCV 82.6 MCH 28.1 MCHC 34.1 RDW 14.9 H Plt Count 155 Neut % (Auto) 63.0 Lymph % (Auto) 24.4 L [place] % (Auto) 10.2 Eos % (Auto) 2.0 Baso % (Auto) 0.4 Neut # (Auto) 3500 Lymph # (Auto) 1300 [place] # (Auto) 600 Eos # (Auto) 100 Baso # (Auto) 0 Sodium 139 Potassium 3.9 Chloride 108 H Carbon Dioxide 24 BUN 31 H Creatinine 1.28 H Estimated GFR 56 L BUN/Creatinine Ratio 24.2 H Glucose 82 Calcium 8.1 L PFSH Medical History (Updated 08/15/22 @ 10:36 by BRENT Mcgrath) Acute urinary retention Diabetes mellitus Great toe amputation status Hyperlipidemia Hypertension Surgical History History of permanent cardiac pacemaker placement Family History Father Cancer Social History household members: spouse Smoking Status: Former smoker alcohol intake: former Discharge Plan Discharge Plan Patient Disposition: Home Health Service Discharge orders & Medications Prescriptions: Continued atorvastatin 40 MG tablet 40 mg PO DAILY Qty: 0 cinnamon bark [Cinnamon] 500 mg Capsule 1,000 mg PO DAILY Qty: 0 aspirin 81 MG tablet,delayed release (DR/EC) 81 mg PO DAILY Qty: 0 tamsulosin 0.4 mg Capsule 0.4 mg PO DAILY finasteride 5 mg Tablet 5 mg PO DAILY Label Comments: [facility] donepezil 10 mg Tablet 10 mg PO DAILY loperamide 2 mg Tablet 2 mg PO Q6H PRN (Reason: Diarrhea) meclizine 25 mg Tablet 25 mg PO BID PRN (Reason: Vertigo) Ozempic 0.25 mg or 0.5 mg(2 mg/1.5 mL) Pen Injector 0.5 mg SUBCUT QWEEK Quality VTE Deep Vein Thrombosis/Pulmonary Embolism Present on Admission: No
[2022-08-18] MEDS: DONEPEZIL 5 MG TABLET 10 MG PO (10:35)
[2022-08-18] MEDS: ASPIRIN EC 81 MG TABLET PO (10:35)
--- NOTE | 2022-08-18 10:35 | CM.DPNOTE ---
Spoke to Steve at Ambulance for BLS transport to [address] [place] [address] Rd per Claudine. KJ Edmond.
[2022-08-18] MEDS: QUETIAPINE 25 MG TABLET PO (10:36)
[2022-08-18] MEDS: ATORVASTATIN 20 MG TABLET 40 MG PO (10:36)
[2022-08-18] MEDS: FINASTERIDE 5 MG TABLET PO (10:36)
[2022-08-18] MEDS: HEPARIN 5,000 UNIT/ML VIAL 5000 UNIT SUBCUT (10:40)
--- NOTE | 2022-08-18 10:47 | CM.DPC ---
DCP Cont: Per MD, pt is medically stable for discharge today. SNF search has been unsuccessful thus far. DCP received a message from [facility] and they verbalized that they cannot accept the pt due to the aggression towards male staff. This was relayed to the team. Pt to take him home via BLS. BLS set up for 1400 today. Form filled out and signed by MD and placed in pt chart. Home Health orders placed and referral initiated to [facility]. F2F signed and scanned. No other needs at this time. Will continue to be resource if needed until discharge. Claudine Vences RN/DCP
--- NOTE | 2022-08-18 16:33 | PC.NURSE ---
Pt is OX1, very confused. at bedside this a.m. assisting to feed patient, she met with CM to discuss home plan. Patient is medically cleared for discharge. RN able to give patient po medications with at bedside.BG stable held noon insulin due to patient being too tired and not interested in eating lunch. EMS arrived at 1410 to transport patient. returned to patient bedside requesting to have the pitt catheter removed. Per MD Phill sinha per orders and given education about urinary retention and to seek emergent care, if patient has not voided after 8 hours. verbalizes understanding and per request placed patient in brief. Unable to place patient arm in shoulder sling as he continues to remove. He is transported via stretcher with EMS at 1500 to home.
[2022-08-18 17:35] LABS: Magnesium 1.6 mg/dL (1.6-2.3)
== END 2022-08-18 15:00 | disposition home health service (06) | DRG 871 ==
LOC: ED 04:24 → AC 06:49
PROVIDERS: Student in an Organized Health Care Education/Training Program; Admitting Provider Nurse Practitioner Family; Emergency Provider Emergency Medicine; Referring Provider Emergency Medicine; Visit Provider Nurse Practitioner Family
DX: A41.9 Sepsis, unspecified organism (principal); G93.41 Metabolic encephalopathy; N17.9 Acute kidney failure, unspecified; F03.92 Unspecified dementia, unspecified severity, with psychotic disturbance; I5A Non-ischemic myocardial injury (non-traumatic); M84.421A Pathological fracture, right humerus, initial encounter for fracture; J10.1 Influenza due to other identified influenza virus with other respiratory manifestations; N18.2 Chronic kidney disease, stage 2 (mild); T68.XXXA Hypothermia, initial encounter; E11.22 Type 2 diabetes mellitus with diabetic chronic kidney disease; E78.5 Hyperlipidemia, unspecified; N40.1 Benign prostatic hyperplasia with lower urinary tract symptoms; R33.8 Other retention of urine; D69.59 Other secondary thrombocytopenia; R65.20 Severe sepsis without septic shock; X31.XXXA Exposure to excessive natural cold, initial encounter; Z79.85 Long-term (current) use of injectable non-insulin antidiabetic drugs; Z79.4 Long term (current) use of insulin; Z95.0 Presence of cardiac pacemaker; Z95.1 Presence of aortocoronary bypass graft; Z87.891 Personal history of nicotine dependence
CPT/HCPCS: 0241U; 36415; 70450; 71045; 72170; 73501; 73700; 80048; 80053; 81001; 82009; 82550; 82553; 82962; 83036; 83605; 83735; 83880; 84145; 84484; 85025; 85610; 85651; 86140; 87040; 87086; 93005; 93010; 96365; 96366; 97163; 97166; 97530; 97535; 99284; 99285; J1630; J1644; J1815; J3475

== ENCOUNTER 2022-09-01 08:42 | Emergency (ER) | payer OTHER, MEDICARE, SELFPAY ==
[2022-08-14 12:47] VITALS: BMI 26.6
[2022-09-01 08:48] VITALS: BP 140/62; PULSE 66; RESP 20; TEMP 36.4; O2SAT 100; BMI 25.6
--- NOTE | 2022-09-01 09:16 | DI.RAD.S_ITS ---
PROCEDURE: XR SHOULDER RT MIN 2V INDICATIONS: fall out of bed TECHNIQUE: 3 views of the shoulder were acquired. COMPARISON: [facility], CR, XR SHOULDER RT MIN 2V, 08/13/2022, 16:03. FINDINGS: Bones: Again noted is impacted and displaced fracture involving proximal right humeral shaft unchanged in shoulder alignment compared to prior study. Moderate to severe acromioclavicular joint and glenohumeral joint osteoarthritic changes are seen. No new fracture or dislocation. No suspicious bony lesions. Visualized ribs appear intact. Soft tissues: No suspicious soft tissue calcifications. IMPRESSION: Stable appearing impacted and displaced proximal right humeral fracture. No new fracture or dislocation. 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 Dictated by: Francois Quiles M.D. on 09/01/2022 at 9:45 Approved by: Francois Quiles M.D. on 09/01/2022 at 9:52
[2022-09-01 10:08] VITALS: BP 140/62; PULSE 60; RESP 16; O2SAT 99
--- NOTE | 2022-09-01 10:48 | ED_ITS ---
HPI - Fall <Yashira Mesa, - Last Filed: 09/03/22 17:42> General Chief Complaint: Fall Stated Complaint: Fall Time Seen by Provider: 09/01/22 10:40 Source: patient and EMS Mode of arrival: EMS Limitations: no limitations History of Present Illness HPI Narrative: This is a 81-year-old with known Lewy body dementia, diabetes, hypertension, dyslipidemia pacemaker on aspirin daily. Patient is seen today for ground level fall his states that she had him on the couch she had put coffee table to keep him from rolling off the couch and he managed to roll off the couch across the coffee table and land on the floor. Patient is complaining of persistent pain in his right shoulder he had a humeral fracture on 08/13/2022, return home fell in the driveway was outside and returned essentially the same day hypothermic and was admitted on 08/14/[address] patient in a mcc but there was no availability. Patient notes he does have a little bit neck pain, he has right shoulder pain, he states he has a headache today. He denies new numbness or tingling. He is denying any active chest pain or shortness of breath. No nausea or vomiting. No GI or urinary symptoms. He does recall falling outside on his driveway at his last admission. His notes he is fallen at least 4 times at home since when I spoke with her over the phone. Paramedics note that they have run on him several times for lift assist and he was unable to stand independently or ambulate for them. Related Data Home Medications Medication Instructions Recorded Confirmed aspirin 81 mg tablet,delayed 81 mg PO DAILY ##0 12/13/17 08/16/22 release atorvastatin 40 mg tablet 40 mg PO DAILY ##0 12/13/17 08/16/22 cinnamon bark 500 mg capsule 1,000 mg PO DAILY ##0 12/13/17 08/16/22 (Cinnamon) finasteride 5 mg tablet 5 mg PO DAILY 07/26/18 07/26/18 tamsulosin 0.4 mg capsule 0.4 mg PO DAILY 07/26/18 07/26/18 donepezil 10 mg tablet 10 mg PO DAILY 08/16/22 08/16/22 loperamide 2 mg tablet 2 mg PO Q6H PRN Diarrhea 08/16/22 08/16/22 meclizine 25 mg tablet 25 mg PO BID PRN Vertigo 08/16/22 08/16/22 semaglutide 0.25 mg or 0.5 mg (2 0.5 mg SUBCUT QWEEK 08/16/22 08/16/22 mg/1.5 mL) subcutaneous pen injector ([employer]) Previous Rx's Medication Instructions Recorded midodrine 5 mg tablet 5 mg PO TID #30 tabs 09/03/22 midodrine 5 mg tablet 5 mg PO TID #60 tabs 09/03/22 quetiapine 25 mg tablet 25 mg PO BID PRN agitation #10 tabs 09/03/22 Allergies Allergy/AdvReac Type Severity Reaction Status Date / Time chlorhexidine Allergy Intermediate Rash Verified 09/01/22 13:11 caffeine [CAFFEINE] AdvReac Unknown Blurry Verified 09/01/22 13:11 Vision Review of Systems <Yashira Mesa DO - Last Filed: 09/03/22 17:42> Review of Systems ROS Unobtainable: All systems reviewed & are unremarkable except as noted in HPI and below Patient History <Yashira Mesa DO - Last Filed: 09/03/22 17:42> Medical History Acute urinary retention Diabetes mellitus Great toe amputation status Hyperlipidemia Hypertension Surgical History History of permanent cardiac pacemaker placement Family History Father Cancer Social History household members: spouse Smoking Status: Former smoker alcohol intake: former Smoking Status: Former smoker alcohol intake frequency: holidays/special occasions only Substance Use Type: does not use Exam <Yashira Mesa DO - Last Filed: 09/03/22 17:42> Narrative Exam Narrative: GEN: Patient appears in mild distress. HEAD: No evidence of trauma, no raccoon/Trejo sign. NECK: Nontender, painless range of motion, trachea midline Negative Nexus criteria, no midline line tenderness, distracting injury, altered mental status (+ dementia, baseline per family), neuro deficit, recent EtOH. EYES: PERRLA, EOMI ENT: External inspection normal, trachea is midline, TM's are normal no hemotypanum, Nares are clear, no septal hematoma, no dental or oral injury, airway is normal and with normal occlusion, No bony tenderness RESP: Chest is nontender and has symmetric movement, no ecchymosis, breath sounds are normal no crackles, wheezes or rales CVS: Heart sounds are normal, no murmur noted, No JVD. ABG/GI: Nontender, soft, normal bowel sounds, no distention, no organomegaly, pelvic rock is negative NEURO: Oriented AO, neuro is grossly intact, sensation and motor is normal all 4 extremities moving, cranial nerves II through XII are intact, GCS is 14 patient has clear speech. PSYCH: Normal mood and affect SKIN: Intact, warm and dry, no crepitus and without decubitus, patient has greenish ecchymosis of his right shoulder and forearm tracking down, no large hematoma appreciated. BACK: No CVA tenderness, no vertebral tenderness, no step-off's, no crepitus EXT: Patient has some mild deformity and pain the right shoulder, not does not have full range of motion has a known proximal humeral fracture, hips are nontender, no pedal edema, patient is able to lift each leg with 5/5 muscle strength without any drift. Patient has full range of motion of his left upper extremity. normal color and temperature of left upper and bilateral lower extremities. 2+ pulses all 4 extremities. Mechanical Tech are equal bilateral upper extremities. Initial Vital Signs Initial Vital Signs: Vital Signs Temperature 97.6 F 09/01/22 08:48 Pulse Rate 66 09/01/22 08:48 Respiratory Rate 20 09/01/22 08:48 Blood Pressure 140/62 09/01/22 08:48 Pulse Oximetry 100 09/01/22 08:48 Oxygen Delivery Method 09/01/22 08:48 <Jeremiah Bangura DO - Last Filed: 09/02/22 06:34> Initial Vital Signs Initial Vital Signs: Vital Signs Temperature 97.6 F 09/01/22 08:48 Pulse Rate 66 09/01/22 08:48 Respiratory Rate 20 09/01/22 08:48 Blood Pressure 140/62 09/01/22 08:48 Pulse Oximetry 100 09/01/22 08:48 Oxygen Delivery Method 09/01/22 08:48 Course <Yashira Mesa, DO - Last Filed: 09/03/22 17:42> Orders Ordered: Discontinued Medications Atorvastatin Calcium (Atorvastatin 20 Mg Tablet) 40 mg PO DAILY [facility] Last Admin: 09/03/22 08:31 Dose: 40 mg Documented By: Admin: 09/02/22 10:20 Dose: 40 mg Documented By: FRANCES(2) Admin: 09/01/22 22:04 Dose: 40 mg Documented By: RB Donepezil HCl (Donepezil 5 Mg Tablet) 10 mg PO BEDTIME [facility] Last Admin: 09/02/22 20:30 Dose: 10 mg Documented By: Admin: 09/01/22 22:04 Dose: 10 mg Documented By: RB Finasteride (Finasteride 5 Mg Tablet) 5 mg PO DAILY [facility] Last Admin: 09/03/22 08:31 Dose: 5 mg Documented By: Admin: 09/02/22 10:20 Dose: 5 mg Documented By: FRANCES(2) Sodium Chloride (Normal Saline 0.9%) 1,000 mls @ 1,000 mls/hr IV BOLUS ONE Stop: 09/01/22 15:28 Last Infusion: 09/01/22 17:55 Dose: 0 mls/hr Documented By: Admin: 09/01/22 16:09 Dose: 1,000 mls/hr Documented By: ISAAC Sodium Chloride (Normal Saline 0.9%) 1,000 mls @ 150 mls/hr IV CONT [facility] Last Infusion: 09/03/22 10:04 Dose: 0 mls/hr Documented By: Admin: 09/03/22 06:11 Dose: 150 mls/hr Documented By: SB(2) Infusion: 09/03/22 06:07 Dose: 0 mls/hr Documented By: SB(2) Admin: 09/03/22 00:05 Dose: 150 mls/hr Documented By: Infusion: 09/02/22 23:50 Dose: 150 mls/hr Documented By: Infusion: 09/02/22 17:24 Dose: 150 mls/hr Documented By: Infusion: 09/02/22 15:37 Dose: 0 mls/hr Documented By: Admin: 09/02/22 15:23 Dose: 150 mls/hr Documented By: SB Loperamide HCl (Loperamide 2 Mg/15 Ml Udc) 2 mg PO Q4H PRN PRN Reason: Diarrhea Meclizine HCl (Meclizine Hcl 12.5 Mg Tablet) 25 mg PO BID PRN PRN Reason: vertigo Meclizine HCl (Meclizine Hcl 12.5 Mg Tablet) 25 mg PO NOW ONE Stop: 09/02/22 11:57 Last Admin: 09/02/22 12:11 Dose: 25 mg Documented By: DERIK Midodrine (Midodrine Hcl 5 Mg Tablet) 5 mg PO 0600,1200,1800 [facility] Last Admin: 09/03/22 06:27 Dose: 5 mg Documented By: TANYA Quetiapine Fumarate (Quetiapine 25 Mg Tablet) 25 mg PO NOW ONE Stop: 09/03/22 14:51 Last Admin: 09/03/22 15:29 Dose: 25 mg Documented By: FRANCES(3) Tamsulosin HCl (Tamsulosin 0.4 Mg Capsule) 0.4 mg PO DAILY [facility] Last Admin: 09/03/22 08:30 Dose: 0.4 mg Documented By: Admin: 09/02/22 10:21 Dose: 0.4 mg Documented By: FRANCES(2) Reevaluation(s) Time: 11:16 Consultations Consultation #1: Juliana, states he is becoming more than she can care for during his most recent hospitalization they attempted to [place] placement but were told that there were no beds available and he was discharged home they have home health care but they come for about half an hour, patient is using a bed oh but actually states that it is easier for him to just stool in his depends in her to clean him up, they are using a urinal he is not really able to walk safely round he is had at least 4 more falls and she has some sleeping on the couch they have been trying to get a hospital bed but have been on successful. Time: 11:17 Vital Signs Vital signs: Vital Signs - 8 hr 09/03/22 16:04 Pulse Rate 64 Respiratory Rate 18 Blood Pressure 136/61 Pulse Oximetry 100 Oxygen Delivery Method Room Air <Jeremiah Bangura DO - Last Filed: 09/02/22 06:34> Orders Ordered: Discontinued Medications Atorvastatin Calcium (Atorvastatin 20 Mg Tablet) 40 mg PO DAILY [facility] Last Admin: 09/03/22 08:31 Dose: 40 mg Documented By: Admin: 09/02/22 10:20 Dose: 40 mg Documented By: FRANCES(2) Admin: 09/01/22 22:04 Dose: 40 mg Documented By: RB Donepezil HCl (Donepezil 5 Mg Tablet) 10 mg PO BEDTIME [facility] Last Admin: 09/02/22 20:30 Dose: 10 mg Documented By: Admin: 09/01/22 22:04 Dose: 10 mg Documented By: RB Finasteride (Finasteride 5 Mg Tablet) 5 mg PO DAILY [facility] Last Admin: 09/03/22 08:31 Dose: 5 mg Documented By: Admin: 09/02/22 10:20 Dose: 5 mg Documented By: FRANCES(2) Sodium Chloride (Normal Saline 0.9%) 1,000 mls @ 1,000 mls/hr IV BOLUS ONE Stop: 09/01/22 15:28 Last Infusion: 09/01/22 17:55 Dose: 0 mls/hr Documented By: Admin: 09/01/22 16:09 Dose: 1,000 mls/hr Documented By: ISAAC Sodium Chloride (Normal Saline 0.9%) 1,000 mls @ 150 mls/hr IV CONT [facility] Last Infusion: 09/03/22 10:04 Dose: 0 mls/hr Documented By: Admin: 09/03/22 06:11 Dose: 150 mls/hr Documented By: SILVIA(2) Infusion: 09/03/22 06:07 Dose: 0 mls/hr Documented By: SB(2) Admin: 09/03/22 00:05 Dose: 150 mls/hr Documented By: Infusion: 09/02/22 23:50 Dose: 150 mls/hr Documented By: Infusion: 09/02/22 17:24 Dose: 150 mls/hr Documented By: Infusion: 09/02/22 15:37 Dose: 0 mls/hr Documented By: Admin: 09/02/22 15:23 Dose: 150 mls/hr Documented By: SB Loperamide HCl (Loperamide 2 Mg/15 Ml Udc) 2 mg PO Q4H PRN PRN Reason: Diarrhea Meclizine HCl (Meclizine Hcl 12.5 Mg Tablet) 25 mg PO BID PRN PRN Reason: vertigo Meclizine HCl (Meclizine Hcl 12.5 Mg Tablet) 25 mg PO NOW ONE Stop: 09/02/22 11:57 Last Admin: 09/02/22 12:11 Dose: 25 mg Documented By: DERIK Midodrine (Midodrine Hcl 5 Mg Tablet) 5 mg PO 0600,1200,1800 [facility] Last Admin: 09/03/22 06:27 Dose: 5 mg Documented By: TANYA Quetiapine Fumarate (Quetiapine 25 Mg Tablet) 25 mg PO NOW ONE Stop: 09/03/22 14:51 Last Admin: 09/03/22 15:29 Dose: 25 mg Documented By: FRANCES(3) Tamsulosin HCl (Tamsulosin 0.4 Mg Capsule) 0.4 mg PO DAILY [facility] Last Admin: 09/03/22 08:30 Dose: 0.4 mg Documented By: Admin: 09/02/22 10:21 Dose: 0.4 mg Documented By: FRANCES(2) Vital Signs Vital signs: Vital Signs - 8 hr 09/03/22 16:04 Pulse Rate 64 Respiratory Rate 18 Blood Pressure 136/61 Pulse Oximetry 100 Oxygen Delivery Method Room Air MDM - Fall <Yashira Mesa, DO - Last Filed: 09/03/22 17:42> Lab Data Result diagrams: 09/01/22 12:29 09/02/22 05:05 Labs: Lab Results 09/01/22 09/01/22 09/01/22 Range/Units 11:55 12:29 12:29 WBC 7.0 (4.5-11.0) X10^3/uL RBC 3.85 L (4.5-5.9) X10^6/uL Hgb 10.8 L (13.5-17.5) g/dL Hct 32.7 L (41-53) % MCV 84.8 (80-100) fL MCH 28.0 (26-34) PG MCHC 33.1 (30-36) % RDW 16.0 H (11.6-14.8) % Plt Count 180 (150-400) X10^3/uL Neut % (Auto) 67.6 (50-75) % Lymph % (Auto) 21.4 L (25-40) % Randall % (Auto) 9.5 (3-14) % Eos % (Auto) 1.0 L (2-4) % Baso % (Auto) 0.5 (0-2) % Neut # (Auto) 4700 (2146-3717) /uL Lymph # (Auto) 1500 (9790-9751) /uL Randall # (Auto) 700 (0-900) /uL Eos # (Auto) 100 (0-450) /uL Baso # (Auto) 0 (0-100) /uL Sodium 140 (137-145) mmol/L Potassium 4.1 (3.4-5.1) mmol/L Chloride 106 (98-107) mmol/L Carbon Dioxide 22 (22-32) mmol/L BUN 45 H (9-20) mg/dL Creatinine 1.71 H (0.66-1.25) mg/dL Estimated GFR 39 L (>60) mL/min BUN/Creatinine Ratio 26.3 H (6-22) Glucose 85 (80-110) mg/dL Calcium 8.8 (8.4-10.2) mg/dL Total Bilirubin 3.1 H (0.2-1.3) mg/dL AST 27 (17-59) IU/L ALT 28 (<50) IU/L Alkaline Phosphatase 147 H (38-126) U/L Total Creatine Kinase 64 (55-170) U/L CK-MB (CK-2) TNP CK-MB (CK-2) Rel Index TNP Troponin I 0.036 H (0.01-0.034) ng/mL Total Protein 6.9 (6.3-8.2) g/dL Albumin 3.8 (3.5-5.0) g/dL Globulin 3.1 (1.7-4.1) g/dL Albumin/Globulin Ratio 1.2 (1.0-2.8) Lipase 209 (23-300) U/L SARS-CoV-2 (PCR) Negative (Negative) 09/01/22 09/02/22 Range/Units 14:43 05:05 WBC (4.5-11.0) X10^3/uL RBC (4.5-5.9) X10^6/uL Hgb (13.5-17.5) g/dL Hct (41-53) % MCV (80-100) fL MCH (26-34) PG MCHC (30-36) % RDW (11.6-14.8) % Plt Count (150-400) X10^3/uL Neut % (Auto) (50-75) % Lymph % (Auto) (25-40) % Randall % (Auto) (3-14) % Eos % (Auto) (2-4) % Baso % (Auto) (0-2) % Neut # (Auto) (8406-2410) /uL Lymph # (Auto) (1484-4857) /uL Randall # (Auto) (0-900) /uL Eos # (Auto) (0-450) /uL Baso # (Auto) (0-100) /uL Sodium 143 (137-145) mmol/L Potassium 4.2 (3.4-5.1) mmol/L Chloride 112 H (98-107) mmol/L Carbon Dioxide 21 L (22-32) mmol/L BUN 39 H (9-20) mg/dL Creatinine 1.39 H (0.66-1.25) mg/dL Estimated GFR 50 L (>60) mL/min BUN/Creatinine Ratio 28.1 H (6-22) Glucose 84 (80-110) mg/dL Calcium 8.5 (8.4-10.2) mg/dL Total Bilirubin 3.2 H (0.2-1.3) mg/dL AST 32 (17-59) IU/L ALT 25 (<50) IU/L Alkaline Phosphatase 132 H (38-126) U/L Total Creatine Kinase (55-170) U/L CK-MB (CK-2) CK-MB (CK-2) Rel Index Troponin I 0.033 (0.01-0.034) ng/mL Total Protein 6.4 (6.3-8.2) g/dL Albumin 3.5 (3.5-5.0) g/dL Globulin 2.9 (1.7-4.1) g/dL Albumin/Globulin Ratio 1.2 (1.0-2.8) Lipase (23-300) U/L SARS-CoV-2 (PCR) (Negative) Point of Care Testing Glucose POC 73 Urine Dip Bedside Urine Glucose Negative Bedside Urine Bilirubin - Negative Bedside Urine Ketone +/- 5 Urine Specific [place] 1.015 Bedside Urine Occult Blood ++ Bedside Urine pH 6.0 Bedside Urine Protein - Negative Bedside Urine Urobilinogen - Negative Bedside Urine Nitrite - Negative Bedside Urine Leukocytes - Negative Esterase Imaging Data Extremity x-ray #1: Radiologist's Impression: [address] [address] XRay Report Signed Patient: Mario Segovia MR#: [id number] : 1940 Acct:[id number] Age/Sex: 81 / M Date of Service: 09/01/22 Loc: ED Accession Number: [id number] ?? Procedure: XR shoulder RT min 2V Ordering Provider: Yashira Mesa D.O. PROCEDURE:? XR SHOULDER RT MIN 2V ? INDICATIONS:? fall out of bed ? TECHNIQUE:? 3 views of the shoulder were acquired.? ? COMPARISON:? [facility], CR, XR SHOULDER RT MIN 2V, 08/13/2022, 16:03. ? FINDINGS:? ? Bones:? Again noted is impacted and displaced fracture involving proximal right humeral shaft unchanged in shoulder alignment compared to prior study.? Moderate to severe acromioclavicular joint and glenohumeral joint osteoarthritic changes are seen.? No new fracture or dislocation.? No suspicious bony lesions.? Visualized ribs appear intact.? ? Soft tissues:? No suspicious soft tissue calcifications.? ? IMPRESSION:? Stable appearing impacted and displaced proximal right humeral fracture.? No new fracture or dislocation.? 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 ? ? Dictated by: Francois Quiles M.D. on 09/01/2022 at 9:45 ? ? Approved by: Francois Quiles M.D. on 09/01/2022 at 9:52?? ECG Data Attestation: I personally reviewed and interpreted this ECG as follows: MDM Narrative Medical decision making narrative: This is an 81-year-old male with ground level fall, patient has dementia and appears to be at his normal baseline and forgets but also notes she is not really able to fully care for him he does have some neck and back pain today. Head CT, C-spine are obtained as he is demented and unable to fully clinically clear, shoulder x-ray does not show any acute changes from his proximal right humeral fracture he is neurovascularly intact otherwise, labs, EKG and urine sample to be obtained to evaluate for other medical causes of his weakness and instability. Spoke with patient's based on my exam findings today, reported history from the as well as from the paramedics who transported him locally in have repeatedly seen him for lift assist he is not felt safe for discharge home today. Patient and one episode of drop in blood pressure when standing given fluids, PT did not do their evaluation today because of this. Patient otherwise has a bump in his creatinine but not above his most recent elevations, his troponin is trending down words from his recent NSTEMI after having likely demand ischemia from hypothermia after fall. He does not have other significant changes to his workup and I spoke with his this has been a longstanding slow decline. He is a full code. They attempted to place him at a mcc while hospitalized but there was no beds available so ultimately took him home. She has been trying to get a hospital bed, they have home health care coming to the house but he has been come increasingly weak and is not ambulating at all at home, she is using a urinal and bed oh. Discussed he does not meet admission criteria, [employer] was involved, will continue to search for placement plan to board overnight. I spoke with the again this evening. Signed out to Dr. Bangura overnight. Dr bangura: Received turned over. Patient has been stable overnight. Did have a bowel movement. His routine medications have been ordered. He has been sleeping overnight. Care turned back over to Dr. Mesa for disposition. 09/02/22 Dejank: Patient signed back out to myself. Patient was reportedly m ildly agitated overnight But did not require any medications just had redirection. Patient had orthostatics repeated dropped his pressure he had additional fluids, he had fluids yesterday as well. Patient is eating and drinking regularly his repeat labs are improved. Discussed with hospitalist Dr. Black on 0 suspect he may have some autonomic dysfunction and recommends midodrine 5 mg t.i.d. to see if this is helpful for the patient. Discussed whether patient would meet any criteria to be in the hospital he declines observation or admission. I also spoke with the [place] social work faculty member they were concerned about patient being discharged home, we discussed patient is felt safe to be discharged for home but has not met any criteria medically to be admitted or observed. Working with social work for placement but have been unsuccessful particularly going into the holiday weekend. The has been actively trying to at least get a hospital bed so we can not find placement he would have so mewhat safer environment to return to. has been in touch daily and would like to come in but the roads and whether have been quite bad and it is a bit unsafe for her to travel into the ED. patient signed out to Dr. aPtel overnight. 09/03/22 Mank: Patient was slightly agitated earlier this morning but is calmed. Social work met with patient, spoke with the , we are not going to be able to place him in rehab or SNF in the short term. After discussion with the she elects to take him home. She has not been able to obtain hospital bed yet but is looking purchasing one. Patient has been having some hallucinations today. She would like to take him home of the holidays, she is willing to take him home despite not having a hospital bed yet. Karen Wanderable is going to help her get hospital bed as well as local community leather seasoner program and some additional resources. Our social work faculty member [facility]'s to try to help facilitate. Before discharge back home by S we did touch base with as he has been having some occasional hallucinations. She notes that patient's physician was increasing donepezil and had also ordered quetiapine 25 mg as needed for hallucinations or behavioral issues, they are waiting for a mail order prescription to arrive for the quetiapine so prescription was sent for the patient. <Jeremiah Bangura, DO - Last Filed: 09/02/22 06:34> Lab Data Labs: Lab Results 09/01/22 09/01/22 09/01/22 Range/Units 11:55 12:29 12:29 WBC 7.0 (4.5-11.0) X10^3/uL RBC 3.85 L (4.5-5.9) X10^6/uL Hgb 10.8 L (13.5-17.5) g/dL Hct 32.7 L (41-53) % MCV 84.8 (80-100) fL MCH 28.0 (26-34) PG MCHC 33.1 (30-36) % RDW 16.0 H (11.6-14.8) % Plt Count 180 (150-400) X10^3/uL Neut % (Auto) 67.6 (50-75) % Lymph % (Auto) 21.4 L (25-40) % Randall % (Auto) 9.5 (3-14) % Eos % (Auto) 1.0 L (2-4) % Baso % (Auto) 0.5 (0-2) % Neut # (Auto) 4700 (4955-9947) /uL Lymph # (Auto) 1500 (2075-1055) /uL Randall # (Auto) 700 (0-900) /uL Eos # (Auto) 100 (0-450) /uL Baso # (Auto) 0 (0-100) /uL Sodium 140 (137-145) mmol/L Potassium 4.1 (3.4-5.1) mmol/L Chloride 106 (98-107) mmol/L Carbon Dioxide 22 (22-32) mmol/L BUN 45 H (9-20) mg/dL Creatinine 1.71 H (0.66-1.25) mg/dL Estimated GFR 39 L (>60) mL/min BUN/Creatinine Ratio 26.3 H (6-22) Glucose 85 (80-110) mg/dL Calcium 8.8 (8.4-10.2) mg/dL Total Bilirubin 3.1 H (0.2-1.3) mg/dL AST 27 (17-59) IU/L ALT 28 (<50) IU/L Alkaline Phosphatase 147 H (38-126) U/L Total Creatine Kinase 64 (55-170) U/L CK-MB (CK-2) TNP CK-MB (CK-2) Rel Index TNP Troponin I 0.036 H (0.01-0.034) ng/mL Total Protein 6.9 (6.3-8.2) g/dL Albumin 3.8 (3.5-5.0) g/dL Globulin 3.1 (1.7-4.1) g/dL Albumin/Globulin Ratio 1.2 (1.0-2.8) Lipase 209 (23-300) U/L SARS-CoV-2 (PCR) Negative (Negative) 09/01/22 09/02/22 Range/Units 14:43 05:05 WBC (4.5-11.0) X10^3/uL RBC (4.5-5.9) X10^6/uL Hgb (13.5-17.5) g/dL Hct (41-53) % MCV (80-100) fL MCH (26-34) PG MCHC (30-36) % RDW (11.6-14.8) % Plt Count (150-400) X10^3/uL Neut % (Auto) (50-75) % Lymph % (Auto) (25-40) % Randall % (Auto) (3-14) % Eos % (Auto) (2-4) % Baso % (Auto) (0-2) % Neut # (Auto) (8431-1580) /uL Lymph # (Auto) (2629-2630) /uL Randall # (Auto) (0-900) /uL Eos # (Auto) (0-450) /uL Baso # (Auto) (0-100) /uL Sodium 143 (137-145) mmol/L Potassium 4.2 (3.4-5.1) mmol/L Chloride 112 H (98-107) mmol/L Carbon Dioxide 21 L (22-32) mmol/L BUN 39 H (9-20) mg/dL Creatinine 1.39 H (0.66-1.25) mg/dL Estimated GFR 50 L (>60) mL/min BUN/Creatinine Ratio 28.1 H (6-22) Glucose 84 (80-110) mg/dL Calcium 8.5 (8.4-10.2) mg/dL Total Bilirubin 3.2 H (0.2-1.3) mg/dL AST 32 (17-59) IU/L ALT 25 (<50) IU/L Alkaline Phosphatase 132 H (38-126) U/L Total Creatine Kinase (55-170) U/L CK-MB (CK-2) CK-MB (CK-2) Rel Index Troponin I 0.033 (0.01-0.034) ng/mL Total Protein 6.4 (6.3-8.2) g/dL Albumin 3.5 (3.5-5.0) g/dL Globulin 2.9 (1.7-4.1) g/dL Albumin/Globulin Ratio 1.2 (1.0-2.8) Lipase (23-300) U/L SARS-CoV-2 (PCR) (Negative) Point of Care Testing Glucose POC 73 Urine Dip Bedside Urine Glucose Negative Bedside Urine Bilirubin - Negative Bedside Urine Ketone +/- 5 Urine Specific [place] 1.015 Bedside Urine Occult Blood ++ Bedside Urine pH 6.0 Bedside Urine Protein - Negative Bedside Urine Urobilinogen - Negative Bedside Urine Nitrite - Negative Bedside Urine Leukocytes - Negative Esterase MDM Narrative Medical decision making narrative: This is an 81-year-old male with ground level fall, patient has dementia and appears to be at his normal baseline and forgets but also notes she is not really able to fully care for him he does have some neck and back pain today. Head CT, C-spine are obtained as he is demented and unable to fully clinically clear, shoulder x-ray does not show any acute changes from his proximal right humeral fracture he is neurovascularly intact otherwise, labs, EKG and urine sample to be obtained to evaluate for other medical causes of his weakness and instability. Spoke with patient's based on my exam findings today, reported history from the as well as from the paramedics who transported him locally in have repeatedly seen him for lift assist he is not felt safe for discharge home today. Patient and one episode of drop in blood pressure when standing given fluids, PT did not do their evaluation today because of this. Patient otherwise has a bump in his creatinine but not above his most recent elevations, his troponin is trending down words from his recent NSTEMI after having likely demand ischemia from hypothermia after fall. He does not have other significant changes to his workup and I spoke with his this has been a longstanding slow decline. He is a full code. They attempted to place him at a [facility] while hospitalized but there was no beds available so ultimately took him home. She has been trying to get a hospital bed, they have home health care coming to the house but he has been come increasingly weak and is not ambulating at all at home, she is using a urinal and bed oh. Discussed he does not meet admission criteria, TOURS HOSTESS was involved, will continue to search for placement plan to board overnight. I spoke with the again this evening. Signed out to Dr. Bangura overnight. Dr bangura: Received turned over. Patient has been stable overnight. Did have a bowel movement. His routine medications have been ordered. He has been sleeping overnight. Care turned back over to Dr. Mesa for disposition. Discharge Plan Departure Patient Disposition: Home Clinical Impression: Closed right humeral fracture, Multiple falls, Chronic kidney disease Activity Restrictions/Additional Instructions: Please follow-up with your physicians. Mario blood pressure will drop sometimes, he did not have any new changes to his lab work and after discussion with the hospitalist we did start a course of medication called midodrine for possible autonomic dysfunction or the blood pressure is labile. This is 1 tablet 3 times daily does not recommended to give the last dose after 6:00 p.m. or within 4 hours of bedtime. Prescription was printed I hope that the resources provided can help with placement but also with getting a hospital bed and some additional home help. Vignesh monitor at 1 of the [facility] paramedics will likely be in touch to also help with resources. You may return at any time for worsening symptoms, fevers, chest pain or shortness of breath, persistent vomiting or other new or concerning changes. Prescriptions: New midodrine 5 mg tablet 5 mg PO TID Qty: 60 0RF Rx Instructions: do not give last dose of day after 6PM or within 4 hrs of bedtime midodrine 5 mg tablet 5 mg PO TID Qty: 30 0RF Rx Instructions: do not give last dose of day after 6PM or within 4 hrs of bedtime quetiapine 25 mg tablet 25 mg PO BID PRN (Reason: agitation) Qty: 10 0RF No Action atorvastatin 40 MG tablet 40 mg PO DAILY Qty: 0 cinnamon bark [Cinnamon] 500 mg Capsule 1,000 mg PO DAILY Qty: 0 aspirin 81 MG tablet,delayed release (DR/EC) 81 mg PO DAILY Qty: 0 tamsulosin 0.4 mg Capsule 0.4 mg PO DAILY finasteride 5 mg Tablet 5 mg PO DAILY Label Comments: states [facility] donepezil 10 mg Tablet 10 mg PO DAILY loperamide 2 mg Tablet 2 mg PO Q6H PRN (Reason: Diarrhea) meclizine 25 mg Tablet 25 mg PO BID PRN (Reason: Vertigo) Ozempic 0.25 mg or 0.5 mg(2 mg/1.5 mL) Pen Injector 0.5 mg SUBCUT QWEEK Visit Report Forms: Patient Portal/API
--- NOTE | 2022-09-01 11:07 | DI.CT.S_ITS ---
PROCEDURE: CT HEAD/BRAIN WO CON INDICATIONS: fall, prior fx humerus TECHNIQUE: Noncontrast 4.5 mm thick angled axial sections acquired from the foramen magnum to the vertex, with coronal and sagittal reformats. For radiation dose reduction, the following was used: automated exposure control, adjustment of mA and/or kV according to patient size. COMPARISON: [facility], CT, CT HEAD/BRAIN WO CON, 08/14/2022, 1:33. FINDINGS: Image quality: Excellent. CSF spaces: Basal cisterns are patent. No extra-axial fluid collections. The ventricles are symmetric in size and shape. Brain: No intracranial bleeds or masses. There is cerebral volume loss for age, with resultant ventricular and sulcal prominence. There are periventricular and deep white matter chronic small vessel ischemic changes. There is intracranial internal carotid artery atherosclerosis. Skull and face: Calvarium and visualized facial bones appear intact, without suspicious lesions. Sinuses: Visualized sinuses and mastoids are clear. IMPRESSION: 1. No CT evidence of acute intracranial process. 2. Age-appropriate cerebral cortical volume loss and chronic microvascular ischemic changes. 3. No visible fractures or significant soft tissue injury. Dictated by: Breann Triana M.D. on 09/01/2022 at 11:59 Approved by: Breann Triana M.D. on 09/01/2022 at 12:01
--- NOTE | 2022-09-01 11:07 | DI.RAD.S_ITS ---
PROCEDURE: XR CHEST 1V INDICATIONS: fall, fx humerus TECHNIQUE: One view of the chest was acquired. COMPARISON: [facility], , XR CHEST 1V, 08/14/2022, 1:30. FINDINGS: Surgical changes and devices: Left chest wall pacer is seen with intact leads. Lungs and pleura: Lungs are clear. No pleural effusions or pneumothorax. Mediastinum: Mediastinal contours appear normal. Heart size is normal. The aorta is tortuous. Bones and chest wall: No suspicious bony lesions. Overlying soft tissues appear unremarkable. IMPRESSION: No acute abnormality Dictated by: Jez Donaldson M.D. on 09/01/2022 at 13:24 Approved by: Jez Donaldson M.D. on 09/01/2022 at 13:25
--- NOTE | 2022-09-01 11:07 | DI.CT.S_ITS ---
PROCEDURE: CT CERVICAL SPINE WO CON INDICATIONS: fall, prior fx humerus TECHNIQUE: Noncontrast 3 mm thick sections acquired from the skull base to the T4 level. Sagittal and coronal reformats were then constructed. For radiation dose reduction, the following was used: automated exposure control, adjustment of mA and/or kV according to patient size. COMPARISON: None. FINDINGS: Image quality: Excellent. Bones: The craniocervical junction is intact. Moderate degenerative space loss and spurring at the atlantodental interval. Mild calcification of the annular ligament. No cervical vertebral body fractures or pathologic subluxation. There are severe degenerative disc changes at C4-5, C5-6, and C6-7 with moderate anterior and posterior endplate osteophytes. There is moderate multilevel facet arthropathy. This results in multilevel central canal and bilateral foraminal narrowing. Soft tissues: Prevertebral soft tissues are normal in thickness. No paravertebral hematomas. No apical pneumothoraces. IMPRESSION: 1. No CT evidence of acute cervical spine trauma. 2. Severe multilevel degenerative changes as described. Dictated by: Breann Triana M.D. on 09/01/2022 at 12:01 Approved by: Breann Triana M.D. on 09/01/2022 at 12:08
[2022-09-01 12:18] LABS: COVID19 -Nasal RAPID Negative (Negative)
[2022-09-01 12:39] LABS: Add Manual Diff / Slide Review NO; Basophils Absolute Auto 0 /uL (0-100); Basophils Percent Auto 0.5 % (0-2); Eosinophils Absolute Auto 100 /uL (0-450); Hematocrit 32.7 % (41-53); Hemoglobin 10.8 g/dL (13.5-17.5); Lymphocytes Absolute Auto 1500 /uL (1100-4500); Lymphocytes Percent Auto 21.4 % (25-40); Mean Corpuscular HGB Conc 33.1 % (30-36); Mean Corpuscular Volume 84.8 fL (80-100); Monocytes Absolute Auto 700 /uL (0-900); Monocytes Percent Auto 9.5 % (3-14); Neutrophils Absolute Auto 4700 /uL (1500-7000); Neutrophils Percent Auto 67.6 % (50-75); Platelet Count 180 X10^3/uL (150-400); Red Blood Cell Count 3.85 X10^6/uL (4.5-5.9)
[2022-09-01 12:52] LABS: Alanine Aminotransferase 28 IU/L (<50); Albumin 3.8 g/dL (3.5-5.0); Albumin Globulin Ratio 1.2 (1.0-2.8); Alkaline Phosphatase 147 U/L (38-126); Aspartate Aminotransferase 27 IU/L (17-59); BUN Creatinine Ratio 26.3 (6-22); Bilirubin Total 3.1 mg/dL (0.2-1.3); Blood Urea Nitrogen 45 mg/dL (9-20); Calcium 8.8 mg/dL (8.4-10.2); Carbon Dioxide 22 mmol/L (22-32); Chloride 106 mmol/L (98-107); Creatine Kinase 64 U/L (55-170); Estimated Glomerular Filt Rate 39 mL/min (>60); Globulin 3.1 g/dL (1.7-4.1); Glucose 85 mg/dL (80-110); HEMOLYSIS < 15 (0-50); Lipase 209 U/L (23-300); Potassium 4.1 mmol/L (3.4-5.1); Sodium 140 mmol/L (137-145); Total Protein 6.9 g/dL (6.3-8.2)
[2022-09-01 13:03] LABS: Troponin I 0.036 ng/mL (0.01-0.034)
--- NOTE | 2022-09-01 13:30 | PT.IIE ---
Surgical History (Last Reviewed 09/01/22 @ 11:19 by Yashira Mesa DO) History of permanent cardiac pacemaker placement Medical History (Last Reviewed 09/01/22 @ 11:19 by Yashira Mesa DO) Acute urinary retention Diabetes mellitus Great toe amputation status Hyperlipidemia Hypertension Physical Therapy Inpatient Evaluation/Re-Eval M1 PT/OT-IP Prior Functional Status Start: 09/01/22 14:38 Freq: Status: Active Protocol: Document 09/01/22 13:30 AB (Rec: 09/01/22 15:13 AB [id number]) Medical Review Prior Functional Status Medical History Reviewed Yes Communication able to make needs known but with confusion Mobility and Gait pt s/p fall and sustained a R humeral fx 08/13 and admitted to the hospital 08/14/ to . pt d/c to home 08/18 and spouse assists pt. upon d/c: PT recommending brenna lift transfers, 03/04 care for pt. Pt has been receiving PT last hospital stay and was requiring max A x 2 sitting on EOB with episodes of orthostatic hypotension limiting mobility, activity tolerance and progress. pt stated that he usually just stays on the couch Social History Household Members spouse Living Arrangements Apartment/Condo Number of Stairs To Enter/Railing? per EMR: pt has 2 homes: [place] house: 1 level with 5 steps B rails to enter [place] house: multi-level: 2 step entry 3 steps down to living room has a chair lift to the bedroom level Home Environment Standard Height Toilet,Tub/ Shower Home Equipment Four Wheel Walker,Manual Wheelchair,Shower Seat with Backrest,Grab Bars In Shower M2 PT-IP Current Condition Start: 09/01/22 14:38 Freq: Status: Active Protocol: Document 09/01/22 13:30 AB (Rec: 09/01/22 15:13 AB [id number]) Physical Therapy Current Condition Current Condition Evaluation Date 09/01/22 Treatment Diagnosis s/p fall; difficulty in walking Onset Date 09/01/22 M3 PT-IP Subjective Start: 09/01/22 14:38 Freq: Status: Active Protocol: Document 09/01/22 13:30 AB (Rec: 09/01/22 15:13 AB [id number]) Subjective Physical Therapy Visit Type Type Initial Evaluation Visit Start Time 13:30 Visit Stop Time 14:00 Total Visit Minutes 30 Number of DUMPER BULK SYSTEM Visits 0 Physical Therapy Visit Comments Patient Comments pt is pleasantly confuse and agreed to move with therapy M4 PT-IP Mobility and Gait Start: 09/01/22 14:38 Freq: Status: Active Protocol: Document 09/01/22 13:30 AB (Rec: 09/01/22 15:13 AB [id number]) PT-Bed Mobility Assessment Supine to Sit Supine to Sit Maximum Assistance,2 Person Assistance Sit to Supine Sit to Supine Maximum Assistance,2 Person Assistance PT-Transfer Assessment Comments Mobility Comments found pt supine in bed. pt without RUE sling(per EMR R humeral fx and sling ordered by MD at that time). informed nurse and nurse provided a sling for pt. Pt seen together with OT due to pt's complex medical condition requiring co-tx. BP in supine: 189/84. pt completed supine to sit max A x 2 and max cues. max A for sitting balance with increase posterior trunk lean and unable to correct with cues provided. assisted pt with sling management. BP checked: 77/58 with pt complaining of dizziness. assisted pt back to bed max A x 2 for sit to supine. positioned in bed. BP checked: 143/68. informed nurse and disease case manager regarding pt's orthostatic hypotension limiting PT intervention. Pt needing to be more medically stable before PT can proceed with mobility intervention. Gait Assessment Comments Gait Comments unable at this time PT-Balance Assessment Sitting Balance and Reactions Static Sitting Balance Ability Poor Dynamic Sitting Balance Ability Poor M5 PT-IP Objective Assessments Start: 09/01/22 14:38 Freq: Status: Active Protocol: Document 09/01/22 13:30 AB (Rec: 09/01/22 15:13 AB [id number]) Orientation Orientation/Cognition Level of Alertness Confusional State Orientation Name Safety Awareness Decreased Safety Awareness Memory Description Short Term Impaired,Crm System Administrator Impaired Gross Range of Motion Lower Extremity ROM Impairments BLE hamstring tightness with decrease knee extension on BLE Strength Lower Extremity Strength Hip 4-/5 Knee 3+/5 Muscle Tone Muscle Tone WNL Yes M6 PT-IP Treatment Start: 09/01/22 14:38 Freq: Status: Active Protocol: Document 09/01/22 13:30 AB (Rec: 09/01/22 15:13 AB [email or web address]) Physical Therapy Treatment Education Education Provided Safety M7 PT-IP Assessment and Plan Start: 09/01/22 14:38 Freq: Status: Active Protocol: Document 09/01/22 13:30 AB (Rec: 09/01/22 15:13 AB [id number]) PT Summary Assessment and Plan Potential Rehabilitation Potential Fair Status of Condition at Evaluation Unstable Summary Impairments Pain,ROM,Strength,Balance, Coordination,Sensation,Tone, Cognition,Bed Mobility, Transfers,Gait,Activity Tolerance Assessment Summary PT eval received from ER. pt was admitted to the hospital to 08/18 s/p fall sustaining a R humeral fx. No sx intervention needed and pt was put on a sling for conservative management. pt has received PT during last hospital stay but with limited progress due to pt's orthostatic hypotension as well as decrease cognition with dx of Lewy Body dementia. pt was needed max Ax2 for bed mobility and sitting on EOB and unable to do much activity due to orthostatic hypotension. d/c planners unable to obtain a SNF placement for pt and eventually just went home with spouse to assist him and HH services. pt stated that he just usually stays on the couch. PT eval completed. Pt continues to have orthostatic hypotension: supine: 189/84 and decreased to 77/58 in sitting. pt unable to participate and tolerate much activity due to decrease in BP with c/o dizziness. Pt continues to require max A x 2 for sitting on EOB. Nurse Benjie and d/c senior planner Chata informed regarding pt's orthostatic hypotension. Pt needing to be more medically stable to do PT. No further PT until pt's BP is more stable to do PT. Frequency of Treatment Frequency Of Treatment Discharge Precautions Other Precautions BP Recommendations To Nursing Amount of Assist Needed Mechanical Lift Discharge Recommendations PT Discharge Recommendations Home with 24/7 Assist Available,Home Health Other Discharge Recommendations Home with 24/7 assist and HH services vs LTC Transportation Needs at Discharge Stretcher/Ambulance
--- NOTE | 2022-09-01 13:56 | CM.DANOTE ---
This is a 81-year-old with known Lewy body dementia, diabetes, hypertension, dyslipidemia pacemaker on aspirin daily. Patient is seen today for ground level fall his states that she had him on the couch she had put coffee table to keep him from rolling off the couch and he managed to roll off the couch across the coffee table and land on the floor. Pt was recently seen at [facility] for a humeral fracture on 08/13/22. Pt has VA and Medicare A+B. [facility] called pt's for information, as pt is not great historian. Pt's , Juliana reports that pt has been continuously weak and experiencing increasing falls since his hospitalization early August. At that time, SW attempted to get pt to a SNF but was unable to find a bed so pt discharged home with HH. Juliana reports that this is not enough support and she does not feel like it is safe for him to dc back home. Juliana reports that she is [facility] with the [facility] to [facility]. Juliana also reports that she was in communication with someone from [facility], who told her that private pay residential care would be around $8,000 a month, which she reports is too expensive. [facility] explained that senior care care starts around $6,000 a month for some [facility]. Juliana reports that she wants pt to get rehab and then have him come home. Juliana requested resources for private pay caregivers, which [facility] provided. [facility] discussed with ED Provider, who ordered PT and OT consult. Plan: [facility] will continue to follow for safe discharge planning. JOBY Veloz Discharge Planning/Care Management CM Discharge Assessment Start: 09/01/22 13:52 Freq: Status: Active Protocol: Document 09/01/22 13:52 (Rec: 09/01/22 13:56 [id number]) Discharge Planning Assessment Assigned Automobile Upholsterer JOBY Veloz DPOA/Assigned Designee Name Juliana Howe Contact Information [phone] Advance Directives? Yes Advance Directives on File No: Not on file. May be on file at [place]. History Provided By Patient,Family Member Has Patient been admitted in last 30 Yes days? Prior Living Arrangements Apartment/Condo Household Members spouse Type of transporation used prior to Relies on Others admit Independent with ADL's No Is patient alert and oriented? Yes Needs Assistance With Bathing,Grooming,Meal Prep, Toileting,Managing Medications ,Home Chores / Shopping Comment Pt was fully independent with ADLs prior to a fall and subsequent fracture in early August. Since that time, pt has needed assistance with transfers, dressing, bathing, toileting, and food prep/med management. Caregiver for Another No Community Services used prior to Physical Therapy,Home Health admission: Nurse DME Already Rented / Owned Wheelchair,FWW / Walker Comment Pt has a manual wheelchair and a 4WW. Pt was not using either regularly before admission. Patient/Family Preference Care Home Facility Discharge Plan Care Home Facility Transportation Arrangement Pt's , Juliana vs medical transport. Referrals Initiated Care Home Whiteboard Updated in Patient Room with Yes name and ext. # of Automobile Upholsterer Please Provide Date Initial DC 09/01/22 Assessment Was Performed
--- NOTE | 2022-09-01 14:00 | OT.IP.EVAL ---
Past Medical History (Last Reviewed 09/01/22 @ 11:19 by Yashira Mesa DO) Acute urinary retention Diabetes mellitus Great toe amputation status Hyperlipidemia Hypertension Surgical History (Last Reviewed 09/01/22 @ 11:19 by Yashira Mesa DO) History of permanent cardiac pacemaker placement Occupational Therapy Inpatient Evaluation/Re-Eval M1 PT/OT-IP Prior Functional Status Start: 09/01/22 14:38 Freq: Status: Active Protocol: Document 09/01/22 13:30 [facility] (Rec: 09/01/22 16:43 [facility] [id number]) Medical Review Prior Functional Status Medical History Reviewed Yes Communication able to make needs known but with confusion Mobility and Gait pt s/p fall and sustained a R humeral fx 08/13 and admitted to the hospital 08/14/ to . pt d/c to home 08/18 and spouse assists pt. upon d/c: PT recommending brenna lift transfers, 03/04 care for pt. Pt has been receiving PT last hospital stay and was requiring max A x 2 sitting on EOB with episodes of orthostatic hypotension limiting mobility, activity tolerance and progress. pt stated that he usually just stays on the couch Activities of Daily Living and IADL's Pt states mainly just sleeps on the couch and does not change his clothes out. Pt also states he does not drink much water and therefore does not use the bathroom much. Social History Household Members spouse Living Arrangements Apartment/Condo Number of Stairs To Enter/Railing? per EMR: pt has 2 homes: [place] house: 1 level with 5 steps B rails to enter [place] house: multi-level: 2 step entry 3 steps down to living room has a chair lift to the bedroom level Home Environment Standard Height Toilet,Tub/ Shower Home Equipment Four Wheel Walker,Manual Wheelchair,Shower Seat with Backrest,Grab Bars In Shower M2 OT-IP Current Condition Start: 09/01/22 16:11 Freq: Status: Active Protocol: Document 09/01/22 13:30 [facility] (Rec: 09/01/22 16:43 [facility] [id number]) Occupational Therapy Current Condition Current Condition Evaluation Date 09/01/22 Treatment Diagnosis s/p fall Diagnosis Onset Date 09/01/22 Post Operative Precautions Shoulder Precautions Sling Other Precautions Pt had a fall on 08/13/22 resulting in right humeral fracture and sling was issued. In addition pt had right hip contusion and / Jonathan at that time cleared pt for WBAT to RLE. Weight Bearing Status Weight Bearing Status Non-Weight Bearing Allowed Weight Bearing Amount (enter % NWB RUE or #) (%) M3 OT- IP Subjective and Pain Start: 09/01/22 16:11 Freq: Status: Active Protocol: Document 09/01/22 13:30 [facility] (Rec: 09/01/22 16:43 [facility] [id number]) OT- Subjective Occupational Therapy Visit Type Type Initial Evaluation Visit Start Time 13:30 Visit Stop Time 14:00 Total Visit Minutes 30 Occupational Therapy Visit Comments Patient Comments Pt willing to get up. Patient/Caregiver Goals Pt did not state. M4 OT- IP ADL's Start: 09/01/22 16:09 Freq: Status: Active Protocol: Document 09/01/22 13:30 [facility] (Rec: 09/01/22 16:43 [facility] [id number]) OT [id number] Comments OT Self-Feeding Comments Not at meal time. OT ADL-Grooming Comments OT Grooming Comments Not performed. OT ADL-Oral Care Comments Oral Care Comments Not performed. OT ADL-Dressing General Eval Lower Body Dressing Ability Maximum Assistance,Total Assistance Comments OT Dressing Comments Assist for sling, gown andn socks. OT ADL-Toileting Comments OT Toileting Comments NOt performed. OT ADL-Bathing Comments OT Bathing Comments Sponge bath more appropriate at this time. M5 OT- IP IADL's Start: 09/01/22 16:11 Freq: Status: Active Protocol: Document 09/01/22 13:30 [facility] (Rec: 09/01/22 16:43 [facility] [id number]) OT-Instrumental Activities of Daily Living Deficits IADL Deficits Identified Deficits Home Safety Awareness Ability to Problem Solve Emergency Unable to Problem Solve Situations Home Safety Comments Pt is confused but pleasant and that his does all the needs at home at this time. Medication Management Medication Management Caregiver Administers Money Management Money Management Caregiver Provides Assistance Meal Preparation Meal Preparation Caregiver Provides Assist Seafood Packer Seafood Packer Caregiver Provides Assist M6 OT- IP Functional Cognition Start: 09/01/22 16:11 Freq: Status: Active Protocol: Document 09/01/22 13:30 [facility] (Rec: 09/01/22 16:43 [facility] [id number]) Cognitive Factors Limiting Selfcare Function Cognitive Ability Level of Alertness Alert,Confusional State Patient Orientation Name Cognitive Comments Cognitive Assessment Comments Pt mainly orientated to his name and did not realize what city he was in , but after telling him he was in [place] pt able to recall that that he is an [facility]. Pt able to follow simple commands for bed mobility needs. M7 OT- IP Mobility and Balance Start: 09/01/22 16:14 Freq: Status: Active Protocol: Document 09/01/22 13:30 [facility] (Rec: 09/01/22 16:43 [facility] [id number]) OT- Bed Mobility Assessment Supine to Sit Supine to Sit Assist Maximum Assistance,2 Person Assistance Sit to Supine Sit to Supine Assist Maximum Assistance,2 Person Assistance OT-Transfer Assessment Comments Mobility Comments BP supine 189/84 sitting dropped to 77/58 and very symptomatic. Pt heavily leaning posteriorly when up at the edge of the bed and needing MAX AX 1 to sit upright. Unable to proceed due to low BP. Once back in supine pt 143/68. OT- Balance Assessment Sitting Balance and Reactions Static Sitting Balance Ability Poor M8 OT- IP Objective Assessments Start: 09/01/22 16:13 Freq: Status: Active Protocol: Document 09/01/22 13:30 [facility] (Rec: 09/01/22 16:43 [facility] [id number]) OT Strength Upper Extremity Strength Assessment Right Impaired Comments Strength Comments RUE NT due to recent right humeral head fracture. LUE WFL 4+/5 M9 OT- IP Assessment and Plan Start: 09/01/22 16:13 Freq: Status: Active Protocol: Document 09/01/22 13:30 [facility] (Rec: 09/01/22 16:43 [facility] [id number]) OT Summary Assessment and Plan Potential Rehabilitation Potential Fair Analytic Complexity at Evaluation Moderate Summary OT Impairments Range of Motion,Strength, Balance,Functional Cognition, Functional Mobility,Self- Feeding,Grooming,Dressing, Toileting,Bathing,Toilet Transfers,Shower Transfers, Activity Tolerance Progress Towards Goals Slow Progress due to Medical Issues,Slow Progress due to Activity Tolerance,Slow Progress due to Cognition Assessment Summary Pt at this time not medically appropriate for OT as having orthostatic hypotension BP supine 189/84 and drops to 77/ 58 while sitting upright and 143/68 when back in supine. Pt also having BP issues when admitted to the hospital from 08/14/22 to 08/18/22 last time and unable to progress pt due to being symptomatic during change of positions. Therefore discharge pt from OT services at this time.
[2022-09-01 15:16] LABS: Troponin I 0.033 ng/mL (0.01-0.034)
[2022-09-01] MEDS: SODIUM CHLORIDE 0.9% 1,000 ML 1000 ML IV (16:09)
[2022-09-01 18:43] VITALS: BP 100/60; BP 148/65; BP 192/72; PULSE 68; PULSE 77; PULSE 82
[2022-09-01 20:57] VITALS: BP 158/69; PULSE 73; RESP 20; TEMP 36.8; O2SAT 99
[2022-09-01] MEDS: DONEPEZIL 5 MG TABLET 10 MG PO (22:04)
[2022-09-01] MEDS: ATORVASTATIN 20 MG TABLET 40 MG PO (22:04)
[2022-09-01 23:04] VITALS: BP 144/64; PULSE 78; RESP 18; O2SAT 99
[2022-09-02] VITALS (7 sets, daily range): BP systolic 85–150; BP diastolic 49–66; PULSE 64–76; RESP 18–20; O2SAT 97–100
--- NOTE | 2022-09-02 00:03 | PC.NURSE ---
Patient calling out come check her out is she ok patient reports a women fell off the chair and is on the floor. Redirected patient to location and room. It just looks so real Offered warm blankets. Call light in reach. Provider aware of visual hallucinations.
--- NOTE | 2022-09-02 03:57 | PC.NURSE ---
He had large formed brown bm,was cleaned and repositioned.
[2022-09-02 05:26] LABS: Alanine Aminotransferase 25 IU/L (<50); Albumin 3.5 g/dL (3.5-5.0); Albumin Globulin Ratio 1.2 (1.0-2.8); Alkaline Phosphatase 132 U/L (38-126); Aspartate Aminotransferase 32 IU/L (17-59); BUN Creatinine Ratio 28.1 (6-22); Bilirubin Total 3.2 mg/dL (0.2-1.3); Blood Urea Nitrogen 39 mg/dL (9-20); Calcium 8.5 mg/dL (8.4-10.2); Carbon Dioxide 21 mmol/L (22-32); Chloride 112 mmol/L (98-107); Estimated Glomerular Filt Rate 50 mL/min (>60); Globulin 2.9 g/dL (1.7-4.1); Glucose 84 mg/dL (80-110); HEMOLYSIS 27 (0-50); Potassium 4.2 mmol/L (3.4-5.1); Sodium 143 mmol/L (137-145); Total Protein 6.4 g/dL (6.3-8.2)
[2022-09-02] MEDS: ATORVASTATIN 20 MG TABLET 40 MG PO (10:20)
[2022-09-02] MEDS: FINASTERIDE 5 MG TABLET PO (10:20)
[2022-09-02] MEDS: TAMSULOSIN 0.4 MG CAPSULE PO (10:21)
--- NOTE | 2022-09-02 12:02 | PC.NURSE ---
spoke with patients , Juliana, updated her and will call back after PT eval
[2022-09-02] MEDS: MECLIZINE HCL 12.5 MG TABLET 25 MG PO (12:11)
--- NOTE | 2022-09-02 14:21 | PT-IP ANOTE ---
Multiple calls received from ED this morning regarding pt. PT eval completed yesterday but pt is not medically stable to do further PT due to orthostatic hypotension. manager alliance was aware and stated that she will inform the doctor. ED called on when pt will be seen for PT. Informed ED regarding pt's BP stability to do PT and to make sure that pt's BP is now stable before PT can evaluate again. ED called again and asked for PT after some time but again has not have any orthostatic BP readings/info provided to PT. REceived PT eval order this afternoon. Checked EMR and vitals signs shows 135/60 in supine and 85/49 in sitting. Called ED to clarify PT eval order and appropriateness for PT considering pt is still not medically stable to participate with PT, ED front office supervisor personnel stated that she will relay message to the primary nurse. informed casework specialist and is aware. Received a call back from ED and stated that nurse and the doctor agreed that pt is not appropriate for PT at this time and to d/c PT eval order.
[2022-09-02] MEDS: SODIUM CHLORIDE 0.9% 1,000 ML 150 ML IV (15:23)
--- NOTE | 2022-09-02 16:23 | PC.NURSE ---
Attempted IV insertions on patient, unsuccessful.
--- NOTE | 2022-09-02 16:58 | PC.NURSE ---
1530- Pt IV not found. Unsure if pt pulled it out. RN Liliana attempted 3 IV starts with no success. 1659: HUMPHREY Fernandez at bedside to place IV.
[2022-09-02] MEDS: DONEPEZIL 5 MG TABLET 10 MG PO (20:30)
[2022-09-03] MEDS: SODIUM CHLORIDE 0.9% 1,000 ML 150 ML IV ×2 (00:05→06:11)
[2022-09-03 05:09] VITALS: BP 120/60; PULSE 70; O2SAT 100
[2022-09-03] MEDS: MIDODRINE HCL 5 MG TABLET PO (06:27)
--- NOTE | 2022-09-03 08:23 | CM.DPNOTE ---
Addendum entered by JOBY Jarrett 09/03/22 08:32: ADD: According to conversation with [facility] geriatric social worker Bren Brito Amaris [phone] ext [phone]- patient is not service connected and so does not qualify for [facility] or [facility] contracted SNF. Patient is currently on the wait list for home and attendance program and the hospital bed and brenna lift that patient's [facility] P[facility] ordered is under review In summary, the [facility] is not providing any DME and/or group home care assist at this time JW Original Note: DCP Note This patient familiar to this STRIP CLEANER from his prior admission on the acute care floor Upon medical clearance from the acute care floor, no SNF had been secured and spouse had declined the need to call agencies for in home assistance. Spouse had also declined the need for ДМИТРИЙ at this time. Yesterday, placed call to February at [facility] and Kavya at [facility], both had understood that patient had a prior qualifying stay but could not admit patient to longterm facility with no skilled needs Patient has lewey body dementia and needs are alf at this time. Insurance does not pay for alf care in a SNF. Kavya at [facility] recommended [facility] [place], stating they have beds and can transition people to [facility] from private payment as needed. There are, of course, numerous memory care units that can be attempted Then spoke w/Regina, PT, who explained that therapies cannot work with patient unless his BP is in a better range, patient's blood pressure had been dropping in half with movement Relayed above to ER nursing team which they agreed to relay to Yashira Mesa, who was attending at the time. STRIP CLEANER team will continue to assist w/coordination of care today 09.03.22 as needed; patient would benefit from either increased care at home or memory care placement JOBY Schwarz
[2022-09-03] MEDS: TAMSULOSIN 0.4 MG CAPSULE PO (08:30)
[2022-09-03] MEDS: FINASTERIDE 5 MG TABLET PO (08:31)
[2022-09-03] MEDS: ATORVASTATIN 20 MG TABLET 40 MG PO (08:31)
[2022-09-03 09:31] VITALS: BP 156/67; PULSE 72; RESP 18; TEMP 36.1; O2SAT 99
--- NOTE | 2022-09-03 09:44 | PC.NURSE ---
pt cleaned up from breakfast and incontinent stool. pt aggreeable and cooperative at first then became upset yelling, no, your not going to do anything else, your a killer second rn came in to check on patient and this rn left room
--- NOTE | 2022-09-03 11:30 | PC.NURSE ---
This RNs first interaction with patient. Pt resting quietly, eyes closed, VSS. As I was leaving the room, pt opened his eyes and asked for my name. I introduced myself, we chatted for a few minutes, patient spoke of memories of being in the [employer] in [place]. Shortly after his story telling, he began to cry and then closed his eyes again.
--- NOTE | 2022-09-03 15:01 | CM.DPC ---
DCP Note Continued REGIONAL EDUCATION MANAGER reviews EMR, consults with insulation cupola charger, ED provider and DCP REGIONAL EDUCATION MANAGER. Patient is not appropriate for SNF rehab and has been unable to work with PT due to patient's low blood pressure. REGIONAL EDUCATION MANAGER meets with patient's , and reviews the above. Patient endorses preference for patient to be at home, REGIONAL EDUCATION MANAGER discusses group home care options as well and patient endorses preference for patient to have more supports at home. Patient's endorses that she will hire a caregiver for patient, continue to receive [facility] and order a hospital bed. Patient endorses plans to order hospital bed from [facility] and states it can arrive in 2 weeks. REGIONAL EDUCATION MANAGER discusses referral for Community Bituminous Distributor Operator from [facility] Vignesh Hamilton as well, it is reported that she met with Vignesh and has his business card, agrees to service referral. REGIONAL EDUCATION MANAGER calls Vignesh Hamilton and leaves requesting new referral for patient and . REGIONAL EDUCATION MANAGER calls Mina at [facility] and leaves VM regarding patient's d/c and continued need for [facility] services. REGIONAL EDUCATION MANAGER calls [employer] regarding transportation for patient and any resources for 's availaible. Abdi reports that there is a hospital bed in storage for patient as well as other DME products he may need, Abdi also reports that [facility] can support patient and with transportation to medical appts. Abdi endorses that patient's can call after holiday weekend on Monday to set up the arrival of hospital bed and other services. REGIONAL EDUCATION MANAGER provides patient's with lists of caregiver resources, list of DME resources and contact information for [facility] and [employer]. Patient's plans to call [facility] for hospital bed on Monday. REGIONAL EDUCATION MANAGER discusses BLS transport to home and that insurance may not cover this transport, indicates agreement and understanding. Plan: Patient to d/c to home with [facility] via BLS, patient's to f/u with hospital bed from [facility] as well as other DME and transportation services, patient to f/u with PCP and Ortho. Patient's to hire caregiver to attend to patient's needs. Vignesh Hamilton to f/u with patient's coordination of care as well. BLAKE DixonSW
--- NOTE | 2022-09-03 15:05 | PC.NURSE ---
Spoke to pt's , she states the memory doctor has ordered Quetiapine 25mg PRN for agitation. Advised ED physician. Pt's requested a small Rx of Quetiapine to cover until mail order Rx arrives at home.
[2022-09-03] MEDS: QUETIAPINE 25 MG TABLET PO (15:29)
[2022-09-03 16:04] VITALS: BP 136/61; PULSE 64; RESP 18; O2SAT 100
== END 2022-09-03 16:14 | disposition home or self-care (01) ==
PROVIDERS: Emergency Provider Emergency Medicine
DX: S42.301A Unspecified fracture of shaft of humerus, right arm, initial encounter for closed fracture (principal); M54.2 Cervicalgia; R29.6 Repeated falls; W07.XXXA Fall from chair, initial encounter; N18.9 Chronic kidney disease, unspecified; Z95.0 Presence of cardiac pacemaker; Z79.82 Long term (current) use of aspirin; Z20.822 Contact with and (suspected) exposure to COVID-19
CPT/HCPCS: 36415; 70450; 71045; 72125; 73030; 80053; 81003; 82550; 82962; 83690; 84484; 85025; 87635; 96360; 96361; 97163; 99284; 99285; C9803

== ENCOUNTER 2022-10-25 07:07 | Emergency (ER) | payer OTHER, SELFPAY ==
[2022-08-14 12:47] VITALS: BMI 26.6
[2022-10-25] VITALS (25 sets, daily range): BP systolic 127–188; BP diastolic 58–117; PULSE 60–78; RESP 18–20; O2SAT 94–100; BMI 27.1
--- NOTE | 2022-10-25 07:16 | DI.RAD.S_ITS ---
PROCEDURE: XR CHEST 1V INDICATIONS: weakness, hypotension TECHNIQUE: One view of the chest was acquired. COMPARISON: [facility], CR, XR CHEST 1V, 09/01/2022, 12:44. FINDINGS: Surgical changes and devices: Left pacemaker. Lungs and pleura: Lungs are clear. No pleural effusions or pneumothorax. Mediastinum: Mediastinal contours appear normal. Heart size is normal. Bones and chest wall: No suspicious bony lesions. Prior right humeral neck fracture, similar. Overlying soft tissues appear unremarkable. IMPRESSION: No acute cardiopulmonary abnormality. Dictated by: Kye Melo M.D. on 10/25/2022 at 8:50 Approved by: Kye Melo M.D. on 10/25/2022 at 8:52
[2022-10-25 07:28] LABS: Add Manual Diff / Slide Review NO; Basophils Absolute Auto 100 /uL (0-100); Basophils Percent Auto 0.7 % (0-2); Eosinophils Absolute Auto 200 /uL (0-450); Hematocrit 39.4 % (41-53); Hemoglobin 13.1 g/dL (13.5-17.5); Lymphocytes Absolute Auto 2200 /uL (1100-4500); Lymphocytes Percent Auto 20.4 % (25-40); Mean Corpuscular HGB Conc 33.3 % (30-36); Mean Corpuscular Hemoglobin 27.9 PG (26-34); Mean Corpuscular Volume 83.8 fL (80-100); Monocytes Absolute Auto 1000 /uL (0-900); Monocytes Percent Auto 9.4 % (3-14); Neutrophils Absolute Auto 7200 /uL (1500-7000); Neutrophils Percent Auto 67.5 % (50-75); Platelet Count 199 X10^3/uL (150-400); Red Cell Distribution Width 15.4 % (11.6-14.8); White Blood Cell Count 10.6 X10^3/uL (4.5-11.0)
[2022-10-25 07:30] LABS: INR 1.1 (0.9-1.3); Prothrombin Time 12.3 SECONDS (10.1-12.7)
[2022-10-25] MEDS: SODIUM CHLORIDE 0.9% 1,000 ML 1000 ML IV (07:30)
--- NOTE | 2022-10-25 07:33 | ED_ITS ---
HPI - General Adult General Chief complaint: Weakness Stated complaint: weakness- dementia Time Seen by Provider: 10/25/22 07:09 Source: patient and EMS Mode of arrival: EMS History of Present Illness HPI narrative: 82-year-old male former smoker with dementia, chronic kidney disease, diabetes, hypertension and hyperlipidemia presents by EMS for evaluation of weakness. He is very pleasantly confused and a poor historian, elements of history are from and paramedics. He denies any ongoing symptoms but this morning was feeling a bit weak and lightheaded and eased himself to the floor. He denies any injury in his completely asymptomatic on arrival. Initial blood pressures in the field were in the 70s, patient was given an IV and fluids and by arrival here he was in the 120s. He is had no fever or chills no vomiting but states he had multiple episodes of diarrhea yesterday. She states that he is at his baseline level of confusion. He is had no change in medications or diet, she reports no upper respiratory symptoms such as runny nose, sneeze, cough, chest pain or shortness of breath Related Data Home Medications Medication Instructions Recorded Confirmed aspirin 81 mg tablet,delayed 81 mg PO DAILY ##0 12/13/17 08/16/22 release atorvastatin 40 mg tablet 40 mg PO DAILY ##0 12/13/17 08/16/22 cinnamon bark 500 mg capsule 1,000 mg PO DAILY ##0 12/13/17 08/16/22 (Cinnamon) finasteride 5 mg tablet 5 mg PO DAILY 07/26/18 07/26/18 tamsulosin 0.4 mg capsule 0.4 mg PO DAILY 07/26/18 07/26/18 donepezil 10 mg tablet 10 mg PO DAILY 08/16/22 08/16/22 loperamide 2 mg tablet 2 mg PO Q6H PRN Diarrhea 08/16/22 08/16/22 meclizine 25 mg tablet 25 mg PO BID PRN Vertigo 08/16/22 08/16/22 semaglutide 0.25 mg or 0.5 mg (2 0.5 mg SUBCUT QWEEK 08/16/22 08/16/22 mg/1.5 mL) subcutaneous pen injector (Ozempic) Previous Rx's Medication Instructions Recorded midodrine 5 mg tablet 5 mg PO TID #30 tabs 09/03/22 midodrine 5 mg tablet 5 mg PO TID #60 tabs 09/03/22 quetiapine 25 mg tablet 25 mg PO BID PRN agitation #10 tabs 09/03/22 Allergies Allergy/AdvReac Type Severity Reaction Status Date / Time chlorhexidine Allergy Intermediate Rash Verified 10/25/22 07:19 caffeine [CAFFEINE] AdvReac Unknown Blurry Verified 10/25/22 07:19 Vision Review of Systems Review of Systems ROS Unobtainable: Unobtainable due to mental status/LOC Patient History Medical History (Updated 10/25/22 @ 11:48 by Sathish Flores DO) Acute urinary retention Diabetes mellitus Great toe amputation status Hyperlipidemia Hypertension Surgical History History of permanent cardiac pacemaker placement Family History Father Cancer Social History household members: spouse Smoking Status: Former smoker alcohol intake: former Smoking Status: Former smoker alcohol intake frequency: holidays/special occasions only Substance Use Type: does not use Exam Narrative Exam Narrative: GENERAL: [82] year old patient appears stated age. Well-developed patient, in mi ld distress. GCS 14 (pleasantly confused) at baseline per HEAD: Atraumatic. Normocephalic. EYES: Pupils equal round and reactive. Extraocular motions intact. No scleral icterus. No injection or drainage. ENT: Nose without bleeding, purulent drainage. Throat without erythema, tonsillar hypertrophy or exudate. Airway patent. NECK: Trachea midline. Non tender CARDIOVASCULAR: Regular rate and rhythm without murmurs, gallops, or rubs. RESPIRATORY: Clear to auscultation. Breath sounds equal bilaterally. No wheezes, rales, or rhonchi. GASTROINTESTINAL: Abdomen soft, non-tender, nondistended. EXTREMITIES: No edema or joint tenderness. BACK: Nontender without deformity or crepitance. No flank tenderness. NEURO: Cranial nerves 2-12 grossly intact SKIN: No rash or erythema of visible areas Initial Vital Signs Initial Vital Signs: Vital Signs Pulse Rate 60 10/25/22 07:13 Pulse Oximetry 100 10/25/22 07:13 Course Orders Ordered: ED Orders 10/25/22 07:10 Complete Blood Count AUTO DIFF Stat Comprehensive Metabolic Panel Stat Lactate (Lactic Acid) Stat Lipase Stat Magnesium Stat NT-proBNP (BNP-Adult 18+) Stat Prothrombin Time INR Stat Troponin & CK Cardiac Panel Stat 10/25/22 07:16 Chest [XR chest 1V] Stat EKG-12 Lead Stat 10/25/22 07:49 Covid-19 + FLU A/B + RSV - PCR Stat 10/25/22 08:02 Blood Culture Stat 10/25/22 08:37 Consult to [facility] - Lead Burner Supervisor Stat 10/25/22 10:55 Ictotest Urine Stat Urine Microscopic Stat Discontinued Medications Sodium Chloride (Normal Saline 0.9%) 1,000 mls @ 1,000 mls/hr IV BOLUS ONE Stop: 10/25/22 08:14 Last Infusion: 10/25/22 09:15 Dose: 0 mls/hr Documented By: Admin: 10/25/22 07:30 Dose: 1,000 mls/hr Documented By: ISAAC Sodium Chloride (Normal Saline 0.9%) 1,000 mls @ 1,000 mls/hr IV BOLUS ONE Stop: 10/25/22 09:56 Last Admin: 10/25/22 11:58 Dose: Not Given Documented By: ISAAC Reevaluation(s) Reevaluation #1: Patient continues to be asymptomatic Time: 10:41 Reevaluation #2: Patient continues to be asymptomatic Vital Signs Vital signs: Vital Signs - 8 hr 10/25/22 07:20 10/25/22 07:13 10/25/22 07:30 Pulse Rate 60 60 Respiratory Rate 18 Blood Pressure 128/58 L 127/59 L Pulse Oximetry 99 100 Oxygen Delivery Method Room Air 10/25/22 07:30 10/25/22 08:00 10/25/22 08:05 Pulse Rate 61 69 74 Respiratory Rate Blood Pressure Pulse Oximetry 99 100 100 Oxygen Delivery Method 10/25/22 08:05 10/25/22 08:30 10/25/22 08:30 Pulse Rate 68 Respiratory Rate Blood Pressure 141/66 H 166/71 H Pulse Oximetry 100 Oxygen Delivery Method 10/25/22 09:19 10/25/22 09:21 10/25/22 09:21 Pulse Rate 70 77 Respiratory Rate Blood Pressure 153/117 H Pulse Oximetry 100 96 Oxygen Delivery Method 10/25/22 09:22 10/25/22 09:22 10/25/22 09:30 Pulse Rate 69 Respiratory Rate Blood Pressure 180/72 H 188/80 H Pulse Oximetry 100 Oxygen Delivery Method 10/25/22 09:30 10/25/22 10:00 10/25/22 10:01 Pulse Rate 73 77 Respiratory Rate Blood Pressure 151/71 H Pulse Oximetry 100 100 Oxygen Delivery Method 10/25/22 10:01 10/25/22 10:30 10/25/22 10:31 Pulse Rate 73 63 64 Respiratory Rate 18 20 Blood Pressure Pulse Oximetry 100 100 98 Oxygen Delivery Method Room Air 10/25/22 10:31 10/25/22 11:00 10/25/22 11:01 Pulse Rate 77 75 Respiratory Rate Blood Pressure 139/61 Pulse Oximetry 94 Oxygen Delivery Method 10/25/22 11:01 10/25/22 11:30 10/25/22 11:31 Pulse Rate 73 73 Respiratory Rate Blood Pressure 142/77 H Pulse Oximetry 100 100 Oxygen Delivery Method 10/25/22 11:34 10/25/22 11:34 10/25/22 12:00 Pulse Rate 76 73 Respiratory Rate 18 Blood Pressure 152/67 H 139/79 Pulse Oximetry 100 Oxygen Delivery Method 10/25/22 12:00 10/25/22 12:30 10/25/22 12:31 Pulse Rate 78 61 65 Respiratory Rate Blood Pressure Pulse Oximetry 99 99 99 Oxygen Delivery Method 10/25/22 12:31 10/25/22 13:00 10/25/22 13:27 Pulse Rate 69 Respiratory Rate 20 Blood Pressure 159/72 H Pulse Oximetry 99 100 Oxygen Delivery Method 10/25/22 13:28 Pulse Rate Respiratory Rate Blood Pressure 162/74 H Pulse Oximetry Oxygen Delivery Method Medical Decision Making Lab Data 10/25/22 07:10 10/25/22 07:10 Labs: Lab Results 10/25/22 10/25/22 10/25/22 Range/Units 07:10 07:10 07:10 WBC 10.6 (4.5-11.0) X10^3/uL RBC 4.70 (4.5-5.9) X10^6/uL Hgb 13.1 L (13.5-17.5) g/dL Hct 39.4 L (41-53) % MCV 83.8 (80-100) fL MCH 27.9 (26-34) PG MCHC 33.3 (30-36) % RDW 15.4 H (11.6-14.8) % Plt Count 199 (150-400) X10^3/uL Neut % (Auto) 67.5 (50-75) % Lymph % (Auto) 20.4 L (25-40) % [place] % (Auto) 9.4 (3-14) % Eos % (Auto) 2.0 (2-4) % Baso % (Auto) 0.7 (0-2) % Neut # (Auto) 7200 H (3066-9687) /uL Lymph # (Auto) 2200 (7681-4162) /uL [place] # (Auto) 1000 H (0-900) /uL Eos # (Auto) 200 (0-450) /uL Baso # (Auto) 100 (0-100) /uL PT 12.3 (10.1-12.7) SECONDS INR 1.1 (0.9-1.3) Sodium 144 (137-145) mmol/L Potassium 4.7 (3.4-5.1) mmol/L Chloride 108 H (98-107) mmol/L Carbon Dioxide 22 (22-32) mmol/L BUN 31 H (9-20) mg/dL Creatinine 1.73 H (0.66-1.25) mg/dL Estimated GFR 38 L (>60) mL/min BUN/Creatinine Ratio 17.9 (6-22) Glucose 95 (80-110) mg/dL Lactate (0.7-2.1) mmol/L Calcium 9.4 (8.4-10.2) mg/dL Magnesium 1.6 (1.6-2.3) mg/dL Total Bilirubin 2.0 H (0.2-1.3) mg/dL AST 37 (17-59) IU/L ALT 28 (<50) IU/L Alkaline Phosphatase 127 H (38-126) U/L Total Creatine Kinase 72 (55-170) U/L CK-MB (CK-2) TNP CK-MB (CK-2) Rel Index TNP Troponin I 0.015 (0.01-0.034) ng/mL NT-Pro-B Natriuret Pep 1230 H (<450) pg/mL Total Protein 7.6 (6.3-8.2) g/dL Albumin 4.2 (3.5-5.0) g/dL Globulin 3.4 (1.7-4.1) g/dL Albumin/Globulin Ratio 1.2 (1.0-2.8) Lipase 236 (23-300) U/L Ur Bilirubin Confirm (Negative) Urine RBC (0-5/HPF) Urine WBC (0-5/HPF) Urine Bacteria (None) Ur Culture Indicated? SARS-CoV-2 (PCR) (Negative) Influenza A (RT-PCR) (NEGATIVE) Influenza B (RT-PCR) (NEGATIVE) RSV (PCR) (Negative) 10/25/22 10/25/22 10/25/22 Range/Units 07:10 07:49 09:42 WBC (4.5-11.0) X10^3/uL RBC (4.5-5.9) X10^6/uL Hgb (13.5-17.5) g/dL Hct (41-53) % MCV (80-100) fL MCH (26-34) PG MCHC (30-36) % RDW (11.6-14.8) % Plt Count (150-400) X10^3/uL Neut % (Auto) (50-75) % Lymph % (Auto) (25-40) % [place] % (Auto) (3-14) % Eos % (Auto) (2-4) % Baso % (Auto) (0-2) % Neut # (Auto) (4318-3435) /uL Lymph # (Auto) (1023-7375) /uL [place] # (Auto) (0-900) /uL Eos # (Auto) (0-450) /uL Baso # (Auto) (0-100) /uL PT (10.1-12.7) SECONDS INR (0.9-1.3) Sodium (137-145) mmol/L Potassium (3.4-5.1) mmol/L Chloride (98-107) mmol/L Carbon Dioxide (22-32) mmol/L BUN (9-20) mg/dL Creatinine (0.66-1.25) mg/dL Estimated GFR (>60) mL/min BUN/Creatinine Ratio (6-22) Glucose (80-110) mg/dL Lactate 3.6 H 1.8 (0.7-2.1) mmol/L Calcium (8.4-10.2) mg/dL Magnesium (1.6-2.3) mg/dL Total Bilirubin (0.2-1.3) mg/dL AST (17-59) IU/L ALT (<50) IU/L Alkaline Phosphatase (38-126) U/L Total Creatine Kinase (55-170) U/L CK-MB (CK-2) CK-MB (CK-2) Rel Index Troponin I (0.01-0.034) ng/mL NT-Pro-B Natriuret Pep (<450) pg/mL Total Protein (6.3-8.2) g/dL Albumin (3.5-5.0) g/dL Globulin (1.7-4.1) g/dL Albumin/Globulin Ratio (1.0-2.8) Lipase (23-300) U/L Ur Bilirubin Confirm (Negative) Urine RBC (0-5/HPF) Urine WBC (0-5/HPF) Urine Bacteria (None) Ur Culture Indicated? SARS-CoV-2 (PCR) Negative (Negative) Influenza A (RT-PCR) Flu a negative (NEGATIVE) Influenza B (RT-PCR) Flu b negative (NEGATIVE) RSV (PCR) Negative (Negative) 10/25/22 Range/Units 10:55 WBC (4.5-11.0) X10^3/uL RBC (4.5-5.9) X10^6/uL Hgb (13.5-17.5) g/dL Hct (41-53) % MCV (80-100) fL MCH (26-34) PG MCHC (30-36) % RDW (11.6-14.8) % Plt Count (150-400) X10^3/uL Neut % (Auto) (50-75) % Lymph % (Auto) (25-40) % [place] % (Auto) (3-14) % Eos % (Auto) (2-4) % Baso % (Auto) (0-2) % Neut # (Auto) (3583-7628) /uL Lymph # (Auto) (6541-4545) /uL [place] # (Auto) (0-900) /uL Eos # (Auto) (0-450) /uL Baso # (Auto) (0-100) /uL PT (10.1-12.7) SECONDS INR (0.9-1.3) Sodium (137-145) mmol/L Potassium (3.4-5.1) mmol/L Chloride (98-107) mmol/L Carbon Dioxide (22-32) mmol/L BUN (9-20) mg/dL Creatinine (0.66-1.25) mg/dL Estimated GFR (>60) mL/min BUN/Creatinine Ratio (6-22) Glucose (80-110) mg/dL Lactate (0.7-2.1) mmol/L Calcium (8.4-10.2) mg/dL Magnesium (1.6-2.3) mg/dL Total Bilirubin (0.2-1.3) mg/dL AST (17-59) IU/L ALT (<50) IU/L Alkaline Phosphatase (38-126) U/L Total Creatine Kinase (55-170) U/L CK-MB (CK-2) CK-MB (CK-2) Rel Index Troponin I (0.01-0.034) ng/mL NT-Pro-B Natriuret Pep (<450) pg/mL Total Protein (6.3-8.2) g/dL Albumin (3.5-5.0) g/dL Globulin (1.7-4.1) g/dL Albumin/Globulin Ratio (1.0-2.8) Lipase (23-300) U/L Ur Bilirubin Confirm Negative (Negative) Urine RBC 0-1/hpf (0-5/HPF) Urine WBC 0-1/hpf (0-5/HPF) Urine Bacteria Few (2-10) H (None) Ur Culture Indicated? Cult not indicated SARS-CoV-2 (PCR) (Negative) Influenza A (RT-PCR) (NEGATIVE) Influenza B (RT-PCR) (NEGATIVE) RSV (PCR) (Negative) Urine Dip Bedside Urine Glucose Negative Bedside Urine Bilirubin + 1 Bedside Urine Ketone - Negative Urine Specific [place] 1.025 Bedside Urine Occult Blood - Negative Bedside Urine pH 6.0 Bedside Urine Protein - Negative Bedside Urine Urobilinogen - Negative Bedside Urine Nitrite - Negative Bedside Urine Leukocytes - Negative Esterase Point of care testing: Urine Dip Bedside Urine Glucose Negative Bedside Urine Bilirubin + 1 Bedside Urine Ketone - Negative Urine Specific [place] 1.025 Bedside Urine Occult Blood - Negative Bedside Urine pH 6.0 Bedside Urine Protein - Negative Bedside Urine Urobilinogen - Negative Bedside Urine Nitrite - Negative Bedside Urine Leukocytes - Negative Esterase MDM Narrative Medical decision making narrative: [82-year-old demented male with recent diarrhea presents for evaluation of weakness. ] Multiple etiologies for patient's symptoms considered including, but not limited to: Dehydration, bowel obstruction, infection [] Prior Charts reviewed: Multiple prior notes evaluated Labs reviewed and interpreted by myself: No significant or obvious abnormality, initial lactate rapidly improved with fluids, suspicion of significant underlying infection extremely low Imaging reviewed: Consultations: Patient's symptoms improved over duration of stay with above-stated therapies. Findings and discharge diagnosis discussed with patient/family followed by verbalization of understanding Return precautions discussed with patient/family whom verbalize understanding of diagnosis and plan Discharge Plan Departure Patient Disposition: Home Clinical Impression: Acute dehydration, Diarrhea Instructions: DI for Dehydration -- Adult Activity Restrictions/Additional Instructions: *You have been diagnosed with [weakness, diarrhea and] mild dehydration *What to do: *Please continue to take your regular medications as directed. [ ] New medication prescriptions sent to your pharmacy: [ ] [ ] New medication written as a paper prescription [x ] No new medications given *Please follow up with your primary care provider in 2-3 days, call for an appointment. Let them know you were seen in the Emergency Department and that we ask that you be seen in follow up. We will electronically transmit a record of today's note if your PCP is in our system *If you do not have a primary care provider please contact the [facility] Resource line at [phone]. They will ask some questions about your medical history and help get you set up with a doctor in the community. *Return to Emergency Department if you should have any new, worsening or concerning symptoms, such as [fever greater than 101 F, shaking chills, worsening pain, persistent vomiting or other bothersome symptoms] Prescriptions: No Action atorvastatin 40 MG tablet 40 mg PO DAILY Qty: 0 cinnamon bark [Cinnamon] 500 mg Capsule 1,000 mg PO DAILY Qty: 0 aspirin 81 MG tablet,delayed release (DR/EC) 81 mg PO DAILY Qty: 0 tamsulosin 0.4 mg Capsule 0.4 mg PO DAILY finasteride 5 mg Tablet 5 mg PO DAILY Label Comments: [facility] midodrine 5 mg tablet 5 mg PO TID Qty: 60 0RF Rx Instructions: do not give last dose of day after 6PM or within 4 hrs of bedtime midodrine 5 mg tablet 5 mg PO TID Qty: 30 0RF Rx Instructions: do not give last dose of day after 6PM or within 4 hrs of bedtime quetiapine 25 mg tablet 25 mg PO BID PRN (Reason: agitation) Qty: 10 0RF donepezil 10 mg Tablet 10 mg PO DAILY loperamide 2 mg Tablet 2 mg PO Q6H PRN (Reason: Diarrhea) meclizine 25 mg Tablet 25 mg PO BID PRN (Reason: Vertigo) Ozempic 0.25 mg or 0.5 mg(2 mg/1.5 mL) Pen Injector 0.5 mg SUBCUT QWEEK Referrals: Miscellaneous,Doctor, [Non-Staff] - Stand Alone Forms: Patient Portal/API
[2022-10-25 07:39] LABS: Lactate (Lactic Acid) 3.6 mmol/L (0.7-2.1)
[2022-10-25 07:40] LABS: Alanine Aminotransferase 28 IU/L (<50); Albumin 4.2 g/dL (3.5-5.0); Albumin Globulin Ratio 1.2 (1.0-2.8); Alkaline Phosphatase 127 U/L (38-126); Aspartate Aminotransferase 37 IU/L (17-59); BUN Creatinine Ratio 17.9 (6-22); Blood Urea Nitrogen 31 mg/dL (9-20); Calcium 9.4 mg/dL (8.4-10.2); Carbon Dioxide 22 mmol/L (22-32); Chloride 108 mmol/L (98-107); Creatine Kinase 72 U/L (55-170); Estimated Glomerular Filt Rate 38 mL/min (>60); Globulin 3.4 g/dL (1.7-4.1); Glucose 95 mg/dL (80-110); HEMOLYSIS 15 (0-50); Lipase 236 U/L (23-300); Magnesium 1.6 mg/dL (1.6-2.3); Potassium 4.7 mmol/L (3.4-5.1); Sodium 144 mmol/L (137-145); Total Protein 7.6 g/dL (6.3-8.2)
[2022-10-25 07:52] LABS: NT-proBNP (BNP-Adult 18+) 1230 pg/mL (<450); Troponin I 0.015 ng/mL (0.01-0.034)
[2022-10-25 08:34] LABS: Influenza A - CEPHEID Flu A NEGATIVE (NEGATIVE); Influenza B - CEPHEID Flu B NEGATIVE (NEGATIVE); Respiratory Syncytial Virus Negative (Negative)
[2022-10-25 08:40] LABS: COVID-19 CEPHEID 4-PLEX PCR Negative (Negative)
[2022-10-25 09:20] LABS: Reflexed Lactate in 2 Hours Y
[2022-10-25 10:02] LABS: Lactate 2HR (Lactic Acid Rflx) 1.8 mmol/L (0.7-2.1)
--- NOTE | 2022-10-25 10:02 | PC.NURSE ---
pt finished first 1000ml from EMS bag.
[2022-10-25 12:00] LABS: Bacteria Urine Few (2-10); Ictotest Urine Negative (Negative); RBC Urine 0-1/HPF (0-5/HPF); WBC Urine 0-1/HPF (0-5/HPF)
[2022-10-25 12:01] LABS: Culture Indicated Urine Cult Not Indicated
== END 2022-10-25 13:40 | disposition home or self-care (01) ==
PROVIDERS: Emergency Provider Emergency Medicine; PCP Physician Assistant
DX: E86.0 Dehydration (principal); R19.7 Diarrhea, unspecified; F03.90 Unspecified dementia, unspecified severity, without behavioral disturbance, psychotic disturbance, mood disturbance, and anxiety; Z20.822 Contact with and (suspected) exposure to COVID-19
CPT/HCPCS: 0241U; 36415; 71045; 80053; 81003; 81015; 82550; 83605; 83690; 83735; 83880; 84484; 85025; 85610; 87040; 93005; 93010; 96360; 96361; 99284

== ENCOUNTER 2022-11-11 04:26 | Emergency (ER) | payer OTHER, SELFPAY ==
[2022-08-14 12:47] VITALS: BMI 26.6
[2022-11-11] VITALS (25 sets, daily range): BP systolic 134–178; BP diastolic 63–92; PULSE 60–77; RESP 16–38; TEMP 35.9–36.6; O2SAT 92–100; BMI 27.3
--- NOTE | 2022-11-11 04:40 | DI.CT.S_ITS ---
PROCEDURE: CT HEAD/BRAIN WO CON INDICATIONS: found down, midline neck pain TECHNIQUE: Noncontrast 4.5 mm thick angled axial sections acquired from the foramen magnum to the vertex, with coronal and sagittal reformats. For radiation dose reduction, the following was used: automated exposure control, adjustment of mA and/or kV according to patient size. COMPARISON: [facility], CT, CT HEAD/BRAIN WO CON, 09/01/2022, 11:32. FINDINGS: Image quality: Excellent. CSF spaces: Basal cisterns are patent. No extra-axial fluid collections. The ventricles are symmetric in size and shape. Brain: No intracranial bleeds or masses. There is cerebral volume loss for age, with resultant ventricular and sulcal prominence. There are periventricular and deep white matter chronic small vessel ischemic changes. There is intracranial internal carotid artery atherosclerosis. Skull and face: Calvarium and visualized facial bones appear intact, without suspicious lesions. Sinuses: Visualized sinuses and mastoids are clear. IMPRESSION: 1. CT head without acute intracranial abnormalities or acute calvarial fractures. 2. Age-related senescent changes and sequela of chronic small vessel ischemic disease. No significant discrepancy with the restaurant shift supervisor radiology preliminary report. Dictated by: Joe Dawson M.D. on 11/11/2022 at 7:32 Approved by: Joe Dawson M.D. on 11/11/2022 at 7:32
--- NOTE | 2022-11-11 04:40 | DI.CT.S_ITS ---
PROCEDURE: CT CERVICAL SPINE WO CON INDICATIONS: found down, midline neck pain TECHNIQUE: Noncontrast 3 mm thick sections acquired from the skull base to the T4 level. Sagittal and coronal reformats were then constructed. For radiation dose reduction, the following was used: automated exposure control, adjustment of mA and/or kV according to patient size. COMPARISON: [facility], CT, CT CERVICAL SPINE WO CON, 09/01/2022, 11:32. FINDINGS: Image quality: Study degraded by moderate patient motion artifact. Bones: No acute fractures or dislocations. No acute compression fractures of the vertebral bodies. Craniocervical junction is intact. C1-C2 relationship is preserved. Visualized superior ribs are intact. Straightening of cervical lordosis. Moderate-severe multilevel cervical spondylosis with significant disc space loss, moderate degenerative endplate changes, and prominent endplate osteophyte formation. Findings are most severe from C4-5 through C7-T1. No severe canal stenosis identified. Varying degrees of bony neural foraminal stenosis. There is suggestion of cortical disruption of the right mandibular condyle which is related to significant motion artifact at that level. Soft tissues: Prevertebral soft tissues are normal in thickness. No paravertebral hematomas. No apical pneumothoraces. IMPRESSION: 1. CT cervical spine without acute fracture or traumatic malalignment. 2. Straightening of cervical lordosis likely related to positioning and/or concurrent muscle spasms. 3. Moderate-severe multilevel cervical spondylosis most severe from C4-5 through C7-T1. 4. Suggestion of cortical disruption involving the right mandibular condyle. This is favored to represent artifact from significant patient motion artifact at this level. Recommend clinical correlation. No significant discrepancy with the human resources records clerk radiology preliminary report. Dictated by: Joe Dawson M.D. on 11/11/2022 at 7:32 Approved by: Joe Dawson M.D. on 11/11/2022 at 7:38
--- NOTE | 2022-11-11 04:41 | ED_ITS ---
HPI - General Adult <Sathish Flores DO - Last Filed: 11/12/22 06:21> General Chief complaint: Environmental Exposure Stated complaint: found outside in underpants Time Seen by Provider: 11/11/22 04:39 History of Present Illness HPI narrative: 82-year-old male former smoker with history of dementia, hypertension, hyperlipidemia presents by EMS for evaluation of possible injuries. Patient has had increasing episodes of wandering out of the house and his found him outside down on the ground lying in his underwear. Is unclear if there is any fall or injury. Patient is at his neurologic baseline. His temperature by EMS was 98, vital signs were reassuring. Patient denies any chest pain or trouble breathing and has no abdominal pain or nausea or vomiting. The medics have run on him a reported 5 times this week. He lives at home with his who has a very difficult time helping him, they have access to home nursing 1 day per week. Related Data Home Medications Medication Instructions Recorded Confirmed aspirin 81 mg tablet,delayed 81 mg PO DAILY ##0 12/13/17 11/11/22 release atorvastatin 40 mg tablet 40 mg PO DAILY ##0 12/13/17 11/11/22 cinnamon bark 500 mg capsule 1,000 mg PO DAILY ##0 12/13/17 11/11/22 (Cinnamon) finasteride 5 mg tablet 5 mg PO DAILY 07/26/18 11/11/22 tamsulosin 0.4 mg capsule 0.4 mg PO DAILY 07/26/18 11/11/22 donepezil 10 mg tablet 10 mg PO DAILY 08/16/22 11/11/22 semaglutide 0.25 mg or 0.5 mg (2 0.5 mg SUBCUT QWEEK 08/16/22 11/11/22 mg/1.5 mL) subcutaneous pen injector (Ozempic) Previous Rx's Medication Instructions Recorded midodrine 5 mg tablet 5 mg PO TID #30 tabs 09/03/22 quetiapine 25 mg tablet 25 mg PO BID PRN agitation #10 tabs 09/03/22 lorazepam 0.5 mg tablet (Ativan) 0.5 mg PO BEDTIME PRN agitation #5 11/11/22 tabs Allergies Allergy/AdvReac Type Severity Reaction Status Date / Time chlorhexidine Allergy Intermediate Rash Verified 11/11/22 12:47 caffeine [CAFFEINE] AdvReac Unknown Blurry Verified 11/11/22 12:47 Vision Review of Systems <Sathish Flores DO - Last Filed: 11/12/22 06:21> Review of Systems ROS Unobtainable: Unobtainable due to mental status/LOC Patient History <Sathish Flores DO - Last Filed: 11/12/22 06:21> Medical History (Updated 11/11/22 @ 16:01 by Katie Kohler DO) Acute urinary retention Diabetes mellitus Great toe amputation status Hyperlipidemia Hypertension Surgical History History of permanent cardiac pacemaker placement Family History Father Cancer Social History household members: spouse Smoking Status: Former smoker alcohol intake: former Smoking Status: Former smoker alcohol intake frequency: holidays/special occasions only Substance Use Type: does not use Exam <Sathish Flores DO - Last Filed: 11/12/22 06:21> Narrative Exam Narrative: GENERAL: [82] year old patient appears stated age. Well-developed patient, in mild distress. Pleasantly confused, GCS 14 HEAD: Atraumatic. Normocephalic. EYES: Pupils equal round and reactive. Extraocular motions intact. No scleral icterus. No injection or drainage. ENT: Nose without bleeding, purulent drainage. Throat without erythema, to nsillar hypertrophy or exudate. Airway patent. NECK: Trachea midline. Non tender CARDIOVASCULAR: Regular rate and rhythm without murmurs, gallops, or rubs. RESPIRATORY: Clear to auscultation. Breath sounds equal bilaterally. No wheezes, rales, or rhonchi. GASTROINTESTINAL: Abdomen soft, non-tender, nondistended. EXTREMITIES: No edema or joint tenderness. BACK: Nontender without deformity or crepitance. No flank tenderness. NEURO: Cranial nerves 2-12 grossly intact SKIN: No rash or erythema of visible areas Initial Vital Signs Initial Vital Signs: Vital Signs Temperature 96.7 F L 11/11/22 04:25 Pulse Rate 66 11/11/22 04:25 Respiratory Rate 18 11/11/22 04:25 Blood Pressure 134/63 11/11/22 04:25 Pulse Oximetry 100 11/11/22 04:25 Oxygen Delivery Method Room Air 11/11/22 04:25 <Katie Kohler DO - Last Filed: 11/12/22 06:56> Initial Vital Signs Initial Vital Signs: Vital Signs Temperature 96.7 F L 11/11/22 04:25 Pulse Rate 66 11/11/22 04:25 Respiratory Rate 18 11/11/22 04:25 Blood Pressure 134/63 11/11/22 04:25 Pulse Oximetry 100 11/11/22 04:25 Oxygen Delivery Method Room Air 11/11/22 04:25 Course <Sathish Flores DO - Last Filed: 11/12/22 06:21> Orders Ordered: Discontinued Medications Sodium Chloride (Normal Saline 0.9%) 1,000 mls @ 1,000 mls/hr IV BOLUS ONE Stop: 11/11/22 05:38 Last Admin: 11/11/22 09:12 Dose: Not Given Documented By: FARHAN Dextrose (D10w) 250 mls @ 999 mls/hr IV PRN PRN PRN Reason: Hypoglycemia Last Infusion: 11/11/22 16:05 Dose: 0 mls/hr Documented By: Admin: 11/11/22 15:36 Dose: 999 mls/hr Documented By: SILVIA Lorazepam (Lorazepam 0.5 Mg Tablet) 1 mg PO NOW ONE Stop: 11/11/22 08:44 Last Admin: 11/11/22 09:30 Dose: 1 mg Documented By: FARHAN Vital Signs Vital signs: Vital Signs - 8 hr 11/11/22 08:05 11/11/22 08:05 11/11/22 08:15 Temperature Pulse Rate 60 Respiratory Rate 19 Blood Pressure 163/70 H 178/71 H Pulse Oximetry 99 Oxygen Delivery Method 11/11/22 08:15 11/11/22 08:30 11/11/22 08:30 Temperature Pulse Rate 60 60 Respiratory Rate 21 21 Blood Pressure 157/70 H Pulse Oximetry 99 99 Oxygen Delivery Method 11/11/22 08:46 11/11/22 08:46 11/11/22 09:00 Temperature Pulse Rate 60 74 Respiratory Rate 19 38 H Blood Pressure 167/92 H Pulse Oximetry 98 94 Oxygen Delivery Method 11/11/22 09:01 11/11/22 09:01 11/11/22 09:16 Temperature Pulse Rate 69 77 Respiratory Rate 31 H 21 Blood Pressure 170/63 H Pulse Oximetry 92 99 Oxygen Delivery Method Room Air 11/11/22 09:19 11/11/22 09:19 11/11/22 14:18 Temperature 96.9 F L Pulse Rate 64 71 Respiratory Rate 21 20 Blood Pressure 176/77 H Pulse Oximetry 100 Oxygen Delivery Method Room Air 11/11/22 15:51 11/11/22 15:51 Temperature 97.1 F L Pulse Rate 61 Respiratory Rate Blood Pressure 152/67 H Pulse Oximetry 100 Oxygen Delivery Method <Katie Kohler, - Last Filed: 11/12/22 06:56> Orders Ordered: Discontinued Medications Sodium Chloride (Normal Saline 0.9%) 1,000 mls @ 1,000 mls/hr IV BOLUS ONE Stop: 11/11/22 05:38 Last Admin: 11/11/22 09:12 Dose: Not Given Documented By: FARHAN Dextrose (D10w) 250 mls @ 999 mls/hr IV PRN PRN PRN Reason: Hypoglycemia Last Infusion: 11/11/22 16:05 Dose: 0 mls/hr Documented By: Admin: 11/11/22 15:36 Dose: 999 mls/hr Documented By: SILVIA Lorazepam (Lorazepam 0.5 Mg Tablet) 1 mg PO NOW ONE Stop: 11/11/22 08:44 Last Admin: 11/11/22 09:30 Dose: 1 mg Documented By: FARHAN Vital Signs Vital signs: Vital Signs - 8 hr 11/11/22 08:05 11/11/22 08:05 11/11/22 08:15 Temperature Pulse Rate 60 Respiratory Rate 19 Blood Pressure 163/70 H 178/71 H Pulse Oximetry 99 Oxygen Delivery Method 11/11/22 08:15 11/11/22 08:30 11/11/22 08:30 Temperature Pulse Rate 60 60 Respiratory Rate 21 21 Blood Pressure 157/70 H Pulse Oximetry 99 99 Oxygen Delivery Method 11/11/22 08:46 11/11/22 08:46 11/11/22 09:00 Temperature Pulse Rate 60 74 Respiratory Rate 19 38 H Blood Pressure 167/92 H Pulse Oximetry 98 94 Oxygen Delivery Method 11/11/22 09:01 11/11/22 09:01 11/11/22 09:16 Temperature Pulse Rate 69 77 Respiratory Rate 31 H 21 Blood Pressure 170/63 H Pulse Oximetry 92 99 Oxygen Delivery Method Room Air 11/11/22 09:19 11/11/22 09:19 11/11/22 14:18 Temperature 96.9 F L Pulse Rate 64 71 Respiratory Rate 21 20 Blood Pressure 176/77 H Pulse Oximetry 100 Oxygen Delivery Method Room Air 11/11/22 15:51 11/11/22 15:51 Temperature 97.1 F L Pulse Rate 61 Respiratory Rate Blood Pressure 152/67 H Pulse Oximetry 100 Oxygen Delivery Method Medical Decision Making <Sathish Flores, DO - Last Filed: 11/12/22 06:21> Lab Data 11/11/22 07:00 11/11/22 07:00 Labs: Lab Results 11/11/22 11/11/22 11/11/22 Range/Units 07:00 07:00 07:00 WBC 7.6 (4.5-11.0) X10^3/uL RBC 3.85 L (4.5-5.9) X10^6/uL Hgb 10.8 L (13.5-17.5) g/dL Hct 32.6 L (41-53) % MCV 84.8 (80-100) fL MCH 28.0 (26-34) PG MCHC 33.0 (30-36) % RDW 16.8 H (11.6-14.8) % Plt Count 134 L (150-400) X10^3/uL Neut % (Auto) 66.5 (50-75) % Lymph % (Auto) 21.5 L (25-40) % Sequoyah % (Auto) 9.8 (3-14) % Eos % (Auto) 1.6 L (2-4) % Baso % (Auto) 0.6 (0-2) % Neut # (Auto) 5000 (0596-4728) /uL Lymph # (Auto) 1600 (8979-7908) /uL Sequoyah # (Auto) 700 (0-900) /uL Eos # (Auto) 100 (0-450) /uL Baso # (Auto) 0 (0-100) /uL Sodium 138 (137-145) mmol/L Potassium 4.2 (3.4-5.1) mmol/L Chloride 108 H (98-107) mmol/L Carbon Dioxide 24 (22-32) mmol/L BUN 34 H (9-20) mg/dL Creatinine 1.72 H (0.66-1.25) mg/dL Estimated GFR 39 L (>60) mL/min BUN/Creatinine Ratio 19.8 (6-22) Glucose 78 L (80-110) mg/dL Lactate (0.7-2.1) mmol/L Calcium 8.6 (8.4-10.2) mg/dL Total Bilirubin 1.5 H (0.2-1.3) mg/dL AST 28 (17-59) IU/L ALT 23 (<50) IU/L Alkaline Phosphatase 74 (38-126) U/L Total Creatine Kinase 60 (55-170) U/L CK-MB (CK-2) TNP CK-MB (CK-2) Rel Index TNP Troponin I < 0.012 (0.01-0.034) ng/mL NT-Pro-B Natriuret Pep 651 H (<450) pg/mL Total Protein 6.2 L (6.3-8.2) g/dL Albumin 3.4 L (3.5-5.0) g/dL Globulin 2.8 (1.7-4.1) g/dL Albumin/Globulin Ratio 1.2 (1.0-2.8) SARS-CoV-2 (PCR) (Negative) 11/11/22 11/11/22 Range/Units 07:00 12:10 WBC (4.5-11.0) X10^3/uL RBC (4.5-5.9) X10^6/uL Hgb (13.5-17.5) g/dL Hct (41-53) % MCV (80-100) fL MCH (26-34) PG MCHC (30-36) % RDW (11.6-14.8) % Plt Count (150-400) X10^3/uL Neut % (Auto) (50-75) % Lymph % (Auto) (25-40) % Sequoyah % (Auto) (3-14) % Eos % (Auto) (2-4) % Baso % (Auto) (0-2) % Neut # (Auto) (2209-9973) /uL Lymph # (Auto) (6270-5389) /uL Sequoyah # (Auto) (0-900) /uL Eos # (Auto) (0-450) /uL Baso # (Auto) (0-100) /uL Sodium (137-145) mmol/L Potassium (3.4-5.1) mmol/L Chloride (98-107) mmol/L Carbon Dioxide (22-32) mmol/L BUN (9-20) mg/dL Creatinine (0.66-1.25) mg/dL Estimated GFR (>60) mL/min BUN/Creatinine Ratio (6-22) Glucose (80-110) mg/dL Lactate 2.0 (0.7-2.1) mmol/L Calcium (8.4-10.2) mg/dL Total Bilirubin (0.2-1.3) mg/dL AST (17-59) IU/L ALT (<50) IU/L Alkaline Phosphatase (38-126) U/L Total Creatine Kinase (55-170) U/L CK-MB (CK-2) CK-MB (CK-2) Rel Index Troponin I (0.01-0.034) ng/mL NT-Pro-B Natriuret Pep (<450) pg/mL Total Protein (6.3-8.2) g/dL Albumin (3.5-5.0) g/dL Globulin (1.7-4.1) g/dL Albumin/Globulin Ratio (1.0-2.8) SARS-CoV-2 (PCR) Negative (Negative) Point of Care Testing Glucose POC 167 Point of care testing: Point of Care Testing Glucose POC 167 <Katie Kohler, DO - Last Filed: 11/12/22 06:56> Lab Data Labs: Lab Results 11/11/22 11/11/22 11/11/22 Range/Units 07:00 07:00 07:00 WBC 7.6 (4.5-11.0) X10^3/uL RBC 3.85 L (4.5-5.9) X10^6/uL Hgb 10.8 L (13.5-17.5) g/dL Hct 32.6 L (41-53) % MCV 84.8 (80-100) fL MCH 28.0 (26-34) PG MCHC 33.0 (30-36) % RDW 16.8 H (11.6-14.8) % Plt Count 134 L (150-400) X10^3/uL Neut % (Auto) 66.5 (50-75) % Lymph % (Auto) 21.5 L (25-40) % Sequoyah % (Auto) 9.8 (3-14) % Eos % (Auto) 1.6 L (2-4) % Baso % (Auto) 0.6 (0-2) % Neut # (Auto) 5000 (2574-3340) /uL Lymph # (Auto) 1600 (3876-7049) /uL Sequoyah # (Auto) 700 (0-900) /uL Eos # (Auto) 100 (0-450) /uL Baso # (Auto) 0 (0-100) /uL Sodium 138 (137-145) mmol/L Potassium 4.2 (3.4-5.1) mmol/L Chloride 108 H (98-107) mmol/L Carbon Dioxide 24 (22-32) mmol/L BUN 34 H (9-20) mg/dL Creatinine 1.72 H (0.66-1.25) mg/dL Estimated GFR 39 L (>60) mL/min BUN/Creatinine Ratio 19.8 (6-22) Glucose 78 L (80-110) mg/dL Lactate (0.7-2.1) mmol/L Calcium 8.6 (8.4-10.2) mg/dL Total Bilirubin 1.5 H (0.2-1.3) mg/dL AST 28 (17-59) IU/L ALT 23 (<50) IU/L Alkaline Phosphatase 74 (38-126) U/L Total Creatine Kinase 60 (55-170) U/L CK-MB (CK-2) TNP CK-MB (CK-2) Rel Index TNP Troponin I < 0.012 (0.01-0.034) ng/mL NT-Pro-B Natriuret Pep 651 H (<450) pg/mL Total Protein 6.2 L (6.3-8.2) g/dL Albumin 3.4 L (3.5-5.0) g/dL Globulin 2.8 (1.7-4.1) g/dL Albumin/Globulin Ratio 1.2 (1.0-2.8) SARS-CoV-2 (PCR) (Negative) 11/11/22 11/11/22 Range/Units 07:00 12:10 WBC (4.5-11.0) X10^3/uL RBC (4.5-5.9) X10^6/uL Hgb (13.5-17.5) g/dL Hct (41-53) % MCV (80-100) fL MCH (26-34) PG MCHC (30-36) % RDW (11.6-14.8) % Plt Count (150-400) X10^3/uL Neut % (Auto) (50-75) % Lymph % (Auto) (25-40) % Sequoyah % (Auto) (3-14) % Eos % (Auto) (2-4) % Baso % (Auto) (0-2) % Neut # (Auto) (5421-6367) /uL Lymph # (Auto) (5519-0542) /uL Sequoyah # (Auto) (0-900) /uL Eos # (Auto) (0-450) /uL Baso # (Auto) (0-100) /uL Sodium (137-145) mmol/L Potassium (3.4-5.1) mmol/L Chloride (98-107) mmol/L Carbon Dioxide (22-32) mmol/L BUN (9-20) mg/dL Creatinine (0.66-1.25) mg/dL Estimated GFR (>60) mL/min BUN/Creatinine Ratio (6-22) Glucose (80-110) mg/dL Lactate 2.0 (0.7-2.1) mmol/L Calcium (8.4-10.2) mg/dL Total Bilirubin (0.2-1.3) mg/dL AST (17-59) IU/L ALT (<50) IU/L Alkaline Phosphatase (38-126) U/L Total Creatine Kinase (55-170) U/L CK-MB (CK-2) CK-MB (CK-2) Rel Index Troponin I (0.01-0.034) ng/mL NT-Pro-B Natriuret Pep (<450) pg/mL Total Protein (6.3-8.2) g/dL Albumin (3.5-5.0) g/dL Globulin (1.7-4.1) g/dL Albumin/Globulin Ratio (1.0-2.8) SARS-CoV-2 (PCR) Negative (Negative) Point of Care Testing Glucose POC 167 Point of care testing: Point of Care Testing Glucose POC [address] scan - head: Radiologist's Impression: PROCEDURE:? CT HEAD/BRAIN WO CON ? INDICATIONS:? found down, midline neck pain ? TECHNIQUE:? Noncontrast 4.5 mm thick angled axial sections acquired from the foramen magnum to the vertex, with coronal and sagittal reformats.? For radiation dose reduction, the following was used:? automated exposure control, adjustment of mA and/or kV according to patient size.? ? COMPARISON:? Located Within [facility], CT, CT HEAD/BRAIN WO CON, 09/01/2022, 11:32. ? FINDINGS:? Image quality:? Excellent.? ? CSF spaces:? Basal cisterns are patent.? No extra-axial fluid collections.? The ventricles are symmetric in size and shape.? ? Brain:? No intracranial bleeds or masses.? There is cerebral volume loss for age, with resultant ventricular and sulcal prominence.? There are periventricular and deep white matter chronic small vessel ischemic changes.? There is intracranial internal carotid artery atherosclerosis.? ? Skull and face:? Calvarium and visualized facial bones appear intact, without suspicious lesions.? ? Sinuses:? Visualized sinuses and mastoids are clear.? ? IMPRESSION:? 1. CT head without acute intracranial abnormalities or acute calvarial fractures. ? 2. Age-related senescent changes and sequela of chronic small vessel ischemic disease. ? No significant discrepancy with the operations supervisor 2nd shift radiology preliminary report. ? ? Dictated by: Joe Dawson M.D. on 11/11/2022 at 7:32 ? CT - cervical spine: Radiologist's Impression: PROCEDURE:? CT CERVICAL SPINE WO CON ? INDICATIONS:? found down, midline neck pain ? TECHNIQUE:? Noncontrast 3 mm thick sections acquired from the skull base to the T4 level.? Sagittal and coronal reformats were then constructed.? For radiation dose reduction, the following was used:? automated exposure control, adjustment of mA and/or kV according to patient size.? ? COMPARISON:? Located [facility], CT, CT CERVICAL SPINE WO CON, 09/01/2022, 11:32. ? FINDINGS:? Image quality:? Study degraded by moderate patient motion artifact. ? Bones:? No acute fractures or dislocations.? No acute compression fractures of the vertebral bodies. Craniocervical junction is intact. C1-C2 relationship is preserved. Visualized superior ribs are intact.? Straightening of cervical lordosis.? Moderate-severe multilevel cervical spondylosis with significant disc space loss, moderate degenerative endplate changes, and prominent endplate osteophyte formation.? Findings are most severe from C4-5 through C7-T1.? No severe canal stenosis identified.? Varying degrees of bony neural foraminal stenosis.? There is suggestion of cortical disruption of the right mandibular condyle which is related to significant motion artifact at that level. ? Soft tissues:? Prevertebral soft tissues are normal in thickness.? No paravertebral hematomas.? No apical pneumothoraces.? ? ? IMPRESSION:? ? 1. CT cervical spine without acute fracture or traumatic malalignment. ? 2. Straightening of cervical lordosis likely related to positioning and/or concurrent muscle spasms. ? 3. Moderate-severe multilevel cervical spondylosis most severe from C4-5 through C7-T1. ? 4. Suggestion of cortical disruption involving the right mandibular condyle.? This is favored to represent artifact from significant patient motion artifact at this level.? Recommend clinical correlation. ? No significant discrepancy with the operations supervisor 2nd shift radiology preliminary report. ? ? ? Dictated by: Joe Dawson M.D. on 11/11/2022 at 7:32 ? ? ECG Data Interpretation: Sinus rhythm rate 62 AL interval 224 QRS [id number] similar to previous EKG 10/25/2022 [facility] Narrative Medical decision making narrative: Patient 82-year-old male history of dementia, hypertension diabetes dyslipidemia pacemaker presents today after being found down outside. I called and spoke with he reports that he was quite agitated last night she eventually went to bed he lift the house and she found him outside and called EMS. She does not have any health support. Blood work no leukocytosis, chronic CKD remains unchanged, bilirubin 1.5 but is actually better from previous. Negative troponin. Head CT and C-spine CT are negative. Patient may need placement waiting for social work. Patient's at bedside reports that she is able to manage him during the day just at nighttime unable to manage him. Glucose noted to decrease throughout the day not really eating or drinking much he is given D10. Social work did evaluate. Patient did drink a home hand of orange juice ambulated given prescription for Ativan at home to help with some behavior changes at night Discharge Plan Departure Patient Disposition: Home Clinical Impression: Dementia Instructions: Dementia Activity Restrictions/Additional Instructions: *You have been diagnosed with dementia *What to do: At this time we will give you some medicine to help with behavior problems at night *Continue to take medications as directed Ativan 0.5 mg at night only if needed for behavior changes--> SENT TO [facility] *Follow up with your primary care provider in 2-3 days or call [phone] *Return to ER if you should have increasing confusion wandering or any new, worsening or concerning symptoms Prescriptions: New lorazepam [Ativan] 0.5 mg tablet 0.5 mg PO BEDTIME PRN (Reason: agitation) Qty: 5 0RF No Action atorvastatin 40 MG tablet 40 mg PO DAILY Qty: 0 cinnamon bark [Cinnamon] 500 mg Capsule 1,000 mg PO DAILY Qty: 0 aspirin 81 MG tablet,delayed release (DR/EC) 81 mg PO DAILY Qty: 0 tamsulosin 0.4 mg Capsule 0.4 mg PO DAILY finasteride 5 mg Tablet 5 mg PO DAILY Patient Comments: [facility] midodrine 5 mg tablet 5 mg PO TID Qty: 30 0RF Rx Instructions: do not give last dose of day after 6PM or within 4 hrs of bedtime quetiapine 25 mg tablet 25 mg PO BID PRN (Reason: agitation) Qty: 10 0RF donepezil 10 mg Tablet 10 mg PO DAILY Ozempic 0.25 mg or 0.5 mg(2 mg/1.5 mL) Pen Injector 0.5 mg SUBCUT QWEEK Referrals: Lauro Trevino PA-C [Primary Care Provider] - Stand Alone Forms: Patient Portal/API
[2022-11-11 07:11] LABS: Add Manual Diff / Slide Review NO; Basophils Absolute Auto 0 /uL (0-100); Basophils Percent Auto 0.6 % (0-2); Eosinophils Absolute Auto 100 /uL (0-450); Eosinophils Percent Auto 1.6 % (2-4); Hematocrit 32.6 % (41-53); Hemoglobin 10.8 g/dL (13.5-17.5); Lymphocytes Absolute Auto 1600 /uL (1100-4500); Lymphocytes Percent Auto 21.5 % (25-40); Mean Corpuscular Volume 84.8 fL (80-100); Monocytes Absolute Auto 700 /uL (0-900); Monocytes Percent Auto 9.8 % (3-14); Neutrophils Absolute Auto 5000 /uL (1500-7000); Neutrophils Percent Auto 66.5 % (50-75); Platelet Count 134 X10^3/uL (150-400); Red Blood Cell Count 3.85 X10^6/uL (4.5-5.9); Red Cell Distribution Width 16.8 % (11.6-14.8); White Blood Cell Count 7.6 X10^3/uL (4.5-11.0)
[2022-11-11 07:23] LABS: Creatine Kinase 60 U/L (55-170)
[2022-11-11 07:25] LABS: Alanine Aminotransferase 23 IU/L (<50); Albumin 3.4 g/dL (3.5-5.0); Albumin Globulin Ratio 1.2 (1.0-2.8); Alkaline Phosphatase 74 U/L (38-126); Aspartate Aminotransferase 28 IU/L (17-59); BUN Creatinine Ratio 19.8 (6-22); Bilirubin Total 1.5 mg/dL (0.2-1.3); Blood Urea Nitrogen 34 mg/dL (9-20); Calcium 8.6 mg/dL (8.4-10.2); Carbon Dioxide 24 mmol/L (22-32); Chloride 108 mmol/L (98-107); Estimated Glomerular Filt Rate 39 mL/min (>60); Globulin 2.8 g/dL (1.7-4.1); Glucose 78 mg/dL (80-110); HEMOLYSIS < 15 (0-50); Potassium 4.2 mmol/L (3.4-5.1); Sodium 138 mmol/L (137-145); Total Protein 6.2 g/dL (6.3-8.2)
[2022-11-11 07:35] LABS: NT-proBNP (BNP-Adult 18+) 651 pg/mL (<450); Troponin I < 0.012 ng/mL (0.01-0.034)
--- NOTE | 2022-11-11 07:59 | DI.RAD.S_ITS ---
PROCEDURE: XR CHEST 1V INDICATIONS: fall TECHNIQUE: One view of the chest was acquired. COMPARISON: [facility], CR, XR CHEST 1V, 10/25/2022, 7:35. FINDINGS: Surgical changes and devices: Pacemaker Lungs and pleura: Lungs are clear. No pleural effusions or pneumothorax. Mediastinum: Mediastinal contours appear normal. Heart size is normal. Bones and chest wall: No suspicious bony lesions. Subacute displaced comminuted humeral neck fracture on the right. Overlying soft tissues appear unremarkable. IMPRESSION: 1. No acute pulmonary process. 2. Subacute displaced comminuted right humeral neck fracture. Dictated by: Dallas Lennon M.D. on 11/11/2022 at 8:25 Approved by: Dallas Lennon M.D. on 11/11/2022 at 8:28
[2022-11-11] MEDS: LORazepam 0.5 MG TABLET 1 MG PO (09:30)
--- NOTE | 2022-11-11 12:13 | PC.NURSE ---
PCP is noted as Lauro Trevino: . Called and left message requesting last visit notes and med list.
--- NOTE | 2022-11-11 12:16 | PC.NURSE ---
Received call back from office of Lauro Han. pt has not been seen there since 2013.
[2022-11-11 12:26] LABS: COVID19 -Nasal RAPID Negative (Negative)
--- NOTE | 2022-11-11 12:47 | PC.NURSE ---
Medication reconciliation completed w/ history and report. is poor historian.
--- NOTE | 2022-11-11 14:59 | PC.NURSE ---
Addendum entered by Anamika Berry R.N. 11/11/22 15:42: Pt not taking sips of orange juice despite multiple attempts. Pt allows this RN to start IV. Pt medicated per MAR. Original Note: Pt hesitant to let this RN take his blood sugar. Finally, with in room pt allows this RN to take Blood sugar. Glucose is 69. Provider aware. Verbal order of 250 ml bag of D10 ordered. Pt does not have IV at this time. Encouraging patient to drink some orange juice. Provider made aware.
[2022-11-11] MEDS: DEXTROSE 10 % IN WATER 250 ML 999 ML IV (15:36)
== END 2022-11-11 16:29 | disposition home or self-care (01) ==
PROVIDERS: Emergency Medicine; Emergency Provider Emergency Medicine; PCP Physician Assistant
DX: F03.90 Unspecified dementia, unspecified severity, without behavioral disturbance, psychotic disturbance, mood disturbance, and anxiety (principal); R07.9 Chest pain, unspecified; I10 Essential (primary) hypertension; Z95.0 Presence of cardiac pacemaker; Z20.822 Contact with and (suspected) exposure to COVID-19
CPT/HCPCS: 36415; 70450; 71045; 72125; 80053; 82550; 82962; 83605; 83880; 84484; 85025; 87635; 93005; 99284; C9803

== ENCOUNTER 2022-12-03 21:03 | Emergency (ER) | payer OTHER, SELFPAY ==
[2022-08-14 12:47] VITALS: BMI 26.6
[2022-12-03 21:06] VITALS: PULSE 65; O2SAT 100
[2022-12-03 21:07] VITALS: BP 151/65; PULSE 60; O2SAT 100
[2022-12-03 21:09] VITALS: BP 151/65; PULSE 71; RESP 16; TEMP 37.1; O2SAT 98
[2022-12-03] MEDS: QUETIAPINE 25 MG TABLET PO (21:37)
[2022-12-03 21:48] LABS: Add Manual Diff / Slide Review NO; Basophils Absolute Auto 0 /uL (0-100); Basophils Percent Auto 0.4 % (0-2); Eosinophils Absolute Auto 100 /uL (0-450); Eosinophils Percent Auto 1.2 % (2-4); Hematocrit 34.9 % (41-53); Hemoglobin 11.7 g/dL (13.5-17.5); Lymphocytes Absolute Auto 1400 /uL (1100-4500); Lymphocytes Percent Auto 20.2 % (25-40); Mean Corpuscular HGB Conc 33.6 % (30-36); Mean Corpuscular Hemoglobin 27.8 PG (26-34); Mean Corpuscular Volume 82.8 fL (80-100); Monocytes Absolute Auto 700 /uL (0-900); Monocytes Percent Auto 10.4 % (3-14); Neutrophils Absolute Auto 4800 /uL (1500-7000); Neutrophils Percent Auto 67.8 % (50-75); Platelet Count 157 X10^3/uL (150-400); Red Blood Cell Count 4.22 X10^6/uL (4.5-5.9); Red Cell Distribution Width 16.3 % (11.6-14.8)
[2022-12-03 21:57] LABS: COVID19 -Nasal RAPID Negative (Negative)
[2022-12-03 22:01] LABS: Acetaminophen < 10 ug/mL (10-30); Alanine Aminotransferase 39 IU/L (<50); Albumin Globulin Ratio 1.4 (1.0-2.8); Alkaline Phosphatase 90 U/L (38-126); Aspartate Aminotransferase 37 IU/L (17-59); BUN Creatinine Ratio 20.9 (6-22); Bilirubin Total 1.2 mg/dL (0.2-1.3); Blood Urea Nitrogen 39 mg/dL (9-20); Calcium 9.1 mg/dL (8.4-10.2); Carbon Dioxide 24 mmol/L (22-32); Chloride 106 mmol/L (98-107); Estimated Glomerular Filt Rate 35 mL/min (>60); Ethanol (ETOH) < 10 mg/dL; Globulin 2.9 g/dL (1.7-4.1); Glucose 122 mg/dL (80-110); HEMOLYSIS < 15 (0-50); Potassium 4.6 mmol/L (3.4-5.1); Salicylate < 1.0 mg/dL (<20); Sodium 142 mmol/L (137-145); Total Protein 6.9 g/dL (6.3-8.2)
[2022-12-04] VITALS (7 sets, daily range): BP systolic 118–173; BP diastolic 62–67; PULSE 60–77; RESP 18; O2SAT 98–100
--- NOTE | 2022-12-04 05:05 | ED.MEDCLEAR ---
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 independently reviewed as above. Pertinent findings: CBC is unremarkable, no leukocytosis and no change to his mild chronic anemia chemistries: Baseline chronic renal injury appears stable. Remainder of chemistries are reassuring. Urine dip is unremarkable with the absence of urinary tract infection Independently reviewed EKG as above Imaging studies independently reviewed: patient was seen in this emergency department on November 11 after wandering outside and being foundDown. CT scan brain and chest x-rays done at that time were unremarkable and not felt that repeating these would offer any additional diagnostic benefit Consultations: will again ask social work to review care Treatments: he was given his evening Seroquel and was redirectable and slept through the majority of the evening Re-evaluations: Care is turned over to Dr Kohler at change of shift Discussion: Disposition: see below, along with detailed discharge instructions that have been reviewed with patient as well as indications for ED re-evaluation and additional outpatient follow up 12/04/22 7:[address] Dr. Kohler patient is cooperative. Throughout the day he is becoming more awake more confused hallucinating. reports that Seroquel makes it worse. I have called and spoken to [facility] social work is aware of patient. reports that he is not allowed home. Patient was experiencing some urinary retention but eventually he did urinate no catheter was needed. Patient has been cooperative most of the day he was beginning little more agitated he is given Ativan. I did speak with DCR at this point there are no beds however [facility] is potential later in the week. It is clear that does not feel comfortable him at home. Patient signed out to Dr. Bangura 12/04-12/05 Dr bangura overnight: Received turned over. Reviewed patient's history and physical and workup to this point. Patient has been stable overnight. Has been sleeping and calm. He did receive some Ativan yesterday but given the fact that he was sleeping during my entire shift I did not feel the need to give him a dose of Seroquel. Care turned over to Dr. Mesa at change of shift to follow-up and disposition. 12/05/22 Dr. Mesa: Patient signed over to myself. Reviewed patient's history, physical and workup. Patient is up this morning eating breakfast when I went to evaluate him. He has been calm overnight with no significant events. Patient's medications had not been started as we would not been able to confirm his home med list. Social work is involved there is a possibility of facility placement later in the week, DCR had evaluated patient. HUMAN RELATIONS PROFESSOR is actively involved. 0915 12/05/22: Patient arrived. She has looked at various facility she states they are quite expensive and she does not feel that she wants to place him in a facility and she would like to take him home. I asked if she would like to stay and discussed with the psychologist social she states no she feels comfortable taking him home at this time. She has moved his stuff to an additional room, she and I discussed if she is a candidate which should be okay if the psychologist social contact her to set up home health care she is agreeable to this. She did note that has crack on the back of his heel some slight redness and pain with palpation. Does not look truly cellulitic on examination but she showed pictures to her behavioral interventionist who told her he needs antibiotics we will go and cover with a short course of oral antibiotic. Discussed return precautions. All questions answered. Spoke with social work on their arrival, they will review the case reach out to the patient family. Discharge Plan Departure Patient Disposition: Home Clinical Impression: Dementia with behavioral disturbance, Heel pain Activity Restrictions/Additional Instructions: Please follow-up with your physician, they may also help with additional resources. Our psychologist social may reach out to to discuss home health care options. As discussed the pain at Mario heel may not be an infection but I will send a prescription for antibiotic to [facility] in [place]. Please return for worsening symptoms signs of infection, if Mario he is unsafe for you feel he is becoming dangerous to yourself or others or if there are other new or concerning changes. Prescriptions: New cephalexin 500 mg capsule 500 mg PO Q6H Qty: 20 0RF No Action atorvastatin 40 MG tablet 40 mg PO DAILY Qty: 0 cinnamon bark [Cinnamon] 500 mg Capsule 1,000 mg PO DAILY Qty: 0 aspirin 81 MG tablet,delayed release (DR/EC) 81 mg PO DAILY Qty: 0 tamsulosin 0.4 mg Capsule 0.4 mg PO DAILY finasteride 5 mg Tablet 5 mg PO DAILY Patient Comments: [facility] midodrine 5 mg tablet 5 mg PO TID Qty: 30 0RF Rx Instructions: do not give last dose of day after 6PM or within 4 hrs of bedtime quetiapine 25 mg tablet 25 mg PO BID PRN (Reason: agitation) Qty: 10 0RF donepezil 10 mg Tablet 10 mg PO DAILY Ozempic 0.25 mg or 0.5 mg(2 mg/1.5 mL) Pen Injector 0.5 mg SUBCUT QWEEK lorazepam [Ativan] 0.5 mg tablet 0.5 mg PO BEDTIME PRN (Reason: agitation) Qty: 5 0RF Referrals: Lauro Trevino PA-C [Primary Care Provider] - Stand Alone Forms: Patient Portal/API
[2022-12-04] MEDS: LORazepam 0.5 MG TABLET 1 MG PO (13:32)
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
--- NOTE | 2022-12-04 15:50 | CM.DPC ---
Addendum entered by Sagrario Castillo R.N. 12/04/22 16:12: KJ spoke with Deena LOCKETT with [facility] who is working with her digital media manager to determine if she will come and do an official assessment. CM faxed clinical records and director human services assessment to DCR for there review. DCR called [facility] who dose not have a bed for MARCELINO today but might have one available tomorrow for [facility]. DCR is reviewing clinical records and will determine if they will be doing and official assessment or not. CM let her know CM was off at 4:15 but that she should follow up with the ED at [phone]. DCR stated that she believes this patient will be a walk away but is calling the three or four [facility] facilities to see if there will be a bed. CM/ METHODS EXAMINER team will follow up tomorrow for further DC/ safety planning Sagrario Castillo transmission worker Original Note: DCP/Continued: Reviewed chart with CM/RN Sagrario Frias METHODS EXAMINER placed call to patient's spouse/Juliana # [phone] re: current status and next steps. Spouse reports that she is not too sure what to do? Notified spouse that patient is medically stable and will need to have safe d/c plan. Spouse reports that she hopes to discuss patient's recent behavior with patient's neurologist tomorrow 12-05. In addition DCR called to be dispatched given patient's aggressiveness prior to coming to ED. Today, RN reports patient is confused, calm, and cooperative. Spouse gave METHODS EXAMINER permission to call memory care facilities for long-term placement. METHODS EXAMINER called and left messages with the following: [facility], [facility] in [place] and [facility] in [place]. All numbers are METHODS EXAMINER hand off. Spouse frustrated at the cost of memory care facilities, METHODS EXAMINER explained to her that patient's behavior is not necessarily going to get better but worse with time. METHODS EXAMINER informed spouse it is in her and the patient's best interest to find a secure location to meet patient's needs. Left vm with Vignesh (deli manager) to check in with CM team on 12-05, did not leave any patient information on vm. Spouse also made aware that if she is not willing to facilitate safe placement for patient he will most likely return home with . In addition [facility] should be notified if patient returns home. It appears that patient and spouse have somewhat of a codependent relationship. Patient has been in the ED 5 times with similar complaints within the last 5 months. P: Pending. BRIT
--- NOTE | 2022-12-04 17:03 | PC.NURSE ---
RN spoke with DCR via phone. DCR states there are no beds for pt today, DCR states difficulty finding [facility] placement due to dementia diagnosis. Pt's contacted and DCR number provided by RN to give DCR a phone call.
[2022-12-05 08:59] VITALS: BP 147/86; PULSE 70; O2SAT 97
[2022-12-05 09:00] VITALS: PULSE 67; O2SAT 99
--- NOTE | 2022-12-05 11:10 | PT-IP ANOTE ---
Received PT orders and completed chart review. Attempted to see pt in ED but nursing reported he had discharged home with his spouse.
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
[2022-12-06 07:50] LABS: Free T4, Direct Thyroxine 1.69 ng/dL (0.78-2.19)
[2022-12-06 08:06] LABS: Thyroid Stimulating Hormone 3.18 uIU/mL (0.47-4.68)
== END 2022-12-05 10:00 | disposition home or self-care (01) ==
PROVIDERS: Emergency Medicine; Emergency Provider Emergency Medicine; PCP Physician Assistant
DX: F03.918 Unspecified dementia, unspecified severity, with other behavioral disturbance (principal); M79.673 Pain in unspecified foot; Z20.822 Contact with and (suspected) exposure to COVID-19
CPT/HCPCS: 36415; 51798; 80053; 80320; 80329; 81003; 84439; 84443; 85025; 87635; 99283; C9803; G0480

== ENCOUNTER 2023-01-13 18:28 | Inpatient (IN) | payer OTHER, SELFPAY ==
[2022-08-14 12:47] VITALS: BMI 26.6
[2023-01-13] VITALS (13 sets, daily range): BP systolic 150–188; BP diastolic 68–86; PULSE 60–72; RESP 18; TEMP 36.7; O2SAT 94–100; BMI 27.6
--- NOTE | 2023-01-13 18:52 | ED_ITS ---
HPI - Fall <Sathish Flores DO - Last Filed: 01/15/23 01:45> General Chief Complaint: Fall Stated Complaint: GLF, Agressive to Time Seen by Provider: 01/13/23 18:32 Source: patient and EMS Mode of arrival: EMS History of Present Illness HPI Narrative: 82-year-old male former smoker with history of dementia, hypertension and hyperlipidemia with increasing aggressive behavioral changes and reports of aggression towards his presents by EMS for evaluation. He had been here under relatively similar circumstances about 1 month ago and had involvement by care management and social work prior to being discharged. At that time there was strong recommendation for long-term care facility but at the time there was an inability to pay for this. called EMS tonight due to the patient suffering a fall in which she reports he did not strike his head but does have a skin tear in his elbow and some lower rib pain. There is no reported fever, chills or vomiting. He has been taking his medications as prescribed Related Data Home Medications Medication Instructions Recorded Confirmed atorvastatin 40 mg tablet 40 mg PO DAILY ##0 12/13/17 01/14/23 donepezil 10 mg tablet 10 mg PO DAILY 08/16/22 01/14/23 Previous Rx's Medication Instructions Recorded lorazepam 0.5 mg tablet (Ativan) 0.5 mg PO BEDTIME PRN agitation #5 11/11/22 tabs Allergies Allergy/AdvReac Type Severity Reaction Status Date / Time chlorhexidine Allergy Intermediate Rash Verified 01/14/23 09:35 caffeine [CAFFEINE] AdvReac Unknown Blurry Verified 01/14/23 09:35 Vision Review of Systems <DO Paco Bravo Last Filed: 01/15/23 01:45> Review of Systems Narrative: GENERAL: Denies chills, fatigue, malaise, fever, sweats. HEENT: Denies sinus pain, ear pain, sore throat, difficulty swallowing, dizziness. RESPIRATORY: Denies dyspnea, cough, wheezing, hemoptysis, sputum. CARDIOVASCULAR: Denies chest pain, palpitations, orthopnea, edema, GASTROINTESTINAL: Denies nausea, vomiting, abdominal pain, diarrhea, constipation, melena. : Denies dysuria, frequency, incontinence, hematuria, urinary retention. MUSCULOSKELETAL: denies weakness, joint pain, or bony pain SKIN: Denies rash, skin lesions, or other NEUROLOGIC: Denies weakness, headache, numbness, change in speech, confusion, seizures, incoordination. PSYCHIATRIC: No concerning psychosocial issues. 12 point review of systems is negative except for those stated above Patient History <Sathish Flores DO - Last Filed: 01/15/23 01:45> Medical History Acute urinary retention Diabetes mellitus Great toe amputation status Hyperlipidemia Hypertension Surgical History History of permanent cardiac pacemaker placement Family History Father Cancer Social History household members: spouse Smoking Status: Former smoker alcohol intake: former Smoking Status: Former smoker alcohol intake frequency: holidays/special occasions only Substance Use Type: does not use Exam <Sathish Flores DO - Last Filed: 01/15/23 01:45> Narrative Exam Narrative: GENERAL: [82] year old patient appears stated age. Well-developed patient, in mild distress. He becomes angry with staff and refuses medications, yelling HEAD: Atraumatic. Normocephalic. EYES: Pupils equal round and reactive. Extraocular motions intact. No scleral icterus. No injection or drainage. ENT: Nose without bleeding, purulent drainage. Throat without erythema, tonsillar hypertrophy or exudate. Airway patent. NECK: Trachea midline. Non tender CARDIOVASCULAR: Regular rate and rhythm without murmurs, gallops, or rubs. RESPIRATORY: Clear to auscultation. Breath sounds equal bilaterally. No wheezes, rales, or rhonchi. Minimally tender inferior ribs, no crepitance, subQ air GASTROINTESTINAL: Abdomen soft, non-tender, nondistended. EXTREMITIES: Superficial skin tear on elbow. BACK: Nontender without deformity or crepitance. No flank tenderness. NEURO: AOx3. SKIN: No rash or erythema of visible areas Initial Vital Signs Initial Vital Signs: Vital Signs Temperature 98.0 F 01/13/23 18:38 Pulse Rate 72 01/13/23 18:38 Respiratory Rate 18 01/13/23 18:38 Blood Pressure 152/68 H 01/13/23 18:38 Pulse Oximetry 100 05/05/23 18:38 Oxygen Delivery Method Room Air 01/13/23 18:38 <Jeremiah Bangura DO - Last Filed: 01/14/23 17:55> Initial Vital Signs Initial Vital Signs: Vital Signs Temperature 98.0 F 01/13/23 18:38 Pulse Rate 72 01/13/23 18:38 Respiratory Rate 18 01/13/23 18:38 Blood Pressure 152/68 H 01/13/23 18:38 Pulse Oximetry 100 01/13/23 18:38 Oxygen Delivery Method Room Air 01/13/23 18:38 Course <Sathish Flores, DO - Last Filed: 01/15/23 01:45> Orders Ordered: ED Orders 01/14/23 17:10 Urine Drug Screen, Rapid Stat 01/14/23 19:39 BMP [Basic Metabolic Panel] Stat CBC Auto Diff [Complete Blood Count AUTO DIFF] Stat 01/14/23 20:15 CT cervical spine wo con Stat CT chest abd pel w con Stat CT head/brain wo con Stat Acetaminophen (Acetaminophen 325 Mg Tablet) 650 mg PO Q6HR PRN PRN Reason: Pain, Mild (1-3) Last Admin: 01/14/23 16:32 Dose: 650 mg Documented By: FARHAN Atorvastatin Calcium (Atorvastatin 20 Mg Tablet) 40 mg PO DAILY [facility] Last Admin: 01/14/23 10:58 Dose: Not Given Documented By: AT Dextrose (Dextrose 50 % In Water 25 Gm/50 Ml Syringe) 25 gm IV PRN PRN PRN Reason: Hypoglycemia Donepezil HCl (Donepezil 5 Mg Tablet) 10 mg PO BEDTIME [facility] Last Admin: 01/14/23 22:23 Dose: Not Given Documented By: RL Insulin Human Lispro (Insulin Lispro 100 Unit/Ml 3ml Vial) 0 unit SUBCUT [facility]; Protocol Lorazepam (Lorazepam 0.5 Mg Tablet) 0.5 mg PO BEDTIME PRN PRN Reason: agiation / restless Stop: 01/17/23 10:19 Naloxone HCl (Naloxone 0.4 Mg/Ml Vial) 0.2 mg IV Q2MIN PRN PRN Reason: Opiate Reversal Ondansetron HCl (Ondansetron 4 Mg/2 Ml Inj) 4 mg IV Q8HR PRN PRN Reason: Nausea And Vomiting Oxycodone HCl (Oxycodone Ir 5 Mg Tablet) 5 mg PO Q3H PRN PRN Reason: Pain, Moderate (4-6) Quetiapine Fumarate (Quetiapine 25 Mg Tablet) 12.5 mg PO BID PRN PRN Reason: Agitation Discontinued Medications Haloperidol (Haloperidol 5 Mg/Ml Vial) 5 mg IM NOW ONE Stop: 01/14/23 10:45 Last Admin: 01/14/23 10:50 Dose: 5 mg Documented By: FARHAN Sodium Chloride (Normal Saline 0.9%) 500 mls @ 1,000 mls/hr IV BOLUS ONE Stop: 01/13/23 19:01 Last Admin: 01/13/23 19:20 Dose: Not Given Documented By: DARLIN Sodium Chloride (Normal Saline 0.9%) 1,000 mls @ 1,000 mls/hr IV BOLUS ONE Stop: 01/14/23 20:29 Last Infusion: 01/14/23 21:12 Dose: 0 mls/hr Documented By: Admin: 01/14/23 19:42 Dose: 1,000 mls/hr Documented By: ROSIE Lorazepam (Lorazepam 0.5 Mg Tablet) 0.5 mg PO NOW ONE Stop: 01/14/23 17:47 Last Admin: 01/14/23 17:58 Dose: Not Given Documented By: ROSIE Lorazepam (Lorazepam 2 Mg/Ml Inj) 1 mg IM NOW ONE Stop: 01/14/23 17:55 Last Admin: 01/14/23 17:58 Dose: 1 mg Documented By: ROSIE Quetiapine Fumarate (Quetiapine 25 Mg Tablet) 25 mg PO NOW ONE Stop: 01/13/23 21:59 Last Admin: 01/14/23 03:38 Dose: Not Given Documented By: SILVIA Quetiapine Fumarate (Quetiapine 25 Mg Tablet) 25 mg PO BID PRN PRN Reason: Agitation Stop: 01/17/23 10:19 Last Admin: 01/14/23 16:33 Dose: 25 mg Documented By: FARHAN Vital Signs Vital signs: Vital Signs - 8 hr 01/14/23 21:15 01/14/23 21:17 01/14/23 21:17 Temperature 97.3 F L Pulse Rate 60 60 Respiratory Rate 18 18 Blood Pressure 137/63 Blood Pressure [Left Arm] 137/63 Pulse Oximetry 97 98 Oxygen Delivery Method Room Air Room Air <Jeremiah Lanker, DO - Last Filed: 01/14/23 17:55> Orders Ordered: ED Orders 01/14/23 17:10 Urine Drug Screen, Rapid Stat 01/14/23 19:39 BMP [Basic Metabolic Panel] Stat CBC Auto Diff [Complete Blood Count AUTO DIFF] Stat 01/14/23 20:15 CT cervical spine wo con Stat CT chest abd pel w con Stat CT head/brain wo con Stat Acetaminophen (Acetaminophen 325 Mg Tablet) 650 mg PO Q6HR PRN PRN Reason: Pain, Mild (1-3) Last Admin: 01/14/23 16:32 Dose: 650 mg Documented By: FARHAN Atorvastatin Calcium (Atorvastatin 20 Mg Tablet) 40 mg PO DAILY ABIODUN Last Admin: 01/14/23 10:58 Dose: Not Given Documented By: AT Dextrose (Dextrose 50 % In Water 25 Gm/50 Ml Syringe) 25 gm IV PRN PRN PRN Reason: Hypoglycemia Donepezil HCl (Donepezil 5 Mg Tablet) 10 mg PO BEDTIME ABIODUN Last Admin: 01/14/23 22:23 Dose: Not Given Documented By: RL Insulin Human Lispro (Insulin Lispro 100 Unit/Ml 3ml Vial) 0 unit SUBCUT [facility]; Protocol Lorazepam (Lorazepam 0.5 Mg Tablet) 0.5 mg PO BEDTIME PRN PRN Reason: agiation / restless Stop: 01/17/23 10:19 Naloxone HCl (Naloxone 0.4 Mg/Ml Vial) 0.2 mg IV Q2MIN PRN PRN Reason: Opiate Reversal Ondansetron HCl (Ondansetron 4 Mg/2 Ml Inj) 4 mg IV Q8HR PRN PRN Reason: Nausea And Vomiting Oxycodone HCl (Oxycodone Ir 5 Mg Tablet) 5 mg PO Q3H PRN PRN Reason: Pain, Moderate (4-6) Quetiapine Fumarate (Quetiapine 25 Mg Tablet) 12.5 mg PO BID PRN PRN Reason: Agitation Discontinued Medications Haloperidol (Haloperidol 5 Mg/Ml Vial) 5 mg IM NOW ONE Stop: 01/14/23 10:45 Last Admin: 01/14/23 10:50 Dose: 5 mg Documented By: FARHAN Sodium Chloride (Normal Saline 0.9%) 500 mls @ 1,000 mls/hr IV BOLUS ONE Stop: 01/13/23 19:01 Last Admin: 01/13/23 19:20 Dose: Not Given Documented By: DARLIN Sodium Chloride (Normal Saline 0.9%) 1,000 mls @ 1,000 mls/hr IV BOLUS ONE Stop: 01/14/23 20:29 Last Infusion: 01/14/23 21:12 Dose: 0 mls/hr Documented By: Admin: 01/14/23 19:42 Dose: 1,000 mls/hr Documented By: ROSIE Lorazepam (Lorazepam 0.5 Mg Tablet) 0.5 mg PO NOW ONE Stop: 01/14/23 17:47 Last Admin: 01/14/23 17:58 Dose: Not Given Documented By: ROSIE Lorazepam (Lorazepam 2 Mg/Ml Inj) 1 mg IM NOW ONE Stop: 01/14/23 17:55 Last Admin: 01/14/23 17:58 Dose: 1 mg Documented By: ROSIE Quetiapine Fumarate (Quetiapine 25 Mg Tablet) 25 mg PO NOW ONE Stop: 01/13/23 21:59 Last Admin: 01/14/23 03:38 Dose: Not Given Documented By: SILVIA Quetiapine Fumarate (Quetiapine 25 Mg Tablet) 25 mg PO BID PRN PRN Reason: Agitation Stop: 01/17/23 10:19 Last Admin: 01/14/23 16:33 Dose: 25 mg Documented By: FARHAN Vital Signs Vital signs: Vital Signs - 8 hr 01/14/23 21:15 01/14/23 21:17 01/14/23 21:17 Temperature 97.3 F L Pulse Rate 60 60 Respiratory Rate 18 18 Blood Pressure 137/63 Blood Pressure [Left Arm] 137/63 Pulse Oximetry 97 98 Oxygen Delivery Method Room Air Room Air MDM - Fall <Sathish Flores, DO - Last Filed: 01/15/23 01:45> Lab Data 01/14/23 19:39 01/14/23 19:39 Labs: Lab Results 01/13/23 01/13/23 01/14/23 Range/Units 17:00 17:00 13:00 WBC 8.9 (4.5-11.0) X10^3/uL RBC 4.01 L (4.5-5.9) X10^6/uL Hgb 11.3 L (13.5-17.5) g/dL Hct 33.6 L (41-53) % MCV 83.9 (80-100) fL MCH 28.1 (26-34) PG MCHC 33.5 (30-36) % RDW 15.7 H (11.6-14.8) % Plt Count 142 L (150-400) X10^3/uL Neut % (Auto) 78.2 H (50-75) % Lymph % (Auto) 12.0 L (25-40) % Rosebud % (Auto) 7.9 (3-14) % Eos % (Auto) 1.5 L (2-4) % Baso % (Auto) 0.4 (0-2) % Neut # (Auto) 7000 (4588-0041) /uL Lymph # (Auto) 1100 (3600-1598) /uL [place] # (Auto) 700 (0-900) /uL Eos # (Auto) 100 (0-450) /uL Baso # (Auto) 0 (0-100) /uL Sodium 140 141 (137-145) mmol/L Potassium 4.5 4.4 (3.4-5.1) mmol/L Chloride 106 104 (98-107) mmol/L Carbon Dioxide 20 L 27 (22-32) mmol/L BUN 44 H 37 H (9-20) mg/dL Creatinine 2.37 H 1.83 H (0.66-1.25) mg/dL Estimated GFR 26 L 36 L (>60) mL/min BUN/Creatinine Ratio 18.6 20.2 (6-22) Glucose 123 H 141 H (80-110) mg/dL Calcium 8.7 9.0 (8.4-10.2) mg/dL Magnesium 1.6 (1.6-2.3) mg/dL Total Bilirubin 1.4 H 1.7 H (0.2-1.3) mg/dL AST 24 31 (17-59) IU/L ALT 23 22 (<50) IU/L Alkaline Phosphatase 75 86 (38-126) U/L Total Creatine Kinase 54 L (55-170) U/L CK-MB (CK-2) TNP CK-MB (CK-2) Rel Index TNP Troponin I 0.014 (0.01-0.034) ng/mL NT-Pro-B Natriuret Pep 872 H (<450) pg/mL Total Protein 6.2 L 7.1 (6.3-8.2) g/dL Albumin 3.5 3.8 (3.5-5.0) g/dL Globulin 2.7 3.3 (1.7-4.1) g/dL Albumin/Globulin Ratio 1.3 1.2 (1.0-2.8) Lipase 286 (23-300) U/L TSH (0.47-4.68) uIU/mL Free T4 (0.78-2.19) ng/dL Salicylates (<20) mg/dL U Opiates 300ng/mL cut (Negative) Ur Oxycodone Screen (Negative) Urine Methadone Screen (Negative) Acetaminophen (10-30) ug/mL Ur Barbiturates Screen (Negative) U Tricyclic Antidepress (Negative) Ur Phencyclidine Scrn (Negative) Ur Amphetamines Screen (Negative) U Methamphetamines Scrn (Negative) Ur MDMA Scrn (Ecstasy) (Negative) U Benzodiazepines Scrn (Negative) Urine Cocaine Screen (Negative) U Marijuana (THC) Screen (Negative) Ethyl Alcohol ( - 10) mg/dL SARS-CoV-2 (PCR) (Negative) 01/14/23 01/14/23 01/14/23 Range/Units 13:00 13:00 13:00 WBC (4.5-11.0) X10^3/uL RBC (4.5-5.9) X10^6/uL Hgb (13.5-17.5) g/dL Hct (41-53) % MCV (80-100) fL MCH (26-34) PG MCHC (30-36) % RDW (11.6-14.8) % Plt Count (150-400) X10^3/uL Neut % (Auto) (50-75) % Lymph % (Auto) (25-40) % Rosebud % (Auto) (3-14) % Eos % (Auto) (2-4) % Baso % (Auto) (0-2) % Neut # (Auto) (1764-3452) /uL Lymph # (Auto) (1478-3525) /uL Rosebud # (Auto) (0-900) /uL Eos # (Auto) (0-450) /uL Baso # (Auto) (0-100) /uL Sodium (137-145) mmol/L Potassium (3.4-5.1) mmol/L Chloride (98-107) mmol/L Carbon Dioxide (22-32) mmol/L BUN (9-20) mg/dL Creatinine (0.66-1.25) mg/dL Estimated GFR (>60) mL/min BUN/Creatinine Ratio (6-22) Glucose (80-110) mg/dL Calcium (8.4-10.2) mg/dL Magnesium 1.6 (1.6-2.3) mg/dL Total Bilirubin (0.2-1.3) mg/dL AST (17-59) IU/L ALT (<50) IU/L Alkaline Phosphatase (38-126) U/L Total Creatine Kinase (55-170) U/L CK-MB (CK-2) CK-MB (CK-2) Rel Index Troponin I (0.01-0.034) ng/mL NT-Pro-B Natriuret Pep (<450) pg/mL Total Protein (6.3-8.2) g/dL Albumin (3.5-5.0) g/dL Globulin (1.7-4.1) g/dL Albumin/Globulin Ratio (1.0-2.8) Lipase (23-300) U/L TSH 3.96 (0.47-4.68) uIU/mL Free T4 1.14 (0.78-2.19) ng/dL Salicylates < 1.0 (<20) mg/dL U Opiates 300ng/mL cut (Negative) Ur Oxycodone Screen (Negative) Urine Methadone Screen (Negative) Acetaminophen < 10 (10-30) ug/mL Ur Barbiturates Screen (Negative) U Tricyclic Antidepress (Negative) Ur Phencyclidine Scrn (Negative) Ur Amphetamines Screen (Negative) U Methamphetamines Scrn (Negative) Ur MDMA Scrn (Ecstasy) (Negative) U Benzodiazepines Scrn (Negative) Urine Cocaine Screen (Negative) U Marijuana (THC) Screen (Negative) Ethyl Alcohol < 10 ( - 10) mg/dL SARS-CoV-2 (PCR) (Negative) 01/14/23 01/14/23 01/14/23 Range/Units 13:35 17:10 19:39 WBC 6.5 (4.5-11.0) X10^3/uL RBC 4.23 L (4.5-5.9) X10^6/uL Hgb 11.8 L (13.5-17.5) g/dL Hct 34.8 L (41-53) % MCV 82.2 (80-100) fL MCH 27.9 (26-34) PG MCHC 34.0 (30-36) % RDW 15.8 H (11.6-14.8) % Plt Count 156 (150-400) X10^3/uL Neut % (Auto) 63.5 (50-75) % Lymph % (Auto) 22.4 L (25-40) % Rosebud % (Auto) 9.8 (3-14) % Eos % (Auto) 3.4 (2-4) % Baso % (Auto) 0.9 (0-2) % Neut # (Auto) 4100 (2358-8061) /uL Lymph # (Auto) 1400 (3973-1968) /uL Rosebud # (Auto) 600 (0-900) /uL Eos # (Auto) 200 (0-450) /uL Baso # (Auto) 100 (0-100) /uL Sodium (137-145) mmol/L Potassium (3.4-5.1) mmol/L Chloride (98-107) mmol/L Carbon Dioxide (22-32) mmol/L BUN (9-20) mg/dL Creatinine (0.66-1.25) mg/dL Estimated GFR (>60) mL/min BUN/Creatinine Ratio (6-22) Glucose (80-110) mg/dL Calcium (8.4-10.2) mg/dL Magnesium (1.6-2.3) mg/dL Total Bilirubin (0.2-1.3) mg/dL AST (17-59) IU/L ALT (<50) IU/L Alkaline Phosphatase (38-126) U/L Total Creatine Kinase (55-170) U/L CK-MB (CK-2) CK-MB (CK-2) Rel Index Troponin I (0.01-0.034) ng/mL NT-Pro-B Natriuret Pep (<450) pg/mL Total Protein (6.3-8.2) g/dL Albumin (3.5-5.0) g/dL Globulin (1.7-4.1) g/dL Albumin/Globulin Ratio (1.0-2.8) Lipase (23-300) U/L TSH (0.47-4.68) uIU/mL Free T4 (0.78-2.19) ng/dL Salicylates (<20) mg/dL U Opiates 300ng/mL cut Negative (Negative) Ur Oxycodone Screen Negative (Negative) Urine Methadone Screen Negative (Negative) Acetaminophen (10-30) ug/mL Ur Barbiturates Screen Negative (Negative) U Tricyclic Antidepress Negative (Negative) Ur Phencyclidine Scrn Negative (Negative) Ur Amphetamines Screen Negative (Negative) U Methamphetamines Scrn Negative (Negative) Ur MDMA Scrn (Ecstasy) Negative (Negative) U Benzodiazepines Scrn Negative (Negative) Urine Cocaine Screen Negative (Negative) U Marijuana (THC) Screen Negative (Negative) Ethyl Alcohol ( - 10) mg/dL SARS-CoV-2 (PCR) Negative (Negative) 01/14/23 Range/Units 19:39 WBC (4.5-11.0) X10^3/uL RBC (4.5-5.9) X10^6/uL Hgb (13.5-17.5) g/dL Hct (41-53) % MCV (80-100) fL MCH (26-34) PG MCHC (30-36) % RDW (11.6-14.8) % Plt Count (150-400) X10^3/uL Neut % (Auto) (50-75) % Lymph % (Auto) (25-40) % Rosebud % (Auto) (3-14) % Eos % (Auto) (2-4) % Baso % (Auto) (0-2) % Neut # (Auto) (9738-8827) /uL Lymph # (Auto) (7546-7351) /uL Rosebud # (Auto) (0-900) /uL Eos # (Auto) (0-450) /uL Baso # (Auto) (0-100) /uL Sodium 140 (137-145) mmol/L Potassium 4.1 (3.4-5.1) mmol/L Chloride 105 (98-107) mmol/L Carbon Dioxide 26 (22-32) mmol/L BUN 38 H (9-20) mg/dL Creatinine 1.74 H (0.66-1.25) mg/dL Estimated GFR 38 L (>60) mL/min BUN/Creatinine Ratio 21.8 (6-22) Glucose 119 H (80-110) mg/dL Calcium 9.0 (8.4-10.2) mg/dL Magnesium (1.6-2.3) mg/dL Total Bilirubin (0.2-1.3) mg/dL AST (17-59) IU/L ALT (<50) IU/L Alkaline Phosphatase (38-126) U/L Total Creatine Kinase (55-170) U/L CK-MB (CK-2) CK-MB (CK-2) Rel Index Troponin I (0.01-0.034) ng/mL NT-Pro-B Natriuret Pep (<450) pg/mL Total Protein (6.3-8.2) g/dL Albumin (3.5-5.0) g/dL Globulin (1.7-4.1) g/dL Albumin/Globulin Ratio (1.0-2.8) Lipase (23-300) U/L TSH (0.47-4.68) uIU/mL Free T4 (0.78-2.19) ng/dL Salicylates (<20) mg/dL U Opiates 300ng/mL cut (Negative) Ur Oxycodone Screen (Negative) Urine Methadone Screen (Negative) Acetaminophen (10-30) ug/mL Ur Barbiturates Screen (Negative) U Tricyclic Antidepress (Negative) Ur Phencyclidine Scrn (Negative) Ur Amphetamines Screen (Negative) U Methamphetamines Scrn (Negative) Ur MDMA Scrn (Ecstasy) (Negative) U Benzodiazepines Scrn (Negative) Urine Cocaine Screen (Negative) U Marijuana (THC) Screen (Negative) Ethyl Alcohol ( - 10) mg/dL SARS-CoV-2 (PCR) (Negative) Urine Dip Bedside Urine Glucose Negative Bedside Urine Bilirubin - Negative Bedside Urine Ketone - Negative Urine Specific [place] 1.010 Bedside Urine Occult Blood - Negative Bedside Urine pH 7.0 Bedside Urine Protein - Negative Bedside Urine Urobilinogen - Negative Bedside Urine Nitrite - Negative Bedside Urine Leukocytes - Negative Esterase MDM Narrative Medical decision making narrative: Dr bangura: [id number] received turned over. Reviewed patient's history and physical and workup up to this point. Patient is medically cleared. He has been calm throughout the night. No further medical intervention needed. Patient is cleared for discharge home. Contacted the patient's who refuses to come pick him up because she states she feels unsafe with him at home. She was advised that there is no further medical interventions needed although she refuses a come pick the patient up. Social work consult has been placed. 1751: Patient has been in the emergency department all day. He has been stable. Patient continues to be medically cleared. Was seen by DCR and unfortunately there are no [facility] available. DCR also states that even if there were he would unlikely be placed as there does not appear to be an easily reversible issue. He does have a history of dementia. He does not have a mental health diagnosis on top of this. DCR did talk with the patient's family. I was not available for this conversation. Unfortunately not much more that the emergency department can provide. I do believe that the patient would be best at a memory care facility although we are not going to be able to set that up out of the emergency department. Will be the responsibility the patient's family in order to this along with his primary provider. Care turned over to Dr. Flores for final disposition. Patient signed back out to myself. Clinical course reviewed, multiple rib fractures noted on chest x-ray. CTs ordered of head, C-spine including chest abdomen and pelvis which notes multiple rib fractures and the possibility of an underlying pulmonary contusion. Patient will require hospitalization for ongoing evaluation for the potential of clinical deterioration. Discussed with on-call trauma physician Dr. Alcantara, he is happy to be involved in consultation. Hospitalist, Dr. Silva contacted and will bring patient on his service <Jeremiah Bangura, - Last Filed: 01/14/23 17:55> Lab Data Labs: Lab Results 01/13/23 01/13/23 01/14/23 Range/Units 17:00 17:00 13:00 WBC 8.9 (4.5-11.0) X10^3/uL RBC 4.01 L (4.5-5.9) X10^6/uL Hgb 11.3 L (13.5-17.5) g/dL Hct 33.6 L (41-53) % MCV 83.9 (80-100) fL MCH 28.1 (26-34) PG MCHC 33.5 (30-36) % RDW 15.7 H (11.6-14.8) % Plt Count 142 L (150-400) X10^3/uL Neut % (Auto) 78.2 H (50-75) % Lymph % (Auto) 12.0 L (25-40) % Rosebud % (Auto) 7.9 (3-14) % Eos % (Auto) 1.5 L (2-4) % Baso % (Auto) 0.4 (0-2) % Neut # (Auto) 7000 (4504-6975) /uL Lymph # (Auto) 1100 (5139-9309) /uL [place] # (Auto) 700 (0-900) /uL Eos # (Auto) 100 (0-450) /uL Baso # (Auto) 0 (0-100) /uL Sodium 140 141 (137-145) mmol/L Potassium 4.5 4.4 (3.4-5.1) mmol/L Chloride 106 104 (98-107) mmol/L Carbon Dioxide 20 L 27 (22-32) mmol/L BUN 44 H 37 H (9-20) mg/dL Creatinine 2.37 H 1.83 H (0.66-1.25) mg/dL Estimated GFR 26 L 36 L (>60) mL/min BUN/Creatinine Ratio 18.6 20.2 (6-22) Glucose 123 H 141 H (80-110) mg/dL Calcium 8.7 9.0 (8.4-10.2) mg/dL Magnesium 1.6 (1.6-2.3) mg/dL Total Bilirubin 1.4 H 1.7 H (0.2-1.3) mg/dL AST 24 31 (17-59) IU/L ALT 23 22 (<50) IU/L Alkaline Phosphatase 75 86 (38-126) U/L Total Creatine Kinase 54 L (55-170) U/L CK-MB (CK-2) TNP CK-MB (CK-2) Rel Index TNP Troponin I 0.014 (0.01-0.034) ng/mL NT-Pro-B Natriuret Pep 872 H (<450) pg/mL Total Protein 6.2 L 7.1 (6.3-8.2) g/dL Albumin 3.5 3.8 (3.5-5.0) g/dL Globulin 2.7 3.3 (1.7-4.1) g/dL Albumin/Globulin Ratio 1.3 1.2 (1.0-2.8) Lipase 286 (23-300) U/L TSH (0.47-4.68) uIU/mL Free T4 (0.78-2.19) ng/dL Salicylates (<20) mg/dL U Opiates 300ng/mL cut (Negative) Ur Oxycodone Screen (Negative) Urine Methadone Screen (Negative) Acetaminophen (10-30) ug/mL Ur Barbiturates Screen (Negative) U Tricyclic Antidepress (Negative) Ur Phencyclidine Scrn (Negative) Ur Amphetamines Screen (Negative) U Methamphetamines Scrn (Negative) Ur MDMA Scrn (Ecstasy) (Negative) U Benzodiazepines Scrn (Negative) Urine Cocaine Screen (Negative) U Marijuana (THC) Screen (Negative) Ethyl Alcohol ( - 10) mg/dL SARS-CoV-2 (PCR) (Negative) 01/14/23 01/14/23 01/14/23 Range/Units 13:00 13:00 13:00 WBC (4.5-11.0) X10^3/uL RBC (4.5-5.9) X10^6/uL Hgb (13.5-17.5) g/dL Hct (41-53) % MCV (80-100) fL MCH (26-34) PG MCHC (30-36) % RDW (11.6-14.8) % Plt Count (150-400) X10^3/uL Neut % (Auto) (50-75) % Lymph % (Auto) (25-40) % [place] % (Auto) (3-14) % Eos % (Auto) (2-4) % Baso % (Auto) (0-2) % Neut # (Auto) (0110-5410) /uL Lymph # (Auto) (6981-7532) /uL [place] # (Auto) (0-900) /uL Eos # (Auto) (0-450) /uL Baso # (Auto) (0-100) /uL Sodium (137-145) mmol/L Potassium (3.4-5.1) mmol/L Chloride (98-107) mmol/L Carbon Dioxide (22-32) mmol/L BUN (9-20) mg/dL Creatinine (0.66-1.25) mg/dL Estimated GFR (>60) mL/min BUN/Creatinine Ratio (6-22) Glucose (80-110) mg/dL Calcium (8.4-10.2) mg/dL Magnesium 1.6 (1.6-2.3) mg/dL Total Bilirubin (0.2-1.3) mg/dL AST (17-59) IU/L ALT (<50) IU/L Alkaline Phosphatase (38-126) U/L Total Creatine Kinase (55-170) U/L CK-MB (CK-2) CK-MB (CK-2) Rel Index Troponin I (0.01-0.034) ng/mL NT-Pro-B Natriuret Pep (<450) pg/mL Total Protein (6.3-8.2) g/dL Albumin (3.5-5.0) g/dL Globulin (1.7-4.1) g/dL Albumin/Globulin Ratio (1.0-2.8) Lipase (23-300) U/L TSH 3.96 (0.47-4.68) uIU/mL Free T4 1.14 (0.78-2.19) ng/dL Salicylates < 1.0 (<20) mg/dL U Opiates 300ng/mL cut (Negative) Ur Oxycodone Screen (Negative) Urine Methadone Screen (Negative) Acetaminophen < 10 (10-30) ug/mL Ur Barbiturates Screen (Negative) U Tricyclic Antidepress (Negative) Ur Phencyclidine Scrn (Negative) Ur Amphetamines Screen (Negative) U Methamphetamines Scrn (Negative) Ur MDMA Scrn (Ecstasy) (Negative) U Benzodiazepines Scrn (Negative) Urine Cocaine Screen (Negative) U Marijuana (THC) Screen (Negative) Ethyl Alcohol < 10 ( - 10) mg/dL SARS-CoV-2 (PCR) (Negative) 01/14/23 01/14/23 01/14/23 Range/Units 13:35 17:10 19:39 WBC 6.5 (4.5-11.0) X10^3/uL RBC 4.23 L (4.5-5.9) X10^6/uL Hgb 11.8 L (13.5-17.5) g/dL Hct 34.8 L (41-53) % MCV 82.2 (80-100) fL MCH 27.9 (26-34) PG MCHC 34.0 (30-36) % RDW 15.8 H (11.6-14.8) % Plt Count 156 (150-400) X10^3/uL Neut % (Auto) 63.5 (50-75) % Lymph % (Auto) 22.4 L (25-40) % Rosebud % (Auto) 9.8 (3-14) % Eos % (Auto) 3.4 (2-4) % Baso % (Auto) 0.9 (0-2) % Neut # (Auto) 4100 (9990-5330) /uL Lymph # (Auto) 1400 (0990-3003) /uL Rosebud # (Auto) 600 (0-900) /uL Eos # (Auto) 200 (0-450) /uL Baso # (Auto) 100 (0-100) /uL Sodium (137-145) mmol/L Potassium (3.4-5.1) mmol/L Chloride (98-107) mmol/L Carbon Dioxide (22-32) mmol/L BUN (9-20) mg/dL Creatinine (0.66-1.25) mg/dL Estimated GFR (>60) mL/min BUN/Creatinine Ratio (6-22) Glucose (80-110) mg/dL Calcium (8.4-10.2) mg/dL Magnesium (1.6-2.3) mg/dL Total Bilirubin (0.2-1.3) mg/dL AST (17-59) IU/L ALT (<50) IU/L Alkaline Phosphatase (38-126) U/L Total Creatine Kinase (55-170) U/L CK-MB (CK-2) CK-MB (CK-2) Rel Index Troponin I (0.01-0.034) ng/mL NT-Pro-B Natriuret Pep (<450) pg/mL Total Protein (6.3-8.2) g/dL Albumin (3.5-5.0) g/dL Globulin (1.7-4.1) g/dL Albumin/Globulin Ratio (1.0-2.8) Lipase (23-300) U/L TSH (0.47-4.68) uIU/mL Free T4 (0.78-2.19) ng/dL Salicylates (<20) mg/dL U Opiates 300ng/mL cut Negative (Negative) Ur Oxycodone Screen Negative (Negative) Urine Methadone Screen Negative (Negative) Acetaminophen (10-30) ug/mL Ur Barbiturates Screen Negative (Negative) U Tricyclic Antidepress Negative (Negative) Ur Phencyclidine Scrn Negative (Negative) Ur Amphetamines Screen Negative (Negative) U Methamphetamines Scrn Negative (Negative) Ur MDMA Scrn (Ecstasy) Negative (Negative) U Benzodiazepines Scrn Negative (Negative) Urine Cocaine Screen Negative (Negative) U Marijuana (THC) Screen Negative (Negative) Ethyl Alcohol ( - 10) mg/dL SARS-CoV-2 (PCR) Negative (Negative) 01/14/23 Range/Units 19:39 WBC (4.5-11.0) X10^3/uL RBC (4.5-5.9) X10^6/uL Hgb (13.5-17.5) g/dL Hct (41-53) % MCV (80-100) fL MCH (26-34) PG MCHC (30-36) % RDW (11.6-14.8) % Plt Count (150-400) X10^3/uL Neut % (Auto) (50-75) % Lymph % (Auto) (25-40) % Rosebud % (Auto) (3-14) % Eos % (Auto) (2-4) % Baso % (Auto) (0-2) % Neut # (Auto) (5934-1121) /uL Lymph # (Auto) (9167-9609) /uL Rosebud # (Auto) (0-900) /uL Eos # (Auto) (0-450) /uL Baso # (Auto) (0-100) /uL Sodium 140 (137-145) mmol/L Potassium 4.1 (3.4-5.1) mmol/L Chloride 105 (98-107) mmol/L Carbon Dioxide 26 (22-32) mmol/L BUN 38 H (9-20) mg/dL Creatinine 1.74 H (0.66-1.25) mg/dL Estimated GFR 38 L (>60) mL/min BUN/Creatinine Ratio 21.8 (6-22) Glucose 119 H (80-110) mg/dL Calcium 9.0 (8.4-10.2) mg/dL Magnesium (1.6-2.3) mg/dL Total Bilirubin (0.2-1.3) mg/dL AST (17-59) IU/L ALT (<50) IU/L Alkaline Phosphatase (38-126) U/L Total Creatine Kinase (55-170) U/L CK-MB (CK-2) CK-MB (CK-2) Rel Index Troponin I (0.01-0.034) ng/mL NT-Pro-B Natriuret Pep (<450) pg/mL Total Protein (6.3-8.2) g/dL Albumin (3.5-5.0) g/dL Globulin (1.7-4.1) g/dL Albumin/Globulin Ratio (1.0-2.8) Lipase (23-300) U/L TSH (0.47-4.68) uIU/mL Free T4 (0.78-2.19) ng/dL Salicylates (<20) mg/dL U Opiates 300ng/mL cut (Negative) Ur Oxycodone Screen (Negative) Urine Methadone Screen (Negative) Acetaminophen (10-30) ug/mL Ur Barbiturates Screen (Negative) U Tricyclic Antidepress (Negative) Ur Phencyclidine Scrn (Negative) Ur Amphetamines Screen (Negative) U Methamphetamines Scrn (Negative) Ur MDMA Scrn (Ecstasy) (Negative) U Benzodiazepines Scrn (Negative) Urine Cocaine Screen (Negative) U Marijuana (THC) Screen (Negative) Ethyl Alcohol ( - 10) mg/dL SARS-CoV-2 (PCR) (Negative) Urine Dip Bedside Urine Glucose Negative Bedside Urine Bilirubin - Negative Bedside Urine Ketone - Negative Urine Specific [place] 1.010 Bedside Urine Occult Blood - Negative Bedside Urine pH 7.0 Bedside Urine Protein - Negative Bedside Urine Urobilinogen - Negative Bedside Urine Nitrite - Negative Bedside Urine Leukocytes - Negative Esterase MDM Narrative Medical decision making narrative: Dr bangura: 0815 received turned over. Reviewed patient's history and physical and workup up to this point. Patient is medically cleared. He has been calm throughout the night. No further medical intervention needed. Patient is cleared for discharge home. Contacted the patient's who refuses to come pick him up because she states she feels unsafe with him at home. She was advised that there is no further medical interventions needed although she refuses a come pick the patient up. Social work consult has been placed. 1751: Patient has been in the emergency department all day. He has been stable. Patient continues to be medically cleared. Was seen by DCR and unfortunately there are no [facility] available. DCR also states that even if there were he would unlikely be placed as there does not appear to be an easily reversible issue. He does have a history of dementia. He does not have a mental health diagnosis on top of this. DCR did talk with the patient's family. I was not available for this conversation. Unfortunately not much more that the emergency department can provide. I do believe that the patient would be best at a memory care facility although we are not going to be able to set that up out of the emergency department. Will be the responsibility the patient's family in order to this along with his primary provider. Care turned over to Dr. Flores for final disposition. Critical Care Time <Sathish Flores, - Last Filed: 01/15/23 01:45> Critical Care Time Critical Care Time: Yes Total Critical Care Time: 45 Attestation: The high probability of a clinically significant, sudden or life threatening deterioration of the [MSK/CV] system(s) required my full and direct attention, intervention and personal management. The aggregate critical care time was [45] minutes. This time is in addition to time spent performing reported procedures but includes the following: [x] Data Review and interpretation [x] Patient assessment and monitoring of vital signs [x] Documentation [x] Medication orders and management Discharge Plan Departure Patient Disposition: Admitted as Observation Clinical Impression: Fall, Multiple fractures of ribs Admit Date/Time: 01/14/23 21:47 Admit Provider: Isaiah Silva
[2023-01-13 19:18] LABS: Add Manual Diff / Slide Review NO; Basophils Absolute Auto 0 /uL (0-100); Basophils Percent Auto 0.4 % (0-2); Eosinophils Absolute Auto 100 /uL (0-450); Eosinophils Percent Auto 1.5 % (2-4); Hematocrit 33.6 % (41-53); Hemoglobin 11.3 g/dL (13.5-17.5); Lymphocytes Absolute Auto 1100 /uL (1100-4500); Mean Corpuscular HGB Conc 33.5 % (30-36); Mean Corpuscular Hemoglobin 28.1 PG (26-34); Mean Corpuscular Volume 83.9 fL (80-100); Monocytes Absolute Auto 700 /uL (0-900); Monocytes Percent Auto 7.9 % (3-14); Neutrophils Absolute Auto 7000 /uL (1500-7000); Neutrophils Percent Auto 78.2 % (50-75); Platelet Count 142 X10^3/uL (150-400); Red Blood Cell Count 4.01 X10^6/uL (4.5-5.9); Red Cell Distribution Width 15.7 % (11.6-14.8); White Blood Cell Count 8.9 X10^3/uL (4.5-11.0)
[2023-01-13 19:24] LABS: Alanine Aminotransferase 23 IU/L (<50); Albumin 3.5 g/dL (3.5-5.0); Albumin Globulin Ratio 1.3 (1.0-2.8); Alkaline Phosphatase 75 U/L (38-126); Aspartate Aminotransferase 24 IU/L (17-59); BUN Creatinine Ratio 18.6 (6-22); Bilirubin Total 1.4 mg/dL (0.2-1.3); Blood Urea Nitrogen 44 mg/dL (9-20); Calcium 8.7 mg/dL (8.4-10.2); Carbon Dioxide 20 mmol/L (22-32); Chloride 106 mmol/L (98-107); Creatine Kinase 54 U/L (55-170); Estimated Glomerular Filt Rate 26 mL/min (>60); Globulin 2.7 g/dL (1.7-4.1); Glucose 123 mg/dL (80-110); HEMOLYSIS < 15 (0-50); Lipase 286 U/L (23-300); Magnesium 1.6 mg/dL (1.6-2.3); Potassium 4.5 mmol/L (3.4-5.1); Sodium 140 mmol/L (137-145); Total Protein 6.2 g/dL (6.3-8.2)
[2023-01-13 19:35] LABS: NT-proBNP (BNP-Adult 18+) 872 pg/mL (<450); Troponin I 0.014 ng/mL (0.01-0.034)
[2023-01-14] VITALS (10 sets, daily range): BP systolic 137–164; BP diastolic 63–77; PULSE 60–73; RESP 18; TEMP 36.3–36.8; O2SAT 94–100; BMI 27.6
--- NOTE | 2023-01-14 01:16 | PC.NURSE ---
CAPITAL PROJECT ENGINEER note: Attempted to get out of bed. Reoriented. Back in bed.
--- NOTE | 2023-01-14 06:05 | DI.RAD.S_ITS ---
PROCEDURE: XR CHEST 1V INDICATIONS: rib pain after fall TECHNIQUE: One view of the chest was acquired. COMPARISON: [facility], CR, XR CHEST 1V, 10/25/2022, 7:35. [facility], CR, XR CHEST 1V, 11/11/2022, 8:03. FINDINGS: Surgical changes and devices: Left chest wall cardiac device with leads in the right atrium, right ventricle, and coronary sinus. Lungs and pleura: Lungs are clear. No pleural effusions or pneumothorax. Mediastinum: Mediastinal contours appear normal. Heart size is normal. Bones and chest wall: Right lateral 7th through 9th rib fractures. No suspicious bony lesions. Overlying soft tissues appear unremarkable. IMPRESSION: 1. Right lateral 7th through 9th rib fractures. 2. No pneumothorax. Dictated by: Gerardo Mora M.D. on 01/14/2023 at 7:48 Approved by: Gerardo Mora M.D. on 01/14/2023 at 7:51
--- NOTE | 2023-01-14 08:13 | PC.NURSE ---
Spoke to patient's concerning discharge, states she does not feel safe bringing patient home and declines picking him up at this time. Dr. Bangura notified.
--- NOTE | 2023-01-14 09:44 | PC.NURSE ---
Obtained Medication Reconciliation from , Juliana via phone. States pt has been difficult to medicate recently and has not taken any medications in the past few days.
--- NOTE | 2023-01-14 10:34 | PC.NURSE ---
Pt found to be walking around room stating his friends are in the bathroom and believes his has been here today. Pt has not had any visitors. Ambulates with steady gait independently. Pt continuously attempting to wander. Pt provided hospital bed.
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
[2023-01-14] MEDS: HALOPERIDOL 5 MG/ML VIAL IM (10:50)
--- NOTE | 2023-01-14 10:54 | PC.NURSE ---
Pt hightly agitated, calling out, attempting to pinch and scratch staff. Attempted verbal redirection, ambulation out of room, offer of food/fluids, consistent caregivers, bathroom. Pt refused po medication. Dr. Bangura made aware and ordered haldol Im. Given to pt and pt returned to bed for sitter for patient safety / high risk of falls.
--- NOTE | 2023-01-14 12:10 | PC.NURSE ---
At 1055, continuous sitter initiated for patient safety. Sitter currently at bedside. Pt sitting up in bed, calmer.
[2023-01-14 13:22] LABS: Magnesium 1.6 mg/dL (1.6-2.3)
[2023-01-14 13:24] LABS: Acetaminophen < 10 ug/mL (10-30); Alanine Aminotransferase 22 IU/L (<50); Albumin 3.8 g/dL (3.5-5.0); Albumin Globulin Ratio 1.2 (1.0-2.8); Alkaline Phosphatase 86 U/L (38-126); Aspartate Aminotransferase 31 IU/L (17-59); BUN Creatinine Ratio 20.2 (6-22); Bilirubin Total 1.7 mg/dL (0.2-1.3); Blood Urea Nitrogen 37 mg/dL (9-20); Carbon Dioxide 27 mmol/L (22-32); Chloride 104 mmol/L (98-107); Estimated Glomerular Filt Rate 36 mL/min (>60); Ethanol (ETOH) < 10 mg/dL; Globulin 3.3 g/dL (1.7-4.1); Glucose 141 mg/dL (80-110); HEMOLYSIS < 15 (0-50); Potassium 4.4 mmol/L (3.4-5.1); Salicylate < 1.0 mg/dL (<20); Sodium 141 mmol/L (137-145); Total Protein 7.1 g/dL (6.3-8.2)
[2023-01-14 13:41] LABS: Free T4, Direct Thyroxine 1.14 ng/dL (0.78-2.19)
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
[2023-01-14 13:55] LABS: Thyroid Stimulating Hormone 3.96 uIU/mL (0.47-4.68)
[2023-01-14 13:57] LABS: COVID19 -Nasal RAPID Negative (Negative)
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
[2023-01-14] MEDS: ACETAMINOPHEN 325 MG TABLET 650 MG PO (16:32)
[2023-01-14] MEDS: QUETIAPINE 25 MG TABLET PO (16:33)
[2023-01-14 17:36] LABS: UR Morphine/Opiate cutoff 300 Negative (Negative); Ur Creatinine Normal (Normal); Ur Specific Gravity Normal (Normal); Urine Amphetamines Negative (Negative); Urine Barbiturates Negative (Negative); Urine Benzodiazepines Negative (Negative); Urine Cocaine Negative (Negative); Urine MDMA Negative (Negative); Urine Methadone Negative (Negative); Urine Methamphetamines Negative (Negative); Urine Oxycodone Negative (Negative); Urine Phencyclidine Negative (Negative); Urine Tetrahydrocannabinol Negative (Negative); Urine Tricyclic Antidepressant Negative (Negative); Urine pH Normal (Normal)
[2023-01-14] MEDS: LORazepam 2 MG/ML INJ 1 MG IM (17:58)
--- NOTE | 2023-01-14 18:00 | PC.NURSE ---
Patient becoming increasingly agitated and confused r/t situation and being in the Emergency Department. Unable to assist patient through positive verbal communication and patient started yelling help and to call the guest house manager. Patient making efforts to leave the bed in an unsafe manner with the intent to elope from hospital per his statements. Attempted to give patient his home oral ativan but patient did not tolerate this. Provider made aware that there is a safety concern regarding patient and received new orders for IM dose of Ativan. Patient made no attempt to strike or kick staff during agitation but did move linens and items in reach in an unsafe manner.
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
[2023-01-14] MEDS: SODIUM CHLORIDE 0.9% 1,000 ML 1000 ML IV (19:42)
[2023-01-14 19:47] LABS: Add Manual Diff / Slide Review NO; Basophils Absolute Auto 100 /uL (0-100); Basophils Percent Auto 0.9 % (0-2); Eosinophils Absolute Auto 200 /uL (0-450); Eosinophils Percent Auto 3.4 % (2-4); Hematocrit 34.8 % (41-53); Hemoglobin 11.8 g/dL (13.5-17.5); Lymphocytes Absolute Auto 1400 /uL (1100-4500); Lymphocytes Percent Auto 22.4 % (25-40); Mean Corpuscular Hemoglobin 27.9 PG (26-34); Mean Corpuscular Volume 82.2 fL (80-100); Monocytes Absolute Auto 600 /uL (0-900); Monocytes Percent Auto 9.8 % (3-14); Neutrophils Absolute Auto 4100 /uL (1500-7000); Neutrophils Percent Auto 63.5 % (50-75); Platelet Count 156 X10^3/uL (150-400); Red Blood Cell Count 4.23 X10^6/uL (4.5-5.9); Red Cell Distribution Width 15.8 % (11.6-14.8); White Blood Cell Count 6.5 X10^3/uL (4.5-11.0)
[2023-01-14 19:56] LABS: BUN Creatinine Ratio 21.8 (6-22); Blood Urea Nitrogen 38 mg/dL (9-20); Carbon Dioxide 26 mmol/L (22-32); Chloride 105 mmol/L (98-107); Estimated Glomerular Filt Rate 38 mL/min (>60); Glucose 119 mg/dL (80-110); HEMOLYSIS 25 (0-50); Potassium 4.1 mmol/L (3.4-5.1); Sodium 140 mmol/L (137-145)
--- NOTE | 2023-01-14 20:15 | DI.CT.S_ITS ---
PROCEDURE: CT HEAD/BRAIN WO CON INDICATIONS: fall, trauma TECHNIQUE: Noncontrast 4.5 mm thick angled axial sections acquired from the foramen magnum to the vertex, with coronal and sagittal reformats. For radiation dose reduction, the following was used: automated exposure control, adjustment of mA and/or kV according to patient size. COMPARISON: [facility], CT, CT HEAD/BRAIN WO CON, 11/11/2022, 4:48. [facility], CT, CT HEAD/BRAIN WO CON, 09/01/2022, 11:32. FINDINGS: Image quality: Excellent except for patient motion artifact in the frontal region bilaterally.. CSF spaces: Basal cisterns are patent. No extra-axial fluid collections. The ventricles are symmetric in size and shape. Brain: No intracranial bleeds or masses. There is cerebral volume loss for age, with resultant ventricular and sulcal prominence. There are periventricular and deep white matter chronic small vessel ischemic changes. There is intracranial internal carotid artery atherosclerosis. Skull and face: Calvarium and visualized facial bones appear intact, without suspicious lesions. Sinuses: Visualized sinuses and mastoids are clear. IMPRESSION: No osseous or soft tissue trauma is found. Mild patient motion artifact noted best seen at the skull base and posterior to the frontal bones bilaterally. Dictated by: Keven Conde M.D. on 01/14/2023 at 20:51 Approved by: Keven Conde M.D. on 01/14/2023 at 20:52
--- NOTE | 2023-01-14 20:15 | DI.CT.S_ITS ---
PROCEDURE: CT CERVICAL SPINE WO CON INDICATIONS: trauma TECHNIQUE: Noncontrast 3 mm thick sections acquired from the skull base to the T4 level. Sagittal and coronal reformats were then constructed. For radiation dose reduction, the following was used: automated exposure control, adjustment of mA and/or kV according to patient size. COMPARISON: , CT, CT CERVICAL SPINE WO CON, 11/11/2022, 4:48. , CT, CT CERVICAL SPINE WO CON, 09/01/2022, 11:32. FINDINGS: Image quality: Excellent. Bones: No fractures or dislocations. Visualized superior ribs are intact. Degenerative disc disease is moderately severe over the middle and lower thirds of the cervical spine. Soft tissues: Prevertebral soft tissues are normal in thickness. No paravertebral hematomas. No apical pneumothoraces. IMPRESSION: No trauma found. 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 Dictated by: Keven Conde M.D. on 01/14/2023 at 20:53 Approved by: Keven Conde M.D. on 01/14/2023 at 20:54
--- NOTE | 2023-01-14 20:15 | DI.CT.S_ITS ---
PROCEDURE: CT CHEST ABD PEL W CON INDICATIONS: fall, multiple rib fx on Xray TECHNIQUE: After the administration of intravenous contrast, 5 mm thick sections acquired from the lung apices to the symphysis. 5 mm coronal and sagittal reformats were performed, with additional 7 mm MIP reformats through the lungs. For radiation dose reduction, the following was used: automated exposure control, adjustment of mA and/or kV according to patient size. COMPARISON: [facility], CR, XR CHEST 1V, 09/01/2022, 12:44. [facility], CR, XR CHEST 1V, 08/13/2022, 16:03. [facility], CR, XR CHEST 1V, 11/11/2022, 8:03. [facility], CR, XR CHEST 1V, 01/14/2023, 6:25. FINDINGS: Image quality: Excellent. CHEST: Lungs and pleura: No acute airspace opacities. No pleural effusions or pneumothorax. Central and peripheral airways appear patent and normal in caliber. Mediastinum: Heart size is normal. Pacemaker in place. No pericardial effusion. No mediastinal or hilar adenopathy by size criteria. Thoracic aorta and central pulmonary arteries are normal in size. Esophagus is normal in caliber. No hiatal hernia. Chest wall: No axillary or supraclavicular adenopathy by size criteria. Note is made of several minimally displaced right lateral lower rib fractures, and 2 adjacent more superior right lateral rib fractures that appear chronic. Thyroid gland appears normal where well seen. ABDOMEN: Solid organs: Liver is normal in size and enhancement. Gallbladder contains several small partially calcified gallstones. Biliary system is non dilated. Pancreas enhances normally. Spleen is normal in size and enhancement. No adrenal nodules. Kidneys demonstrate normal size and enhancement, without hydronephrosis. Peritoneum and bowel: Bowel loops demonstrate normal wall thickness and caliber. No free fluid or air. Nodes and vessels: No retroperitoneal or mesenteric adenopathy by size criteria. Aorta and inferior vena cava are normal in size. Miscellaneous: No ventral hernias. PELVIS: Genitourinary: Bladder wall thickness is normal. Miscellaneous: No inguinal hernias or adenopathy. Bones: No suspicious bony lesions. No vertebral body compression fractures. IMPRESSION: Acute rib fractures, minimally displaced without pneumothorax. Right lateral more superior healed rib fractures may be related to prior trauma documented 12/22/22. Small partially calcified gallstones are noted within the gallbladder lumen, several, without associated evidence of acute cholecystitis or biliary obstruction. Dictated by: Keven Conde M.D. on 01/14/2023 at 20:54 Approved by: Keven Conde M.D. on 01/14/2023 at 21:02
--- NOTE | 2023-01-14 22:23 | PM.HP.1 ---
History of Present Illness History of Present Illness Date Patient Seen: 01/14/23 Time Patient Seen: 22:00 Chief complaint: GLF, agressive to , Narrative: Mr. Segovia is an 82M with H dementia with behavioral disturbances, hypertension, hyperlipidemia who presents to the hospital after a fall. He was complaining of lower rib pain per the ED physician note, and nurse triage note. No information is obtainable from the patient due to his mental status. Apparently the patient has been violent and aggressive towards his . He has been seen multiple other times for various issues and has either been unable to be placed in SNF or per notes his has declined to place him in care home care. Apparently per SW note he was supposed to have intake meeting with hospice this week. In the ED workup was done, he actually presented over 24 hours earlier in the afternoon of 01/13. Vitals notable for afebrile, heart rate in 70s, respiratory rate 16, sats 100% on room air. Labs reviewed by me and notable for WBC 6.5, hgb 11.8, plts 156. Na 140, creatinine 2.37, improved to 1.74. Bili 1.4. Urinalysis negative for any infection. chest xray reviewed by me and notable for right 7th-[address]th rib fractures. Ct c-spine negative for acute process. CT chest, abdomen, pelvis notable for 7th-9th acute rib fractures. CT head negative for acute process. Per staff patient is intermittently agitated and calm. His pain is well controlled. His breathing is unlabored and he is requiring no oxygen. Attempts were made to discharge the patient. Per SW note APS report was filed for patient abandoned by family in the ED. Attempts were made to find possible other facilities to accept the patient which were unsuccessful. . ED requested patient be admitted due to the above. [facility] Medical History Acute urinary retention Diabetes mellitus Great toe amputation status Hyperlipidemia Hypertension Surgical History History of permanent cardiac pacemaker placement Family History Father Cancer Social History household members: spouse Smoking Status: Former smoker alcohol intake: former Meds Home Medications and Allergies Home Medications Medication Instructions Recorded Confirmed Type atorvastatin 40 mg tablet 40 mg PO DAILY ##0 12/13/17 01/14/23 History donepezil 10 mg tablet 10 mg PO DAILY 08/16/22 01/14/23 History lorazepam 0.5 mg tablet (Ativan) 0.5 mg PO BEDTIME PRN agitation #5 11/11/22 01/14/23 Rx tabs Allergies Allergy/AdvReac Type Severity Reaction Status Date / Time chlorhexidine Allergy Intermediate Rash Verified 01/14/23 09:35 caffeine [CAFFEINE] AdvReac Unknown Blurry Verified 01/14/23 09:35 Vision Review of Systems Review of Systems Narrative: 14 systems reviewed and negative aside from what is noted in HPI Exam Vital Signs (past 8 hours): - 01/14/23 21:15 01/14/23 21:17 01/14/23 21:17 Temperature 97.3 F L Pulse Rate 60 60 Respiratory Rate 18 18 Blood Pressure 137/63 Blood Pressure [Left Arm] 137/63 Pulse Oximetry 97 98 Oxygen Delivery Method Room Air Room Air 01/14/23 21:50 Temperature Pulse Rate Respiratory Rate Blood Pressure Blood Pressure [Left Arm] Pulse Oximetry Oxygen Delivery Method Room Air Oxygen Delivery Method Room Air Narrative Exam Narrative: GEN: no acute distress HEENT: moist mucous membranes, PERRL NECK: trachea midline, no jvd PULM: clear bilaterally CHEST: slight bruising at lower lateral right ribcage, minimal pain to palpation CV: regular rate and rhythm, no murmurs ABD: soft, nontender, nondistended, no organomegaly EXT: warm and well perfused with no edema Objective Labs 01/14/23 19:39 01/14/23 19:39 Labs: Laboratory Results - last 24 hr 01/14/23 01/14/23 01/14/23 13:00 13:00 13:00 WBC RBC Hgb Hct MCV MCH MCHC RDW Plt Count Neut % (Auto) Lymph % (Auto) [place] % (Auto) Eos % (Auto) Baso % (Auto) Neut # (Auto) Lymph # (Auto) [place] # (Auto) Eos # (Auto) Baso # (Auto) Sodium 141 Potassium 4.4 Chloride 104 Carbon Dioxide 27 BUN 37 H Creatinine 1.83 H Estimated GFR 36 L BUN/Creatinine Ratio 20.2 Glucose 141 H Calcium 9.0 Magnesium Total Bilirubin 1.7 H AST 31 ALT 22 Alkaline Phosphatase 86 Total Protein 7.1 Albumin 3.8 Globulin 3.3 Albumin/Globulin Ratio 1.2 TSH 3.96 Free T4 1.14 Salicylates < 1.0 U Opiates 300ng/mL cut Ur Oxycodone Screen Urine Methadone Screen Acetaminophen < 10 Ur Barbiturates Screen U Tricyclic Antidepress Ur Phencyclidine Scrn Ur Amphetamines Screen U Methamphetamines Scrn Ur MDMA Scrn (Ecstasy) U Benzodiazepines Scrn Urine Cocaine Screen U Marijuana (THC) Screen Ethyl Alcohol < 10 SARS-CoV-2 (PCR) 01/14/23 01/14/23 01/14/23 13:00 13:35 17:10 WBC RBC Hgb Hct MCV MCH MCHC RDW Plt Count Neut % (Auto) Lymph % (Auto) [place] % (Auto) Eos % (Auto) Baso % (Auto) Neut # (Auto) Lymph # (Auto) [place] # (Auto) Eos # (Auto) Baso # (Auto) Sodium Potassium Chloride Carbon Dioxide BUN Creatinine Estimated GFR BUN/Creatinine Ratio Glucose Calcium Magnesium 1.6 Total Bilirubin AST ALT Alkaline Phosphatase Total Protein Albumin Globulin Albumin/Globulin Ratio TSH Free T4 Salicylates U Opiates 300ng/mL cut Negative Ur Oxycodone Screen Negative Urine Methadone Screen Negative Acetaminophen Ur Barbiturates Screen Negative U Tricyclic Antidepress Negative Ur Phencyclidine Scrn Negative Ur Amphetamines Screen Negative U Methamphetamines Scrn Negative Ur MDMA Scrn (Ecstasy) Negative U Benzodiazepines Scrn Negative Urine Cocaine Screen Negative U Marijuana (THC) Screen Negative Ethyl Alcohol SARS-CoV-2 (PCR) Negative 01/14/23 01/14/23 19:39 19:39 WBC 6.5 RBC 4.23 L Hgb 11.8 L Hct 34.8 L MCV 82.2 MCH 27.9 MCHC 34.0 RDW 15.8 H Plt Count 156 Neut % (Auto) 63.5 Lymph % (Auto) 22.4 L [place] % (Auto) 9.8 Eos % (Auto) 3.4 Baso % (Auto) 0.9 Neut # (Auto) 4100 Lymph # (Auto) 1400 [place] # (Auto) 600 Eos # (Auto) 200 Baso # (Auto) 100 Sodium 140 Potassium 4.1 Chloride 105 Carbon Dioxide 26 BUN 38 H Creatinine 1.74 H Estimated GFR 38 L BUN/Creatinine Ratio 21.8 Glucose 119 H Calcium 9.0 Magnesium Total Bilirubin AST ALT Alkaline Phosphatase Total Protein Albumin Globulin Albumin/Globulin Ratio TSH Free T4 Salicylates U Opiates 300ng/mL cut Ur Oxycodone Screen Urine Methadone Screen Acetaminophen Ur Barbiturates Screen U Tricyclic Antidepress Ur Phencyclidine Scrn Ur Amphetamines Screen U Methamphetamines Scrn Ur MDMA Scrn (Ecstasy) U Benzodiazepines Scrn Urine Cocaine Screen U Marijuana (THC) Screen Ethyl Alcohol SARS-CoV-2 (PCR) Assessment & Plan Assessment & Plan narrative: 1. Acute rib fracture -has been monitored for over 24 hours in the ED -not requiring oxygen, pain is well controlled -imaging showed 7th-9th rib fractures -CT chest negative for further injury, no pneumothorax, no pulmonary contusion -suspect low risk injury -continue pain medications -will order incentive spirometry, but doubt patient will be adherent due to dementia 2. Dementia with behavioral disturbances -has been having difficulty being taken care of at home -per ED staff they filed aps report stating patient was abandoned by family -previously has been noted that patient has been hard to place in snf due to dementia -previously family has refused safety and security officer care, and per note no efforts have been made or are underway to place patient care home -hospice consult had been ordered - continue to work on dispo as patient stable for placement -continue ativan, seroquel prn -continue donepezil 3. PRACHI on CKD 3 -resolved by the time patient admitted 4. Type 2 Diabetes -continue home insulin and sliding scale 5. CAD s/p CABG, s/p PPM, HTN -continue aspirin, statin I have obtained history from previous notes and ED physician. I have discussed plan of care with ED physician and bedside nurse. I have reviewed labs, imaging. CODE: Full Proxy: Franca, spouse [facility] - Meds 'Current medications' to include all prescriptions, [id number] products, herbals, cannabis/cannabidiol products, and vitamin/mineral/dietary (nutritional) supplements. I have utilized all available resources to obtain, update, or review the patient?s current medications. [If Yes, STOP here]: Yes
--- NOTE | 2023-01-14 23:04 | PC.NURSE ---
Report taken and pt arrived on floor, resting comfortably. Assessment hampered by patient punching at air/staff in his sleep when disturbed. Sitter present.
[2023-01-15 06:00] VITALS: BP 123/58; PULSE 67; RESP 17; TEMP 36.8; O2SAT 98
[2023-01-15 06:43] LABS: Add Manual Diff / Slide Review NO; Basophils Absolute Auto 0 /uL (0-100); Basophils Percent Auto 0.2 % (0-2); Eosinophils Absolute Auto 100 /uL (0-450); Hematocrit 33.4 % (41-53); Hemoglobin 11.5 g/dL (13.5-17.5); Lymphocytes Absolute Auto 800 /uL (1100-4500); Lymphocytes Percent Auto 7.4 % (25-40); Mean Corpuscular HGB Conc 34.3 % (30-36); Mean Corpuscular Hemoglobin 28.4 PG (26-34); Mean Corpuscular Volume 82.8 fL (80-100); Monocytes Absolute Auto 800 /uL (0-900); Monocytes Percent Auto 7.3 % (3-14); Neutrophils Absolute Auto 9200 /uL (1500-7000); Neutrophils Percent Auto 84.1 % (50-75); Platelet Count 155 X10^3/uL (150-400); Red Blood Cell Count 4.03 X10^6/uL (4.5-5.9); Red Cell Distribution Width 16.1 % (11.6-14.8); White Blood Cell Count 10.9 X10^3/uL (4.5-11.0)
[2023-01-15 06:51] LABS: Blood Urea Nitrogen 34 mg/dL (9-20); Carbon Dioxide 25 mmol/L (22-32); Chloride 109 mmol/L (98-107); Estimated Glomerular Filt Rate 42 mL/min (>60); Glucose 89 mg/dL (80-110); HEMOLYSIS < 15 (0-50); Potassium 4.5 mmol/L (3.4-5.1); Sodium 140 mmol/L (137-145)
[2023-01-15 07:38] LABS: Cholesterol 163 mg/dL (140-199); HDL Cholesterol 36 mg/dL (40-60); LDL Cholesterol Calculated 103 mg/dL (<100); Triglycerides 122 mg/dL (35-150)
--- NOTE | 2023-01-15 10:53 | PC.NURSE ---
Addendum entered by Ev Rizvi R.N. 01/15/23 13:33: Patient has a temperature of 100. Put a cool cloth on his head and he cointinues to rest. Addendum entered by Ev Rizvi R.N. 01/15/23 13:09: Patient woke up and had a drink of his orange juice. Offered him lunch and he states that he was not hungry. Resting comfortably and lunch time blood sugar 90. Original Note: Assess- Patient is lying supine and has been sleeping. He was given iv medication for restlessness and agitation earlier in the am. He is comfortable.
--- NOTE | 2023-01-15 11:04 | CM.DPC ---
Addendum entered by JOBY Orozco 01/15/23 13:57: ADD: Call from Gala at [facility] inquiring about d/c plan for pt. Discussed Respite at Memory Care vs home and LTC planning. [facility] will keep pt on their intake slot to open pt to services for this week 01/17/23 between [id number] and will call for an update tomorrow from SW if plan is home or Respite stay and they can open pt to service at either location. BF Addendum entered by JOBY Orozco 01/15/23 13:12: ADD: OSCAR called the following Memory Care Facilities to inquire about Respite and LTC beds: [facility]- no respite beds right now, but have a couple LTC beds. [facility]- do not do Respite Stays and currently waitlist for LTC beds. [facility]- one LTC bed available so likely would not do Respite Stay. Arlene is the contact tomorrow. [facility]- contact is rajat Tam msg, unsure if any beds available. [facility]- couple beds available, likely LTC and Respite options. Need to call Mon AM. [facility]- have both Respite and LTC beds available, 2 week min and max of a month for Respite. OSCAR called spouse Juliana again and she answered and OSCAR provided her with the information above and her Dtr Radha is with her and spouse wrote down the information and SW provided contact numbers as well. Spouse and Dtr radha agreeable to call [facility] today as Deepa is in the office and will call [facility] and [facility] tomorrow Monday when admin staff available. Spouse and Dtr preference is pt to d/c straight to Respite Bed (not yet ready for LTC placement) from the hospital but aware they will need to determine the cost. OSCAR discussed if spouse agreeable with Respite Stay and Respite stay can be secured by Monday, then likely pt could d/c straight to Memory Care. But if Respite cannot be set up in a timely manner (within 24-48 hours) then pt will need to d/c home with placement from home. Spouse and Dtr acknowledge understanding and agreeable to begin making calls today and tomorrow morning. OSCAR provided contact number for DCP tomorrow Mon and family in agreement to check in for d/c planning in the morning. BF Original Note: DCP Cont: Per RN, pt slept through the night without behaviors and currently sleeping this morning. Has been given Ativan and Seroquel but no Haldol. Per MD, pt medically stable with rib fxs and no oxygen and now a placement/discharge plan need. OSCAR called spouse Juliana [phone] and left detailed msg requesting call back for d/c planning joan. OSCAR called step Dtr Radha [phone] who is visiting and left msg requesting urgent call back for d/c planning. Plan: SW to follow closely as family was to have a meeting today with the resources provided for PP CG and LTC placement towards making determination of d/c plan for pt. JOBY Orozco
[2023-01-15 12:00] VITALS: BP 97/51; PULSE 73; RESP 18; TEMP 37.7; O2SAT 97
--- NOTE | 2023-01-15 13:02 | PM.PN.1 ---
Exam Vital Signs (past 8 hours): - 01/15/23 06:00 01/15/23 07:00 Temperature 98.2 F Pulse Rate 67 Respiratory Rate 17 Blood Pressure 123/58 L Pulse Oximetry 98 Oxygen Delivery Method Room Air Oxygen Flow Rate 0 Oxygen Delivery Method Room Air Oxygen Flow Rate 0 Narrative Exam Narrative: GEN: no acute distress HEENT: moist mucous membranes, PERRL NECK: trachea midline, no jvd PULM: clear bilaterally CHEST: slight bruising at lower lateral right ribcage, minimal pain to palpation CV: regular rate and rhythm, no murmurs ABD: soft, nontender, nondistended, no organomegaly EXT: warm and well perfused with no edema Objective Labs 01/15/23 06:26 01/15/23 06:26 Labs: Laboratory Results - last 24 hr 01/14/23 01/14/23 01/14/23 13:00 13:00 13:00 WBC RBC Hgb Hct MCV MCH MCHC RDW Plt Count Neut % (Auto) Lymph % (Auto) [place] % (Auto) Eos % (Auto) Baso % (Auto) Neut # (Auto) Lymph # (Auto) [place] # (Auto) Eos # (Auto) Baso # (Auto) Sodium 141 Potassium 4.4 Chloride 104 Carbon Dioxide 27 BUN 37 H Creatinine 1.83 H Estimated GFR 36 L BUN/Creatinine Ratio 20.2 Glucose 141 H Calcium 9.0 Magnesium Total Bilirubin 1.7 H AST 31 ALT 22 Alkaline Phosphatase 86 Total Protein 7.1 Albumin 3.8 Globulin 3.3 Albumin/Globulin Ratio 1.2 Triglycerides Cholesterol LDL Cholesterol, Calc HDL Cholesterol TSH 3.96 Free T4 1.14 Salicylates < 1.0 U Opiates 300ng/mL cut Ur Oxycodone Screen Urine Methadone Screen Acetaminophen < 10 Ur Barbiturates Screen U Tricyclic Antidepress Ur Phencyclidine Scrn Ur Amphetamines Screen U Methamphetamines Scrn Ur MDMA Scrn (Ecstasy) U Benzodiazepines Scrn Urine Cocaine Screen U Marijuana (THC) Screen Ethyl Alcohol < 10 SARS-CoV-2 (PCR) 01/14/23 01/14/23 01/14/23 13:00 13:35 17:10 WBC RBC Hgb Hct MCV MCH MCHC RDW Plt Count Neut % (Auto) Lymph % (Auto) [place] % (Auto) Eos % (Auto) Baso % (Auto) Neut # (Auto) Lymph # (Auto) [place] # (Auto) Eos # (Auto) Baso # (Auto) Sodium Potassium Chloride Carbon Dioxide BUN Creatinine Estimated GFR BUN/Creatinine Ratio Glucose Calcium Magnesium 1.6 Total Bilirubin AST ALT Alkaline Phosphatase Total Protein Albumin Globulin Albumin/Globulin Ratio Triglycerides Cholesterol LDL Cholesterol, Calc HDL Cholesterol TSH Free T4 Salicylates U Opiates 300ng/mL cut Negative Ur Oxycodone Screen Negative Urine Methadone Screen Negative Acetaminophen Ur Barbiturates Screen Negative U Tricyclic Antidepress Negative Ur Phencyclidine Scrn Negative Ur Amphetamines Screen Negative U Methamphetamines Scrn Negative Ur MDMA Scrn (Ecstasy) Negative U Benzodiazepines Scrn Negative Urine Cocaine Screen Negative U Marijuana (THC) Screen Negative Ethyl Alcohol SARS-CoV-2 (PCR) Negative 01/14/23 01/14/23 01/15/23 19:39 19:39 06:26 WBC 6.5 10.9 D RBC 4.23 L 4.03 L Hgb 11.8 L 11.5 L Hct 34.8 L 33.4 L MCV 82.2 82.8 MCH 27.9 28.4 MCHC 34.0 34.3 RDW 15.8 H 16.1 H Plt Count 156 155 Neut % (Auto) 63.5 84.1 H D Lymph % (Auto) 22.[address] [place] % (Auto) 9.8 7.3 Eos % (Auto) 3.4 1.0 L Baso % (Auto) 0.9 0.2 Neut # (Auto) 4100 9200 H Lymph # (Auto) [address] [place] # (Auto) 600 800 Eos # (Auto) 200 100 Baso # (Auto) 100 0 Sodium 140 Potassium 4.1 Chloride 105 Carbon Dioxide 26 BUN 38 H Creatinine 1.74 H Estimated GFR 38 L BUN/Creatinine Ratio 21.8 Glucose 119 H Calcium 9.0 Magnesium Total Bilirubin AST ALT Alkaline Phosphatase Total Protein Albumin Globulin Albumin/Globulin Ratio Triglycerides Cholesterol LDL Cholesterol, Calc HDL Cholesterol TSH Free T4 Salicylates U Opiates 300ng/mL cut Ur Oxycodone Screen Urine Methadone Screen Acetaminophen Ur Barbiturates Screen U Tricyclic Antidepress Ur Phencyclidine Scrn Ur Amphetamines Screen U Methamphetamines Scrn Ur MDMA Scrn (Ecstasy) U Benzodiazepines Scrn Urine Cocaine Screen U Marijuana (THC) Screen Ethyl Alcohol SARS-CoV-2 (PCR) 05/07/23 05/07/23 06:26 06:26 WBC RBC Hgb Hct MCV MCH MCHC RDW Plt Count Neut % (Auto) Lymph % (Auto) [place] % (Auto) Eos % (Auto) Baso % (Auto) Neut # (Auto) Lymph # (Auto) [place] # (Auto) Eos # (Auto) Baso # (Auto) Sodium 140 Potassium 4.5 Chloride 109 H Carbon Dioxide 25 BUN 34 H Creatinine 1.62 H Estimated GFR 42 L BUN/Creatinine Ratio 21.0 Glucose 89 Calcium 9.0 Magnesium Total Bilirubin AST ALT Alkaline Phosphatase Total Protein Albumin Globulin Albumin/Globulin Ratio Triglycerides 122 Cholesterol 163 LDL Cholesterol, Calc 103 H HDL Cholesterol 36 L TSH Free T4 Salicylates U Opiates 300ng/mL cut Ur Oxycodone Screen Urine Methadone Screen Acetaminophen Ur Barbiturates Screen U Tricyclic Antidepress Ur Phencyclidine Scrn Ur Amphetamines Screen U Methamphetamines Scrn Ur MDMA Scrn (Ecstasy) U Benzodiazepines Scrn Urine Cocaine Screen U Marijuana (THC) Screen Ethyl Alcohol SARS-CoV-2 (PCR) [facility] Medical History Acute urinary retention Diabetes mellitus Great toe amputation status Hyperlipidemia Hypertension Surgical History History of permanent cardiac pacemaker placement Family History Father Cancer Social History household members: spouse Smoking Status: Former smoker alcohol intake: former Assessment & Plan Assessment & Plan narrative: 1. Acute rib fractures, right side -has been monitored for over 24 hours in the ED -not requiring oxygen, pain is well controlled -imaging showed 7th-9th rib fractures -CT chest negative for further injury, no pneumothorax, no pulmonary contusion -suspect low risk injury -continue pain medications -order for incentive spirometry, however, unlikely patient will be adherent due to dementia 2. Dementia with behavioral disturbances -unable to obtain any interim history from the patient due to dementia -has been having difficulty being taken care of at home -per ED staff they filed aps report stating patient was abandoned by family -previously has been noted that patient has been hard to place in snf due to dementia -previously family has refused intermediate manager care, and per SW note no efforts have been made or are underway to place patient snf -hospice consult had been ordered -sw continue to work on dispo as patient stable for placement -continue ativan, seroquel prn -continue donepezil 3. PRACHI on CKD 3 -renal function continuing to improve, follow labs 4. Type 2 Diabetes -continue home insulin and sliding scale 5. CAD s/p CABG, s/p PPM, HTN -continue aspirin, statin 6. Challenging social circumstances Social work involved. Continue to follow labs and monitor clinically CODE: Full Proxy: Franca, spouse
[2023-01-15] MEDS: SODIUM CHLORIDE 0.9% 1,000 ML 84 ML IV (16:54)
[2023-01-15] MEDS: cefTRIAXone 2,000 MG in SODIUM CHLORIDE 0.9% 100 ML 200 MG IV (16:54)
[2023-01-15 18:57] VITALS: BP 130/55; PULSE 72; RESP 18; TEMP 36.6; O2SAT 98
[2023-01-15 19:00] VITALS: O2SAT 98
[2023-01-15] MEDS: DONEPEZIL 5 MG TABLET 10 MG PO (20:08)
[2023-01-15 23:14] VITALS: BP 134/50; PULSE 65; RESP 18; TEMP 36.3; O2SAT 97
[2023-01-16 05:09] VITALS: BP 128/55; PULSE 60; RESP 18; TEMP 36.1; O2SAT 98
--- NOTE | 2023-01-16 08:30 | PC.NURSE ---
Addendum entered by Ev Rizvi R.N. 01/16/23 16:40: Patient was already to discharge to home with hospice. Lab called and patient had positive pediatric blood cultures of staph species. He is not discharging now, he is on iv rocephin and iv vancomycin. New iv started to his left wrist. Original Note: Patient is alert but confused. He is cheerful and cooperative with care. Eating breakfast now and voices no complaints of discomfort. He does have some skin issues that can be seen under skin assessment in chart.
--- NOTE | 2023-01-16 09:30 | PM.DS.1 ---
History of Present Illness History of Present Illness Date Patient Seen: 01/16/23 Chief complaint: GLF, agressive to , Discharge Providers Provider Date of admission: 01/14/23 21:47 Discharge Date: 01/16/23 Primary care physician: Lauro Trevino PA-C Consults: 01/14/23 05:59 Consult to POLICY DIRECTOR - Underwriting Account Representative Stat Comment: 01/15/23 07:02 Consult to Physical Therapy Evaluate & Treat Comment: Physician Instructions: Evaluate and Treat Discharge provider: Cely Lam MD Summary Hospital Course Hospital Course: Mr. Segovia is an 82M with [facility] dementia with behavioral disturbances, hypertension, hyperlipidemia who presented to the hospital after a fall. He was complaining of lower rib pain per the ED physician note, and nurse triage note. No information is obtainable from the patient due to his mental status. Apparently the patient had been violent and aggressive towards his . He has been seen multiple other times for various issues and has either been unable to be placed in SNF or per notes his has declined to place him in terminal system operator care. Apparently per SW note he was supposed to have intake meeting with hospice this week at home. In the ED workup was done, he actually and previously presented over 24 hours earlier in the afternoon of 01/13. Vitals on presentation, notable for afebrile, heart rate in 70s, respiratory rate 16, sats 100% on room air. Labs reviewed notable for WBC 6.5, hgb 11.8, plts 156. Na 140, creatinine 2.37, improved to 1.74 quickly, Bili 1.4. Urinalysis negative for any infection. chest xray reviewed and notable for right 7th-[address]th [address]. CT c-spine negative for acute process. CT chest, abdomen, pelvis notable for 7th-9th acute rib fractures. CT head negative for acute process. Patient stabilized during the hospital stay. White blood count remained normal. Hemoglobin remained stable with most recent at 11.5. Urine culture negative. One time elevation of temperature to 100? F. blood cultures were taken however patient has had no signs of sepsis. Cultures are still pending however. Patient was initiated on ceftriaxone 2 g IV daily and on discharge patient will be prescribed azithromycin 500 mg p.o. daily for 3 days. Most likely the elevation in temperature was in regards to the rib fractures. Azithromycin will help along with the already given ceftriaxone, cover for any potential subsequent pneumonia. The plan per the , is to take the patient home today and hospice care tomorrow and assess for memory care facilities in the community. Status at Discharge Cognitive/behavioral status at discharge: at baseline, confused Functional status at discharge: independent ambulation Overall status at discharge: patient is back to baseline Time Spent with Patient Time spent: Less than 30 minutes Exam Vital Signs (past 8 hours): - 01/16/23 05:09 01/16/23 08:21 Temperature 97.0 F L Pulse Rate 60 Respiratory Rate 18 Blood Pressure 128/55 L Pulse Oximetry 98 Oxygen Delivery Method Room Air Oxygen Flow Rate 0 Oxygen Delivery Method Room Air Oxygen Flow Rate 0 Objective Labs 01/15/23 06:26 01/15/23 06:26 [facility] Medical History Acute urinary retention Diabetes mellitus Great toe amputation status Hyperlipidemia Hypertension Surgical History History of permanent cardiac pacemaker placement Family History Father Cancer Social History household members: spouse Smoking Status: Former smoker alcohol intake: former Discharge Plan Discharge Plan Patient Disposition: Home Discharge orders & Medications Prescriptions: New azithromycin 500 mg tablet 500 mg PO DAILY 3 Days Qty: 3 0RF Continued atorvastatin 40 MG tablet 40 mg PO DAILY Qty: 0 donepezil 10 mg Tablet 10 mg PO DAILY lorazepam [Ativan] 0.5 mg tablet 0.5 mg PO BEDTIME PRN (Reason: agitation) Qty: 5 0RF Follow up/Referrals: Lauro Trevino PA-C [Primary Care Provider] - Visit Report/Discharge Packet Instructions: How to Prevent Falls Stand Alone Forms: Patient Portal/API, Stroke Signs & Symptoms Discharge Data Primary Care Provider: Lauro Trevino Attending Provider: Isaiah Silva Admghazala Date/Time: 01/14/23 21:47
--- NOTE | 2023-01-16 09:33 | CM.DPC ---
Addendum entered by JOBY Orozco 01/16/23 16:10: ADD: Per MD, pt's blood cultures returned positive for infection and likely may need IV-Abx 10 days to 6 weeks and SW and MD discussed with spouse bedside. SW tried to help spouse with Goals of Care as she states her preference is pt being home with Hospice but spouse currently stating she wants to pursue antibiotics. SW discussed barrier to IV-Abx as pt has not been accepted at SNFs historically due to dementia and that pt cannot remain in the hospital for his course of abx tx. SW discussed pt could still d/c home with Hospice and as pt may not tolerate PICC placement and abx tx. Spouse inquired about pt being transferred to the [facility] and SW states could not confirm yet if that could be an option. Spouse continues to state she would like to start IV-Abx and then determine tomorrow if IV-Abx should continue to be pursued. OSCAR updated RN and manager landscape. Team hopeful to have MD consult with ID MD and Pharmacist to determine if option of oral abx so pt can still d/c home tomorrow for [facility] to still open pt to service between [phone]. BF Addendum entered by JOBY Orozco 01/16/23 12:36: ADD: OSCAR called spouse and updated and she is agreeable to come transport pt home around [phone] and is aware that she will coordinate with [facility] and [facility] after pt discharges home. OSCAR updated manager landscape and RN. BF Addendum entered by JOBY Orozco 01/16/23 12:10: ADD: OSCAR faxed d/c summ to [facility] to review. OSCAR met outside pt room with Vipul from [facility] with RN and community delivery driver Vignesh and provided medical and historical information towards her assessment of pt and provided packet of clinicals to review. Vipul then went to meet pt bedside. BF Original Note: DCP Discharge Home with Hospice and Respite OSCAR called [facility], [facility], and left ms to see if spouse had contacted them and if they need clinicals. OSCAR called [facility] and was directed to call their admin Kym [phone] and updated on pt situation and confirmed they have Respite Beds and agreeable to spouse calling her and confirms they could do bedside assessment today. SW called spouse and updated and spouse called [facility] and called SW back stating that she feels [facility] would be a good fit for Respite and reasonable benitez and that [facility] is sending an RN to do bedside assessment today. Spouse states her preference is for pt to d/c home today after [facility] bedside assessment via her POV since pt's Dtr is visiting and can assist and wants to have [facility] to open with them tomorrow [phone] either in their home or at [facility]. SW called [facility] and updated on plan and will fax d/c summary when available. SW updated MD who is agreeable with writing discharge orders and completing discharge pwk. SW updated Ticket Scheduler and RN. Plan: SW to follow closely for bedside assessment from [facility] and then to call the spouse to come continuous pickling line pickler pt for plan of home with Hospice and Respite Stay. JOYB Orozco
[2023-01-16] MEDS: ATORVASTATIN 20 MG TABLET 40 MG PO (09:41)
--- NOTE | 2023-01-16 10:31 | PT-IP ANOTE ---
Received PT orders and completed chart review. Discussed pt at AM interdisciplinary rounds. Per hospitalist physician, no PT needs at this time and ok to remove pt from therapy caseload.
[2023-01-16 12:00] VITALS: BP 157/71; PULSE 67; RESP 18; TEMP 36.7; O2SAT 99
[2023-01-16 14:54] LABS: Acinetobacter calcoa-baumannii Not Detected (Not Detect); Bacteroides fragilis Not Detected (Not Detect); Candida albicans Not Detected (Not Detect); Candida auris Not Detected (Not Detect); Candida glabrata Not Detected (Not Detect); Candida krusei Not Detected (Not Detect); Candida parapsilosis Not Detected (Not Detect); Candida tropicalis Not Detected (Not Detect); Cryptococcus neoformans/gatti Not Detected (Not Detect); Enterobacter cloacae complex Not Detected (Not Detect); Enterobacterales Not Detected (Not Detect); Enterococcus faecalis Not Detected (Not Detect); Enterococcus faecium Not Detected (Not Detect); Haemophilus influenzae Not Detected (Not Detect); Klebsiella aerogenes Not Detected (Not Detect); Listeria monocytogenes Not Detected (Not Detect); Neisseria meningitidis Not Detected (Not Detect); Proteus species Not Detected (Not Detect); Pseudomonas aeruginosa Not Detected (Not Detect); Salmonella species Not Detected (Not Detect); Serratia marcescens Not Detected (Not Detect); Staphylococcus epidermidis Not Detected (Not Detect); Staphylococcus lugdunensis Not Detected (Not Detect); Staphylococcus species DETECTED (Not Detect); Stenotrophomonas maltophilia Not Detected (Not Detect); Streptococcus agalactiae (Gr B Not Detected (Not Detect); Streptococcus pneumonia Not Detected (Not Detect); Streptococcus pyogenes (Gr A) Not Detected (Not Detect); Streptococcus species Not Detected (Not Detect)
--- NOTE | 2023-01-16 15:45 | P.PN_ITS ---
Subjective Subjective Interval history: Patient was being in the process of being discharged and his blood pressures came back as positive and his discharge was cancelled. His blood cultures were positive for to Staphylococcus species: Staph epidermidis and Staph lugdunensis. Due the difficulty of treating these particular bacterial with any oral medication and the potential severity of possible endocarditis, the patient's discharge was canceled and this was discussed with his . He was initiated on vancomycin and continue of ceftriaxone 2 g IV daily. Repeat blood cultures, echocardiogram and also CBC and comprehensive blood panel and CRP were ordered. Patient is actually feeling fine and not complaining of any symptoms. Exam Vital Signs (past 8 hours): - 01/16/23 08:21 01/16/23 12:00 Temperature 98.1 F Pulse Rate 67 Respiratory Rate 18 Blood Pressure 157/71 H Pulse Oximetry 99 Oxygen Delivery Method Room Air Oxygen Flow Rate 0 Oxygen Delivery Method Room Air Oxygen Flow Rate 0 Narrative Exam Narrative: GEN: no acute distress, general confusion HEENT: moist mucous membranes, PERRL NECK: trachea midline, no jvd PULM: clear bilaterally CHEST: slight bruising at lower lateral right ribcage, minimal pain to palpation CV: regular rate and rhythm, no murmurs ABD: soft, nontender, nondistended, no organomegaly EXT: warm and well perfused with no edema Objective Labs 01/15/23 06:26 01/15/23 06:26 Labs: Laboratory Results - last 24 hr 01/15/23 16:56 A.calcoaceticus-baumannii cmplx PCR Not detected Bacteroides fragilis Not detected Skyla albicans (PCR) Not detected Skyla auris (PCR) Not detected C. glabrata (PCR) Not detected C. krusei (PCR) Not detected C. parapsilosis (PCR) Not detected C. tropicalis (PCR) Not detected C. neoform/gattii (PCR) Not detected Enterobacterales (PCR) Not detected E. cloacae complex PCR Not detected Enterococc faecalis PCR Not detected Enterococc faecium PCR Not detected E. coli (PCR) Not detected H. influenzae (PCR) Not detected Klebsiella aerogenes (PCR) Not detected Klebsiella oxytoca PCR Not detected Klebsiella pneumoniae Not detected List. monocytogenes PCR Not detected N. meningitidis (PCR) Not detected Proteus species (PCR) Not detected Salmonella spp. (PCR) Not detected Serratia marcescens PCR Not detected Staphylococcus sp PCR Detected H Staph aureus (PCR) Not detected Staph epidermidis (PCR) Not detected Staph lugdunensis PCR Not detected S. maltophilia (PCR) Not detected Streptococcus sp PCR Not detected Group A Strep (PCR) Not detected Strep agalactiae (PCR) Not detected Strep pneumoniae (PCR) Not detected P. aeruginosa (PCR) Not detected PFSH Medical History Acute urinary retention Diabetes mellitus Great toe amputation status Hyperlipidemia Hypertension Surgical History History of permanent cardiac pacemaker placement Family History Father Cancer Social History household members: spouse Smoking Status: Former smoker alcohol intake: former Assessment & Plan Assessment & Plan narrative: 1. Acute rib fractures, right side -had been monitored for over 24 hours in the ED -not requiring oxygen, pain is well controlled -imaging showed 7th-9th rib fractures -CT chest negative for further injury, no pneumothorax, no pulmonary contusion -suspect low risk injury -continue pain medications -order for incentive spirometry, however, unlikely patient will be adherent due to dementia 2. Dementia with behavioral disturbances -unable to obtain any interim history from the patient due to dementia -has been having difficulty being taken care of at home -per ED staff they filed aps report stating patient was abandoned by family -previously has been noted that patient has been hard to place in snf due to dementia -previously family has refused predatory animal exterminator care, and per note no efforts have been made or are underway to place patient assisted -hospice consult had been ordered - continue to work on dispo as patient stable for placement -continue ativan, seroquel prn -continue donepezil 3. PRACHI on CKD 3 -renal function continuing to improve, follow labs 4. Type 2 Diabetes -continue home insulin and sliding scale 5. CAD s/p CABG, s/p PPM, HTN -continue aspirin, statin 6. Challenging social circumstances Social work involved. 7. New finding today of positive blood cultures with 2 staff species: Staph aureus epidermidis and Staph lugdunensis per lab. Based on these findings the patient had his discharge canceled and he was continued on ceftriaxone 2 g IV daily and initiated on vancomycin. Concern will be for a possible vegetations on the valves and therefore an echocardiogram was ordered. Continue to follow labs and monitor clinically CODE: Full Proxy: chidi Schulte
[2023-01-16 16:28] LABS: Add Manual Diff / Slide Review NO; Basophils Absolute Auto 0 /uL (0-100); Basophils Percent Auto 0.6 % (0-2); Eosinophils Absolute Auto 200 /uL (0-450); Hematocrit 34.8 % (41-53); Hemoglobin 11.5 g/dL (13.5-17.5); Lymphocytes Absolute Auto 1200 /uL (1100-4500); Lymphocytes Percent Auto 16.5 % (25-40); Mean Corpuscular HGB Conc 33.1 % (30-36); Mean Corpuscular Hemoglobin 27.8 PG (26-34); Mean Corpuscular Volume 83.9 fL (80-100); Monocytes Absolute Auto 500 /uL (0-900); Monocytes Percent Auto 7.6 % (3-14); Neutrophils Absolute Auto 5100 /uL (1500-7000); Neutrophils Percent Auto 72.3 % (50-75); Platelet Count 172 X10^3/uL (150-400); Red Blood Cell Count 4.15 X10^6/uL (4.5-5.9); Red Cell Distribution Width 16.1 % (11.6-14.8); White Blood Cell Count 7.1 X10^3/uL (4.5-11.0)
[2023-01-16] MEDS: cefTRIAXone 2,000 MG in SODIUM CHLORIDE 0.9% 100 ML 200 MG IV (16:33)
[2023-01-16 16:44] LABS: Alanine Aminotransferase 21 IU/L (<50); Albumin 3.6 g/dL (3.5-5.0); Albumin Globulin Ratio 1.2 (1.0-2.8); Alkaline Phosphatase 74 U/L (38-126); Aspartate Aminotransferase 32 IU/L (17-59); BUN Creatinine Ratio 19.8 (6-22); Blood Urea Nitrogen 32 mg/dL (9-20); C-Reactive Protein Quant 6.7 mg/dL (<1.0); Calcium 8.4 mg/dL (8.4-10.2); Carbon Dioxide 22 mmol/L (22-32); Chloride 105 mmol/L (98-107); Estimated Glomerular Filt Rate 42 mL/min (>60); Globulin 3.1 g/dL (1.7-4.1); Glucose 151 mg/dL (80-110); HEMOLYSIS 43 (0-50); Potassium 4.3 mmol/L (3.4-5.1); Sodium 137 mmol/L (137-145); Total Protein 6.7 g/dL (6.3-8.2)
[2023-01-16] MEDS: INSULIN LISPRO 100 UNIT/ML 3ML VIAL SUBCUT (16:56)
[2023-01-16 16:58] LABS: Procalcitonin 0.14 ng/mL (<0.5)
[2023-01-16] MEDS: VANCOMYCIN 1,500 MG/300 ML PIGGYBACK 200 MG IV (17:08)
[2023-01-16 19:00] VITALS: O2SAT 99
[2023-01-16] MEDS: DONEPEZIL 5 MG TABLET 10 MG PO (20:20)
[2023-01-16] MEDS: QUETIAPINE 25 MG TABLET 12.5 MG PO (20:21)
[2023-01-16] MEDS: LORazepam 0.5 MG TABLET PO (23:17)
[2023-01-16] MEDS: OXYCODONE IR 5 MG TABLET PO (23:17)
[2023-01-17 04:00] VITALS: BP 155/68; PULSE 61; RESP 16; TEMP 36; O2SAT 100
[2023-01-17 07:50] VITALS: O2SAT 98
[2023-01-17 08:30] VITALS: BP 118/69; PULSE 66; RESP 16; TEMP 36.4; O2SAT 95
[2023-01-17] MEDS: ATORVASTATIN 20 MG TABLET 40 MG PO (09:23)
[2023-01-17 10:04] LABS: Add Manual Diff / Slide Review NO; Basophils Absolute Auto 100 /uL (0-100); Basophils Percent Auto 0.7 % (0-2); Eosinophils Absolute Auto 400 /uL (0-450); Eosinophils Percent Auto 4.6 % (2-4); Hematocrit 33.8 % (41-53); Hemoglobin 11.3 g/dL (13.5-17.5); Lymphocytes Absolute Auto 1400 /uL (1100-4500); Lymphocytes Percent Auto 17.7 % (25-40); Mean Corpuscular HGB Conc 33.5 % (30-36); Mean Corpuscular Hemoglobin 27.8 PG (26-34); Mean Corpuscular Volume 83.2 fL (80-100); Monocytes Absolute Auto 600 /uL (0-900); Monocytes Percent Auto 7.1 % (3-14); Neutrophils Absolute Auto 5500 /uL (1500-7000); Neutrophils Percent Auto 69.9 % (50-75); Platelet Count 157 X10^3/uL (150-400); Red Blood Cell Count 4.06 X10^6/uL (4.5-5.9); Red Cell Distribution Width 15.7 % (11.6-14.8); White Blood Cell Count 7.8 X10^3/uL (4.5-11.0)
[2023-01-17 10:31] LABS: BUN Creatinine Ratio 18.5 (6-22); Blood Urea Nitrogen 28 mg/dL (9-20); Calcium 8.4 mg/dL (8.4-10.2); Carbon Dioxide 23 mmol/L (22-32); Chloride 110 mmol/L (98-107); Estimated Glomerular Filt Rate 45 mL/min (>60); Glucose 119 mg/dL (80-110); HEMOLYSIS < 15 (0-50); Potassium 3.9 mmol/L (3.4-5.1); Sodium 139 mmol/L (137-145)
--- NOTE | 2023-01-17 10:51 | CM.DPNOTE ---
DC Note Dr Pollock has reviewed plan with spouse Franca this morning; plan is for discharge home w/spouse and [facility] to follow in the home this afternoon between [id number] Placed call to [facility] and left msg, faxed completed DC Summary from Dr Lam (can plan to fax updated one if Dr Pollock completes a new one) Plan: Discharge home w/spouse, [facility] to follow this afternoon, possibly memory care for [facility] (which has been recommended) if spouse coordinates [facility]
--- NOTE | 2023-01-17 17:01 | PM.DS.1 ---
History of Present Illness History of Present Illness Date Patient Seen: 01/14/23 Time Patient Seen: 22:00 Chief complaint: GLF, agressive to , Narrative: Mr. Segovia is an 82M with [facility] dementia with behavioral disturbances, hypertension, hyperlipidemia who presents to the hospital after a fall. He was complaining of lower rib pain per the ED physician note, and nurse triage note. No information is obtainable from the patient due to his mental status. Apparently the patient has been violent and aggressive towards his . He has been seen multiple other times for various issues and has either been unable to be placed in SNF or per notes his has declined to place him in senior living care. Apparently per SW note he was supposed to have intake meeting with hospice this week. In the ED workup was done, he actually presented over 24 hours earlier in the afternoon of 01/13. Vitals notable for afebrile, heart rate in 70s, respiratory rate 16, sats 100% on room air. Labs reviewed by me and notable for WBC 6.5, hgb 11.8, plts 156. Na 140, creatinine 2.37, improved to 1.74. Bili 1.4. Urinalysis negative for any infection. chest xray reviewed by me and notable for right 7th-[address]th rib fractures. Ct c-spine negative for acute process. CT chest, abdomen, pelvis notable for 7th-9th acute rib fractures. CT head negative for acute process. Per staff patient is intermittently agitated and calm. His pain is well controlled. His breathing is unlabored and he is requiring no oxygen. Attempts were made to discharge the patient. Per SW note APS report was filed for patient abandoned by family in the ED. Attempts were made to find possible other facilities to accept the patient which were unsuccessful. . ED requested patient be admitted due to the above. Discharge Providers Provider Date of admission: 01/16/23 15:13 Discharge Date: 01/17/23 Primary care physician: Lauro Trevino PA-C Consults: 01/14/23 05:59 Consult to WOOD BARREL RECONDITIONER - Chocolate Production Machine Operator Stat Comment: 01/15/23 07:02 Consult to Physical Therapy Evaluate & Treat Comment: Physician Instructions: Evaluate and Treat Discharge provider: Nir Pollock DO Summary Hospital Course Discharge Diagnosis: 1. Acute rib fractures, right side -had been monitored for over 24 hours in the ED -not requiring oxygen, pain is well controlled -imaging showed 7th-9th rib fractures -CT chest negative for further injury, no pneumothorax, no pulmonary contusion -suspect low risk injury -continue pain medications -order for incentive spirometry, however, unlikely patient will be adherent due to dementia 2. Dementia with behavioral disturbances -unable to obtain any interim history from the patient due to dementia -has been having difficulty being taken care of at home -per ED staff they filed aps report stating patient was abandoned by family -previously has been noted that patient has been hard to place in snf due to dementia -previously family has refused senior living care, and per SW note no efforts have been made or are underway to place patient senior living -hospice consult had been ordered -sw continue to work on dispo as patient stable for placement -continue ativan, seroquel prn -continue donepezil 3. PRACHI on CKD 3 -renal function continuing to improve, follow labs 4. Type 2 Diabetes -continue home insulin and sliding scale 5. CAD s/p CABG, s/p PPM, HTN -continue aspirin, statin 6. Challenging social circumstances Social work involved. 7. Positive blood cultures -Blood cultures growing staph species in 2/4 bottles. Since patient is afebrile, with no leukocytosis is likely a contaminant. No abx needed. Hospital Course: Patient stabilized during the hospital stay.? White blood count remained normal.? Hemoglobin remained stable with most recent at 11.5.? Urine culture negative.? One time elevation of temperature to 100? F. Blood cultures were taken however patient has had no signs of sepsis.? Patient was initiated on ceftriaxone 2 g IV daily.? Most likely the elevation in temperature was in regards to the rib fractures.?Blood cultures grew staph species (not aurues, lugdunensis or epidermitis) so likely a contaminant as also in only 2/4 bottles. The plan per the , is to take the patient home and hospice care tomorrow and assess for memory care facilities in the community. Time Spent with Patient Time spent: Greater than 30 minutes Exam Vital Signs (past 8 hours): Oxygen Delivery Method Room Air Oxygen Flow Rate 0 Narrative Exam Narrative: GEN: no acute distress, general confusion HEENT: moist mucous membranes, PERRL NECK: trachea midline, no jvd PULM: clear bilaterally CHEST: slight bruising at lower lateral right ribcage, minimal pain to palpation CV: regular rate and rhythm, no murmurs ABD: soft, nontender, nondistended, no organomegaly EXT: warm and well perfused with no edema Objective Labs 01/17/23 09:53 01/17/23 09:53 Labs: Laboratory Results - last 24 hr 01/15/23 01/17/23 01/17/23 16:56 09:53 09:53 WBC 7.8 RBC 4.06 L Hgb 11.3 L Hct 33.8 L MCV 83.2 MCH 27.8 MCHC 33.5 RDW 15.7 H Plt Count 157 Neut % (Auto) 69.9 Lymph % (Auto) 17.7 L Dupage % (Auto) 7.1 Eos % (Auto) 4.6 H Baso % (Auto) 0.7 Neut # (Auto) 5500 Lymph # (Auto) 1400 [place] # (Auto) 600 Eos # (Auto) 400 Baso # (Auto) 100 Sodium 139 Potassium 3.9 Chloride 110 H Carbon Dioxide 23 BUN 28 H Creatinine 1.51 H Estimated GFR 45 L BUN/Creatinine Ratio 18.5 Glucose 119 H Calcium 8.4 C-Reactive Protein 4.0 H Procalcitonin 0.10 Staphylococcus sp PCR Detected [facility] Medical History Acute urinary retention Diabetes mellitus Great toe amputation status Hyperlipidemia Hypertension Surgical History History of permanent cardiac pacemaker placement Family History Father Cancer Social History household members: spouse Smoking Status: Former smoker alcohol intake: former Discharge Plan Discharge Plan Patient Disposition: Hospice - Home Discharge orders & Medications Prescriptions: Continued atorvastatin 40 MG tablet 40 mg PO DAILY Qty: 0 donepezil 10 mg Tablet 10 mg PO DAILY lorazepam [Ativan] 0.5 mg tablet 0.5 mg PO BEDTIME PRN (Reason: agitation) Qty: 5 0RF Follow up/Referrals: Lauro Trevino PA-C [Primary Care Provider] - 2 Weeks Visit Report/Discharge Packet Instructions: Rib Fracture, DI for Rib Fracture, How to Prevent Falls, Azithromycin Stand Alone Forms: Patient Portal/API, Stroke Signs & Symptoms Discharge Data Primary Care Provider: Lauro Trevino Discharges patient from system. Discharge Date/Time: 01/17/23 12:29
== END 2023-01-17 12:29 | disposition hospice, home (50) | DRG 184 ==
LOC: ED 01-14 21:45 → AC 01-14 21:47
PROVIDERS: Emergency Medicine; Neuromusculoskeletal Medicine, Sports Medicine; Admitting Provider Internal Medicine; Emergency Provider Emergency Medicine; PCP Physician Assistant; Visit Provider Internal Medicine
DX: S22.41XA Multiple fractures of ribs, right side, initial encounter for closed fracture (principal); F03.918 Unspecified dementia, unspecified severity, with other behavioral disturbance; N17.9 Acute kidney failure, unspecified; I25.10 Atherosclerotic heart disease of native coronary artery without angina pectoris; E78.5 Hyperlipidemia, unspecified; E11.22 Type 2 diabetes mellitus with diabetic chronic kidney disease; I12.9 Hypertensive chronic kidney disease with stage 1 through stage 4 chronic kidney disease, or unspecified chronic kidney disease; N18.30 Chronic kidney disease, stage 3 unspecified; B95.7 Other staphylococcus as the cause of diseases classified elsewhere; W19.XXXA Unspecified fall, initial encounter; Z95.0 Presence of cardiac pacemaker; Z95.1 Presence of aortocoronary bypass graft; Z20.822 Contact with and (suspected) exposure to COVID-19; Z79.4 Long term (current) use of insulin; Z87.891 Personal history of nicotine dependence
CPT/HCPCS: 36415; 70450; 71045; 71260; 72125; 74177; 80048; 80053; 80061; 80305; 80320; 80329; 81003; 82550; 82962; 83690; 83735; 83880; 84145; 84439; 84443; 84484; 85025; 86140; 87040; 87086; 87154; 87186; 87635; 93005; 96372; 99285; 99291; C9803; G0378; G0390; G0480; J0696; J1630; J1815; J2060; Q9967